=== PATIENT | male | born 1930 | race Caucasian/White ===

== ENCOUNTER 2017-05-02 20:02 | Inpatient (IN) | payer BC, OTHER ==
[2017-05-02 20:43] VITALS: BMI 24.5
--- NOTE | 2017-05-02 21:21 | PDOC ---
History of Present Illness - General Chief Complaint: Shortness of Breath Stated Complaint: PCP SENT Time Seen by Provider: 05/02/17 21:03 - History of Present Illness Initial Comments: 05/02/17 21:38 The patient is an 87 year old male with a history of Thalassemia Minor, HTN, HLD who presents for admission from his PCP for "fluid on the lungs". The patient reports a 1 week history of SOB worsening over the past 3 days with an associated non-productive cough. He presented to his primary care provider's office Dr. Peralta who informed him that he had "fluid on his lungs" and sent the patient to the ED for admission. The patient denies fevers, chills, chest pain , nausea, vomiting, abdominal pain, or changes with urination or bowel movements. He does endorse some lower extremity swelling which he states is chronic. Past History - Past Medical History Allergies/Adverse Reactions: Allergies Allergy/AdvReac Type Severity Reaction Status Date / Time No Known Allergies Allergy Verified 05/02/17 20:30 Home Medications: Ambulatory Orders Atenolol [Tenormin -] 50 mg PO DAILY 07/16/14 Ciprofloxacin [Cipro (Restricted To Id)] 250 mg PO BID #14 tablet 07/16/14 Folic Acid - 1 mg PO DAILY 07/16/14 Folic Acid/Multivit-Min/Lutein [Centrum Silver Chewable Tablet] 1 each PO DAILY 07/16/14 Hydrochlorothiazide [Hctz -] 25 mg PO DAILY 07/16/14 Anemia: Yes COPD: No HTN: Yes - Suicide/Smoking/Psychosocial Hx Smoking History: Former smoker Have you smoked in the past 12 months: No If you are a former smoker, when did you quit?: 1973 Information on smoking cessation initiated: No Hx Alcohol Use: No Review of Systems - Review of Systems Comments:: 05/02/17 21:41 Constitutional: No fevers, chills, fatigue, malaise HEENT: No Rhinorrhea, nasal congestion, visual changes Cardiovascular: No chest pain, syncope, palpitations, lightheadedness Respiratory: SOB, Cough. No Hemoptysis, Gastrointestinal: No Abdominal pain, Nausea, Vomiting, Constipation, Diarrhea, Melena Genitourinary: No Dysuria, Frequency, Urgency, Hesitancy, Hematuria, Flank pain Musculoskeletal: Lower extremity swelling. No Myalgia, arthralgia Skin: No rashes, itching, bruising, pallor Neurologic: No Headache, Dizziness, Numbness, Weakness, or Tingling Psychiatric: No Hallucinations. No SI or HI *Physical Exam - Vital Signs Last Vital Signs Temp Pulse Resp BP Pulse Ox 98.6 F 107 H 28 H 119/71 86 L 05/02/17 20:30 05/02/17 20:30 05/02/17 20:30 05/02/17 20:30 05/02/17 20:30 - Physical Exam Comments: 05/02/17 21:42 General Appearance: Nourished. No Apparent Distress HEENT: EOMI, MONTEZ. No Pharyngeal Erythema, Tonsillar Exudate, Tonsillar Erythema Neck: No Cervical Lymphadenopathy Respiratory/Chest: Normal Breath Sounds. Bibasilar crackles auscultated on exam. No Rhonchi, Wheezing Cardiovascular: Regular Rhythm, Regular Rate. No Murmur, Gallops, Rubs Gastrointestinal/Abdominal: Normal Bowel Sounds, Soft. No Guarding, Rebound, Tenderness Musculoskeletal: No CVA Tenderness Extremity: 3+ pitting edema in the lower extremities. Normal Capillary Refill Integumentary: Normal Color, Dry, Warm Neurologic: Fully Oriented, Alert, Normal Mood/Affect, Normal Response, Heart Score/ECG Review #1 ECG reviewed & interpreted by me at: 01:31 (New AFib with a HR of 104) General ECG Interpretation: Normal Intervals, No acute ischemic changes ED Treatment Course - LABORATORY CBC & Chemistry Diagram: 05/03/17 00:49 05/03/17 00:49 Medical Decision Making - Medical Decision Making 05/02/17 21:44 The patient is an 87 year old male with a history of Thalassemia Minor, HTN, HLD who presents for admission from his PCP for "fluid on the lungs". Differential includes but is not limited to: Sepsis, CHF, Pneumonia, pleural effusions, infectious, metabolic derangement. Given the patient's symptoms and history, we will obtain a sepsis work up including a cbc, cmp, ua, lactate, troponin, vbg, chest plain film and blood cultures. The patient will require admission for further management of his symptoms. We will continue to monitor and reassess. 05/03/17 01:58 CBC, cmp, lactate, troponin, vbg are unremarkable. EKG demonstrates new onset afib when compared with previous. Chest plain film demonstrates pleural effusions bilaterally worse on the right with pulmonary congestion as preliminarily read by ER physician. It is possible the patient went into new onset afib which is contributing to the patient's pulmonary congestion and lower extremity edema. We discussed the patient with the hospitalist team who accepted the patient for admission. *DC/Admit/Observation/Transfer Diagnosis at time of Disposition: Pleural effusion Afib Qualifiers: Atrial fibrillation type: unspecified Qualified Code(s): I48.91 - Unspecified atrial fibrillation - Discharge Dispostion Condition at time of disposition: Stable Admit: Yes - Referrals Referrals: Dat Peralta MD [Primary Care Provider] - - Patient Instructions - Post Discharge Activity
--- NOTE | 2017-05-02 21:40 | PDOC ---
Attending Attestation - HPI HPI: 05/02/17 21:41 The patient is a 87 year old male, with a significant past medical history of hypertension, aortic dissection, who presents to the emergency department from the office of Dr. Peralta for admission. The patient presented to Dr. Peralta with shortness of breath and was found to have fluid in the lungs on chest x-ray. The patient also reports an intermittent, dry cough. The patient denies chest pain, headache and dizziness. The patient denies fever, chills, nausea, vomit, diarrhea and constipation. The patient denies dysuria, frequency, urgency and hematuria. Allergies: NKDA PCP - Dr. Peralta - Medical Decision Making 05/02/17 21:41 Documentation prepared by Mary Malone, acting as medical billing and coding specialist for Krish Phelan DO. <Mary Malone - Last Filed: 05/02/17 21:41> - Resident Resident Name: Barrington Flores - ED Attending Attestation I have performed the following: I have examined & evaluated the patient, The case was reviewed & discussed with the resident, I agree w/resident's findings & plan, Exceptions are as noted - Physicial Exam PE: 05/02/17 23:01 *Physical Exam General Appearance: Yes: Appropriately Dressed. No: Apparent Distress, Intoxicated HEENT: positive: EOMI, MONTEZ, Normal ENT Inspection, Normal Voice, TMs Normal, Pharynx Normal. negative: Pale Conjunctivae, Photophobia, Scleral Icterus (R), Scleral Icterus (L) Neck: positive: Trachea midline, Normal Thyroid, Supple. negative: Tender, Rigid, Carotid bruit, Stridor, Lymphadenopathy (R), Lymphadenopathy (L), Thyromegaly Respiratory/Chest: positive: Lungs decreased BS bilaterally negative: Chest Tender, Respiratory Distress, Accessory Muscle Use, Labored Respiration, RES, Crackles, Rales, Rhonchi, Stridor, Wheezing, Dullness Cardiovascular: positive: Regular Rhythm, Regular Rate, S1, S2. negative: Edema , JVD, Murmur, Bradycardia, Tachycardia Vascular Pulses: Dorsalis-Pedis (R): 2+, Doralis-Pedis (L): 2+ Gastrointestinal/Abdominal: positive: Normal Bowel Sounds, Flat, Soft. negative : Tender, Organomegaly, Pulsatile Mass, Increased Bowel Sounds, Decreased BS, Distended, Guarding, Rebound, Hernia, Hepatomegaly, Spleenomegaly Lymphatic: negative: Adenopathy, Tenderness Musculoskeletal: positive: Normal Inspection. negative: CVA Tenderness, Decreased Range of Motion Extremity: positive: Normal Capillary Refill, Normal Inspection, Normal Range of Motion, Pelvis Stable. negative: Tender, Pedal Edema, Swelling, Erythema Integumentary: positive: Normal Color, Dry, Warm. negative: Cyanotic, Erythema , Jaundice, Rash Neurologic: positive: medication aid II-XII NML intact, Fully Oriented, Alert, Normal Mood/ Affect, Motor Strength 5/5. negative: EOM Palsy, Facial Droop, Sensory Deficit <Krish Phelan - Last Filed: 05/02/17 23:02>
[2017-05-03 01:04] LABS: BASO % 0.1 % (0-2.0); HEMATOCRIT 30.4 % (35.4-49); HEMOGLOBIN 9.5 GM/dL (11.7-16.9); LYMPH % 17.4 % (8-40); MCH 20.6 pg (25.7-33.7); MCHC 31.3 g/dl (32.0-35.9); MEAN CELL VOLUME 65.8 fl (80-96); MEAN PLT VOLUME 9.4 fl (7.5-11.1); MONO % 13.6 % (3.8-10.2); NEUT % 68.9 % (42.8-82.8); PLATELET COUNT 176 K/MM3 (134-434); RBC 4.62 M/mm3 (4.00-5.60); RDW 17.6 % (11.9-15.9); WHITE BLOOD COUNT 6.5 K/mm3 (4.0-10.0)
[2017-05-03 01:12] LABS: VENOUS PC02 43.8 mmHg (38-52); VENOUS PH 7.37 (7.32-7.42); VENOUS PO2 28.2 mmHg (28-48)
[2017-05-03 01:13] LABS: ADD RBC MORPHOLOGY YES
[2017-05-03 01:16] LABS: ANISOCYTOSIS 1+
[2017-05-03 01:17] LABS: INR 1.22 (0.82-1.09); PROTHROMBIN TIME (PATIENT) 13.8 SEC (9.98-11.88)
[2017-05-03 01:22] LABS: URINE APPEARANCE SLCLOUDY; URINE BILIRUBIN NEGATIVE (NEGATIVE); URINE BLOOD NEGATIVE (NEGATIVE); URINE COLOR DKYELLOW; URINE GLUCOSE (UA) NEGATIVE (NEGATIVE); URINE KETONE NEGATIVE (NEGATIVE); URINE NITRITE NEGATIVE (NEGATIVE)
[2017-05-03 01:27] LABS: ALBUMIN 3.3 g/dl (3.4-5.0); ANION GAP 12 (8-16); BILIRUBIN,TOTAL 0.9 mg/dL (0.2-1.0); BLOOD UREA NITROGEN 23 mg/dL (7-18); CALCIUM 8.6 mg/dL (8.5-10.1); CHLORIDE 103 mmol/L (98-107); CO2 24 mmol/L (21-32); CREATININE 1.4 mg/dL (0.7-1.3); GLUCOSE,RANDOM 106 mg/dL (74-106); POTASSIUM 3.8 mmol/L (3.5-5.1); SGOT/AST 20 U/L (15-37); SGPT/ALT 21 U/L (12-78); SODIUM 139 mmol/L (136-145); TOT PROT 6.8 g/dl (6.4-8.2)
[2017-05-03 01:29] LABS: ALK PHOS 113 U/L (45-117)
[2017-05-03 01:41] LABS: URINE LEUK ESTERASE 3+ (NEGATIVE); URINE PROTEIN 1+ (NEGATIVE)
[2017-05-03 01:43] LABS: EPI CELLS RARE /HPF (FEW); URINE BACTERIA RARE /hpf (NONE SEEN); URINE HYALINE CAST 40 /lpf; URINE MUCUS RARE
--- NOTE | 2017-05-03 01:58 | HP ---
Admitting History and Physical - Primary Care Physician PCP: Dat Peralta - Admission Chief Complaint: SOB, Non-Productive Cough, Lower Extremity Edema History of Present Illness: This is a 87 y/o man who presents to the ED sent in by his PCP for increased SOB x 1 week lower leg edema and non-productive cough x 3 days. Patient denies fever, chills, dizziness, CP, palpitations, AP, N/V/D, dysuria. History Source: Patient Limitations to Obtaining History: No Limitations - Past Medical History Cardiovascular: Yes: HTN, Hyperlipdemia Heme/Onc: Yes: Other (Thalassemia) - Smoking History Smoking history: Former smoker Have you smoked in the past 12 months: No If you are a former smoker, when did you quit?: 1973 - Alcohol/Substance Use Hx Alcohol Use: No History of Substance Use: reports: None - Social History Usual Living Arrangement: Yes: With Spouse ADL: Independent History of Recent Travel: No Home Medications - Allergies Allergies/Adverse Reactions: Allergies Allergy/AdvReac Type Severity Reaction Status Date / Time No Known Allergies Allergy Verified 05/02/17 20:30 - Home Medications Home Medications: Ambulatory Orders Atenolol [Tenormin -] 50 mg PO DAILY 07/16/14 Ciprofloxacin [Cipro (Restricted To Id)] 250 mg PO BID #14 tablet 07/16/14 Folic Acid - 1 mg PO DAILY 07/16/14 Folic Acid/Multivit-Min/Lutein [Centrum Silver Chewable Tablet] 1 each PO DAILY 07/16/14 Hydrochlorothiazide [Hctz -] 25 mg PO DAILY 07/16/14 Family Disease History - Family Disease History Family History: Unable to Obtain Review of Systems - Review of Systems Constitutional: reports: No Symptoms Eyes: reports: No Symptoms HENT: reports: No Symptoms Neck: reports: No Symptoms Cardiovascular: reports: No Symptoms Respiratory: reports: Cough, SOB, SOB on Exertion Gastrointestinal: reports: No Symptoms Genitourinary: reports: No Symptoms Breasts: reports: No Symptoms Reported Musculoskeletal: reports: No Symptoms Integumentary: reports: No Symptoms Neurological: reports: No Symptoms Endocrine: reports: No Symptoms Hematology/Lymphatic: reports: No Symptoms Psychiatric: reports: No Symptoms Physical Examination Vital Signs: Vital Signs Temperature 98.6 F 05/03/17 01:38 Pulse Rate 104 H 05/03/17 01:38 Respiratory Rate 21 05/03/17 01:38 Blood Pressure 145/88 05/03/17 01:38 O2 Sat by Pulse Oximetry (%) 95 05/03/17 01:38 Constitutional: Yes: No Distress, Calm, Thin Eyes: Yes: WNL, Conjunctiva Clear, PERRL HENT: Yes: WNL, Atraumatic, Normocephalic Neck: Yes: WNL, Supple, Trachea Midline Cardiovascular: Yes: Pulse Irregular, S1, S2 Respiratory: Yes: Diminished, On Nasal O2 (bases) Gastrointestinal: Yes: WNL, Normal Bowel Sounds, Soft ...Rectal Exam: Yes: Deferred Renal/: Yes: WNL Breast(s): Yes: WNL Musculoskeletal: Yes: WNL Extremities: Yes: WNL Edema: Yes Edema: LLE: 3+, RLE: 3+ Peripheral Pulses WNL: Yes Integumentary: Yes: Erythema, Onychomycosis Neurological: Yes: WNL, Alert, Oriented, Cran Nerves II-XII Intact ...Motor Strength: WNL Psychiatric: Yes: WNL, Alert, Oriented Labs: CBC, BMP 05/03/17 00:49 05/03/17 00:49 Imaging - Results Chest X-ray: Image Reviewed EKG: Image Reviewed Problem List - Problems (1) Pleural effusion Code(s): J90 - PLEURAL EFFUSION, NOT ELSEWHERE CLASSIFIED (2) Afib Code(s): I48.91 - UNSPECIFIED ATRIAL FIBRILLATION Qualifiers: Atrial fibrillation type: unspecified Qualified Code(s): I48.91 - Unspecified atrial fibrillation (3) Thalassemia Code(s): D56.9 - THALASSEMIA, UNSPECIFIED (4) HTN (hypertension) Code(s): I10 - ESSENTIAL (PRIMARY) HYPERTENSION (5) HLD (hyperlipidemia) Code(s): E78.5 - HYPERLIPIDEMIA, UNSPECIFIED (6) DVT prophylaxis Code(s): DDN1258 - Assessment/Plan This is a 87 y/o man with a PMHx of: Thalassemia, HLD, HTN. Admitted to Telemetry for New Onset Afib, Pleural Effusion. Plan: 1. Cardiology: New Onset Afib, HTN, HLD - Cardiac Monitoring - [id number] - Will start Eliquis - Appreciate Cardiology Consult - Serial Enzymes - Echo in am - Continue BP meds with parameters - Continue Statin - Monitor LFTs - Monitor renal function 2. Pulm: Pleural Effusion - Chest Xray- image reviewed - Lasix - Strict INOs - Daily weights - O2 - Consider Thoracentesis if condition worsens 3. Heme - Monitor CBCD - Continue to treat with interventions accordingly 4. F/E/N - Fluid Restrictions 1L - Replete lytes prn - Low Na Diet 5. DVT Prophylaxis - OOB - Continue Eliquis Code Status: Full Code Dispo: Requires Inpatient Care Visit type - Emergency Visit Emergency Visit: Yes ED Registration Date: 05/02/17 Care time: The patient presented to the Emergency Department on the above date and was hospitalized for further evaluation of their emergent condition. - New Patient This patient is new to me today: Yes Date on this admission: 05/02/17 - Critical Care Critical Care patient: No Hospitalist Screening - Colonoscopy Questionnaire Colonoscopy Questionnaire: Colonoscopy Questionnaire - Patient: 50 - 75 years old and never had a screening colonoscopy: No History of colon or rectal polyps, or CA: No History of IBD, Crohn's disease or UC: No History of abdominal radiation therapy as a child: No - Relative: 1 with colon or rectal CA, or polyps at age 60 or younger: No Colon or rectal CA diagnosed at age 45 or younger: No Multiple relatives with colon or rectal CA: No - Outcome: Screening Result: Negative Screen
[2017-05-03] MEDS ORDERED: CEFTRIAXONE 1 GM/50 ML BAG ONE (06:31)
[2017-05-03 07:06] LABS: BASO % 0.2 % (0-2.0); EOS % 0.2 % (0-4.5); HEMATOCRIT 30.2 % (35.4-49); HEMOGLOBIN 9.3 GM/dL (11.7-16.9); LYMPH % 26.3 % (8-40); MCH 20.5 pg (25.7-33.7); MCHC 30.9 g/dl (32.0-35.9); MEAN CELL VOLUME 66.4 fl (80-96); NEUT % 58.3 % (42.8-82.8); PLATELET COUNT 163 K/MM3 (134-434); RBC 4.55 M/mm3 (4.00-5.60); RDW 18.2 % (11.9-15.9); WHITE BLOOD COUNT 6.9 K/mm3 (4.0-10.0)
[2017-05-03 07:32] LABS: MAGNESIUM 1.4 mg/dL (1.8-2.4)
[2017-05-03] MEDS ORDERED: ATENOLOL 25 MG TABLET (FP) ONE (09:58)
[2017-05-03] MEDS ORDERED: CEFTRIAXONE 1 G/50 ML PREMIX 50 ML IVPB SCH (10:00)
[2017-05-03] MEDS ORDERED: ATENOLOL 50 MG TABLET (FP) PO SCH (10:00)
[2017-05-03] MEDS: AZITHROMYCIN IVPB 500 MG in DEXTROSE 5%-WATER - 250 ML IVPB SCH (10:01)
[2017-05-03] MEDS ORDERED: MAGNESIUM SULF 50% (8.12 MEQ/2 ML-1 GM VIAL) IVPB ONE (10:30)
[2017-05-03] MEDS ORDERED: MAGNESIUM SULF 50% (8.12 MEQ/2 ML-1 GM VIAL) ONE (11:09)
[2017-05-03] MEDS ORDERED: FUROSEMIDE 40 MG/4 ML INJECTABLE VIAL ONE (11:09)
--- NOTE | 2017-05-03 11:57 | PN ---
Physical Exam: SUBJECTIVE: Patient seen and examined awaiting bed assignment in the ER. Holding bed #7 Denies chest pain, verbalizes dyspnea with exertion. States he is compliant with all his home meds. OBJECTIVE: Appears comfortable at rest in no acute distress, but dyspnea on exertion reported mag 1.4 and repleted with 2 gram mag Echo ordered Cardiology and ID consulted by night team On Ceftriaxone On Eliquis BID for new onset afib Vital Signs Period Temp Pulse Resp BP Sys/Garsia Pulse Ox Last 24 Hr 98.5 F-98.6 F 104-109 18-28 119-158/71-103 86-95 GENERAL: The patient is awake, alert, and fully oriented, in no acute distress. HEAD: Normal with no signs of trauma. EYES: PERRL, extraocular movements intact, sclera anicteric, conjunctiva clear. No ptosis. ENT: Ears normal, nares patent, oropharynx clear without exudates, moist mucous membranes. NECK: Trachea midline, full range of motion, supple. LUNGS: scattered rhonchi auscultated on all lung carpenter, on 3 liter of supplemental oxygen HEART: irregular ABDOMEN: Soft, nontender, nondistended, normoactive bowel sounds EXTREMITIES: bilateral lower extremity non pitting edema, patient states bilateral lower ext edema chronic for years NEUROLOGICAL: Normal speech, gait not observed. PSYCH: Normal mood, normal affect. SKIN: Warm, dry, normal turgor, no rashes or lesions noted Laboratory Results - last 24 hr 05/03/17 05/03/17 05/03/17 00:49 00:49 00:49 WBC 6.5 D RBC 4.62 Hgb 9.5 L Hct 30.4 L MCV 65.8 L MCH 20.6 L MCHC 31.3 L RDW 17.6 H D Plt Count 176 MPV 9.4 D Neutrophils % 68.9 Lymphocytes % 17.4 Monocytes % 13.6 H Eosinophils % 0.0 D Basophils % 0.1 Hypochromia 3+ Anisocytosis 1+ Microcytosis 1+ PT with INR 13.80 H INR 1.22 H PTT (Actin FS) 34.0 VBG pH 7.37 POC VBG pCO2 43.8 POC VBG pO2 28.2 Mixed VBG HCO3 25.0 Sodium Potassium Chloride Carbon Dioxide Anion Gap BUN Creatinine Creat Clearance w eGFR Random Glucose Lactic Acid Calcium Phosphorus Magnesium Total Bilirubin AST ALT Alkaline Phosphatase Creatine Kinase Troponin I Total Protein Albumin Triglycerides Cholesterol Total LDL Cholesterol HDL Cholesterol Urine Color Urine Appearance Urine pH Ur Specific [place] Urine Protein Urine Glucose (UA) Urine Ketones Urine Blood Urine Nitrite Urine Bilirubin Urine Urobilinogen Ur Leukocyte Esterase Urine WBC (Auto) Urine RBC (Auto) Ur Epithelial Cells Urine Bacteria Hyaline Casts Urine Mucus Blood Type Antibody Screen 05/03/17 05/03/17 05/03/17 00:49 00:49 00:49 WBC RBC Hgb Hct MCV MCH MCHC RDW Plt Count MPV Neutrophils % Lymphocytes % Monocytes % Eosinophils % Basophils % Hypochromia Anisocytosis Microcytosis PT with INR INR PTT (Actin FS) VBG pH POC VBG pCO2 POC VBG pO2 Mixed VBG HCO3 Sodium 139 Potassium 3.8 Chloride 103 Carbon Dioxide 24 D Anion Gap 12 BUN 23 H Creatinine 1.4 H D Creat Clearance w eGFR 47.83 Random Glucose 106 D Lactic Acid 1.2 Calcium 8.6 Phosphorus Magnesium Total Bilirubin 0.9 D AST 20 D ALT 21 Alkaline Phosphatase 113 D Creatine Kinase 90 Troponin I 0.04 Total Protein 6.8 Albumin 3.3 L Triglycerides Cholesterol Total LDL Cholesterol HDL Cholesterol Urine Color Urine Appearance Urine pH Ur Specific [place] Urine Protein Urine Glucose (UA) Urine Ketones Urine Blood Urine Nitrite Urine Bilirubin Urine Urobilinogen Ur Leukocyte Esterase Urine WBC (Auto) Urine RBC (Auto) Ur Epithelial Cells Urine Bacteria Hyaline Casts Urine Mucus Blood Type O POSITIVE Antibody Screen Negative 05/03/17 05/03/17 05/03/17 01:08 06:53 06:53 WBC 6.9 RBC 4.55 Hgb 9.3 L Hct 30.2 L MCV 66.4 L MCH 20.5 L MCHC 30.9 L RDW 18.2 H Plt Count 163 MPV 9.0 Neutrophils % 58.3 Lymphocytes % 26.3 D Monocytes % 15.0 H Eosinophils % 0.2 D Basophils % 0.2 Hypochromia Anisocytosis Microcytosis PT with INR INR PTT (Actin FS) VBG pH POC VBG pCO2 POC VBG pO2 Mixed VBG HCO3 Sodium Potassium Chloride Carbon Dioxide Anion Gap BUN Creatinine Creat Clearance w eGFR Random Glucose Lactic Acid Calcium Phosphorus 3.0 Magnesium 1.4 L Total Bilirubin AST ALT Alkaline Phosphatase Creatine Kinase Troponin I 0.05 Total Protein Albumin Triglycerides 69 Cholesterol 68 Total LDL Cholesterol 37 HDL Cholesterol 31 L Urine Color Dkyellow Urine Appearance Slcloudy Urine pH 5.0 Ur Specific [place] 1.018 Urine Protein 1+ H Urine Glucose (UA) Negative Urine Ketones Negative Urine Blood Negative Urine Nitrite Negative Urine Bilirubin Negative Urine Urobilinogen 2.0 Ur Leukocyte Esterase 3+ H Urine WBC (Auto) 103 Urine RBC (Auto) 4 Ur Epithelial Cells Rare Urine Bacteria Rare Hyaline Casts 40 Urine Mucus Rare Blood Type Antibody Screen Active Medications Generic Name Dose Route Start Last Admin Trade Name Freq PRN Reason Stop Dose Admin Apixaban 5 mg 05/03/17 12:00 Eliquis - PO BID RIVAS Atenolol 50 mg 05/03/17 10:00 05/03/17 10:01 Tenormin - PO 50 mg DAILY RIVAS Administration Folic Acid 1 mg 05/03/17 10:00 Folic Acid - PO DAILY RIVAS Furosemide 40 mg 05/03/17 10:00 Lasix Injection - IVPUSH DAILY RIVAS CEFTRIAXONE 1 G/50 ML PREMIX 50 mls @ 100 mls/hr 05/03/17 10:00 Ceftriaxone 1 Gm-D5w Bag IVPB DAILY RIVAS Azithromycin 500 mg/ Dextrose 250 mls @ 250 mls/hr 05/03/17 10:00 05/03/17 10 :01 IVPB 250 mls/hr DAILY RIVAS Administration Multivitamins/Minerals 1 each 05/03/17 10:45 Theragran-M PO DAILY RIVAS ASSESSMENT/PLAN: Visit type - Emergency Visit Emergency Visit: Yes ED Registration Date: 05/03/17 Care time: The patient presented to the Emergency Department on the above date and was hospitalized for further evaluation of their emergent condition. - New Patient This patient is new to me today: Yes Date on this admission: 05/04/17 - Critical Care Critical Care patient: No - Discharge Referral Referred to [facility] No
[2017-05-03] MEDS: FUROSEMIDE 40 MG/4 ML INJECTABLE VIAL IVPUSH SCH (12:00)
--- NOTE | 2017-05-03 12:17 | EKG ---
Test Reason : Blood Pressure : / mmHG Vent. Rate : 104 BPM Atrial Rate : 416 BPM P-R Int : 000 ms QRS Dur : 096 ms QT Int : 360 ms P-R-T Axes : 000 051 091 degrees QTc Int : 473 ms ATRIAL FIBRILLATION WITH RAPID VENTRICULAR RESPONSE VOLTAGE CRITERIA FOR LEFT VENTRICULAR HYPERTROPHY NONSPECIFIC ST AND T WAVE ABNORMALITY ABNORMAL ECG WHEN COMPARED WITH ECG OF 16-JUL-2014 18:01, SIGNIFICANT CHANGES HAVE OCCURRED Confirmed by USAMA BRADEN, DUDLEY ([id number]) on 05/03/2017 12:17:40 PM Referred By: Confirmed By:DUDLEY FORRESTER MD
--- NOTE | 2017-05-03 12:53 | CON.ID ---
Consult Consult Specialty:: infectious diseases Reason for Consultation:: pna,r/o uti - History of Present Illness Chief Complaint: sob,fever,r/o uti History of Present Illness: 87 year old man former heavy smoker, copd, htn, AAA s/p stent repair at [facility] 2013 , admitted with progressive sob, orthopnea and leg edema. patient mentions that the sob came on suddenly denies any other symptoms except that he was feverish patient also feels very weak and has no strength at all he also has new onset of afib denies dirrhoea ,nausea or vomiting - History Source History Provided By: Patient Limitations to Obtaining History: No Limitations - Past Medical History Cardio/Vascular: Yes: HTN, Hyperlipdemia - Alcohol/Substance Use Hx Alcohol Use: No History of Substance Use: reports: None - Smoking History Smoking history: Former smoker Have you smoked in the past 12 months: No If you are a former smoker, when did you quit?: 1973 - Social History ADL: Independent History of Recent Travel: No Home Medications - Allergies Allergies/Adverse Reactions: Allergies Allergy/AdvReac Type Severity Reaction Status Date / Time No Known Allergies Allergy Verified 05/02/17 20:30 - Home Medications Home Medications: Ambulatory Orders Atenolol [Tenormin -] 50 mg PO DAILY 07/16/14 Ciprofloxacin [Cipro (Restricted To Id)] 250 mg PO BID #14 tablet 07/16/14 Folic Acid - 1 mg PO DAILY 07/16/14 Folic Acid/Multivit-Min/Lutein [Centrum Silver Chewable Tablet] 1 each PO DAILY 07/16/14 Hydrochlorothiazide [Hctz -] 25 mg PO DAILY 07/16/14 Review of Systems - Review of Systems Constitutional: reports: Fever Eyes: reports: No Symptoms HENT: reports: No Symptoms Neck: reports: No Symptoms Cardiovascular: reports: No Symptoms Respiratory: reports: Cough, SOB Gastrointestinal: reports: No Symptoms Genitourinary: reports: No Symptoms Musculoskeletal: reports: No Symptoms Integumentary: reports: No Symptoms Neurological: reports: No Symptoms Endocrine: reports: No Symptoms Hematology/Lymphatic: reports: No Symptoms Psychiatric: reports: No Symptoms Physical Exam Vital Signs: Vital Signs Temperature 98.5 F 05/03/17 06:38 Pulse Rate 109 H 05/03/17 10:00 Respiratory Rate 18 05/03/17 10:00 Blood Pressure 154/81 05/03/17 10:00 O2 Sat by Pulse Oximetry (%) 95 05/03/17 10:00 Constitutional: Yes: No Distress, Calm, Other Eyes: Yes: Conjunctiva Clear HENT: Yes: Atraumatic, Normocephalic Neck: Yes: Supple, Trachea Midline Cardiovascular: Yes: Pulse Irregular Respiratory: Yes: On Nasal O2, Poor Air Entry (bases), Other (absent on the rt side) Gastrointestinal: Yes: Normal Bowel Sounds, Soft Musculoskeletal: Yes: WNL Extremities: Yes: WNL Neurological: Yes: Alert, Oriented Psychiatric: Yes: Alert, Oriented Labs: CBC, BMP 05/03/17 06:53 05/03/17 00:49 Assessment/Plan looking at the xray patient has a infiltrate and pleural effusion on the rt side Respiratory Failure Decompensated CHF New Onset Atrial Fibrillation UTI Acute Kidney Injury COPD/Emphysema plan ct of the chest funk start patient on abx await for all results rest as per primary and pul
[2017-05-03] MEDS ORDERED: ALBUTEROL SO4 2.5/IPRATROPIUM 0.5 INH SOL 3 ML VIAL.NEB. NEB SCH (14:00)
[2017-05-03] MEDS ORDERED: PIPERACILLIN/TAZOB 2.25 GM 2.25 GM/50 ML BAG IVPB SCH (14:15)
[2017-05-03] MEDS ORDERED: FUROSEMIDE 40 MG/4 ML INJECTABLE VIAL IVPUSH ONE (14:30)
--- NOTE | 2017-05-03 16:04 | CON.CARD ---
Consult Consult Specialty:: Cardiology Referred by:: Dr Enriquez Reason for Consultation:: afib chf - History of Present Illness Chief Complaint: sob History of Present Illness: He is an 87 year old man former heavy smoker, copd, htn, AAA s/p stent repair at [facility] 2013, admitted with progressive sob, orthopnea and leg edema. Noted with chf on cxr and new atrial fibrillation on ECG. No chest pain, palpitations , dizziness or syncope. Exercise tolerance is good. - Past Medical History Cardio/Vascular: Yes: HTN, Hyperlipdemia - Alcohol/Substance Use Hx Alcohol Use: No History of Substance Use: reports: None - Smoking History Smoking history: Former smoker Have you smoked in the past 12 months: No If you are a former smoker, when did you quit?: 1973 - Social History ADL: Independent History of Recent Travel: No Home Medications - Allergies Allergies/Adverse Reactions: Allergies Allergy/AdvReac Type Severity Reaction Status Date / Time No Known Allergies Allergy Verified 05/02/17 20:30 - Home Medications Home Medications: Ambulatory Orders Atenolol [Tenormin -] 50 mg PO DAILY 07/16/14 Ciprofloxacin [Cipro (Restricted To Id)] 250 mg PO BID #14 tablet 07/16/14 Folic Acid - 1 mg PO DAILY 07/16/14 Folic Acid/Multivit-Min/Lutein [Centrum Silver Chewable Tablet] 1 each PO DAILY 07/16/14 Hydrochlorothiazide [Hctz -] 25 mg PO DAILY 07/16/14 Review of Systems - Review of Systems Constitutional: reports: No Symptoms Eyes: reports: No Symptoms HENT: reports: No Symptoms Neck: reports: No Symptoms Cardiovascular: reports: Shortness of Breath Respiratory: reports: Exercise Intolerance, SOB on Exertion Gastrointestinal: reports: No Symptoms Genitourinary: reports: No Symptoms Endocrine: reports: No Symptoms Vital Signs: Vital Signs Temperature 98.5 F 05/03/17 06:38 Pulse Rate 77 05/03/17 13:47 Respiratory Rate 24 05/03/17 13:47 Blood Pressure 131/71 05/03/17 13:47 O2 Sat by Pulse Oximetry (%) 86 L 05/03/17 13:47 Constitutional: Yes: No Distress, Calm Eyes: Yes: Conjunctiva Clear HENT: Yes: Atraumatic, Normocephalic Neck: Yes: Trachea Midline Respiratory: Yes: Poor Air Entry, Rales (bilat bases) Gastrointestinal: Yes: Normal Bowel Sounds, Soft Cardiovascular: Yes: Tachycardia, Pulse Irregular JVD: Yes Carotid Bruit: No PMI: Non-Displaced Heart Sounds: Yes: S1, S2 Murmur: Yes: Systolic Murmur, Grade 1 Edema: Yes Edema: LLE: 2+, RLE: 2+ Peripheral Pulses WNL: Yes - Other Data Labs, Other Data: CBC, BMP 05/03/17 06:53 05/03/17 00:49 INR, PTT INR 1.22 (0.82-1.09) H 05/03/17 00:49 Troponin, BNP 05/03/17 05/03/17 05/03/17 00:49 06:53 13:05 Troponin I 0.04 0.05 0.04 Troponin, BNP 05/03/17 05/03/17 05/03/17 00:49 06:53 13:05 Troponin I 0.04 0.05 0.04 Imaging - Results Chest X-ray: Report Reviewed (chf) Cat Scan: Report Reviewed (chest chf, copd) EKG: Report Reviewed (afib rvr lvh nssttw changes) Problem List - Problems (1) Afib Assessment/Plan: He has new onset afib with rvr. start metoprolol 50 mg bid start eliquis 5 bid, if creatinine > 1.5 reduce dose to 2.5 mg bid. echo ordered. tfts Code(s): I48.91 - UNSPECIFIED ATRIAL FIBRILLATION Qualifiers: Atrial fibrillation type: unspecified Qualified Code(s): I48.91 - Unspecified atrial fibrillation (2) CHF (congestive heart failure) Assessment/Plan: Acute on chronic diastolic chf Echo diurese with lasix 40 mg iv daily daily wts, follow k, creat. Code(s): I50.9 - HEART FAILURE, UNSPECIFIED Qualifiers: Heart failure type: diastolic Heart failure chronicity: acute on chronic Qualified Code(s): I50.33 - Acute on chronic diastolic (congestive) heart failure
--- NOTE | 2017-05-03 16:10 | CON.PULM ---
Consult Consult Specialty:: PULMONARY Referred by:: INGRID Pleitez Reason for Consultation:: shortness of breath - History of Present Illness Chief Complaint: shortness of breath History of Present Illness: 87yo male with h/o HTN, hyperlipidemia, thalassemia minor who was sent by his PMD for worsening shortness of breath. Denies chest pain or palpitations. + cough with clear sputum without wheezing or chest tightness. No fevers, chills or sweats. No recent travel or sick contacts. Did receive his flu vaccine. Reports increased leg swelling over the past year. Sleeps upright in a chair. He was a heavy smoker in the past, quit in the 70s. Worked in an [employer] shop. Denies history of asthma or COPD, does not use oxygen or inhalers at home. - History Source History Provided By: Patient, Family Member, Medical Record Limitations to Obtaining History: No Limitations - Past Medical History Cardio/Vascular: Yes: HTN, Hyperlipdemia - Alcohol/Substance Use Hx Alcohol Use: No History of Substance Use: reports: None - Smoking History Smoking history: Former smoker Have you smoked in the past 12 months: No If you are a former smoker, when did you quit?: 1973 - Social History ADL: Independent History of Recent Travel: No Home Medications - Allergies Allergies/Adverse Reactions: Allergies Allergy/AdvReac Type Severity Reaction Status Date / Time No Known Allergies Allergy Verified 05/02/17 20:30 - Home Medications Home Medications: Ambulatory Orders Atenolol [Tenormin -] 50 mg PO DAILY 07/16/14 Ciprofloxacin [Cipro (Restricted To Id)] 250 mg PO BID #14 tablet 07/16/14 Folic Acid - 1 mg PO DAILY 07/16/14 Folic Acid/Multivit-Min/Lutein [Centrum Silver Chewable Tablet] 1 each PO DAILY 07/16/14 Hydrochlorothiazide [Hctz -] 25 mg PO DAILY 07/16/14 Review of Systems - Review of Systems Constitutional: reports: Weakness. denies: Chills, Lethargy Eyes: denies: Recent Change in Vision HENT: denies: Nasal Congestion, Throat Pain Neck: denies: Stiffness, Tenderness Cardiovascular: reports: Edema, Shortness of Breath. denies: Chest Pain, Palpitations Respiratory: reports: Cough, Exercise Intolerance, Orthopnea, SOB on Exertion. denies: Hemoptysis, Wheezing Gastrointestinal: denies: Abdominal Pain, Nausea, Vomiting Genitourinary: denies: Dysuria, Hematuria Neurological: denies: Dizziness, Headache Physical Exam Vital Sings: Vital Signs Temperature 98.5 F 05/03/17 06:38 Pulse Rate 77 05/03/17 13:47 Respiratory Rate 24 05/03/17 13:47 Blood Pressure 131/71 05/03/17 13:47 O2 Sat by Pulse Oximetry (%) 86 L 05/03/17 13:47 Constitutional: Yes: Mild Distress (mildly tachypneic with speaking) Eyes: Yes: Conjunctiva Clear, EOM Intact HENT: Yes: Atraumatic, Normocephalic Neck: Yes: Supple, Trachea Midline Cardiovascular: Yes: Tachycardia, Pulse Irregular Respiratory: Yes: Rales (bibasilar), Rhonchi ...Clubbing: No Gastrointestinal: Yes: Normal Bowel Sounds, Soft. No: Tenderness Edema: Yes Neurological: Yes: Alert, Oriented Labs: CBC, BMP 05/03/17 06:53 05/03/17 00:49 Imaging - Results Chest X-ray: Report Reviewed, Image Reviewed Cat Scan: Report Reviewed, Image Reviewed (bilateral effusions, cardiomegaly, extensive upper lobe emphysematous, interstitial changes) Assessment/Plan Acute Hypoxic Respiratory Failure Decompensated CHF New Onset Atrial Fibrillation with RVR UTI Acute Kidney Injury COPD/Emphysema r/o ILD - IV lasix - monitor urine output, creatinine - daily weights, I/Os - echocardiogram - beta blockers, rate control - O2 to keep SpO2 >90% - inhaled bronchodilators as needed - rate control - continue anticoagulation - antibiotics per ID for UTI - f/u cultures - do not suspect pneumonia at this time - will need outpt PFTs but CT findings likely related to his smoking and exposure history Thank you for this consult Jose Bear MD
[2017-05-03] MEDS: MULTIVITAMINS THER W-MINERALS COMBO TABLET (FP) PO SCH (16:55)
[2017-05-03] MEDS: FOLIC ACID 1 MG TABLET (FP) PO SCH (16:55)
[2017-05-03] MEDS: APIXABAN 5 MG TABLET PO SCH ×2 (16:56→21:40)
[2017-05-03] MEDS: PIPERACILLIN/TAZOB 2.25 GM 2.25 GM in DEXTROSE 5%-WATER - 50 ML IVPB SCH (18:24)
[2017-05-03] MEDS: ALBUTEROL SO4 2.5/IPRATROPIUM 0.5 INH SOL 3 ML VIAL.NEB. NEB SCH (21:23)
[2017-05-03] MEDS: METOPROLOL TARTRATE 50 MG TABLET (FP) PO SCH (21:40)
[2017-05-04] MEDS ORDERED: PT OWN MED DRAWER 7, Y5N ONE (02:15)
[2017-05-04] MEDS: PIPERACILLIN/TAZOB 2.25 GM 2.25 GM in DEXTROSE 5%-WATER - 50 ML IVPB SCH ×3 (02:18→17:28)
[2017-05-04] MEDS: ALBUTEROL SO4 2.5/IPRATROPIUM 0.5 INH SOL 3 ML VIAL.NEB. NEB SCH ×4 (07:37→20:34)
[2017-05-04 07:41] LABS: ANION GAP 7 (8-16); BLOOD UREA NITROGEN 31 mg/dL (7-18); CALCIUM 7.9 mg/dL (8.5-10.1); CHLORIDE 104 mmol/L (98-107); CO2 29 mmol/L (21-32); CREATININE 1.7 mg/dL (0.7-1.3); POTASSIUM 4.1 mmol/L (3.5-5.1); SODIUM 140 mmol/L (136-145)
[2017-05-04 09:01] LABS: BASO % 0.2 % (0-2.0); EOS % 0.2 % (0-4.5); HEMATOCRIT 33.2 % (35.4-49); HEMOGLOBIN 10.2 GM/dL (11.7-16.9); LYMPH % 17.3 % (8-40); MCH 20.4 pg (25.7-33.7); MCHC 30.9 g/dl (32.0-35.9); MEAN PLT VOLUME 9.2 fl (7.5-11.1); MONO % 10.5 % (3.8-10.2); NEUT % 71.8 % (42.8-82.8); PLATELET COUNT 170 K/MM3 (134-434); RBC 5.03 M/mm3 (4.00-5.60); RDW 17.7 % (11.9-15.9)
[2017-05-04] MEDS ORDERED: methylPREDNISolone NA SUCC 125 MG/2 ML VIAL IVPUSH ONE (09:21)
--- NOTE | 2017-05-04 09:24 | PN ---
Physical Exam: SUBJECTIVE: Patient seen and examined at the bedside. Feels tired. Called by RN that patient was desating on the venti mask and unable to get reading of pulse ox OBJECTIVE: Patient on venti mask 50%, unable to get oxygen sats patient alert and oriented x 3 Profoundly tired as per patient +wheezing auscultated on posterior left lobe Solumedrol 60mg x 1 now will re-assess after steriod given abg now, chest xray Vital Signs Period Temp Pulse Resp BP Sys/Garsia Pulse Ox Last 24 Hr 97.3 F-98.5 F 77-109 18-24 121-155/69-88 86-97 GENERAL: The patient is awake, alert, and fully oriented, in moderate resp. distress. HEAD: Normal with no signs of trauma. EYES: PERRL, extraocular movements intact, sclera anicteric, conjunctiva clear. No ptosis. ENT: Ears normal, nares patent, oropharynx clear without exudates, moist mucous membranes. NECK: Trachea midline, full range of motion, supple. LUNGS: scattered wheezing on posterior upper lungs, desating on venti, + wheezing auscultated on posterior left lobe HEART: irregular ABDOMEN: Soft, nontender, nondistended, normoactive bowel sounds EXTREMITIES: bilateral lower extremity non pitting edema, patient states bilateral lower ext edema chronic for years NEUROLOGICAL: Normal speech, gait not observed. PSYCH: Normal mood, normal affect. SKIN: Warm, dry, normal turgor, no rashes or lesions noted Laboratory Results - last 24 hr 05/03/17 05/03/17 05/03/17 13:05 17:35 17:35 WBC RBC Hgb Hct MCV MCH MCHC RDW Plt Count MPV Neutrophils % Lymphocytes % Monocytes % Eosinophils % Basophils % Sodium Potassium 4.0 Chloride Carbon Dioxide Anion Gap BUN Creatinine Random Glucose Calcium Magnesium 2.3 D Troponin I 0.04 05/04/17 05/04/17 06:50 06:50 WBC 9.0 D RBC 5.03 Hgb 10.2 L Hct 33.2 L MCV 66.0 L MCH 20.4 L MCHC 30.9 L RDW 17.7 H Plt Count 170 MPV 9.2 Neutrophils % 71.8 D Lymphocytes % 17.3 D Monocytes % 10.5 H Eosinophils % 0.2 Basophils % 0.2 Sodium 140 Potassium 4.1 Chloride 104 Carbon Dioxide 29 D Anion Gap 7 L BUN 31 H D Creatinine 1.7 H D Random Glucose 88 Calcium 7.9 L Magnesium Troponin I Active Medications Generic Name Dose Route Start Last Admin Trade Name Cindi PRN Reason Stop Dose Admin Albuterol/Ipratropium 1 amp 05/03/17 20:00 05/04/17 07:37 Duoneb - NEB 1 amp RQID RIVAS Administration Apixaban 5 mg 05/03/17 12:00 05/03/17 21:40 Eliquis - PO 5 mg BID RIVAS Administration Folic Acid 1 mg 05/03/17 10:00 05/03/17 16:55 Folic Acid - PO 1 mg DAILY RIVAS Administration Furosemide 40 mg 05/03/17 10:00 05/03/17 12:00 Lasix Injection - IVPUSH 40 mg DAILY RIVAS Administration Azithromycin 500 mg/ Dextrose 250 mls @ 250 mls/hr 05/03/17 10:00 05/03/17 10 :01 IVPB 250 mls/hr DAILY RIVAS Administration Piperacillin Sod/Tazobactam 50 mls @ 100 mls/hr 05/03/17 17:20 05/04/17 02:18 Sod 2.25 gm/ Dextrose IVPB 100 mls/hr Q8H-IV RIVAS Administration Protocol Methylprednisolone Sodium Succinate 60 mg 05/04/17 09:21 Solu-Medrol - IVPUSH 05/04/17 09:22 ONCE ONE Metoprolol Tartrate 50 mg 05/03/17 22:00 05/03/17 21:40 Lopressor - PO 50 mg BID RIVAS Administration Multivitamins/Minerals 1 each 05/03/17 10:45 05/03/17 16:55 Theragran-M PO 1 each DAILY RIVAS Administration ASSESSMENT/PLAN: Patient is an 87 year old male with a significant past medical history of Thalassemia, hypertension and hyperlipidemia. He presented to the ED on 2017 with shortness of breath and was found to have new onset afib. He was admitted to tele. Further imaging as follows: CT Chest 05/03/2017: extensive chronic interstitial lung disease with suspected overlying pulmonary vascular congestion and moderate bilateral pleural effusions. Chest Xray 05/04/2017: Increased congestive changes with bilateral pleural effusions, airspace opacities in lower lobes. Echo 05/04/2017: LV mildly reduced, LA mod dilated, mild MR, mild to mod TR, RV sys. pressure elevated, moderate aortic thickening, mod aortic regurg., pleural effusion present Pulmonary Shortness of breath/Acute Hypoxic Respiratory Failure COPD/Emphysema Chest xray and CT as above Patient has underlying interstitial lung disease with overlying pulmonary vascular congestion Fine scattered wheezing this morning and given Solumedrol 60mg x 1 Re-checked patient at 18:42 and no further wheezing auscultated, his oxygen level was 92% on 3 liters. Will order Solumedrol 40mg daily dose and monitor for improvement On a venti mask currently, but should be weaned back down to nasal cannula as tolerated On Lasix 40mg iv push daily Monitor intake and output, monitor oxygen levels: goal is to keep oxygen @ 90% or better Respiratory pre and post prior to discharge, unsure if pt may need home oxygen use Bilateral pleural effusions may need possible thoracentesis if not improving On Zosyn as per ID Pulmonary following Cardiology: New onset afib with RVR Decompensated CHF Hypertension Hyperlipidemia On Eliquis BID On Metoprolol BID Monitor BP closely On Lipitor 10mg @ hs Echo as noted above Cardiology following UTI UA + 3 leuks Urine culture negative Renal: Acute Kidney Injury @ 1.7 Monitor with labs Hematology Thalassemia, chronic Monitor daily labs F.E.N. Fluids: PO intake adequate, electrolytes: monitor with labs, Nutrition: low sodium Prophylaxis: DVT: SCDs, Eliquis, GI: Zantac full code Visit type - Emergency Visit Emergency Visit: Yes ED Registration Date: 05/03/17 Care time: The patient presented to the Emergency Department on the above date and was hospitalized for further evaluation of their emergent condition. - New Patient This patient is new to me today: No - Critical Care Critical Care patient: No - Discharge Referral Referred to [facility] Med P.C.: No
[2017-05-04] MEDS: FOLIC ACID 1 MG TABLET (FP) PO SCH (09:41)
[2017-05-04] MEDS: METOPROLOL TARTRATE 50 MG TABLET (FP) PO SCH (09:41)
[2017-05-04] MEDS: APIXABAN 5 MG TABLET PO SCH ×2 (09:41→21:53)
[2017-05-04] MEDS: FUROSEMIDE 40 MG/4 ML INJECTABLE VIAL IVPUSH SCH (09:41)
[2017-05-04] MEDS: MULTIVITAMINS THER W-MINERALS COMBO TABLET (FP) PO SCH (09:41)
[2017-05-04 09:48] LABS: ARTERIAL BLD GAS O2 SATURATION 94.8 % (90-98.9); ARTERIAL BLOOD GAS BASE EXCESS 1.2 meq/l (-2-2); ARTERIAL BLOOD GAS PCO2 42.2 mmHg (35-45); ARTERIAL BLOOD GAS PO2 78.6 mmHg (68-100)
[2017-05-04 09:51] LABS: ALLENS TEST POSITIVE
[2017-05-04 10:30] LABS: ANION GAP 12 (8-16); BLOOD UREA NITROGEN 29 mg/dL (7-18); CALCIUM 8.8 mg/dL (8.5-10.1); CHLORIDE 100 mmol/L (98-107); CO2 27 mmol/L (21-32); CREATININE 1.7 mg/dL (0.7-1.3); GLUCOSE,RANDOM 124 mg/dL (74-106); POTASSIUM 3.6 mmol/L (3.5-5.1); SODIUM 139 mmol/L (136-145)
--- NOTE | 2017-05-04 10:53 | PN ---
Progress Note (short form) - Note Progress Note: PULMONARY AF WITH RATE CONTROLLED 80-90 158/70 AFEBRILE MILD SUBJECTIVE IMPROVEMENT +JVD ANICTERIC DIMINISHED BIBASILAR BREATH SOUNDS S1S2 IRREG BS+ 2-3+ EDEMA B/L LOWER EXT LABS/MEDS/NOTES/IMAGES/MICRO/EKG REVIEWED Acute Hypoxic Respiratory Failure Decompensated CHF New Onset Atrial Fibrillation with RVR UTI Acute Kidney Injury COPD/Emphysema No evidence to suggest pneumonia - IV lasix - monitor urine output, creatinine - daily weights, I/Os - echocardiogram pending - beta blockers, rate control - O2 to keep SpO2 >90% - inhaled bronchodilators as needed - rate control - continue anticoagulation - antibiotics per ID for UTI - f/u cultures - do not suspect pneumonia at this time - will need outpt PFTs but CT findings likely related to his smoking and exposure history Gerry SEWELL MD
[2017-05-04] MEDS: AZITHROMYCIN IVPB 500 MG in DEXTROSE 5%-WATER - 250 ML IVPB SCH (11:43)
[2017-05-04 12:33] LABS: GLUCOSE,RANDOM 88 mg/dL (74-106)
--- NOTE | 2017-05-04 13:11 | PN ---
Progress Note, Physician History of Present Illness: starting to feel much better breathing much better ct scan noted patient has a large pleural effusion - Current Medication List Current Medications: Active Medications Albuterol/Ipratropium (Duoneb -) 1 amp NEB RQID [facility] Last Admin: 05/04/17 11:05 Dose: 1 amp Apixaban (Eliquis -) 5 mg PO BID [facility] Last Admin: 05/04/17 09:41 Dose: 5 mg Folic Acid (Folic Acid -) 1 mg PO DAILY [facility] Last Admin: 05/04/17 09:41 Dose: 1 mg Furosemide (Lasix Injection -) 40 mg IVPUSH DAILY [facility] Last Admin: 05/04/17 09:41 Dose: 40 mg Azithromycin 500 mg/ Dextrose 250 mls @ 250 mls/hr IVPB DAILY [facility] Last Admin: 05/04/17 11:43 Dose: 250 mls/hr Piperacillin Sod/Tazobactam (Sod 2.25 gm/ Dextrose) 50 mls @ 100 mls/hr IVPB Q8H-IV [facility] PRN Reason: Protocol Last Admin: 05/04/17 09:41 Dose: 100 mls/hr Metoprolol Tartrate (Lopressor -) 50 mg PO BID [facility] Last Admin: 05/04/17 09:41 Dose: 50 mg Multivitamins/Minerals (Theragran-M) 1 each PO DAILY [facility] Last Admin: 05/04/17 09:41 Dose: 1 each - Objective Vital Signs: Vital Signs Temperature 97.5 F L 05/04/17 09:00 Pulse Rate 90 05/04/17 09:00 Respiratory Rate 20 05/04/17 09:00 Blood Pressure 158/70 05/04/17 09:00 O2 Sat by Pulse Oximetry (%) 96 05/03/17 21:00 Constitutional: Yes: No Distress, Calm Cardiovascular: Yes: Pulse Irregular Respiratory: Yes: Regular, CTA Bilaterally, On Nasal O2 Gastrointestinal: Yes: Normal Bowel Sounds, Soft Musculoskeletal: Yes: WNL Extremities: Yes: WNL Neurological: Yes: Alert, Oriented Psychiatric: Yes: Alert, Oriented Labs: CBC, BMP 05/04/17 06:50 05/04/17 08:00 INR, PTT INR 1.22 (0.82-1.09) H 05/03/17 00:49 Assessment/Plan looking at the xray patient has a infiltrate and pleural effusion on the rt side Respiratory Failure Decompensated CHF New Onset Atrial Fibrillation UTI Acute Kidney Injury COPD/Emphysema pleural effusion plan continue abx if stable will stop abx tomorrow pleural tap will help the patient rest as per primary team
--- NOTE | 2017-05-04 14:30 | PN ---
Progress Note, Physician Chief Complaint: less sob tele af still some rvr History of Present Illness: He is an 87 year old man former heavy smoker, copd, htn, AAA s/p stent repair at [facility] 2013, admitted with progressive sob, orthopnea and leg edema. Noted with chf on cxr and new atrial fibrillation on ECG. No chest pain, palpitations , dizziness or syncope. Exercise tolerance is good. Echo 05/04/17: mild global HK, ef38%, mild mr m-m TR/AI pap 40-50 - Current Medication List Current Medications: Active Medications Albuterol/Ipratropium (Duoneb -) 1 amp NEB RQID [facility] Last Admin: 05/04/17 11:05 Dose: 1 amp Apixaban (Eliquis -) 5 mg PO BID [facility] Last Admin: 05/04/17 09:41 Dose: 5 mg Folic Acid (Folic Acid -) 1 mg PO DAILY [facility] Last Admin: 05/04/17 09:41 Dose: 1 mg Furosemide (Lasix Injection -) 40 mg IVPUSH DAILY [facility] Last Admin: 05/04/17 09:41 Dose: 40 mg Azithromycin 500 mg/ Dextrose 250 mls @ 250 mls/hr IVPB DAILY [facility] Last Admin: 05/04/17 11:43 Dose: 250 mls/hr Piperacillin Sod/Tazobactam (Sod 2.25 gm/ Dextrose) 50 mls @ 100 mls/hr IVPB Q8H-IV [facility] PRN Reason: Protocol Last Admin: 05/04/17 09:41 Dose: 100 mls/hr Metoprolol Tartrate (Lopressor -) 50 mg PO BID [facility] Last Admin: 05/04/17 09:41 Dose: 50 mg Multivitamins/Minerals (Theragran-M) 1 each PO DAILY [facility] Last Admin: 05/04/17 09:41 Dose: 1 each - Objective Vital Signs: Vital Signs Temperature 98.5 F 05/04/17 13:28 Pulse Rate 107 H 05/04/17 13:28 Respiratory Rate 22 05/04/17 13:28 Blood Pressure 139/78 05/04/17 13:28 O2 Sat by Pulse Oximetry (%) 96 05/03/17 21:00 Constitutional: Yes: No Distress, Calm Eyes: Yes: Conjunctiva Clear, EOM Intact HENT: Yes: Normocephalic Neck: Yes: Trachea Midline Cardiovascular: Yes: Tachycardia, Pulse Irregular Respiratory: Yes: Rales (bilat bases) Gastrointestinal: Yes: Normal Bowel Sounds, Soft Extremities: Yes: WNL Edema: Yes Edema: LLE: 2+, RLE: 2+ Labs: CBC, BMP 05/04/17 06:50 05/04/17 08:00 INR, PTT INR 1.22 (0.82-1.09) H 05/03/17 00:49 Problem List - Problems (1) Afib Assessment/Plan: He has new onset afib with rvr. start metoprolol 50 mg bid start eliquis 5 bid, if creatinine > 1.5 reduce dose to 2.5 mg bid. echo ordered. tfts Code(s): I48.91 - UNSPECIFIED ATRIAL FIBRILLATION Qualifiers: Atrial fibrillation type: unspecified Qualified Code(s): I48.91 - Unspecified atrial fibrillation (2) CHF (congestive heart failure) Assessment/Plan: Acute on chronic diastolic chf Echo mildly decreased EF. Add acei when diuresed if creat stable. diurese with lasix 40 mg iv daily daily wts, follow k, creat. Code(s): I50.9 - HEART FAILURE, UNSPECIFIED Qualifiers: Heart failure type: diastolic Heart failure chronicity: acute on chronic Qualified Code(s): I50.33 - Acute on chronic diastolic (congestive) heart failure
[2017-05-04] MEDS: RANITIDINE HCL 150 MG TABLET (FP) PO SCH (21:53)
[2017-05-04] MEDS: ATORVASTATIN CA 10 MG TABLET (FP) PO SCH (21:54)
[2017-05-04] MEDS: METOPROLOL TARTRATE 25 MG TABLET (FP) PO SCH (21:54)
[2017-05-05] MEDS ORDERED: PT OWN MED DRAWER 7, Y5N ONE ×2 (02:40→02:45)
[2017-05-05] MEDS: PIPERACILLIN/TAZOB 2.25 GM 2.25 GM in DEXTROSE 5%-WATER - 50 ML IVPB SCH ×2 (03:05→10:06)
[2017-05-05] MEDS: ALBUTEROL SO4 2.5/IPRATROPIUM 0.5 INH SOL 3 ML VIAL.NEB. NEB SCH ×4 (08:48→20:52)
[2017-05-05 09:56] LABS: BASO % 0.1 % (0-2.0); EOS % 0.1 % (0-4.5); HEMATOCRIT 31.7 % (35.4-49); HEMOGLOBIN 9.8 GM/dL (11.7-16.9); LYMPH % 12.2 % (8-40); MCH 20.3 pg (25.7-33.7); MEAN CELL VOLUME 65.6 fl (80-96); MONO % 11.3 % (3.8-10.2); NEUT % 76.3 % (42.8-82.8); PLATELET COUNT 150 K/MM3 (134-434); RBC 4.83 M/mm3 (4.00-5.60)
[2017-05-05] MEDS: methylPREDNISolone NA SUCC 40 MG/1 ML VIAL IVPUSH SCH (10:05)
[2017-05-05] MEDS: METOPROLOL TARTRATE 25 MG TABLET (FP) PO SCH ×2 (10:05→21:17)
[2017-05-05] MEDS: AZITHROMYCIN IVPB 500 MG in DEXTROSE 5%-WATER - 250 ML IVPB SCH (10:06)
[2017-05-05] MEDS: MULTIVITAMINS THER W-MINERALS COMBO TABLET (FP) PO SCH (10:06)
[2017-05-05] MEDS: APIXABAN 5 MG TABLET PO SCH (10:06)
[2017-05-05] MEDS: FUROSEMIDE 40 MG/4 ML INJECTABLE VIAL IVPUSH SCH (10:06)
[2017-05-05] MEDS: FOLIC ACID 1 MG TABLET (FP) PO SCH (10:06)
[2017-05-05] MEDS: RANITIDINE HCL 150 MG TABLET (FP) PO SCH (10:07)
[2017-05-05 10:19] LABS: CHLORIDE 104 mmol/L (98-107); POTASSIUM 3.3 mmol/L (3.5-5.1); SODIUM 139 mmol/L (136-145)
[2017-05-05 10:43] LABS: ALBUMIN 3.2 g/dl (3.4-5.0); ALK PHOS 96 U/L (45-117); ANION GAP 8 (8-16); BILIRUBIN,TOTAL 0.7 mg/dL (0.2-1.0); BLOOD UREA NITROGEN 32 mg/dL (7-18); CALCIUM 8.1 mg/dL (8.5-10.1); CO2 27 mmol/L (21-32); CREATININE 1.6 mg/dL (0.7-1.3); GLUCOSE,RANDOM 99 mg/dL (74-106); MAGNESIUM 1.9 mg/dL (1.8-2.4); SGOT/AST 22 U/L (15-37); SGPT/ALT 22 U/L (12-78); TOT PROT 6.6 g/dl (6.4-8.2)
[2017-05-05] MEDS ORDERED: APIXABAN 5 MG TABLET PO SCH (12:41)
--- NOTE | 2017-05-05 12:41 | PN ---
Progress Note, Physician History of Present Illness: patient dong much better breathing better no complaints - Current Medication List Current Medications: Active Medications Albuterol/Ipratropium (Duoneb -) 1 amp NEB RQID [facility] Last Admin: 05/05/17 08:48 Dose: 1 amp Apixaban (Eliquis -) 5 mg PO BID [facility] [place] Last Admin: 05/05/17 10:06 Dose: 5 mg Atorvastatin Calcium (Lipitor -) 10 mg PO HS [facility] [place] Last Admin: 05/04/17 21:54 Dose: 10 mg Folic Acid (Folic Acid -) 1 mg PO DAILY [facility] [place] Last Admin: 05/05/17 10:06 Dose: 1 mg Furosemide (Lasix Injection -) 40 mg IVPUSH DAILY [facility] [place] Last Admin: 05/05/17 10:06 Dose: 40 mg Azithromycin 500 mg/ Dextrose 250 mls @ 250 mls/hr IVPB DAILY [facility] [place] Last Admin: 05/05/17 10:06 Dose: 250 mls/hr Methylprednisolone Sodium Succinate (Solu-Medrol -) 40 mg IVPUSH DAILY [facility] [place] Last Admin: 05/05/17 10:05 Dose: 40 mg Metoprolol Tartrate (Lopressor -) 75 mg PO BID [facility] [place] Last Admin: 05/05/17 10:05 Dose: 75 mg Multivitamins/Minerals (Theragran-M) 1 each PO DAILY [facility] [place] Last Admin: 05/05/17 10:06 Dose: 1 each Ranitidine HCl (Zantac -) 150 mg PO DAILY [facility] [place] Last Admin: 05/05/17 10:07 Dose: 150 mg - Objective Vital Signs: Vital Signs Temperature 96.8 F L 05/05/17 09:49 Pulse Rate 99 H 05/05/17 09:49 Respiratory Rate 20 05/05/17 09:49 Blood Pressure 138/79 05/05/17 09:49 O2 Sat by Pulse Oximetry (%) 94 L 05/04/17 20:32 Constitutional: Yes: No Distress, Calm Cardiovascular: Yes: Pulse Irregular Respiratory: Yes: Regular, Poor Air Entry, Other (absent on the rt base) Gastrointestinal: Yes: Normal Bowel Sounds, Soft Musculoskeletal: Yes: WNL Extremities: Yes: WNL Neurological: Yes: Alert, Oriented Psychiatric: Yes: Alert, Oriented Labs: CBC, BMP 05/05/17 09:35 05/05/17 09:35 INR, PTT INR 1.22 (0.82-1.09) H 05/03/17 00:49 Assessment/Plan Respiratory Failure Decompensated CHF New Onset Atrial Fibrillation UTI Acute Kidney Injury COPD/Emphysema pleural effusion plan stopped abx monitor off of abx all cx results noted pleural tap
--- NOTE | 2017-05-05 12:41 | PN ---
Progress Note, Physician History of Present Illness: Patient feeling slightly better, but still SOB with exertion. HR has been better controlled. Tolerating Eliquis, but creatinine 1.8 today. - Current Medication List Current Medications: Active Medications Albuterol/Ipratropium (Duoneb -) 1 amp NEB RQID [facility] Last Admin: 05/05/17 08:48 Dose: 1 amp Apixaban (Eliquis -) 5 mg PO BID [facility] Last Admin: 05/05/17 10:06 Dose: 5 mg Atorvastatin Calcium (Lipitor -) 10 mg PO HS [facility] Last Admin: 05/04/17 21:54 Dose: 10 mg Folic Acid (Folic Acid -) 1 mg PO DAILY [facility] Last Admin: 05/05/17 10:06 Dose: 1 mg Furosemide (Lasix Injection -) 40 mg IVPUSH DAILY [facility] Last Admin: 05/05/17 10:06 Dose: 40 mg Azithromycin 500 mg/ Dextrose 250 mls @ 250 mls/hr IVPB DAILY [facility] Last Admin: 05/05/17 10:06 Dose: 250 mls/hr Methylprednisolone Sodium Succinate (Solu-Medrol -) 40 mg IVPUSH DAILY [facility] Last Admin: 05/05/17 10:05 Dose: 40 mg Metoprolol Tartrate (Lopressor -) 75 mg PO BID [facility] Last Admin: 05/05/17 10:05 Dose: 75 mg Multivitamins/Minerals (Theragran-M) 1 each PO DAILY [facility] Last Admin: 05/05/17 10:06 Dose: 1 each Ranitidine HCl (Zantac -) 150 mg PO DAILY [facility] Last Admin: 05/05/17 10:07 Dose: 150 mg - Objective Vital Signs: Vital Signs Temperature 96.8 F L 05/05/17 09:49 Pulse Rate 99 H 05/05/17 09:49 Respiratory Rate 20 05/05/17 09:49 Blood Pressure 138/79 05/05/17 09:49 O2 Sat by Pulse Oximetry (%) 94 L 05/04/17 20:32 Constitutional: Yes: Calm Neck: Yes: Supple, Trachea Midline Cardiovascular: Yes: Pulse Irregular, S1, S2. No: Murmur Respiratory: Yes: Diminished (bilaterally) Gastrointestinal: Yes: Normal Bowel Sounds, Soft. No: Distention, Tenderness Extremities: Yes: Other (chronic venous stasis changes) Edema: Yes Edema: LLE: 2+, RLE: 2+ Neurological: Yes: Alert, Oriented Labs: CBC, BMP 05/05/17 09:35 05/05/17 09:35 INR, PTT INR 1.22 (0.82-1.09) H 05/03/17 00:49 Assessment/Plan Current Active Problems Afib (Acute) CHF (congestive heart failure) (Acute) DVT prophylaxis (Acute) HLD (hyperlipidemia) (Acute) HTN (hypertension) (Acute) Pleural effusion (Acute) Thalassemia (Acute) -cont IV lasix for diuresis -pulm following -to consider thoracentesis for large effusion -discussed with ID -no further abx needed as no sign pneumonia on CT chest -will decrease Eliquis to 2.5mg for renal insufficiency
--- NOTE | 2017-05-05 12:49 | PN ---
Progress Note (short form) - Note Progress Note: PULMONARY AF WITH RATE CONTROLLED 138/79 AFEBRILE SUBJECTIVE IMPROVEMENT OOB TO CHAIR +JVD ANICTERIC DIMINISHED BIBASILAR BREATH SOUNDS S1S2 IRREG BS+ 2-3+ EDEMA B/L LOWER EXT LABS/MEDS/NOTES/IMAGES/MICRO/EKG/ECHO REVIEWED Acute Hypoxic Respiratory Failure Decompensated CHF New Onset Atrial Fibrillation with RVR UTI Acute Kidney Injury COPD/Emphysema No evidence to suggest pneumonia - IV lasix - monitor urine output, creatinine - daily weights, I/Os - beta blockers, rate control - O2 to keep SpO2 >90% - inhaled bronchodilators as needed - rate control - continue anticoagulation - antibiotics per ID for UTI - f/u cultures - do not suspect pneumonia at this time - will need outpt PFTs but CT findings likely related to his smoking and exposure history Gerry SEWELL MD
--- NOTE | 2017-05-05 15:51 | PN ---
Progress Note, Physician Chief Complaint: Patient is sitting comfortably at the time exam. He reports exertional SOB. But denies SOB at rest, chest pain or palpitation. Tele shows persistent atrial fibrillation with improved VR control. History of Present Illness: 87 year old man, former heavy smoker, with a PMHx of COPD, HTN, AAA s/p stent repair at [facility] 2013, admitted with progressive SOB, orthopnea and leg edema. Noted with CHF on CXR and new atrial fibrillation on ECG. No chest pain, palpitations, dizziness or syncope. Exercise tolerance is poor. He has been seen by pulmonary and ID. Abx stopped. Echo 05/04/17: mild global hypokinesis, LVEF = 38%, mild mr m-m TR/AI pap 40-50 mmHg. - Current Medication List Current Medications: Active Medications Albuterol/Ipratropium (Duoneb -) 1 amp NEB RQID [facility] Last Admin: 05/05/17 12:03 Dose: 1 amp Apixaban (Eliquis -) 2.5 mg PO BID [facility] Atorvastatin Calcium (Lipitor -) 10 mg PO HS [facility] Last Admin: 05/04/17 21:54 Dose: 10 mg Folic Acid (Folic Acid -) 1 mg PO DAILY [facility] Last Admin: 05/05/17 10:06 Dose: 1 mg Furosemide (Lasix Injection -) 40 mg IVPUSH DAILY [facility] Last Admin: 05/05/17 10:06 Dose: 40 mg Azithromycin 500 mg/ Dextrose 250 mls @ 250 mls/hr IVPB DAILY [facility] Last Admin: 05/05/17 10:06 Dose: 250 mls/hr Methylprednisolone Sodium Succinate (Solu-Medrol -) 40 mg IVPUSH DAILY [facility] Last Admin: 05/05/17 10:05 Dose: 40 mg Metoprolol Tartrate (Lopressor -) 75 mg PO BID [facility] Last Admin: 05/05/17 10:05 Dose: 75 mg Multivitamins/Minerals (Theragran-M) 1 each PO DAILY [facility] Last Admin: 05/05/17 10:06 Dose: 1 each Ranitidine HCl (Zantac -) 150 mg PO DAILY [facility] Last Admin: 05/05/17 10:07 Dose: 150 mg - Objective Vital Signs: Vital Signs Temperature 98.3 F 05/05/17 14:00 Pulse Rate 112 H 05/05/17 14:00 Respiratory Rate 20 05/05/17 14:00 Blood Pressure 150/83 05/05/17 14:00 O2 Sat by Pulse Oximetry (%) 93 L 05/05/17 09:00 Physical Examination: General: Well developed. Thin and chronic ill. No acute distress. AAO X3. Head: Normocephalic. Atraumatic, Eyes: PERRLA, EOMI. Sclerae anicteric. Conjunctivae clear. Neck: Supple. (+) JVD. No bruits. No thyromegaly or lymphadenopathy, Heart: Normal S1, S2: Irregular rhythm and tachycardia. Lungs: Poor air entry. Diminished breath sound at bases and crackle. No wheezing or rhonchi. Abdomen: Soft. Bowel sound positive. Non tender. No masses. Extremities: 1-2+ edema. Venous stasis in right LE. Labs: CBC, BMP 05/05/17 09:35 05/05/17 09:35 INR, PTT INR 1.22 (0.82-1.09) H 05/03/17 00:49 Assessment/Plan 87 year old man, former heavy smoker, with a PMHx of COPD, HTN, AAA s/p stent repair at [facility] 2013, admitted with progressive SOB, orthopnea and leg edema. Noted with CHF on CXR and new atrial fibrillation on ECG. No chest pain, palpitations, dizziness or syncope. Exercise tolerance is poor. He has been seen by pulmonary and ID. Abx stopped. Echo 05/04/17: mild global hypokinesis, LVEF = 38%, mild mr m-m TR/AI pap 40-50 mmHg. 1) New onset afib with rapid ventricular response: Ventricular rate control improving. Increase Metoprolol to 100 mg bid. Add Digoxin 0.125 mg daily, first dose 0.25 mg. Continue Eliquis 2.5 bid. 2) Acute on chronic systolic CHF. LV systolic dysfunction can be tachycardia induced. Continue LV Lasix 40 mg daily to keep Os > Is. Increase metoprolol as above. Add Diovan 80 mg daily. Monitor daily weight. Follow potassiun and renal function.
[2017-05-05] MEDS ORDERED: DIGOXIN 0.25 MG TABLET (FP) PO ONE (16:15)
[2017-05-05] MEDS: VALSARTAN 80 MG TABLET (UD) PO SCH (17:26)
[2017-05-05] MEDS: ATORVASTATIN CA 10 MG TABLET (FP) PO SCH (21:14)
[2017-05-06 06:43] LABS: BASO % 0.1 % (0-2.0); HEMATOCRIT 31.3 % (35.4-49); HEMOGLOBIN 9.6 GM/dL (11.7-16.9); LYMPH % 11.7 % (8-40); MCHC 30.6 g/dl (32.0-35.9); MEAN CELL VOLUME 65.4 fl (80-96); MEAN PLT VOLUME 9.3 fl (7.5-11.1); MONO % 10.9 % (3.8-10.2); NEUT % 77.3 % (42.8-82.8); PLATELET COUNT 149 K/MM3 (134-434); RBC 4.79 M/mm3 (4.00-5.60); RDW 18.1 % (11.9-15.9); WHITE BLOOD COUNT 7.5 K/mm3 (4.0-10.0)
[2017-05-06 07:10] LABS: ALBUMIN 3.1 g/dl (3.4-5.0); ALK PHOS 110 U/L (45-117); ANION GAP 12 (8-16); BILIRUBIN,TOTAL 0.7 mg/dL (0.2-1.0); BLOOD UREA NITROGEN 32 mg/dL (7-18); CALCIUM 8.7 mg/dL (8.5-10.1); CHLORIDE 103 mmol/L (98-107); CO2 26 mmol/L (21-32); CREATININE 1.4 mg/dL (0.7-1.3); GLUCOSE,RANDOM 89 mg/dL (74-106); POTASSIUM 3.6 mmol/L (3.5-5.1); SGOT/AST 51 U/L (15-37); SGPT/ALT 54 U/L (12-78); SODIUM 141 mmol/L (136-145); TOT PROT 6.7 g/dl (6.4-8.2)
[2017-05-06] MEDS: ALBUTEROL SO4 2.5/IPRATROPIUM 0.5 INH SOL 3 ML VIAL.NEB. NEB SCH ×4 (07:57→21:20)
[2017-05-06] MEDS ORDERED: PT OWN MED DRAWER 7, Y5N ONE (08:39)
[2017-05-06] MEDS: FUROSEMIDE 40 MG/4 ML INJECTABLE VIAL IVPUSH SCH (09:03)
[2017-05-06] MEDS: methylPREDNISolone NA SUCC 40 MG/1 ML VIAL IVPUSH SCH (09:03)
[2017-05-06] MEDS: MULTIVITAMINS THER W-MINERALS COMBO TABLET (FP) PO SCH (09:04)
[2017-05-06] MEDS: METOPROLOL TARTRATE 25 MG TABLET (FP) PO SCH ×2 (09:04→21:35)
[2017-05-06] MEDS: FOLIC ACID 1 MG TABLET (FP) PO SCH (09:04)
[2017-05-06] MEDS: DIGOXIN 0.125 MG TABLET (FP) PO SCH (09:04)
[2017-05-06] MEDS: RANITIDINE HCL 150 MG TABLET (FP) PO SCH (09:04)
[2017-05-06] MEDS: VALSARTAN 80 MG TABLET (UD) PO SCH (09:04)
[2017-05-06] MEDS: APIXABAN 2.5 MG TABLET PO SCH ×2 (09:05→21:35)
[2017-05-06] MEDS: AZITHROMYCIN IVPB 500 MG in DEXTROSE 5%-WATER - 250 ML IVPB SCH (09:08)
--- NOTE | 2017-05-06 11:24 | PN ---
Progress Note, Physician History of Present Illness: patient dong much better breathing better no complaints - Current Medication List Current Medications: Active Medications Albuterol/Ipratropium (Duoneb -) 1 amp NEB RQID [facility] Last Admin: 05/06/17 07:57 Dose: 1 amp Apixaban (Eliquis -) 2.5 mg PO BID [facility] Last Admin: 05/06/17 09:05 Dose: 2.5 mg Atorvastatin Calcium (Lipitor -) 10 mg PO HS [facility] Last Admin: 05/05/17 21:14 Dose: 10 mg Digoxin (Lanoxin -) 0.125 mg PO DAILY [facility] Last Admin: 05/06/17 09:04 Dose: 0.125 mg Folic Acid (Folic Acid -) 1 mg PO DAILY [facility] Last Admin: 05/06/17 09:04 Dose: 1 mg Furosemide (Lasix Injection -) 40 mg IVPUSH DAILY [facility] Last Admin: 05/06/17 09:03 Dose: 40 mg Azithromycin 500 mg/ Dextrose 250 mls @ 250 mls/hr IVPB DAILY [facility] Last Admin: 05/06/17 09:08 Dose: 250 mls/hr Methylprednisolone Sodium Succinate (Solu-Medrol -) 40 mg IVPUSH DAILY [facility] Last Admin: 05/06/17 09:03 Dose: 40 mg Metoprolol Tartrate (Lopressor -) 100 mg PO BID [facility] Last Admin: 05/06/17 09:04 Dose: 100 mg Multivitamins/Minerals (Theragran-M) 1 each PO DAILY [facility] Last Admin: 05/06/17 09:04 Dose: 1 each Ranitidine HCl (Zantac -) 150 mg PO DAILY [facility] Last Admin: 05/06/17 09:04 Dose: 150 mg Valsartan (Diovan -) 80 mg PO DAILY [facility] Last Admin: 05/06/17 09:04 Dose: 80 mg - Objective Vital Signs: Vital Signs Temperature 97.8 F 05/06/17 09:00 Pulse Rate 98 H 05/06/17 09:04 Respiratory Rate 20 05/06/17 09:00 Blood Pressure 166/99 05/06/17 09:00 O2 Sat by Pulse Oximetry (%) 93 L 05/06/17 09:00 Constitutional: Yes: No Distress, Calm Cardiovascular: Yes: Regular Rate and Rhythm Respiratory: Yes: Regular, Poor Air Entry Gastrointestinal: Yes: Normal Bowel Sounds, Soft Musculoskeletal: Yes: WNL Extremities: Yes: WNL Neurological: Yes: Alert, Oriented Psychiatric: Yes: Alert, Oriented Labs: CBC, BMP 05/06/17 06:15 05/06/17 06:15 INR, PTT INR 1.22 (0.82-1.09) H 05/03/17 00:49 Assessment/Plan Respiratory Failure Decompensated CHF New Onset Atrial Fibrillation UTI Acute Kidney Injury COPD/Emphysema pleural effusion plan stable off of abx' consider tapping rest continue current mgmt incentive nathan pul on case
--- NOTE | 2017-05-06 11:47 | PN ---
Progress Note, Physician History of Present Illness: Patient feeling a little better. Getting SOB with exertion, but resolves quicker now. No chest pain. - Current Medication List Current Medications: Active Medications Albuterol/Ipratropium (Duoneb -) 1 amp NEB RQID [facility] Last Admin: 05/06/17 07:57 Dose: 1 amp Apixaban (Eliquis -) 2.5 mg PO BID [facility] Last Admin: 05/06/17 09:05 Dose: 2.5 mg Atorvastatin Calcium (Lipitor -) 10 mg PO HS [facility] Last Admin: 05/05/17 21:14 Dose: 10 mg Digoxin (Lanoxin -) 0.125 mg PO DAILY [facility] Last Admin: 05/06/17 09:04 Dose: 0.125 mg Folic Acid (Folic Acid -) 1 mg PO DAILY [facility] Last Admin: 05/06/17 09:04 Dose: 1 mg Furosemide (Lasix Injection -) 40 mg IVPUSH DAILY [facility] Last Admin: 05/06/17 09:03 Dose: 40 mg Azithromycin 500 mg/ Dextrose 250 mls @ 250 mls/hr IVPB DAILY [facility] Last Admin: 05/06/17 09:08 Dose: 250 mls/hr Methylprednisolone Sodium Succinate (Solu-Medrol -) 40 mg IVPUSH DAILY [facility] Last Admin: 05/06/17 09:03 Dose: 40 mg Metoprolol Tartrate (Lopressor -) 100 mg PO BID [facility] Last Admin: 05/06/17 09:04 Dose: 100 mg Multivitamins/Minerals (Theragran-M) 1 each PO DAILY [facility] Last Admin: 05/06/17 09:04 Dose: 1 each Ranitidine HCl (Zantac -) 150 mg PO DAILY [facility] Last Admin: 05/06/17 09:04 Dose: 150 mg Valsartan (Diovan -) 80 mg PO DAILY [facility] Last Admin: 05/06/17 09:04 Dose: 80 mg - Objective Vital Signs: Vital Signs Temperature 97.8 F 05/06/17 09:00 Pulse Rate 98 H 05/06/17 09:04 Respiratory Rate 20 05/06/17 09:00 Blood Pressure 166/99 05/06/17 09:00 O2 Sat by Pulse Oximetry (%) 93 L 05/06/17 09:00 Constitutional: Yes: No Distress, Calm Neck: Yes: Supple, Trachea Midline Cardiovascular: Yes: Regular Rate and Rhythm, S1, S2. No: Murmur Respiratory: Yes: Regular, Diminished (bilateral bases). No: Rales, Rhonchi, Wheezes Gastrointestinal: Yes: Normal Bowel Sounds, Soft. No: Distention, Tenderness, Vomiting Edema: Yes Edema: LLE: 2+, RLE: 2+ Labs: CBC, BMP 05/06/17 06:15 05/06/17 06:15 INR, PTT INR 1.22 (0.82-1.09) H 05/03/17 00:49 Assessment/Plan Current Active Problems Afib (Acute) CHF (congestive heart failure) (Acute) DVT prophylaxis (Acute) HLD (hyperlipidemia) (Acute) HTN (hypertension) (Acute) Pleural effusion (Acute) Thalassemia (Acute) UTI -cont IV lasix for CHF -on betablocker, now diovan and digoxin started for chf/ rate control -eliquis for afib -as received several days of abx, will re-check UA (see if UTI resolved, as off abx now with no pneumonia present) -recheck CXR (may need thoracentesis if still significant effusions present)
[2017-05-06 12:51] LABS: URINE APPEARANCE CLEAR; URINE BILIRUBIN NEGATIVE (NEGATIVE); URINE BLOOD 1+ (NEGATIVE); URINE COLOR LTYELLOW; URINE GLUCOSE (UA) NEGATIVE (NEGATIVE); URINE KETONE NEGATIVE (NEGATIVE); URINE NITRITE NEGATIVE (NEGATIVE); URINE PROTEIN NEGATIVE (NEGATIVE); URINE UROBILINOGEN NEGATIVE mg/dL (0.2-1.0)
[2017-05-06 12:58] LABS: URINE LEUK ESTERASE 1+ (NEGATIVE)
[2017-05-06 13:00] LABS: URINE MUCUS RARE
--- NOTE | 2017-05-06 13:02 | PN ---
Progress Note (short form) - Note Progress Note: PULMONARY AF WITH RATE CONTROLLED AFEBRILE SUBJECTIVE IMPROVEMENT OOB TO CHAIR +JVD ANICTERIC DIMINISHED BIBASILAR BREATH SOUNDS S1S2 IRREG BS+ 2-3+ EDEMA B/L LOWER EXT LABS/MEDS/NOTES/IMAGES/MICRO/EKG/ECHO REVIEWED Acute Hypoxic Respiratory Failure Decompensated CHF New Onset Atrial Fibrillation with RVR UTI Acute Kidney Injury COPD/Emphysema No evidence to suggest pneumonia - IV lasix - monitor urine output, creatinine - daily weights, I/Os - beta blockers, rate control - O2 to keep SpO2 >90% - inhaled bronchodilators as needed - rate control - continue anticoagulation - antibiotics per ID for UTI - f/u cultures - do not suspect pneumonia at this time - will need outpt PFTs but CT findings likely related to his smoking and exposure history Gerry SEWELL MD
--- NOTE | 2017-05-06 16:53 | PN ---
Progress Note, Physician Chief Complaint: Patient is sitting comfortably at the time exam. He denies SOB at rest, chest pain or palpitation. Tele shows persistent atrial fibrillation with improved VR control. Episodes of rapid VR and 18 beat wide complex tachycardia (NSVT or aberrant ventricular conduction, Michelle phenomenon) noted. History of Present Illness: 87 year old man, former heavy smoker, with a PMHx of COPD, HTN, AAA s/p stent repair at [facility] 2013, admitted with progressive SOB, orthopnea and leg edema. Noted with CHF on CXR and new atrial fibrillation on ECG. No chest pain, palpitations, dizziness or syncope. Exercise tolerance is poor. He has been seen by pulmonary and ID. Abx stopped. Echo 05/04/17: mild global hypokinesis, LVEF = 38%, mild mr m-m TR/AI pap 40-50 mmHg. - Current Medication List Current Medications: Active Medications Albuterol/Ipratropium (Duoneb -) 1 amp NEB RQID [facility] Last Admin: 05/06/17 15:37 Dose: 1 amp Apixaban (Eliquis -) 2.5 mg PO BID [facility] Last Admin: 05/06/17 09:05 Dose: 2.5 mg Atorvastatin Calcium (Lipitor -) 10 mg PO HS [facility] Last Admin: 05/05/17 21:14 Dose: 10 mg Digoxin (Lanoxin -) 0.125 mg PO DAILY [facility] Last Admin: 05/06/17 09:04 Dose: 0.125 mg Folic Acid (Folic Acid -) 1 mg PO DAILY [facility] Last Admin: 05/06/17 09:04 Dose: 1 mg Furosemide (Lasix Injection -) 40 mg IVPUSH DAILY [facility] Last Admin: 05/06/17 09:03 Dose: 40 mg Metoprolol Tartrate (Lopressor -) 100 mg PO BID [facility] Last Admin: 05/06/17 09:04 Dose: 100 mg Multivitamins/Minerals (Theragran-M) 1 each PO DAILY [facility] Last Admin: 05/06/17 09:04 Dose: 1 each Ranitidine HCl (Zantac -) 150 mg PO DAILY [facility] Last Admin: 05/06/17 09:04 Dose: 150 mg Valsartan (Diovan -) 80 mg PO DAILY [facility] Last Admin: 05/06/17 09:04 Dose: 80 mg - Objective Vital Signs: Vital Signs Temperature 98.1 F 05/06/17 15:01 Pulse Rate 105 H 05/06/17 15:01 Respiratory Rate 20 05/06/17 15:01 Blood Pressure 146/66 05/06/17 15:01 O2 Sat by Pulse Oximetry (%) 93 L 05/06/17 09:00 General: Well developed. Thin and chronic ill. No acute distress. AAO X3. Head: Normocephalic. Atraumatic, Eyes: PERRLA, EOMI. Sclerae anicteric. Conjunctivae clear. Neck: Supple. (+) JVD. No bruits. No thyromegaly or lymphadenopathy, Heart: Normal S1, S2: Irregular rhythm and tachycardia. Lungs: Poor air entry. Diminished breath sound at bases and crackle. No wheezing or rhonchi. Abdomen: Soft. Bowel sound positive. Non tender. No masses. Extremities: 1+ edema. Venous stasis in right LE. Labs: CBC, BMP 05/06/17 06:15 05/06/17 06:15 INR, PTT INR 1.22 (0.82-1.09) H 05/03/17 00:49 Assessment/Plan 87 year old man, former heavy smoker, with a PMHx of COPD, HTN, AAA s/p stent repair at [facility] 2013, admitted with progressive SOB, orthopnea and leg edema. Noted with CHF on CXR and new atrial fibrillation on ECG. No chest pain, palpitations, dizziness or syncope. Exercise tolerance is poor. He has been seen by pulmonary and ID. Abx stopped. Echo 05/04/17: mild global hypokinesis, LVEF = 38%, mild mr m-m TR/AI pap 40-50 mmHg. 1) New onset afib with rapid ventricular response: Ventricular rate control improving. Metoprolol increased to 100 mg bid and digoxin added 05/05/2017. Continue Eliquis 2.5 bid. 2) Acute on chronic systolic CHF. LV systolic dysfunction can be tachycardia induced. Continue LV Lasix 40 mg daily to keep Os > Is. Increase metoprolol as above. Continue Diovan 80 mg daily. Monitor daily weight. Follow potassiun and renal function.
[2017-05-06] MEDS ORDERED: DIGOXIN 0.25 MG TABLET (FP) PO ONE (18:30)
[2017-05-06] MEDS: ATORVASTATIN CA 10 MG TABLET (FP) PO SCH (21:35)
[2017-05-07 07:03] LABS: HEMOGLOBIN 9.5 GM/dL (11.7-16.9)
[2017-05-07 07:08] LABS: HEMATOCRIT 31.2 % (35.4-49); LYMPH % 11.6 % (8-40); MCH 20.1 pg (25.7-33.7); MCHC 30.4 g/dl (32.0-35.9); MEAN CELL VOLUME 66.3 fl (80-96); MEAN PLT VOLUME 9.4 fl (7.5-11.1); MONO % 12.4 % (3.8-10.2); PLATELET COUNT 154 K/MM3 (134-434); RBC 4.71 M/mm3 (4.00-5.60); RDW 17.4 % (11.9-15.9); WHITE BLOOD COUNT 9.3 K/mm3 (4.0-10.0)
[2017-05-07] MEDS: ALBUTEROL SO4 2.5/IPRATROPIUM 0.5 INH SOL 3 ML VIAL.NEB. NEB SCH ×4 (07:20→19:02)
[2017-05-07 07:38] LABS: ALBUMIN 3.1 g/dl (3.4-5.0); ANION GAP 10 (8-16); BILIRUBIN,TOTAL 0.8 mg/dL (0.2-1.0); BLOOD UREA NITROGEN 32 mg/dL (7-18); CALCIUM 8.7 mg/dL (8.5-10.1); CHLORIDE 102 mmol/L (98-107); CO2 29 mmol/L (21-32); CREATININE 1.3 mg/dL (0.7-1.3); GLUCOSE,RANDOM 85 mg/dL (74-106); POTASSIUM 4.3 mmol/L (3.5-5.1); SGOT/AST 162 U/L (15-37); SGPT/ALT 169 U/L (12-78); SODIUM 141 mmol/L (136-145)
[2017-05-07 07:39] LABS: ALK PHOS 146 U/L (45-117); TOT PROT 6.6 g/dl (6.4-8.2)
--- NOTE | 2017-05-07 08:38 | PN ---
Physical Exam: SUBJECTIVE: Patient seen and examined oob to chair. Breathing is better but gets SOB walking to bathroom. Does not want to walk today with PT, feels he will get too tired. OBJECTIVE: Vital Signs Period Temp Pulse Resp BP Sys/Garsia Pulse Ox Last 24 Hr 97.5 F-98.4 F 94-134 18-20 145-166/66-99 93-93 GENERAL: The patient is awake, alert, and fully oriented, in no acute distress. LUNGS: CTA. Mild cough. Mildly dyspneic with speaking. HEART: Irregular, S1, S2 ABDOMEN: Soft, nontender, nondistended, normoactive bowel sounds UPPER EXTREMITIES: 2+ pulses, warm, well-perfused, no edema. LOWER EXTREMITIES: 3+ pitting edema, venous stasis changes, warm, well-perfused NEUROLOGICAL: Cranial nerves II through XII grossly intact. Normal speech, gait not observed. Laboratory Results - last 24 hr 05/06/17 05/07/17 05/07/17 12:00 06:48 06:48 WBC 9.3 RBC 4.71 Hgb 9.5 L Hct 31.2 L MCV 66.3 L MCH 20.1 L MCHC 30.4 L RDW 17.4 H Plt Count 154 MPV 9.4 Neutrophils % 76.0 Lymphocytes % 11.6 Monocytes % 12.4 H Eosinophils % 0.0 Basophils % 0.0 Sodium 141 Potassium 4.3 Chloride 102 Carbon Dioxide 29 Anion Gap 10 BUN 32 H Creatinine 1.3 Creat Clearance w eGFR 52.10 Random Glucose 85 Calcium 8.7 Total Bilirubin 0.8 AST 162 H D ALT 169 H D Alkaline Phosphatase 146 H D Total Protein 6.6 Albumin 3.1 L Urine Color Ltyellow Urine Appearance Clear Urine pH 5.0 Ur Specific Curtis 1.008 Urine Protein Negative Urine Glucose (UA) Negative Urine Ketones Negative Urine Blood 1+ H Urine Nitrite Negative Urine Bilirubin Negative Urine Urobilinogen Negative Ur Leukocyte Esterase 1+ H D Urine WBC (Auto) 9 Urine RBC (Auto) 2 Urine Mucus Rare Active Medications Generic Name Dose Route Start Last Admin Trade Name Freq PRN Reason Stop Dose Admin Albuterol/Ipratropium 1 amp 05/03/17 20:00 05/07/17 07:20 Duoneb - NEB 1 amp RQID [facility] Administration Apixaban 2.5 mg 05/06/17 08:59 05/06/17 21:35 Eliquis - PO 2.5 mg BID [facility] Administration Atorvastatin Calcium 10 mg 05/04/17 22:00 05/06/17 21:35 Lipitor - PO 10 mg HS [facility] Administration Digoxin 0.125 mg 05/06/17 10:00 05/06/17 09:04 Lanoxin - PO 0.125 mg DAILY [facility] Administration Folic Acid 1 mg 05/03/17 10:00 05/06/17 09:04 Folic Acid - PO 1 mg DAILY [facility] Administration Furosemide 40 mg 05/03/17 10:00 05/06/17 09:03 Lasix Injection - IVPUSH 40 mg DAILY [facility] Administration Metoprolol Tartrate 100 mg 05/05/17 22:00 05/06/17 21:35 Lopressor - PO 100 mg BID [facility] Administration Multivitamins/Minerals 1 each 05/03/17 10:45 05/06/17 09:04 Theragran-M PO 1 each DAILY [facility] Administration Ranitidine HCl 150 mg 05/04/17 18:30 05/06/17 09:04 Zantac - PO 150 mg DAILY [facility] Administration Valsartan 80 mg 05/05/17 16:15 05/06/17 09:04 Diovan - PO 80 mg DAILY [facility] Administration ASSESSMENT/PLAN 87 year-old male with a PMH significant for HTN, HLD, diastolic heart failure, thalassemia, COPD/emphysema, and AAA repair ([facility] 2013). Admitted for heart failure exacerbation and newly diagnosed afib with RVR. Acute on chronic diastolic heart failure --still symptomatic: significant 3+ pitting edema b/L lower extremities, dyspneic with speaking, persistent pleural effusions although mildly improved --weight not significantly improved, 77kg on admission, 76 kg today; has maintained negative daily fluid balances --continue Lasix IV 40mg daily; start spironolactone 25mg daily Newly diagnosed afib with RVR --rate 90s-->150s on telemetry --continue metoprolol, digoxin --continue Eliquis Acute hypoxic respiratory failure, improved COPD/emphysema --kyra Acute kidney injury --Cr peak 1.7, today 1.3 trending down; baseline 1.0 --will continue Valsartan for now Transaminitis --AST, ALT, alk phos all elevated today --may be drug-induced, Valsartan started on 05/05; if so, may be transient elevation; continue to trend, if worsening will d/c --US liver done, pending dictation Hypertension --continue Valsartan, metoprolol Hyperlipidemia --hold Lipitor due to transaminitis FEN Fluids: PO intake adequate Electrolytes: replete as indicated Nutrition: low sodium DVT prophylaxis: on Eliquis Dispo: continues to require inpatient care. Full code. Visit type - Emergency Visit Emergency Visit: Yes ED Registration Date: 05/03/17 Care time: The patient presented to the Emergency Department on the above date and was hospitalized for further evaluation of their emergent condition. - New Patient This patient is new to me today: Yes Date on this admission: 05/07/17 - Critical Care Critical Care patient: No
[2017-05-07] MEDS: FOLIC ACID 1 MG TABLET (FP) PO SCH (10:08)
[2017-05-07] MEDS: METOPROLOL TARTRATE 25 MG TABLET (FP) PO SCH ×2 (10:08→21:44)
[2017-05-07] MEDS: VALSARTAN 80 MG TABLET (UD) PO SCH (10:08)
[2017-05-07] MEDS: APIXABAN 2.5 MG TABLET PO SCH ×2 (10:08→21:44)
[2017-05-07] MEDS: FUROSEMIDE 40 MG/4 ML INJECTABLE VIAL IVPUSH SCH (10:08)
[2017-05-07] MEDS: MULTIVITAMINS THER W-MINERALS COMBO TABLET (FP) PO SCH (10:08)
[2017-05-07] MEDS: DIGOXIN 0.125 MG TABLET (FP) PO SCH (10:09)
[2017-05-07] MEDS: RANITIDINE HCL 150 MG TABLET (FP) PO SCH (10:09)
--- NOTE | 2017-05-07 12:22 | PN ---
Progress Note (short form) - Note Progress Note: PULMONARY AF WITH RATE CONTROLLED AFEBRILE SUBJECTIVE IMPROVEMENT OOB TO CHAIR +JVD ANICTERIC DIMINISHED BIBASILAR BREATH SOUNDS S1S2 IRREG BS+ 2-3+ EDEMA B/L LOWER EXT LABS/MEDS/NOTES/IMAGES/MICRO/EKG/ECHO REVIEWED LFT'S ELEVATED ?PASSIVE CONGESTION ABD US REVIEWED Acute Hypoxic Respiratory Failure Decompensated CHF New Onset Atrial Fibrillation with RVR UTI Acute Kidney Injury COPD/Emphysema No evidence to suggest pneumonia - IV lasix - monitor urine output, creatinine - daily weights, I/Os - beta blockers, rate control - O2 to keep SpO2 >90% - inhaled bronchodilators as needed - rate control - continue anticoagulation - antibiotics per ID for UTI - f/u cultures - do not suspect pneumonia at this time - will need outpt PFTs but CT findings likely related to his smoking and exposure history Gerry SEWELL MD
[2017-05-07] MEDS: SPIRONOLACTONE 25 MG TABLET (FP) PO SCH (14:12)
--- NOTE | 2017-05-07 14:20 | PN ---
Progress Note, Physician History of Present Illness: stable sob improving increased lft - Current Medication List Current Medications: Active Medications Albuterol/Ipratropium (Duoneb -) 1 amp NEB RQID [facility] Last Admin: 05/07/17 11:33 Dose: 1 amp Apixaban (Eliquis -) 2.5 mg PO BID [facility] Last Admin: 05/07/17 10:08 Dose: 2.5 mg Atorvastatin Calcium (Lipitor -) 10 mg PO HS [facility] Last Admin: 05/06/17 21:35 Dose: 10 mg Digoxin (Lanoxin -) 0.125 mg PO DAILY [facility] Last Admin: 05/07/17 10:09 Dose: 0.125 mg Folic Acid (Folic Acid -) 1 mg PO DAILY [facility] Last Admin: 05/07/17 10:08 Dose: 1 mg Furosemide (Lasix Injection -) 40 mg IVPUSH DAILY [facility] Last Admin: 05/07/17 10:08 Dose: 40 mg Metoprolol Tartrate (Lopressor -) 100 mg PO BID [facility] Last Admin: 05/07/17 10:08 Dose: 100 mg Multivitamins/Minerals (Theragran-M) 1 each PO DAILY [facility] Last Admin: 05/07/17 10:08 Dose: 1 each Ranitidine HCl (Zantac -) 150 mg PO DAILY [facility] Last Admin: 05/07/17 10:09 Dose: 150 mg Spironolactone (Aldactone -) 25 mg PO DAILY [facility] Last Admin: 05/07/17 14:12 Dose: 25 mg Valsartan (Diovan -) 80 mg PO DAILY [facility] Last Admin: 05/07/17 10:08 Dose: 80 mg - Objective Vital Signs: Vital Signs Temperature 97.8 F 05/07/17 10:00 Pulse Rate 108 H 05/07/17 10:09 Respiratory Rate 20 05/07/17 10:00 Blood Pressure 171/100 05/07/17 10:00 O2 Sat by Pulse Oximetry (%) 96 05/07/17 09:00 Constitutional: Yes: No Distress, Calm Cardiovascular: Yes: Regular Rate and Rhythm Respiratory: Yes: Poor Air Entry Gastrointestinal: Yes: Normal Bowel Sounds, Soft Musculoskeletal: Yes: WNL Extremities: Yes: WNL Neurological: Yes: Alert, Oriented Psychiatric: Yes: Alert, Oriented Labs: CBC, BMP 05/07/17 06:48 05/07/17 06:48 INR, PTT INR 1.22 (0.82-1.09) H 05/03/17 00:49 - ....Imaging Ultrasound: Report Reviewed Assessment/Plan Respiratory Failure Decompensated CHF New Onset Atrial Fibrillation UTI Acute Kidney Injury COPD/Emphysema pleural effusion plan stable off of abx' monitor pleural effusion rest continue current mgmt incentive nathan pul on case
--- NOTE | 2017-05-07 16:03 | PN ---
Progress Note, Physician Chief Complaint: Atrial fibrillation History of Present Illness: This is an 87 year old man, former heavy smoker, with a PMHx of COPD, HTN, AAA s /p stent repair at [facility] 2013, admitted with progressive SOB, orthopnea and leg edema. Noted with CHF on CXR and new atrial fibrillation on ECG. No chest pain , palpitations, dizziness or syncope. Exercise tolerance is poor. He has been seen by pulmonary and ID. Abx stopped. Echo 05/04/17: mild global hypokinesis, LVEF = 38%, mild mr m-m TR/AI pap 40-50 mmHg. - Current Medication List Current Medications: Active Medications Albuterol/Ipratropium (Duoneb -) 1 amp NEB RQID [facility] Last Admin: 05/07/17 15:49 Dose: 1 amp Apixaban (Eliquis -) 2.5 mg PO BID [facility] Last Admin: 05/07/17 10:08 Dose: 2.5 mg Atorvastatin Calcium (Lipitor -) 10 mg PO HS [facility] Last Admin: 05/06/17 21:35 Dose: 10 mg Digoxin (Lanoxin -) 0.125 mg PO DAILY [facility] Last Admin: 05/07/17 10:09 Dose: 0.125 mg Folic Acid (Folic Acid -) 1 mg PO DAILY [facility] Last Admin: 05/07/17 10:08 Dose: 1 mg Furosemide (Lasix Injection -) 40 mg IVPUSH DAILY [facility] Last Admin: 05/07/17 10:08 Dose: 40 mg Metoprolol Tartrate (Lopressor -) 100 mg PO BID [facility] Last Admin: 05/07/17 10:08 Dose: 100 mg Multivitamins/Minerals (Theragran-M) 1 each PO DAILY [facility] Last Admin: 05/07/17 10:08 Dose: 1 each Ranitidine HCl (Zantac -) 150 mg PO DAILY [facility] Last Admin: 05/07/17 10:09 Dose: 150 mg Spironolactone (Aldactone -) 25 mg PO DAILY [facility] Last Admin: 05/07/17 14:12 Dose: 25 mg Valsartan (Diovan -) 80 mg PO DAILY [facility] Last Admin: 05/07/17 10:08 Dose: 80 mg - Objective Vital Signs: Vital Signs Temperature 97.8 F 05/07/17 14:58 Pulse Rate 85 02/26/18 14:58 Respiratory Rate 20 05/07/17 14:58 Blood Pressure 143/78 05/07/17 14:58 O2 Sat by Pulse Oximetry (%) 96 05/07/17 09:00 Constitutional: Yes: Thin (Chronically ill appearing) HENT: Yes: WNL Neck: Yes: WNL Cardiovascular: Yes: Pulse Irregular (NL S1S2, no MRHG) Respiratory: Yes: Rhonchi (Minimal scattered rhonchi) Gastrointestinal: Yes: Soft Extremities: Yes: Other ( Brawny edema with chronic venous stasis changes.) Edema: LLE: 1+, RLE: 1+ Neurological: Yes: Alert, Oriented (Non focal) Labs: CBC, BMP 05/07/17 06:48 05/07/17 06:48 INR, PTT INR 1.22 (0.82-1.09) H 05/03/17 00:49 Assessment/Plan AFIB New onset afib with rapid ventricular response: Ventricular rate control improving. Metoprolol increased to 100 mg bid and digoxin added 05/05/2017. Continue Eliquis 2.5 bid. Acute on chronic systolic CHF LV systolic dysfunction can be tachycardia induced. Continue LV Lasix 40 mg daily to keep Os > Is. Increase metoprolol as above. Continue Diovan 80 mg daily. Monitor daily weight. Follow potassiun and renal function.
[2017-05-08] MEDS: ALBUTEROL SO4 2.5/IPRATROPIUM 0.5 INH SOL 3 ML VIAL.NEB. NEB SCH ×3 (07:16→16:37)
[2017-05-08] MEDS: RANITIDINE HCL 150 MG TABLET (FP) PO SCH (09:55)
[2017-05-08] MEDS: SPIRONOLACTONE 25 MG TABLET (FP) PO SCH (09:55)
[2017-05-08] MEDS: FUROSEMIDE 40 MG/4 ML INJECTABLE VIAL IVPUSH SCH (09:55)
[2017-05-08] MEDS: FOLIC ACID 1 MG TABLET (FP) PO SCH (09:55)
[2017-05-08] MEDS: METOPROLOL TARTRATE 25 MG TABLET (FP) PO SCH ×2 (09:55→21:30)
[2017-05-08] MEDS: VALSARTAN 80 MG TABLET (UD) PO SCH (09:55)
[2017-05-08] MEDS: APIXABAN 2.5 MG TABLET PO SCH ×2 (09:55→21:30)
[2017-05-08] MEDS: MULTIVITAMINS THER W-MINERALS COMBO TABLET (FP) PO SCH (09:55)
[2017-05-08] MEDS: DIGOXIN 0.125 MG TABLET (FP) PO SCH (09:56)
--- NOTE | 2017-05-08 10:50 | PN ---
Progress Note (short form) - Note Progress Note: c/o dyspnea on exertion. overall improved. continues to feel fatigued. denies CP , palpitaitons, fever, chilsl, N/V/C/D Current Medications Generic Name Dose Route Start Last Admin Trade Name Filibertoq PRN Reason Stop Dose Admin Albuterol/Ipratropium 1 amp 05/03/17 20:00 05/08/17 07:16 Duoneb - NEB 1 amp RQID [facility] Administration Apixaban 2.5 mg 05/06/17 08:59 05/08/17 09:55 Eliquis - PO 2.5 mg BID [facility] Administration Atorvastatin Calcium 10 mg 05/04/17 22:00 05/06/17 21:35 Lipitor - PO 10 mg HS [facility] Administration Digoxin 0.125 mg 05/06/17 10:00 05/08/17 09:56 Lanoxin - PO 0.125 mg DAILY [facility] Administration Folic Acid 1 mg 05/03/17 10:00 05/08/17 09:55 Folic Acid - PO 1 mg DAILY [facility] Administration Furosemide 40 mg 05/03/17 10:00 05/08/17 09:55 Lasix Injection - IVPUSH 40 mg DAILY [facility] Administration Metoprolol Tartrate 100 mg 05/05/17 22:00 05/08/17 09:55 Lopressor - PO 100 mg BID [facility] Administration Multivitamins/Minerals 1 each 05/03/17 10:45 05/08/17 09:55 Theragran-M PO 1 each DAILY [facility] Administration Ranitidine HCl 150 mg 05/04/17 18:30 05/08/17 09:55 Zantac - PO 150 mg DAILY [facility] Administration Spironolactone 25 mg 05/07/17 14:00 05/08/17 09:55 Aldactone - PO 25 mg DAILY [facility] Administration Valsartan 80 mg 05/05/17 16:15 05/08/17 09:55 Diovan - PO 80 mg DAILY [facility] Administration Last Vital Signs Temp Pulse Resp BP Pulse Ox 98.2 F 90 18 128/71 96 05/08/17 07:11 05/08/17 09:56 05/08/17 07:11 05/08/17 07:11 05/07/17 21:00 Intake & Output 05/05/17 05/06/17 05/07/17 05/08/17 23:59 23:59 23:59 23:59 Intake Total 450 660 330 Output Total 900 1750 1000 Balance -662 -9795 -897 Weight 166 lb 165 lb 8 oz 168 lb 4 oz 164 lb 4 oz General NAD CV S1 S2 irregular Lungs dereased breath sounds L base Abdomen soft NT/ND Extremities trace pitting edema CMP Sodium 142 mmol/L (136-145) 05/08/17 09:50 Potassium 3.9 mmol/L (3.5-5.1) 05/08/17 09:50 Chloride 106 mmol/L (98-107) 05/08/17 09:50 Carbon Dioxide 30 mmol/L (21-32) 05/08/17 09:50 Anion Gap 6 (8-16) L 05/08/17 09:50 BUN 30 mg/dL (7-18) H 05/08/17 09:50 Creatinine 1.2 mg/dL (0.7-1.3) 05/08/17 09:50 Creat Clearance w eGFR 57.14 (>60) 05/08/17 09:50 Calcium 8.1 mg/dL (8.5-10.1) L 05/08/17 09:50 Total Bilirubin 0.7 mg/dL (0.2-1.0) 05/08/17 09:50 AST 64 U/L (15-37) H D 05/08/17 09:50 ALT 126 U/L (12-78) H D 05/08/17 09:50 Alkaline Phosphatase 130 U/L (45-117) H 05/08/17 09:50 Total Protein 6.5 g/dl (6.4-8.2) 05/08/17 09:50 Albumin 3.3 g/dl (3.4-5.0) L 05/08/17 09:50 A/P 87yo M with PMH HTN, dyslipidemia, diastolic CHF, thalessemia, COPD, AAA s/p repair presented to the ER and found to be in afib with RVR 1. Afib with RVR- Overall HR improved. some pauses on monitor. HR overall controlled. on metoprolol and digoxin. on low dose eliquis. cardio on board. cont cardiac monitoring 2. Acute diastolic CHF exacerbation- 4 lb weight loss since yeterday. still appears volume overloaded. will cont lasix 40mg IV. spirolactone added yesterday. monitor electrolytes, strict I&O, daily weights 3. Transaminitis- suspected medication induced vs passive congestion. (valsartan ). slowly trending down. cont medication for now. 4. Microcytic anemia- Hgb stable. no indication for transfusion. check iron panel 5. Hypokalemia- resolved 6. HTN- controlled. cont valsartan. 7. COPD- no signs of exacerbation. currently 96% on 2L . does not use O2 at home. will need evaluation prior to discharge. cont inhalers. nebs prn 8. DVT ppx- eliquis Visit type - Emergency Visit Emergency Visit: Yes ED Registration Date: 05/03/17 Care time: The patient presented to the Emergency Department on the above date and was hospitalized for further evaluation of their emergent condition. - New Patient This patient is new to me today: Yes Date on this admission: 05/08/17 - Critical Care Critical Care patient: No - Discharge Referral Referred to [facility] Med P.C.: No
--- NOTE | 2017-05-08 10:54 | PN ---
Progress Note, Physician Chief Complaint: Atrial fibrillation History of Present Illness: This is an 87 year old man, former heavy smoker, with a PMHx of COPD, HTN, AAA s /p stent repair at [facility] 2013, admitted with progressive SOB, orthopnea and leg edema. Noted with CHF on CXR and new atrial fibrillation on ECG. No chest pain , palpitations, dizziness or syncope. Exercise tolerance is poor. He has been seen by pulmonary and ID. Abx stopped. Echo 05/04/17: mild global hypokinesis, LVEF = 38%, mild mr m-m TR/AI pap 40-50 mmHg. Stable from a cardiac standpoint to be transferred to [facility]. - Current Medication List Current Medications: Active Medications Albuterol/Ipratropium (Duoneb -) 1 amp NEB RQID [facility] Last Admin: 05/08/17 07:16 Dose: 1 amp Apixaban (Eliquis -) 2.5 mg PO BID [facility] Last Admin: 05/08/17 09:55 Dose: 2.5 mg Atorvastatin Calcium (Lipitor -) 10 mg PO HS [facility] Last Admin: 05/06/17 21:35 Dose: 10 mg Digoxin (Lanoxin -) 0.125 mg PO DAILY [facility] Last Admin: 05/08/17 09:56 Dose: 0.125 mg Folic Acid (Folic Acid -) 1 mg PO DAILY [facility] Last Admin: 05/08/17 09:55 Dose: 1 mg Furosemide (Lasix Injection -) 40 mg IVPUSH DAILY [facility] Last Admin: 05/08/17 09:55 Dose: 40 mg Metoprolol Tartrate (Lopressor -) 100 mg PO BID [facility] Last Admin: 05/08/17 09:55 Dose: 100 mg Multivitamins/Minerals (Theragran-M) 1 each PO DAILY [facility] Last Admin: 05/08/17 09:55 Dose: 1 each Ranitidine HCl (Zantac -) 150 mg PO DAILY [facility] Last Admin: 05/08/17 09:55 Dose: 150 mg Spironolactone (Aldactone -) 25 mg PO DAILY [facility] Last Admin: 05/08/17 09:55 Dose: 25 mg Valsartan (Diovan -) 80 mg PO DAILY [facility] Last Admin: 05/08/17 09:55 Dose: 80 mg - Objective Vital Signs: Vital Signs Temperature 98.2 F 05/08/17 07:11 Pulse Rate 90 02/27/18 09:56 Respiratory Rate 18 05/08/17 07:11 Blood Pressure 128/71 05/08/17 07:11 O2 Sat by Pulse Oximetry (%) 96 05/07/17 21:00 Constitutional: Yes: Other (Thin (Chronically ill appearing) HENT: Yes: WNL Neck : Yes: WNL Cardiovascular: Yes: Pulse Irregular (NL S1S2, no MRHG) Respiratory: Yes: Rhonchi (Minimal scattered rhonchi) Gastrointestinal: Yes: Soft Extremities : Yes: Other ( Brawny edema with chronic venous stasis changes.) Edema: LLE: 1+ , RLE: 1+ Neurological: Yes: Alert, Oriented (Non focal)) Labs: CBC, BMP 05/07/17 06:48 INR, PTT INR 1.22 (0.82-1.09) H 05/03/17 00:49 Assessment/Plan AFIB New onset afib with rapid ventricular response: Ventricular rate control improving. Metoprolol increased to 100 mg bid and digoxin added 05/05/2017. Continue Eliquis 2.5 bid. Acute on chronic systolic CHF LV systolic dysfunction can be tachycardia induced. Continue LV Lasix 40 mg daily to keep Os > Is. Increase metoprolol as above. Continue Diovan 80 mg daily. Monitor daily weight. Follow potassium and renal function. Stable from a cardiac standpoint to be transferred to [facility].
[2017-05-08 10:59] LABS: ALBUMIN 3.3 g/dl (3.4-5.0); ANION GAP 6 (8-16); BLOOD UREA NITROGEN 30 mg/dL (7-18); CALCIUM 8.1 mg/dL (8.5-10.1); CHLORIDE 106 mmol/L (98-107); CO2 30 mmol/L (21-32); CREATININE 1.2 mg/dL (0.7-1.3); GLUCOSE,RANDOM 73 mg/dL (74-106); MAGNESIUM 1.9 mg/dL (1.8-2.4); POTASSIUM 3.9 mmol/L (3.5-5.1); SGOT/AST 64 U/L (15-37); SGPT/ALT 126 U/L (12-78); SODIUM 142 mmol/L (136-145)
[2017-05-08 11:03] LABS: ALK PHOS 130 U/L (45-117); BILIRUBIN,TOTAL 0.7 mg/dL (0.2-1.0); TOT PROT 6.5 g/dl (6.4-8.2)
--- NOTE | 2017-05-08 12:11 | PN ---
Progress Note (short form) - Note Progress Note: Breathing improving. Still with NATHAN and fatigue. No CP. Afebrile. Intake & Output 05/05/17 05/06/17 05/07/17 05/08/17 23:59 23:59 23:59 23:59 Intake Total 450 660 330 Output Total 900 1750 1000 Balance -450 -1090 -670 Weight 166 lb 165 lb 8 oz 168 lb 4 oz 164 lb 4 oz Last Vital Signs Temp Pulse Resp BP Pulse Ox 98.2 F 90 18 128/71 96 05/08/17 07:11 05/08/17 09:56 05/08/17 07:11 05/08/17 07:11 05/07/17 21:00 Active Medications Albuterol/Ipratropium (Duoneb -) 1 amp NEB RQID [facility] BEDS [facility] Last Admin: 05/08/17 11:45 Dose: 1 amp Apixaban (Eliquis -) 2.5 mg PO BID [facility]S [facility] Last Admin: 05/08/17 09:55 Dose: 2.5 mg Atorvastatin Calcium (Lipitor -) 10 mg PO HS [facility] 234 [facility]S [facility] Last Admin: 05/06/17 21:35 Dose: 10 mg Digoxin (Lanoxin -) 0.125 mg PO DAILY [facility]S [facility] Last Admin: 05/08/17 09:56 Dose: 0.125 mg Folic Acid (Folic Acid -) 1 mg PO DAILY [facility]S [facility] Last Admin: 05/08/17 09:55 Dose: 1 mg Furosemide (Lasix Injection -) 40 mg IVPUSH DAILY [facility]S [facility] Last Admin: 05/08/17 09:55 Dose: 40 mg Metoprolol Tartrate (Lopressor -) 100 mg PO BID [facility]S [facility] Last Admin: 05/08/17 09:55 Dose: 100 mg Multivitamins/Minerals (Theragran-M) 1 each PO DAILY [facility] 234 [facility]S [facility] Last Admin: 05/08/17 09:55 Dose: 1 each Ranitidine HCl (Zantac -) 150 mg PO DAILY [facility] Last Admin: 05/08/17 09:55 Dose: 150 mg Spironolactone (Aldactone -) 25 mg PO DAILY [facility] 234 [facility]S [facility] Last Admin: 05/08/17 09:55 Dose: 25 mg Valsartan (Diovan -) 80 mg PO DAILY [facility]S [facility] Last Admin: 05/08/17 09:55 Dose: 80 mg Constitutional: Yes: Thin, NAD HENT: Yes: WNL Neck: Yes: WNL Cardiovascular: Yes: Pulse Irregular (NL S1S2, no MRHG) Respiratory: Yes: Few scattered Rhonchi Gastrointestinal: Yes: Soft Extremities: Yes: Chronic venous stasis changes Edema: LLE: 1+, RLE: 1+ Neurological: Yes: Alert, Oriented (Non focal) Labs: Laboratory Results - last 24 hr 05/08/17 09:50 Sodium 142 Potassium 3.9 Chloride 106 Carbon Dioxide 30 Anion Gap 6 L BUN 30 H Creatinine 1.2 Creat Clearance w eGFR 57.14 Random Glucose 73 L Calcium 8.1 L Magnesium 1.9 Ferritin 333.946 H Total Bilirubin 0.7 AST 64 H D ALT 126 H D Alkaline Phosphatase 130 H Total Protein 6.5 Albumin 3.3 L IMP: Acute Hypoxic Respiratory Failure Decompensated CHF New Onset Atrial Fibrillation with RVR UTI Acute Kidney Injury COPD/Emphysema No evidence to suggest pneumonia - IV lasix - monitor urine output, creatinine - daily weights, I/Os - beta blockers, rate control - O2 to keep SpO2 >90% - inhaled bronchodilators as needed - rate control - continue anticoagulation - Off antibiotics - do not suspect pneumonia at this time - Outpatient PFTs once stable Dr Haas
--- NOTE | 2017-05-08 14:28 | PN ---
Progress Note, Physician History of Present Illness: stable sob improving no complaints patient feels well - Current Medication List Current Medications: Active Medications Albuterol/Ipratropium (Duoneb -) 1 amp NEB RQID [facility] Last Admin: 05/08/17 11:45 Dose: 1 amp Apixaban (Eliquis -) 2.5 mg PO BID [facility] Last Admin: 05/08/17 09:55 Dose: 2.5 mg Atorvastatin Calcium (Lipitor -) 10 mg PO HS [facility] Last Admin: 05/06/17 21:35 Dose: 10 mg Digoxin (Lanoxin -) 0.125 mg PO DAILY [facility] Last Admin: 05/08/17 09:56 Dose: 0.125 mg Folic Acid (Folic Acid -) 1 mg PO DAILY [facility] Last Admin: 05/08/17 09:55 Dose: 1 mg Furosemide (Lasix Injection -) 40 mg IVPUSH DAILY [facility] Last Admin: 05/08/17 09:55 Dose: 40 mg Metoprolol Tartrate (Lopressor -) 100 mg PO BID [facility] Last Admin: 05/08/17 09:55 Dose: 100 mg Multivitamins/Minerals (Theragran-M) 1 each PO DAILY [facility] Last Admin: 05/08/17 09:55 Dose: 1 each Ranitidine HCl (Zantac -) 150 mg PO DAILY [facility] Last Admin: 05/08/17 09:55 Dose: 150 mg Spironolactone (Aldactone -) 25 mg PO DAILY [facility] Last Admin: 05/08/17 09:55 Dose: 25 mg Valsartan (Diovan -) 80 mg PO DAILY [facility] Last Admin: 05/08/17 09:55 Dose: 80 mg - Objective Vital Signs: Vital Signs Temperature 98.1 F 05/08/17 09:00 Pulse Rate 90 05/08/17 09:56 Respiratory Rate 18 05/08/17 09:00 Blood Pressure 129/75 05/08/17 09:00 O2 Sat by Pulse Oximetry (%) 97 05/08/17 09:00 Constitutional: Yes: No Distress, Calm Eyes: Yes: Conjunctiva Clear Cardiovascular: Yes: Regular Rate and Rhythm Respiratory: Yes: Regular, Poor Air Entry Gastrointestinal: Yes: Normal Bowel Sounds, Soft Musculoskeletal: Yes: WNL Extremities: Yes: WNL Neurological: Yes: Alert, Oriented Psychiatric: Yes: Alert, Oriented Labs: CBC, BMP 05/07/17 06:48 05/08/17 09:50 INR, PTT INR 1.22 (0.82-1.09) H 05/03/17 00:49 Assessment/Plan Respiratory Failure Decompensated CHF New Onset Atrial Fibrillation UTI Acute Kidney Injury COPD/Emphysema pleural effusion plan stable off of abx' monitor pleural effusion rest continue current mgmt incentive nathan pul on case physio
[2017-05-09 08:06] LABS: SERUM IRON SATURATION 8 % (15-55); TOTAL IRON BINDING CAPACITY 236 ug/dL (250-450); UIBC 218 ug/dL (111-343)
[2017-05-09 08:10] LABS: ANION GAP 7 (8-16); BLOOD UREA NITROGEN 30 mg/dL (7-18); CALCIUM 8.8 mg/dL (8.5-10.1); CHLORIDE 103 mmol/L (98-107); CO2 32 mmol/L (21-32); CREATININE 1.2 mg/dL (0.7-1.3); GLUCOSE,RANDOM 85 mg/dL (74-106); POTASSIUM 4.3 mmol/L (3.5-5.1); SGOT/AST 40 U/L (15-37); SGPT/ALT 97 U/L (12-78); SODIUM 142 mmol/L (136-145)
[2017-05-09 08:12] LABS: ALK PHOS 121 U/L (45-117); BILIRUBIN,TOTAL 0.8 mg/dL (0.2-1.0); TOT PROT 6.4 g/dl (6.4-8.2)
[2017-05-09] MEDS: FUROSEMIDE 40 MG/4 ML INJECTABLE VIAL IVPUSH SCH (09:43)
[2017-05-09] MEDS: RANITIDINE HCL 150 MG TABLET (FP) PO SCH (09:43)
[2017-05-09] MEDS: VALSARTAN 80 MG TABLET (UD) PO SCH (09:43)
[2017-05-09] MEDS: APIXABAN 2.5 MG TABLET PO SCH (09:43)
[2017-05-09] MEDS: SPIRONOLACTONE 25 MG TABLET (FP) PO SCH (09:43)
[2017-05-09] MEDS: MULTIVITAMINS THER W-MINERALS COMBO TABLET (FP) PO SCH (09:43)
[2017-05-09] MEDS: FOLIC ACID 1 MG TABLET (FP) PO SCH (09:43)
[2017-05-09] MEDS: DIGOXIN 0.125 MG TABLET (FP) PO SCH (09:43)
[2017-05-09] MEDS: METOPROLOL TARTRATE 25 MG TABLET (FP) PO SCH (09:44)
--- NOTE | 2017-05-09 12:31 | PN ---
Progress Note, Physician History of Present Illness: pulmonary alert,oob-chair,comfortable,-resp distress - Current Medication List Current Medications: Active Medications Apixaban (Eliquis -) 2.5 mg PO BID [facility] Last Admin: 05/09/17 09:43 Dose: 2.5 mg Atorvastatin Calcium (Lipitor -) 10 mg PO HS [facility] Last Admin: 05/06/17 21:35 Dose: 10 mg Digoxin (Lanoxin -) 0.125 mg PO DAILY [facility] Last Admin: 05/09/17 09:43 Dose: 0.125 mg Ferrous Sulf[facility]) [facility] Folic Acid (Folic Acid -) 1 mg PO DAILY [facility] Last Admin: 05/09/17 09:43 Dose: 1 mg Furosemide (Lasix Injection -) 40 mg IVPUSH DAILY [facility] Last Admin: 05/09/17 09:43 Dose: 40 mg Metoprolol Tartrate (Lopressor -) 100 mg PO BID [facility] Last Admin: 05/09/17 09:44 Dose: 100 mg Multivitamins/Minerals (Theragran-M) 1 each PO DAILY [facility] Last Admin: 05/09/17 09:43 Dose: 1 each Ranitidine HCl (Zantac -) 150 mg PO DAILY [facility] Last Admin: 05/09/17 09:43 Dose: 150 mg Spironolactone (Aldactone -) 25 mg PO DAILY [facility] Last Admin: 05/09/17 09:43 Dose: 25 mg Valsartan (Diovan -) 80 mg PO DAILY [facility] Last Admin: 05/09/17 09:43 Dose: 80 mg - Objective Vital Signs: Vital Signs Temperature 98.4 F 05/09/17 10:00 Pulse Rate 89 05/09/17 10:00 Respiratory Rate 20 05/09/17 10:00 Blood Pressure 126/61 05/09/17 10:00 O2 Sat by Pulse Oximetry (%) 95 05/09/17 09:00 Constitutional: Yes: Calm, Thin Eyes: Yes: WNL HENT: Yes: WNL Neck: Yes: WNL Cardiovascular: Yes: Pulse Irregular, S1, S2 Respiratory: Yes: Diminished Gastrointestinal: Yes: Normal Bowel Sounds, Soft Extremities: Yes: WNL Edema: No Labs: 05/09/17 07:12 INR, PTT INR 1.22 (0.82-1.09) H 05/03/17 00:49 Problem List - Problems (1) Acute hypoxemic respiratory failure Code(s): J96.01 - ACUTE RESPIRATORY FAILURE WITH HYPOXIA (2) Afib Code(s): I48.91 - UNSPECIFIED ATRIAL FIBRILLATION Qualifiers: Atrial fibrillation type: unspecified Qualified Code(s): I48.91 - Unspecified atrial fibrillation (3) CHF (congestive heart failure) Code(s): I50.9 - HEART FAILURE, UNSPECIFIED Qualifiers: Heart failure type: diastolic Heart failure chronicity: acute on chronic Qualified Code(s): I50.33 - Acute on chronic diastolic (congestive) heart failure (4) HTN (hypertension) Code(s): I10 - ESSENTIAL (PRIMARY) HYPERTENSION Assessment/Plan IMP: Acute Hypoxic Respiratory Failure improved Decompensated CHF IMPROVED New Onset Atrial Fibrillation with RVR UTI Acute Kidney Injury COPD/Emphysema No evidence to suggest pneumonia - IV lasix - monitor urine output, creatinine - daily weights, I/Os - beta blockers, rate control - O2 to keep SpO2 >90% - inhaled bronchodilators as needed - rate control - anticoagulation - Off antibiotics - do not suspect pneumonia at this time - Outpatient PFTs DR HARTMAN
[2017-05-09 14:51] VITALS: BP 132/72; PULSE 90; TEMP 98.1
--- NOTE | 2017-05-09 15:29 | DS ---
Physical Exam: SUBJECTIVE: Patient seen and examined OBJECTIVE: Vital Signs Period Temp Pulse Resp BP Sys/Garsia Pulse Ox Last 24 Hr 97.4 F-98.4 F 80-110 20-20 113-132/53-76 87-95 PHYSICAL EXAM GENERAL: The patient is awake, alert, and fully oriented, in no acute distress. HEAD: Normal with no signs of trauma. EYES: PERRL, extraocular movements intact, sclera anicteric, conjunctiva clear. ENT: Ears normal, nares patent, oropharynx clear without exudates, moist mucous membranes. NECK: Trachea midline, full range of motion, supple. LUNGS: Breath sounds equal, clear to auscultation bilaterally, no wheezes, no crackles, no accessory muscle use. HEART: Regular rate and rhythm, S1, S2 without murmur, rub or gallop. ABDOMEN: Soft, nontender, nondistended, normoactive bowel sounds, no guarding, no rebound, no hepatosplenomegaly, no masses. EXTREMITIES: 2+ pulses, warm, well-perfused, no edema. NEUROLOGICAL: Cranial nerves II through XII grossly intact. Normal speech, gait not observed. PSYCH: Normal mood, normal affect. SKIN: Warm, dry, normal turgor, no rashes or lesions noted. LABS Laboratory Results - last 24 hr 05/08/17 05/09/17 09:50 07:12 Sodium 142 Potassium 4.3 Chloride 103 Carbon Dioxide 32 Anion Gap 7 L BUN 30 H Creatinine 1.2 Creat Clearance w eGFR 57.14 Random Glucose 85 Calcium 8.8 Magnesium 2.0 Iron 18 L TIBC 236 L Iron Saturation 8 L Total Bilirubin 0.8 AST 40 H D ALT 97 H D Alkaline Phosphatase 121 H Total Protein 6.4 Albumin 3.0 L HOSPITAL COURSE: Date of Admission:05/03/17 Date of Discharge: 05/09/17 admitting diagnosis: Afib with RVR, CHF exacerbation Pre hospital course This is a 87 y/o man who presents to the ED sent in by his PCP for increased SOB x 1 week lower leg edema and non-productive cough x 3 days. Patient denies fever, chills, dizziness, CP, palpitations, AP, N/V/D, dysuria. Subsequent hospital course Tele admission. started on lasix IV and eliquis (dose adjusted). was initially started on abx for suspected PNA but then stopped. medications were optimized for heart failure. addition of digoxin and spirolactone and ARB. brief transaminits due to medications which then resolved. clinically pt improved. evaluated and qualified for home O2 requiring 3L NC to maintain spO2>90% at rest. recommended pt to go to [facility] but refused. d/c home with [facility]NS Minutes to complete discharge: 40 Discharge Summary Reason For Visit: ATRIAL FIBRILLATION, PLEURAL EFFUSION Current Active Problems Acute hypoxemic respiratory failure (Acute) Afib (Acute) CHF exacerbation (Acute) HLD (hyperlipidemia) (Acute) HTN (hypertension) (Acute) Pleural effusion (Acute) Transaminitis (Acute) CHF (congestive heart failure) (Chronic) Thalassemia (Chronic) Condition: Improved - Instructions Diet, Activity, Other Instructions: You were admitted to the hospital as you were found in an abnormal rhythm known as atrial fibrillation. You were also found to have excessive fluid in your lungs known as heart failure You should weight yourself daily. If you notice your weight increasing by more than 2 pounds notify your produce manager, He may instruct you to take extra of your water pill. Your discharge weight was 162 pounds. You were started on new medications. Please refer to medication list for these changes. Take your medication as instructed You will also need to use oxygen while at rest and when your getting up around to move. Titrate the oxygen as needed to maintain oxygen level above 90%.At the hospital you required 3liters to achieve this. Follow up with your primary care doctor in 1 week. You should have your liver enzymes checked to ensure they are improving as well as iron studies repeated in 3 months. Follow up with your produce manager in 2 weeks If you develop chest pain or difficulty breathing return to the ER. Referrals: Ra Hernández MD [Staff Physician] - Dat ePralta MD [Primary Care Provider] - Disposition: VNS/HOME HEALTH CARE - Home Medications Comprehensive Discharge Medication List: Ambulatory Orders Folic Acid/Multivit-Min/Lutein [Centrum Silver Chewable Tablet] 1 each PO DAILY 07/16/14 Apixaban [Eliquis -] 2.5 mg PO BID #60 tablet 05/09/17 Atorvastatin Ca [Lipitor] 10 mg PO HS #30 tablet 05/09/17 Digoxin [Lanoxin -] 0.125 mg PO DAILY #30 tablet 05/09/17 Ferrous Sulfate [Feosol] 325 mg PO BIDWM #60 ud 05/09/17 Furosemide [Lasix -] 40 mg PO DAILY #30 tablet 05/09/17 Metoprolol Tartrate [Lopressor -] 100 mg PO BID #60 tablet 05/09/17 Spironolactone [Aldactone -] 25 mg PO DAILY #30 tablet 05/09/17 Valsartan [Diovan] 80 mg PO DAILY #30 tablet 05/09/17 This patient is new to me today: No Emergency Visit: Yes ED Registration Date: 05/03/17 Care time: The patient presented to the Emergency Department on the above date and was hospitalized for further evaluation of their emergent condition. Critical Care patient: No - Discharge Referral Referred to [facility] Med P.C.: No
--- NOTE | 2017-05-09 16:01 | PN ---
Progress Note, Physician History of Present Illness: doing well no issues breathing well - Current Medication List Current Medications: Active Medications Apixaban (Eliquis -) 2.5 mg PO BID [facility] Last Admin: 05/09/17 09:43 Dose: 2.5 mg Atorvastatin Calcium (Lipitor -) 10 mg PO HS [facility] Last Admin: 05/06/17 21:35 Dose: 10 mg Digoxin (Lanoxin -) 0.125 mg PO DAILY [facility] Last Admin: 05/09/17 09:43 Dose: 0.125 mg Ferrous Sulfate ([facility]ol -) [facility] [place] Folic Acid (Folic Acid -) 1 mg PO DAILY [facility] Last Admin: 05/09/17 09:43 Dose: 1 mg Furosemide (Lasix Injection -) 40 mg IVPUSH DAILY [facility] Last Admin: 05/09/17 09:43 Dose: 40 mg Metoprolol Tartrate (Lopressor -) 100 mg PO BID [facility] Last Admin: 05/09/17 09:44 Dose: 100 mg Multivitamins/Minerals (Theragran-M) 1 each PO DAILY [facility] Last Admin: 05/09/17 09:43 Dose: 1 each Ranitidine HCl (Zantac -) 150 mg PO DAILY [facility] Last Admin: 05/09/17 09:43 Dose: 150 mg Spironolactone (Aldactone -) 25 mg PO DAILY [facility] Last Admin: 05/09/17 09:43 Dose: 25 mg Valsartan (Diovan -) 80 mg PO DAILY [facility] Last Admin: 05/09/17 09:43 Dose: 80 mg - Objective Vital Signs: Vital Signs Temperature 98.1 F 05/09/17 14:00 Pulse Rate 90 05/09/17 14:00 Respiratory Rate 20 05/09/17 14:00 Blood Pressure 132/72 05/09/17 14:00 O2 Sat by Pulse Oximetry (%) 87 L 05/09/17 13:58 Constitutional: Yes: No Distress, Calm Cardiovascular: Yes: Regular Rate and Rhythm Respiratory: Yes: Regular, Poor Air Entry Gastrointestinal: Yes: Normal Bowel Sounds, Soft Musculoskeletal: Yes: WNL Extremities: Yes: WNL Neurological: Yes: Alert, Oriented Psychiatric: Yes: Alert, Oriented Labs: CBC, BMP 05/07/17 06:48 05/09/17 07:12 INR, PTT INR 1.22 (0.82-1.09) H 05/03/17 00:49 Assessment/Plan Respiratory Failure Decompensated CHF New Onset Atrial Fibrillation UTI Acute Kidney Injury COPD/Emphysema pleural effusion plan stable off of abx' continue current mgmt rest as per primary team follow up as out patient
[2017-05-09] MEDS ORDERED: FERROUS SO4 325 MG TABLET (FP) PO SCH (17:30)
== END 2017-05-09 20:30 | disposition home health service (06) | DRG 291 ==
LOC: JER 20:02 → JERBED 05-03 01:53 → J4S 05-03 15:25
PROVIDERS: ADMIT Internal Medicine; ATTEND Internal Medicine
DX: I11.0 Hypertensive heart disease with heart failure (principal); J96.01 Acute respiratory failure with hypoxia; J90 Pleural effusion, not elsewhere classified; N39.0 Urinary tract infection, site not specified; N17.9 Acute kidney failure, unspecified; I48.91 Unspecified atrial fibrillation; I50.23 Acute on chronic systolic (congestive) heart failure; D56.9 Thalassemia, unspecified; E78.5 Hyperlipidemia, unspecified; J44.9 Chronic obstructive pulmonary disease, unspecified; E87.6 Hypokalemia; R74.0 Nonspecific elevation of levels of transaminase and lactic acid dehydrogenase [LDH]; D50.9 Iron deficiency anemia, unspecified; Z87.891 Personal history of nicotine dependence
CPT/HCPCS: 36415; 36600; 71045-TC-FY; 71046-TC-FY; 71250-TC; 76705-TC; 80048; 80053; 80061; 81003; 81015; 82550; 82728; 82803; 83540; 83550; 83605; 83721; 83735; 84100; 84132; 84484; 85025; 85610; 85730; 86850; 86900; 86901; 87040; 87086; 87899; 93005; 93010; 93306-TC; 94640; 94761; 97116-GP; 97161-GP; 99284-25

== ENCOUNTER 2018-01-24 11:49 | Inpatient (IN) | payer BC, OTHER ==
--- NOTE | 2018-01-24 12:44 | PDOC ---
History of Present Illness - General Chief Complaint: Weakness Stated Complaint: PCP SENT Time Seen by Provider: 01/24/18 12:43 - History of Present Illness Initial Comments: 87yo with history of aortic dissection, CHF, atrial fibrillation, HTN presenting with weakness. Patient was sent by his primary care physician, Dr. Peralta, who noted that the patients most recent lab results showed hypokalemia, hypocalcemia, elevated BUN and Cr. Patient reports that his dosage of furosemide has been adjusted in the past two weeks as he has been dehydrated. He reports experiencing intermittent periods of weakness since he was admitted to the hospital earlier this year for CHF exacerbation. Patient endorses shortness of breath, but no chest pain. He has dyspnea on exertion upon walking across a room. Patient also endorses bilateral leg swelling. He has intermittent diarrhea, including an episode today. Denies fever, chills, chest pain, or abdominal pain. Past History - Past Medical History Allergies/Adverse Reactions: Allergies Allergy/AdvReac Type Severity Reaction Status Date / Time No Known Allergies Allergy Verified 01/24/18 12:06 Home Medications: Ambulatory Orders Folic Acid/Multivit-Min/Lutein [Centrum Silver Chewable Tablet] 1 each PO DAILY 07/16/14 Apixaban [Eliquis -] 2.5 mg PO BID #60 tablet 05/09/17 Atorvastatin Ca [Lipitor] 10 mg PO HS #30 tablet 05/09/17 Digoxin [Lanoxin -] 0.125 mg PO DAILY #30 tablet 05/09/17 Ferrous Sulfate [Feosol] 325 mg PO BIDWM #60 ud 05/09/17 Furosemide [Lasix -] 40 mg PO DAILY #30 tablet 05/09/17 Metoprolol Tartrate [Lopressor -] 100 mg PO BID #60 tablet 05/09/17 Spironolactone [Aldactone -] 25 mg PO DAILY #30 tablet 05/09/17 Valsartan [Diovan] 80 mg PO DAILY #30 tablet 05/09/17 Anemia: Yes COPD: No CHF: Yes HTN: Yes - Suicide/Smoking/Psychosocial Hx Smoking History: Former smoker Have you smoked in the past 12 months: No If you are a former smoker, when did you quit?: 1973 Information on smoking cessation initiated: No 'Breaking Loose' booklet given: 05/03/17 Hx Alcohol Use: No Drug/Substance Use Hx: No Substance Use Type: None Hx Substance Use Treatment: No Review of Systems - Review of Systems Comments:: Constitutional: no fever, no chills HEENT: no throat pain, no dysphagia Cardiovascular: no chest pain, no palpitations Respiratory: no cough, +shortness of breath Gastrointestinal: no abdominal pain, no nausea, no vomiting, +diarrhea Genitourinary: no dysuria, no frequency Musculoskeletal: no myalgia, no arthralgia Skin: no rash, no itching Neurologic: no headache, no dizziness *Physical Exam - Vital Signs Last Vital Signs Temp Pulse Resp BP Pulse Ox 82 18 91/53 L 96 01/24/18 12:02 01/24/18 12:02 01/24/18 12:02 01/24/18 12:02 - Physical Exam Comments: General: Awake, alert, and fully oriented, in no acute distress Head: No signs of trauma Eyes: EOMI, sclera anicteric ENT: Dry mucus membranes Neck: Normal ROM, supple Lungs: Lungs clear, Normal breath sounds Cardio: Regular rhythm, S1 and S2 present Abdomen: Soft, nontender. No guarding, no rebound, no masses Extremities: 2+ bilateral pitting edema in LE, Distal pulses present SKIN: Warm, Dry, normal turgor Neurologic: Cranial nerves II through XII grossly intact. Normal speech ED Treatment Course - LABORATORY CBC & Chemistry Diagram: 01/24/18 13:45 01/24/18 13:45 Medical Decision Making - Medical Decision Making 87yo with history of aortic dissection, CHF, atrial fibrillation, HTN presenting with weakness. -Spoke with Dr. Peralta, patient's primary care provider. He reports that patient has acute renal insufficiency with an increasing BUN and Cr, while showing clinical signs of CHF exacerbation with increased SOB, NATHAN, and lower extremity edema. Dr. Alaniz is the admitting provider for Dr. Peralta's patients. -Patient hypotensive (91/53) and with low rectal temperature (96.6F) upon triage : septic workup ordered -No anemia or leukocytosis, hypokalemic at K=2.8, hypocalcemic at Ca=6.0, elevated BUN=75, elevated Cr=2.9 (baseline is 1.2) -Patient given fluids for hypotension; electrolytes ordered for repletion -CXR: Moderate cardiomegaly, congestive heart failure infiltrate and infiltrates or atelectasis at the bases. Possible small left effusion. Over improvement since prior exam. -EKG: rate 89, QTc 496, Atrial fibrillation -Plan to admit 01/24/18 13:[address] Alaniz who accepted patient for admission 01/24/18 15:37 *DC/Admit/Observation/Transfer Diagnosis at time of Disposition: Acute renal insufficiency, Hypokalemia, Hypocalcemia CHF exacerbation Qualifiers: Heart failure type: unspecified Qualified Code(s): I50.9 - Heart failure, unspecified - Discharge Dispostion Condition at time of disposition: Guarded Decision to Admit order: Yes - Referrals - Patient Instructions - Post Discharge Activity
[2018-01-24] MEDS ORDERED: SODIUM CHLORIDE 0.9% 1000 ML INFUS.BAG IV ONE (13:14)
[2018-01-24 14:02] LABS: BASO % 0.9 % (0-2.0); EOS % 0.1 % (0-4.5); HEMATOCRIT 30.5 % (35.4-49); HEMOGLOBIN 9.3 GM/dL (11.7-16.9); MCH 20.2 pg (25.7-33.7); MCHC 30.4 g/dl (32.0-35.9); MEAN CELL VOLUME 66.2 fl (80-96); MEAN PLT VOLUME 8.4 fl (7.5-11.1); MONO % 10.3 % (3.8-10.2); NEUT % 61.7 % (42.8-82.8); PLATELET COUNT 150 K/MM3 (134-434); RDW 17.5 % (11.9-15.9); VENOUS PC02 40.5 mmHg (38-52); VENOUS PH 7.37 (7.32-7.42); VENOUS PO2 25.5 mmHg (28-48); WHITE BLOOD COUNT 6.7 K/mm3 (4.0-10.0)
[2018-01-24 14:29] LABS: INR 1.83 (0.83-1.09); PROTHROMBIN TIME (PATIENT) 21.7 SEC (9.7-13.0)
[2018-01-24 14:31] LABS: ACTIVATED PTT 39.2 SECONDS (25.2-36.5)
[2018-01-24 14:55] LABS: ALK PHOS 77 U/L (45-117); ANION GAP 10 MMOL/L (8-16); BILIRUBIN,TOTAL 1.8 mg/dL (0.2-1); BLOOD UREA NITROGEN 75 mg/dL (7-18); CHLORIDE 101 mmol/L (98-107); CO2 26 mmol/L (21-32); CREATININE 2.9 mg/dL (0.55-1.3); GLUCOSE,RANDOM 82 mg/dL (74-106); SGOT/AST 28 U/L (15-37); SGPT/ALT 19 U/L (13-61); SODIUM 136 mmol/L (136-145); TOT PROT 6.5 g/dl (6.4-8.2)
[2018-01-24 14:58] LABS: POTASSIUM 2.8 mmol/L (3.5-5.1)
--- NOTE | 2018-01-24 15:24 | PDOC ---
Attending Attestation - HPI HPI: 01/24/18 15:28 Patient is an 87 year old male with a significant past medical history of HTN, Hyperlipidemia, Thalassemia, who presents to the ED with complaints of increased lethargy that began this morning. Patient reports going to see PCP who advised patient to come into the ED for further evaluation to determine if symptoms are secondary to his medications. He reports experiencing associated symptoms of shortness of breath with exertion, diarrhea, and bilateral lower extremity edema. Denies chest pain. Denies nausea, vomiting.Denies fever ,chills. Denies contact with sick individuals, out of state travelling. Denies dysuria, hematuria. Denies constipation. Denies any other symptoms. Allergies: None Social history: Lives with . Former smoker. No alcohol. No illicit drugs. Surgical history: None PMD: Dr. Peralta - Physicial Exam PE: 01/24/18 15:28 Vitals: Triage Vital signs reviewed General Appearance: no acute distress, well nourished well developed Head: Atraumatic Eyes: Pupils equal reactive round, extraocular movement intact Neck: Supple; No Nuchal rigidity Chest Wall: Nontender Cardiac: Regular rate and rhythm, no murmurs, no rubs, no gallops Lungs: Clear to auscultation bilateral, good air movement bilaterally Abdomen: Soft, non distended, normal bowel sounds, non tender to palpation Extremities: +3 + pitting edema. Full range of motion to all extremities, no cyanosis, clubbing, or edema Skin: Warm and dry, no rashes or lesions, no rash, no petechiae Neuro: AOX3; Cranial Nerves 2-12 grossly intact, Strength intact to all extremities, Sensation intact to all extremities, gait normal Psych: Normal mood, normal affect <Shashank Rhoades - Last Filed: 01/24/18 16:20> - Resident Resident Name: Geraldine Alejandra - ED Attending Attestation I have performed the following: I have examined & evaluated the patient, The case was reviewed & discussed with the resident, I agree w/resident's findings & plan, Exceptions are as noted - Medical Decision Making Patient sent to ED for lethargy Laboratory analysis demonstrates metabolic disarray. Patient hypokalemic hypocalcemic as well as intravascularly dry given acute kidney injury and extravascular be fluid overloaded given worsening pitting edema IV fluids ordered slowly for kidney function may required diuretic chasers calcium and potassium correction initiated We'll admit to medicine for further management. <Ra Vivas - Last Filed: 01/24/18 21:49>
[2018-01-24 15:30] LABS: ACANTHOCYTES 1+; ANISOCYTOSIS 3+; MACROCYTOSIS 0; OVALOCYTE 1+; PLATELET ESTIMATE NORMAL
[2018-01-24] MEDS ORDERED: POTASSIUM CHLORIDE TABS 20 MEQ TABLET.ER (FP) PO ONE (16:11)
[2018-01-24] MEDS ORDERED: POTASSIUM CHLORIDE 20 MEQ PREMIX IVPB 100 ML IVPB ONE (16:12)
[2018-01-24] MEDS ORDERED: KCL 10 MEQ IVPB 10 MEQ/100 ML INFUS.BAG IVPB ONE ×2 (16:43→16:57)
[2018-01-24] MEDS: POTASSIUM CHLORIDE 10 MEQ PREMIX IVPB (POTASSIUM RIDER) IVPB SCH ×2 (16:53→18:51)
--- NOTE | 2018-01-24 16:54 | CONSULT ---
Consult Consult Specialty:: Nephrology Reason for Consultation:: ABIGAIL - History of Present Illness Chief Complaint: malaise History of Present Illness: Pt is an 87 year old male with pmhx of CHF, HLD, thalassemia and a-fib who presents to the ER with malaise and fatigue. He says he feels much weaker than he usually does. He was found to have elevated creatinine and I was called to evaluate him. He is o n multiple diuretics at home. He feels that his legs are not as swollen as they usually are. He feels that his mouth is dry. He denies shortness of breath that is any worse than his baseline. He has been having some diarrhea as well. I was called as a stat consult to the ER. - History Source History Provided By: Patient - Past Medical History Cardio/Vascular: Yes: AFIB, CHF, HTN, Hyperlipdemia Renal/: Yes: Renal Failure - Alcohol/Substance Use Hx Alcohol Use: No History of Substance Use: reports: None - Smoking History Smoking history: Former smoker Have you smoked in the past 12 months: No If you are a former smoker, when did you quit?: 1973 - Social History ADL: Independent History of Recent Travel: No Home Medications - Allergies Allergies/Adverse Reactions: Allergies Allergy/AdvReac Type Severity Reaction Status Date / Time No Known Allergies Allergy Verified 01/24/18 12:06 - Home Medications Home Medications: Ambulatory Orders Folic Acid/Multivit-Min/Lutein [Centrum Silver Chewable Tablet] 1 each PO DAILY 07/16/14 Apixaban [Eliquis -] 2.5 mg PO BID #60 tablet 05/09/17 Atorvastatin Ca [Lipitor] 10 mg PO HS #30 tablet 05/09/17 Digoxin [Lanoxin -] 0.125 mg PO DAILY #30 tablet 05/09/17 Ferrous Sulfate [Feosol] 325 mg PO BIDWM #60 ud 05/09/17 Furosemide [Lasix -] 40 mg PO DAILY #30 tablet 05/09/17 Metoprolol Tartrate [Lopressor -] 100 mg PO BID #60 tablet 05/09/17 Spironolactone [Aldactone -] 25 mg PO DAILY #30 tablet 05/09/17 Valsartan [Diovan] 80 mg PO DAILY #30 tablet 05/09/17 Family Disease History - Family Disease History Family History: Denies Review of Systems - Review of Systems Constitutional: reports: Malaise. denies: Chills, Fever Eyes: reports: No Symptoms HENT: reports: No Symptoms Neck: reports: No Symptoms Cardiovascular: reports: Edema, Shortness of Breath Respiratory: reports: SOB on Exertion Gastrointestinal: reports: No Symptoms Genitourinary: reports: No Symptoms Musculoskeletal: reports: No Symptoms Integumentary: reports: No Symptoms Neurological: reports: No Symptoms Endocrine: reports: No Symptoms Hematology/Lymphatic: reports: No Symptoms Psychiatric: reports: No Symptoms Physical Exam Vital Signs: Vital Signs Temperature 96.6 F L 01/24/18 13:24 Pulse Rate 82 01/24/18 12:02 Respiratory Rate 18 01/24/18 12:02 Blood Pressure 91/53 L 01/24/18 12:02 O2 Sat by Pulse Oximetry (%) 96 01/24/18 12:02 Constitutional: Yes: Calm Eyes: Yes: Conjunctiva Clear HENT: Yes: Atraumatic Cardiovascular: Yes: Pulse Irregular, JVD, S1, S2 Respiratory: Yes: CTA Bilaterally Gastrointestinal: Yes: Soft Renal/: Yes: WNL Edema: Yes Edema: LLE: 1+, RLE: 1+ Integumentary: Yes: Venous Stasis Changes Neurological: Yes: Oriented Psychiatric: Yes: Oriented Labs: CBC, BMP 01/24/18 13:45 01/24/18 13:45 Laboratory Tests 03/16/10 03/17/10 05/04/17 16:50 06:00 06:50 WBC Hgb Sodium Potassium Chloride Carbon Dioxide BUN Creatinine 1.6 H 1.4 H 1.7 H D Lactic Acid Calcium 05/04/17 05/06/17 05/08/17 08:00 06:15 09:50 WBC Hgb Sodium Potassium Chloride Carbon Dioxide BUN Creatinine 1.7 H 1.4 H 1.2 Lactic Acid Calcium 05/09/17 01/24/18 01/24/18 07:12 13:45 13:45 WBC 6.7 Hgb 9.3 L Sodium 136 Potassium 2.8 L* Chloride 101 Carbon Dioxide 26 BUN 75 H Creatinine 1.2 2.9 H Lactic Acid Calcium 6.0 L* 01/24/18 14:02 WBC Hgb Sodium Potassium Chloride Carbon Dioxide BUN Creatinine Lactic Acid 1.6 Calcium Imaging - Results Chest X-ray: Report Reviewed Problem List - Problems (1) Acute renal insufficiency Code(s): N28.9 - DISORDER OF KIDNEY AND URETER, UNSPECIFIED (2) Hypocalcemia Code(s): E83.51 - HYPOCALCEMIA (3) Hypokalemia Code(s): E87.6 - HYPOKALEMIA (4) Afib Code(s): I48.91 - UNSPECIFIED ATRIAL FIBRILLATION (5) HLD (hyperlipidemia) Code(s): E78.5 - HYPERLIPIDEMIA, UNSPECIFIED (6) Pleural effusion Code(s): J90 - PLEURAL EFFUSION, NOT ELSEWHERE CLASSIFIED Assessment/Plan Current Medications Generic Name Dose Route Start Last Admin Trade Name Freq PRN Reason Stop Dose Admin Potassium Chloride 10 meq 01/24/18 16:45 Potassium Chloride 10 Meq Premix Ivpb - IVPB 01/24/18 17:46 Q1H RIVAS Impression 1. ABIGAIL 2. hypokalemia 3. hypocalcemia 4. a-fib 5. CHF 6. thalassemia 7. HLD Plan - replace potassium - replace calcium - hold diovan - hold diuretics for now - check ua and data miner along with urea - check renal ultrasound - pt was on diuretics and had diarrhea, he also clinically appears depleted. Monitor volume status closely. Will avoid giving fluids, can hold diuretics - check echo - case discussed with medical team - will follow - admit pt to a monitored unit with a tele monitor - check dig level Dr [place]
[2018-01-24] MEDS ORDERED: CALCIUM GLUCONATE 10% - 1,000 MG/10 ML VIAL IVPB ONE ×2 (16:55→22:52)
--- NOTE | 2018-01-24 16:59 | HP ---
Admitting History and Physical - Primary Care Physician PCP: Dat Peralta - Admission Chief Complaint: I feel weak History of Present Illness: Mr Ramirez is a very pleasant 87 year old male who comes in with weakness. Both he and his are very vague historians so it is difficult to ascertain the exact reason they came in aside from they were told to come in by Dr Prealta. Per the patient he has been experiencing weakness, exhaustion, and dyspnea on exertion. However he says this has been going on "for a while" and that it has not gotten worse. He also complains of BLE edema but this is also chronic. He denies fevers, chills, lightheadedness, dizziness, passing out, chest pain, shortness of breath at rest, anorexia, abdominal pain, nausea, vomiting, diarrhea, constipation, or difficulty or pain on urination. Call was placed to Dr Peralta to clarify presentation. Patient has been following up closely with Dr Peralta. He has been presenting with shortness of breath and his diuretics were elevated. However his outpatient labs showed ABIGAIL and his diuretics were decreased, but his lung function worsened. Because of this he was sent in for further evaluation and treatment. History Source: Patient Limitations to Obtaining History: Poor Historian - Past Medical History Cardiovascular: Yes: AFIB, CHF, HTN, Hyperlipdemia Renal/: Yes: Renal Failure Heme/Onc: Yes: Other (Thalassemia) - Past Surgical History Past Surgical History: Yes: AAA Repair - Smoking History Smoking history: Former smoker Have you smoked in the past 12 months: No If you are a former smoker, when did you quit?: 1973 - Alcohol/Substance Use Hx Alcohol Use: No History of Substance Use: reports: None - Social History Usual Living Arrangement: Yes: With Spouse ADL: Independent History of Recent Travel: No Home Medications - Allergies Allergies/Adverse Reactions: Allergies Allergy/AdvReac Type Severity Reaction Status Date / Time No Known Allergies Allergy Verified 01/24/18 12:06 - Home Medications Home Medications: Ambulatory Orders Folic Acid/Multivit-Min/Lutein [Centrum Silver Chewable Tablet] 1 each PO DAILY 07/16/14 Apixaban [Eliquis -] 2.5 mg PO BID #60 tablet 05/09/17 Atorvastatin Ca [Lipitor] 10 mg PO HS #30 tablet 05/09/17 Digoxin [Lanoxin -] 0.125 mg PO DAILY #30 tablet 05/09/17 Ferrous Sulfate [Feosol] 325 mg PO BIDWM #60 ud 05/09/17 Furosemide [Lasix -] 40 mg PO DAILY #30 tablet 05/09/17 Metoprolol Tartrate [Lopressor -] 100 mg PO BID #60 tablet 05/09/17 Spironolactone [Aldactone -] 25 mg PO DAILY #30 tablet 05/09/17 Valsartan [Diovan] 80 mg PO DAILY #30 tablet 05/09/17 Family Disease History - Family Disease History Family Disease History: Other: Father (alcohol cirrhosis) Review of Systems Findings/Remarks: Full review of systems obtained, as per HPI and otherwise negative Physical Examination Vital Signs: Vital Signs Temperature 35.9 C L 01/24/18 13:24 Pulse Rate 82 01/24/18 12:02 Respiratory Rate 18 01/24/18 12:02 Blood Pressure 91/53 L 01/24/18 12:02 O2 Sat by Pulse Oximetry (%) 96 01/24/18 12:02 Constitutional: Yes: No Distress, Calm Eyes: Yes: Conjunctiva Clear, EOM Intact, PERRL Cardiovascular: Yes: Regular Rate and Rhythm, JVD, Murmur. No: Gallop, Rub Respiratory: Yes: Regular, CTA Bilaterally. No: Rales, Rhonchi, Wheezes Gastrointestinal: Yes: Normal Bowel Sounds, Soft, Ascites, Distention. No: Tenderness Extremities: Yes: Erythema, Other (chronic venous stasis changes) Edema: LLE: 3+ (weeping), RLE: 3+ (weeping) Labs: CBC, BMP 01/24/18 13:45 01/24/18 13:45 Imaging - Results Chest X-ray: Report Reviewed, Image Reviewed Problem List - Problems (1) Cardiorenal syndrome with renal failure Assessment/Plan: -patient with significant third spacing and ABIGAIL -case d/w nephrology and cardiology -will hold on diuretics as patient is very dehydrated at the moment -however will not tolerate IVF, concerning for worsening CHF -will encourage oral fluids -when more stable, begin diuresis Code(s): I13.10 - HYP HRT & CHR KDNY DIS W/O HRT FAIL, W STG 1-4/UNSP CHR KDNY; N19 - UNSPECIFIED KIDNEY FAILURE (2) Acute renal insufficiency Assessment/Plan: -patient with significant intravascular dehydration -case d/w Dr Houston -at the moment, hydrate orally -will hold diuretics -follow up labs tonight and in the am Code(s): N28.9 - DISORDER OF KIDNEY AND URETER, UNSPECIFIED (3) CHF exacerbation Assessment/Plan: -unsure of type of CHF, cannot open previous ECHO -will repeat ECHO -presentation most c/w right sided heart failure or valvular disease -cardiology consulted -considered IV lasix since with cardiorenal syndrome, however at this moment will hold off -review ECHO results and manage from there Code(s): I50.9 - HEART FAILURE, UNSPECIFIED Qualifiers: Heart failure type: unspecified Qualified Code(s): I50.9 - Heart failure, unspecified (4) Hypocalcemia Assessment/Plan: -replete -recheck tonight -replace as necessary Code(s): E83.51 - HYPOCALCEMIA (5) Hypokalemia Code(s): E87.6 - HYPOKALEMIA (6) Afib Assessment/Plan: -not in exacerbation -continue eliquis -check digoxin level -continue metoprolol with hold precautions Code(s): I48.91 - UNSPECIFIED ATRIAL FIBRILLATION (7) HLD (hyperlipidemia) Assessment/Plan: -continue statin Code(s): E78.5 - HYPERLIPIDEMIA, UNSPECIFIED (8) HTN (hypertension) Assessment/Plan: -hypotensive -monitor with oral fluid replacement Code(s): I10 - ESSENTIAL (PRIMARY) HYPERTENSION Assessment/Plan -case d/w cardiology and nephrology -62 minutes spent in care of this patient
[2018-01-24] MEDS ORDERED: FERROUS SO4 325 MG TABLET (FP) ONE (21:22)
[2018-01-24] MEDS: FERROUS SO4 325 MG TABLET (FP) PO SCH (21:22)
[2018-01-24] MEDS ORDERED: POTASSIUM CHLORIDE ORAL LIQUID 20 MEQ/15 ML PO SCH (22:00)
[2018-01-24 22:10] LABS: ANION GAP 12 MMOL/L (8-16); BLOOD UREA NITROGEN 72 mg/dL (7-18); CHLORIDE 105 mmol/L (98-107); CO2 23 mmol/L (21-32); CREATININE 2.7 mg/dL (0.55-1.3); GLUCOSE,RANDOM 108 mg/dL (74-106); POTASSIUM 3.4 mmol/L (3.5-5.1); SODIUM 140 mmol/L (136-145)
[2018-01-24] MEDS ORDERED: PT OWN MED DRAWER 7, Y5N ONE (23:06)
[2018-01-24] MEDS: APIXABAN 2.5 MG TABLET PO SCH (23:20)
[2018-01-24] MEDS: METOPROLOL TARTRATE 50 MG TABLET (FP) PO SCH (23:20)
[2018-01-24] MEDS: ATORVASTATIN CA 10 MG TABLET (FP) PO SCH (23:20)
--- NOTE | 2018-01-25 00:20 | PN ---
Progress Note (short form) - Note Progress Note: Laboratory Tests 01/24/18 20:55 Sodium 140 Potassium 3.4 L Chloride 105 Carbon Dioxide 23 Anion Gap 12 BUN 72 H Creatinine 2.7 H Calcium 6.0 L* addendum labs reviewed - pt was given potassium - pt was given calcium - will give calcitriol as well - check mag Problem List - Problems (1) Acute renal insufficiency Code(s): N28.9 - DISORDER OF KIDNEY AND URETER, UNSPECIFIED (2) Hypocalcemia Code(s): E83.51 - HYPOCALCEMIA (3) Hypokalemia Code(s): E87.6 - HYPOKALEMIA (4) Afib Code(s): I48.91 - UNSPECIFIED ATRIAL FIBRILLATION (5) HLD (hyperlipidemia) Code(s): E78.5 - HYPERLIPIDEMIA, UNSPECIFIED (6) Pleural effusion Code(s): J90 - PLEURAL EFFUSION, NOT ELSEWHERE CLASSIFIED
[2018-01-25] MEDS: CALCITRIOL 0.25 MCG CAPSULE (FP) PO SCH ×2 (01:47→11:00)
[2018-01-25 07:04] LABS: HEMATOCRIT 26.7 % (35.4-49); HEMOGLOBIN 8.2 GM/dL (11.7-16.9); MCH 20.1 pg (25.7-33.7); MCHC 30.7 g/dl (32.0-35.9); MEAN CELL VOLUME 65.4 fl (80-96); MEAN PLT VOLUME 8.5 fl (7.5-11.1); PLATELET COUNT 144 K/MM3 (134-434); RBC 4.09 M/mm3 (4.00-5.60); RDW 17.7 % (11.9-15.9); WHITE BLOOD COUNT 7.2 K/mm3 (4.0-10.0)
[2018-01-25 07:26] LABS: ALBUMIN 2.5 g/dl (3.4-5.0); ALK PHOS 66 U/L (45-117); ANION GAP 11 MMOL/L (8-16); BILIRUBIN,TOTAL 1.4 mg/dL (0.2-1); BLOOD UREA NITROGEN 73 mg/dL (7-18); CHLORIDE 104 mmol/L (98-107); CO2 24 mmol/L (21-32); CREATININE 2.8 mg/dL (0.55-1.3); GLUCOSE,RANDOM 76 mg/dL (74-106); MAGNESIUM 0.7 mg/dL (1.8-2.4); PHOSPHOROUS 3.3 mg/dL (2.5-4.9); POTASSIUM 3.1 mmol/L (3.5-5.1); SGOT/AST 27 U/L (15-37); SGPT/ALT 17 U/L (13-61); SODIUM 138 mmol/L (136-145); TOT PROT 5.5 g/dl (6.4-8.2)
[2018-01-25 07:28] LABS: CALCIUM 5.9 mg/dL (8.5-10.1)
--- NOTE | 2018-01-25 08:53 | EKG ---
Test Reason : Blood Pressure : / mmHG Vent. Rate : 089 BPM Atrial Rate : 125 BPM P-R Int : 000 ms QRS Dur : 094 ms QT Int : 408 ms P-R-T Axes : 000 072 096 degrees QTc Int : 496 ms ATRIAL FIBRILLATION INCOMPLETE RIGHT BUNDLE BRANCH BLOCK NONSPECIFIC ST AND T WAVE ABNORMALITY PROLONGED QT ABNORMAL ECG Confirmed by ILYA MORALES MD ([id number]) on 01/25/2018 8:52:51 AM Referred By: Confirmed By:ILYA MORALES MD
--- NOTE | 2018-01-25 09:26 | ECHO ---
Name: NGHIA NUNEZ Exam:Adult Echocardiogram Study Date: 01/25/2018 07:41 AM Age: 87 yrs Reason For Study: CHF EXACERBATION Height: 70 in Weight: 145 lb BSA: 1.8 m2 MMode/2D Measurements & Calculations IVSd: 1.0 cm Ao root diam: 4.1 cm LVIDd: 4.8 cm LA dimension: 5.0 cm LVIDs: 3.1 cm ACS: 1.9 cm LVPWd: 0.96 cm IVSs: 1.5 cm LVPWs: 1.2 cm EDV(Teich): 107.7 ml ESV(Teich): 39.4 ml Doppler Measurements & Calculations MV E max sharath: 78.5 cm/sec Ao V2 max: 108.6 cm/sec MV A max sharath: 20.2 cm/sec Ao max P.7 mmHg MV E/A: 3.9 Ao V2 mean: 73.4 cm/sec Ao mean P.5 mmHg Ao V2 VTI: 22.0 cm AI P1/2t: 505.9 msec AI max sharath: 413.7 cm/sec MR max sharath: 467.8 cm/sec AI max P.5 mmHg MR max P.6 mmHg AI dec slope: 239.5 cm/sec2 TR max sharath: 265.4 cm/sec Med Peak E' Sharath: 5.0 cm/sec TR max P.9 mmHg Med E/e': 15.6 Lat Peak E' Sharath: 11.4 cm/sec Lat E/e': 6.9 Left Ventricle Left ventricular systolic function is normal. Ejection Fraction = 50-55%. Right Ventricle The right ventricle is grossly normal size. The right ventricular systolic function is grossly normal . Atria The left atrium is severely dilated. The right atrium is moderately dilated. Mitral Valve There is mild mitral annular calcification. There is no mitral valve stenosis. There is mild to moder ate mitral regurgitation. Tricuspid Valve The tricuspid valve is not well visualized, but is grossly normal. There is moderate to severe tricus pid regurgitation. Right ventricular systolic pressure is elevated at 40-50mmHg. Aortic Valve There is mild aortic sclerosis.;. The aortic valve is trileaflet. The aortic valve opens well. No hemodynamically significant valvular aortic stenosis. Mild to moderate aortic regurgitation. Pulmonic Valve The pulmonic valve is not well seen, but is grossly normal. There is no pulmonic valvular stenosis. M ild pulmonic valvular regurgitation. Great Vessels Mild aortic root dilatation. Pericardium/Pleura Small pericardial effusion (<1cm). There are no echocardiographic indications of cardiac tamponade. Interpretation Summary Left ventricular systolic function is normal. Ejection Fraction = 50-55%. The right ventricle is grossly normal size. The right ventricular systolic function is grossly normal. The left atrium is severely dilated. The right atrium is moderately dilated. There is mild mitral annular calcification. There is mild to moderate mitral regurgitation. There is moderate to severe tricuspid regurgitation. Right ventricular systolic pressure is elevated at 40-50mmHg. There is mild aortic sclerosis.; Mild to moderate aortic regurgitation. Mild aortic root dilatation. Small pericardial effusion (<1cm) There are no echocardiographic indications of cardiac tamponade. MD Carlos *Aletha 01/25/2018 09:25 AM
[2018-01-25] MEDS: FERROUS SO4 325 MG TABLET (FP) PO SCH ×2 (09:55→17:23)
[2018-01-25] MEDS ORDERED: MAGNESIUM SULF 50% (8.12 MEQ/2 ML-1 GM VIAL) IVPB ONE (10:00)
[2018-01-25] MEDS: CALCIUM 500MG/VIT-D 200 UNITS COMBO TABLET (FP) PO SCH (10:03)
[2018-01-25] MEDS: APIXABAN 2.5 MG TABLET PO SCH ×2 (10:04→21:33)
[2018-01-25] MEDS ORDERED: CALCIUM GLUCONATE 10% - 1,000 MG/10 ML VIAL IVPB ONE (10:30)
[2018-01-25] MEDS: KCL 10 MEQ IVPB 10 MEQ/100 ML INFUS.BAG IVPB SCH ×3 (10:30→13:00)
[2018-01-25] MEDS: METOPROLOL TARTRATE 50 MG TABLET (FP) PO SCH ×2 (11:00→21:32)
--- NOTE | 2018-01-25 11:17 | CON.CARD ---
Cardiology Consult (text) - Consultation Consultation Note: cc: le edema, emery hpi: 87 m hx htn, aaa s/p stent repair 2014, aortic root aneurysm, afib, dchf/ le edema, here with le edema, emery. Past few weeks has worse le edema and emery. No cp palps dizzy loc pnd orthopnea. Sees me for cardio. pmh: per hpi psh: per hpi social: ex tob fam: no premature cad, scd ros: per hpi; no nvd fever vision changes, abd pain , gib hematuria dysuria meds: Home Medications Medication Instructions Recorded Folic Acid/Multivit-Min/Lutein 1 each PO DAILY 07/16/14 [Centrum Silver Chewable Tablet] Apixaban [Eliquis -] 2.5 mg PO BID #60 tablet 05/09/17 Atorvastatin Ca [Lipitor] 10 mg PO HS #30 tablet 05/09/17 Digoxin [Lanoxin -] 0.125 mg PO DAILY #30 tablet 05/09/17 Ferrous Sulfate [Feosol] 325 mg PO BIDWM #60 ud 05/09/17 Furosemide [Lasix -] 40 mg PO DAILY #30 tablet 05/09/17 Metoprolol Tartrate [Lopressor -] 100 mg PO BID #60 tablet 05/09/17 Spironolactone [Aldactone -] 25 mg PO DAILY #30 tablet 05/09/17 Valsartan [Diovan] 80 mg PO DAILY #30 tablet 05/09/17 pe: Vital Signs Period Temp Pulse Resp BP Sys/Garsia Pulse Ox Last 24 Hr 96.6 F-97.7 F 63-124 14-20 90-124/50-76 96 nad +jvd irreg s1s2 no mrg cta bl nl eff aaox3 2+ le edema bl, stasis changes no carotid bruits abd nt nd pos bs no jaundice diaphoresis Laboratory Last Values WBC 7.2 K/mm3 (4.0-10.0) 01/25/18 05:50 RBC 4.09 M/mm3 (4.00-5.60) 01/25/18 05:50 Hgb 8.2 GM/dL (11.7-16.9) L 01/25/18 05:50 Hct 26.7 % (35.4-49) L 01/25/18 05:50 MCV 65.4 fl (80-96) L 01/25/18 05:50 MCH 20.1 pg (25.7-33.7) L 01/25/18 05:50 MCHC 30.7 g/dl (32.0-35.9) L 01/25/18 05:50 RDW 17.7 % (11.9-15.9) H 01/25/18 05:50 Plt Count 144 K/MM3 (134-434) 01/25/18 05:50 MPV 8.5 fl (7.5-11.1) 01/25/18 05:50 Absolute Neuts (auto) 4.2 K/mm3 (1.5-8.0) 01/24/18 13:45 Neutrophils % 61.7 % (42.8-82.8) 01/24/18 13:45 Lymphocytes % 27.0 % (8-40) D 01/24/18 13:45 Monocytes % 10.3 % (3.8-10.2) H 01/24/18 13:45 Eosinophils % 0.1 % (0-4.5) D 01/24/18 13:45 Basophils % 0.9 % (0-2.0) D 01/24/18 13:45 Nucleated RBC % 0 % (0-0) 01/24/18 13:45 Hypochromia 3+ 01/24/18 13:45 Platelet Estimate Normal 01/24/18 13:45 Polychromasia 1+ 01/24/18 13:45 Poikilocytosis 2+ 01/24/18 13:45 Anisocytosis 3+ 01/24/18 13:45 Microcytosis 2+ 01/24/18 13:45 Macrocytosis 0 01/24/18 13:45 Ovalocytes 1+ 01/24/18 13:45 Acanthocytes (Spur) 1+ 01/24/18 13:45 Schistocytes 1+ 01/24/18 13:45 PT with INR 21.70 SEC (9.7-13.0) H 01/24/18 13:45 INR 1.83 (0.83-1.09) H 01/24/18 13:45 PTT (Actin FS) 39.2 SECONDS (25.2-36.5) H 01/24/18 13:45 VBG pH 7.37 (7.32-7.42) 01/24/18 13:45 POC VBG pCO2 40.5 mmHg (38-52) 01/24/18 13:45 POC VBG pO2 25.5 mmHg (28-48) L 01/24/18 13:45 Mixed VBG HCO3 23.1 meq/L (19-25) 01/24/18 13:45 Sodium 138 mmol/L (136-145) 01/25/18 05:50 Potassium 3.1 mmol/L (3.5-5.1) L 01/25/18 05:50 Chloride 104 mmol/L (98-107) 01/25/18 05:50 Carbon Dioxide 24 mmol/L (21-32) 01/25/18 05:50 Anion Gap 11 MMOL/L (8-16) 01/25/18 05:50 BUN 73 mg/dL (7-18) H 01/25/18 05:50 Creatinine 2.8 mg/dL (0.55-1.3) H 01/25/18 05:50 Creat Clearance w eGFR 21.49 (>60) 01/25/18 05:50 Random Glucose 76 mg/dL (74-106) 01/25/18 05:50 Lactic Acid 1.6 mmol/L (0.4-2.0) 01/24/18 14:02 Calcium 5.9 mg/dL (8.5-10.1) L* 01/25/18 05:50 Phosphorus 3.3 mg/dL (2.5-4.9) 01/25/18 05:50 Magnesium 0.7 mg/dL (1.8-2.4) L 01/25/18 05:50 Total Bilirubin 1.4 mg/dL (0.2-1) H 01/25/18 05:50 AST 27 U/L (15-37) 01/25/18 05:50 ALT 17 U/L (13-61) 01/25/18 05:50 Alkaline Phosphatase 66 U/L (45-117) 01/25/18 05:50 Troponin I 0.03 ng/ml (0.00-0.05) 01/24/18 13:45 Total Protein 5.5 g/dl (6.4-8.2) L 01/25/18 05:50 Albumin 2.5 g/dl (3.4-5.0) L 01/25/18 05:50 Digoxin Cancelled 01/24/18 22:00 mibi 12/2010: nl mpi echo 07/2017: nl lv/rv, mild lvh, mod lae, mild ar, mod tr/mr, mild phtn, ao root 4 cm ecg: afib, hr 89, irbbb, old cxr: no chf tele: afib, rate ok a/p: 87 m hx htn, aaa s/p stent repair 2013, aortic root aneurysm, afib, dchf/ le edema, here with le edema, emery. acute diastolic chf: -here with volume overload, recent echo with nl lv/rv fcn -was on lasix 40 bid at home -cr up from baseline but he has evidence of chf so will attempt diuresis, will give test dose of lasix 40 iv today and monitor cr and vol status tomorrow -daily wts, chem7 htn: -on low side here, needs bb for rate control afib: -cont bb for rate control -no longer is on digoxin -cont eliquis leona: -possibly cardiorenal, will monitor after dose of iv lasix
[2018-01-25] MEDS: MULTIVITAMINS THER W-MINERALS COMBO TABLET (FP) PO SCH (12:00)
[2018-01-25] MEDS ORDERED: PT OWN MED DRAWER 7, Y5N ONE (12:07)
[2018-01-25 12:51] LABS: URINE APPEARANCE CLEAR; URINE BILIRUBIN NEGATIVE (<2.0 mg/dL); URINE COLOR YELLOW; URINE GLUCOSE (UA) NEGATIVE (NEGATIVE); URINE KETONE NEGATIVE (NEGATIVE); URINE LEUK ESTERASE 3+ (NEGATIVE); URINE NITRITE NEGATIVE (NEGATIVE); URINE PROTEIN NEGATIVE (NEGATIVE); URINE UROBILINOGEN NEGATIVE mg/dL (0.2-1.0)
[2018-01-25 12:52] LABS: URINE BACTERIA RARE /hpf (NONE SEEN); URINE HYALINE CAST 1 /lpf; URINE MUCUS RARE; YEAST FEW
[2018-01-25] MEDS ORDERED: FUROSEMIDE 40 MG/4 ML INJECTABLE VIAL IVPUSH ONE (14:00)
--- NOTE | 2018-01-25 15:04 | PN ---
Progress Note, Physician Chief Complaint: Mr Ramirez says he is feeling better today. Says he is less weak. No cp, sob , n/v.. - Current Medication List Current Medications: Active Medications Apixaban (Eliquis -) 2.5 mg PO BID [facility] Last Admin: 01/25/18 10:04 Dose: 2.5 mg Atorvastatin Calcium (Lipitor -) 10 mg PO HS [facility] Last Admin: 01/24/18 23:20 Dose: 10 mg Calcitriol (Rocaltrol -) 0.25 mcg PO DAILY [facility] Last Admin: 01/25/18 11:00 Dose: 0.25 mcg Calcium Carbonate/Cholecalciferol (Os-Vadim 500+D -) 1 tab PO DAILY [facility] Last Admin: 01/25/18 10:03 Dose: 1 tab Ferrous Sulfate (Feosol -) [facility] [place] Last Admin: 01/25/18 09:55 Dose: 325 mg Metoprolol Tartrate (Lopressor -) 100 mg PO BID [facility] Last Admin: 01/25/18 11:00 Dose: 100 mg Non-Formulary Medication (Folic Acid/Multivit-Min/Lutein [Centrum Silver Chewable Tablet]) 1 each PO DAILY [facility] - Objective Vital Signs: Vital Signs Temperature 36.5 C 01/25/18 14:03 Pulse Rate 92 H 01/25/18 14:03 Respiratory Rate 18 01/25/18 14:03 Blood Pressure 126/75 01/25/18 14:03 O2 Sat by Pulse Oximetry (%) 99 01/25/18 09:00 Constitutional: Yes: No Distress, Calm, Thin Cardiovascular: Yes: Pulse Irregular, JVD. No: Tachycardia, Gallop, Murmur, Rub Respiratory: Yes: Regular, CTA Bilaterally. No: Rales, Rhonchi, Wheezes Gastrointestinal: Yes: Normal Bowel Sounds, Soft, Ascites. No: Tenderness Extremities: Yes: Erythema Edema: Yes Edema: LLE: 3+, RLE: 3+ Labs: CBC, BMP 01/25/18 05:50 01/25/18 05:50 INR, PTT INR 1.83 (0.83-1.09) H 01/24/18 13:45 Problem List - Problems (1) Cardiorenal syndrome with renal failure Code(s): I13.10 - HYP HRT & CHR KDNY DIS W/O HRT FAIL, W STG 1-4/UNSP CHR KDNY; N19 - UNSPECIFIED KIDNEY FAILURE (2) Acute renal insufficiency Code(s): N28.9 - DISORDER OF KIDNEY AND URETER, UNSPECIFIED (3) CHF exacerbation Code(s): I50.9 - HEART FAILURE, UNSPECIFIED Qualifiers: Heart failure type: unspecified Qualified Code(s): I50.9 - Heart failure, unspecified (4) Hypocalcemia Code(s): E83.51 - HYPOCALCEMIA (5) Hypokalemia Code(s): E87.6 - HYPOKALEMIA (6) Afib Code(s): I48.91 - UNSPECIFIED ATRIAL FIBRILLATION (7) HLD (hyperlipidemia) Code(s): E78.5 - HYPERLIPIDEMIA, UNSPECIFIED (8) HTN (hypertension) Code(s): I10 - ESSENTIAL (PRIMARY) HYPERTENSION (9) Hypomagnesemia Code(s): E83.42 - HYPOMAGNESEMIA Assessment/Plan (1) Cardiorenal syndrome with renal failure Assessment/Plan: -case d/w cardiology -will trial lasix 40mg IV x1 -evaluate renal function and renal status tomorrow to see if tolerates and improves Code(s): I13.10 - HYP HRT & CHR KDNY DIS W/O HRT FAIL, W STG 1-4/UNSP CHR KDNY; N19 - UNSPECIFIED KIDNEY FAILURE (2) Acute renal insufficiency Assessment/Plan: -stable -nephrology following -currently stable Code(s): N28.9 - DISORDER OF KIDNEY AND URETER, UNSPECIFIED (3) CHF exacerbation Assessment/Plan: -case d/w Dr Hernández -lasix as above -ECHO reviewed Code(s): I50.9 - HEART FAILURE, UNSPECIFIED Qualifiers: Heart failure type: unspecified Qualified Code(s): I50.9 - Heart failure, unspecified (4) Hypocalcemia Assessment/Plan: -checking parathyroid -continue replacement Code(s): E83.51 - HYPOCALCEMIA (5) Hypokalemia/hypomagnesemia -replace Code(s): E87.6 - HYPOKALEMIA (6) Afib Assessment/Plan: -not in exacerbation -continue eliquis -not on digoxin per cardiology -continue metoprolol with hold precautions Code(s): I48.91 - UNSPECIFIED ATRIAL FIBRILLATION (7) HLD (hyperlipidemia) Assessment/Plan: -continue statin Code(s): E78.5 - HYPERLIPIDEMIA, UNSPECIFIED (8) HTN (hypertension) Assessment/Plan: -hypotension improved today Code(s): I10 - ESSENTIAL (PRIMARY) HYPERTENSION
--- NOTE | 2018-01-25 15:27 | CONSULT ---
Consult Consult Specialty:: PODIATRY Reason for Consultation:: Foot care - History of Present Illness Chief Complaint: 87 y/o male seen at bedside up eating his foot. States that he was admitted to the [facility] b/c he has felt especially weak. States dani this legs are always swolen and at this time they are swolen and red but states they are much better than previously before. Denies any other Lower extremity complaints. - Past Medical History Cardio/Vascular: Yes: AFIB, CHF, HTN, Hyperlipdemia Renal/: Yes: Renal Failure - Past Surgical History Past Surgical History: Yes: AAA Repair - Alcohol/Substance Use Hx Alcohol Use: No History of Substance Use: reports: None - Smoking History Smoking history: Former smoker Have you smoked in the past 12 months: No If you are a former smoker, when did you quit?: 1973 - Social History ADL: Independent History of Recent Travel: No Home Medications - Allergies Allergies/Adverse Reactions: Allergies Allergy/AdvReac Type Severity Reaction Status Date / Time No Known Allergies Allergy Verified 01/24/18 12:06 - Home Medications Home Medications: Ambulatory Orders Folic Acid/Multivit-Min/Lutein [Centrum Silver Chewable Tablet] 1 each PO DAILY 07/16/14 Apixaban [Eliquis -] 2.5 mg PO BID #60 tablet 05/09/17 Atorvastatin Ca [Lipitor] 10 mg PO HS #30 tablet 05/09/17 Digoxin [Lanoxin -] 0.125 mg PO DAILY #30 tablet 05/09/17 Ferrous Sulfate [Feosol] 325 mg PO BIDWM #60 ud 05/09/17 Furosemide [Lasix -] 40 mg PO DAILY #30 tablet 05/09/17 Metoprolol Tartrate [Lopressor -] 100 mg PO BID #60 tablet 05/09/17 Spironolactone [Aldactone -] 25 mg PO DAILY #30 tablet 05/09/17 Valsartan [Diovan] 80 mg PO DAILY #30 tablet 05/09/17 Family Disease History - Family Disease History Family Disease History: Other: Father (alcohol cirrhosis) Physical Exam Vital Signs: Vital Signs Temperature 97.7 F 01/25/18 14:03 Pulse Rate 92 H 01/25/18 14:03 Respiratory Rate 18 01/25/18 14:03 Blood Pressure 126/75 01/25/18 14:03 O2 Sat by Pulse Oximetry (%) 99 01/25/18 09:00 Musculoskeletal: Yes: Joint Swelling, Other (Pulses non palpable due to oeverlying edema, mild erythema, no puruelcne, no malodor, no streaking, no signs of proximal infection, no interdigital maceration, nails elongated, thickened, discolored x 10) Extremities: Yes: Erythema Edema: LUE: 2+ (mild erythema b/l ), RUE: 2+ Labs: CBC, BMP 01/25/18 05:50 01/25/18 05:50 Problem List - Problems (1) Venous stasis dermatitis of both lower extremities Assessment/Plan: Recc b/l compression dressing would benefit from profour or an equivalent compression; will need outpatient f/ u w/ wound care center for compression Recc daily dressing changes Bactroban ordered Nursing order for daily changes with xeroform b/l with overlying , DSD + LISA Code(s): I87.2 - VENOUS INSUFFICIENCY (CHRONIC) (PERIPHERAL) (2) Onychomycosis Assessment/Plan: Nails elongated Will f/u over weekend for debridment Code(s): B35.1 - TINEA UNGUIUM
--- NOTE | 2018-01-25 15:49 | CONSULT ---
- Consultation REQUESTING PROVIDER: CONSULT REQUEST: We have been asked to surgically evaluate this patient for b/l leg swelling PCP:Mk Alaniz MD HISTORY OF PRESENT ILLNESS: 87M admitted for worsening leg swelling, fatigue, and SOB. Vascular was contacted to evaluate his b/l leg swelling. Pt is a difficult historian and is unsure how long his legs have been swollen. PMHx: Afib, HTN, CHF, HLD Home Medications Medication Instructions Recorded Folic Acid/Multivit-Min/Lutein 1 each PO DAILY 07/16/14 [Centrum Silver Chewable Tablet] Apixaban [Eliquis -] 2.5 mg PO BID #60 tablet 05/09/17 Atorvastatin Ca [Lipitor] 10 mg PO HS #30 tablet 05/09/17 Digoxin [Lanoxin -] 0.125 mg PO DAILY #30 tablet 05/09/17 Ferrous Sulfate [Feosol] 325 mg PO BIDWM #60 ud 05/09/17 Furosemide [Lasix -] 40 mg PO DAILY #30 tablet 05/09/17 Metoprolol Tartrate [Lopressor -] 100 mg PO BID #60 tablet 05/09/17 Spironolactone [Aldactone -] 25 mg PO DAILY #30 tablet 05/09/17 Valsartan [Diovan] 80 mg PO DAILY #30 tablet 05/09/17 Allergies Allergy/AdvReac Type Severity Reaction Status Date / Time No Known Allergies Allergy Verified 01/24/18 12:06 PHYSICAL EXAM: GENERAL: Awake, alert, in no acute distress. HEAD: Normal with no signs of trauma. EYES: PERRL, sclera anicteric, conjunctiva clear. NECK: Normal ROM, supple without lymphadenopathy, JVD, or masses. LUNGS: Clear to auscultation bilat anteriorly. No wheezes, and no crackles. No accessory muscle use. HEART: Irregularly irregular ABDOMEN: Soft, nontender, not distended, normoactive bowel sounds, no guarding, no rebound, no masses. No organomegaly. LOWER EXTREMITIES: 1+ pulses, warm, well-perfused. No calf tenderness. b/l +2 pitting edema, hyperpigmentation skin changes, no open wounds NEUROLOGICAL: Normal speech, gait not observed. PSYCH: Cooperative. Good eye contact. Appropriate mood and affect. SKIN: Warm, dry, normal turgor, no rashes or lesions noted. Vital Signs Temperature 97.7 F 01/25/18 14:03 Pulse Rate 92 H 01/25/18 14:03 Respiratory Rate 18 01/25/18 14:03 Blood Pressure 126/75 01/25/18 14:03 O2 Sat by Pulse Oximetry (%) 99 01/25/18 09:00 Lab Results WBC 7.2 K/mm3 (4.0-10.0) 01/25/18 05:50 RBC 4.09 M/mm3 (4.00-5.60) 01/25/18 05:50 Hgb 8.2 GM/dL (11.7-16.9) L 01/25/18 05:50 Hct 26.7 % (35.4-49) L 01/25/18 05:50 MCV 65.4 fl (80-96) L 01/25/18 05:50 MCHC 30.7 g/dl (32.0-35.9) L 01/25/18 05:50 RDW 17.7 % (11.9-15.9) H 01/25/18 05:50 Plt Count 144 K/MM3 (134-434) 01/25/18 05:50 Sodium 138 mmol/L (136-145) 01/25/18 05:50 Potassium 3.1 mmol/L (3.5-5.1) L 01/25/18 05:50 Chloride 104 mmol/L (98-107) 01/25/18 05:50 Carbon Dioxide 24 mmol/L (21-32) 01/25/18 05:50 Anion Gap 11 MMOL/L (8-16) 01/25/18 05:50 BUN 73 mg/dL (7-18) H 01/25/18 05:50 Creatinine 2.8 mg/dL (0.55-1.3) H 01/25/18 05:50 Random Glucose 76 mg/dL (74-106) 01/25/18 05:50 Calcium 5.9 mg/dL (8.5-10.1) L* 01/25/18 05:50 INR 1.83 (0.83-1.09) H 01/24/18 13:45 Problem List - Problems (1) Venous stasis dermatitis of both lower extremities Assessment/Plan: Plan -Recommend compression dressings -leg elevation -follow up with Dr. Logan, in wound care clinic as outpatient Case discussed with Dr. Logan who agrees with plan Code(s): I87.2 - VENOUS INSUFFICIENCY (CHRONIC) (PERIPHERAL)
--- NOTE | 2018-01-25 17:11 | PN ---
Progress Note (short form) - Note Progress Note: covering dr ugarte Problem 1. ABIGAIL 2. hypokalemia 3. hypocalcemia 4. a-fib 5. CHF 6. thalassemia 7. HLD Current Medications Apixaban (Eliquis -) 2.5 mg PO BID [facility] Last Admin: 01/25/18 10:04 Dose: 2.5 mg Atorvastatin Calcium (Lipitor -) 10 mg PO HS [facility] Last Admin: 01/24/18 23:20 Dose: 10 mg Calcitriol (Rocaltrol -) 0.25 mcg PO DAILY [facility] Last Admin: 01/25/18 11:00 Dose: 0.25 mcg Calcium Carbonate/Cholecalciferol (Os-Vadim 500+D -) 1 tab PO DAILY [facility] Last Admin: 01/25/18 10:03 Dose: 1 tab Ferrous Sulfate (Feosol -) 325 mg PO BIDWM [facility] Last Admin: 01/25/18 09:55 Dose: 325 mg Metoprolol Tartrate (Lopressor -) 100 mg PO BID [facility] Last Admin: 01/25/18 11:00 Dose: 100 mg Multivitamins/Minerals (Theragran-M) 1 each PO DAILY [facility] Mupirocin (Bactroban 2% Cream -) 1 applic TP BID [facility] Last Vital Signs Temp Pulse Resp BP Pulse Ox 97.7 F 92 H 18 126/75 99 01/25/18 14:03 01/25/18 14:03 01/25/18 14:03 01/25/18 14:03 01/25/18 09:00 CBC, BMP 01/25/18 05:50 01/25/18 05:50 IMP- abigail renal function not yet at baseline Plan- continue to monitor renal function
[2018-01-25] MEDS: ATORVASTATIN CA 10 MG TABLET (FP) PO SCH (21:33)
[2018-01-25 21:53] LABS: ANION GAP 12 MMOL/L (8-16); BLOOD UREA NITROGEN 70 mg/dL (7-18); CHLORIDE 102 mmol/L (98-107); CO2 22 mmol/L (21-32); CREATININE 2.9 mg/dL (0.55-1.3); GLUCOSE,RANDOM 104 mg/dL (74-106); POTASSIUM 3.8 mmol/L (3.5-5.1); SODIUM 137 mmol/L (136-145)
[2018-01-25 22:01] LABS: CALCIUM 6.2 mg/dL (8.5-10.1)
[2018-01-25] MEDS ORDERED: CALCIUM GLUCONATE 10% - 1,000 MG/10 ML VIAL IVPUSH ONE (23:45)
[2018-01-26 08:03] LABS: BASO % 0.1 % (0-2.0); EOS % 0.1 % (0-4.5); HEMATOCRIT 27.4 % (35.4-49); HEMOGLOBIN 8.3 GM/dL (11.7-16.9); LYMPH % 33.1 % (8-40); MCH 20.1 pg (25.7-33.7); MCHC 30.3 g/dl (32.0-35.9); MEAN CELL VOLUME 66.2 fl (80-96); MEAN PLT VOLUME 9.1 fl (7.5-11.1); MONO % 10.7 % (3.8-10.2); PLATELET COUNT 138 K/MM3 (134-434); RBC 4.14 M/mm3 (4.00-5.60); WHITE BLOOD COUNT 7.8 K/mm3 (4.0-10.0)
[2018-01-26 08:34] LABS: ANION GAP 11 MMOL/L (8-16); BLOOD UREA NITROGEN 76 mg/dL (7-18); CHLORIDE 105 mmol/L (98-107); CO2 23 mmol/L (21-32); CREATININE 2.7 mg/dL (0.55-1.3); GLUCOSE,RANDOM 78 mg/dL (74-106); MAGNESIUM 1.1 mg/dL (1.8-2.4); PHOSPHOROUS 3.2 mg/dL (2.5-4.9); POTASSIUM 3.4 mmol/L (3.5-5.1); SODIUM 139 mmol/L (136-145)
[2018-01-26 08:35] LABS: CALCIUM 6.5 mg/dL (8.5-10.1)
[2018-01-26] MEDS ORDERED: CALCIUM GLUCONATE 10% - 1,000 MG/10 ML VIAL IVPB ONE ×2 (08:56→17:15)
[2018-01-26] MEDS ORDERED: POTASSIUM CHLORIDE TABS 20 MEQ TABLET.ER (FP) PO ONE (08:56)
[2018-01-26] MEDS ORDERED: MAGNESIUM SULF 50% (8.12 MEQ/2 ML-1 GM VIAL) IVPB ONE ×2 (08:56→17:15)
[2018-01-26] MEDS: MULTIVITAMINS THER W-MINERALS COMBO TABLET (FP) PO SCH (09:56)
[2018-01-26] MEDS: CALCIUM 500MG/VIT-D 200 UNITS COMBO TABLET (FP) PO SCH (09:56)
[2018-01-26] MEDS: FERROUS SO4 325 MG TABLET (FP) PO SCH ×2 (09:56→17:40)
[2018-01-26] MEDS: METOPROLOL TARTRATE 50 MG TABLET (FP) PO SCH ×2 (09:57→21:53)
[2018-01-26] MEDS: APIXABAN 2.5 MG TABLET PO SCH ×2 (09:57→21:53)
[2018-01-26] MEDS ORDERED: FUROSEMIDE 40 MG/4 ML INJECTABLE VIAL IVPUSH ONE (10:03)
--- NOTE | 2018-01-26 10:03 | PN ---
Progress Note, Physician Chief Complaint: Mr Ramirez says he is feeling better today. Says his weakness is improved. Denies cp, sob, n/v. Today complains of diarrhea, says that every time he eats it "goes right through him". Says this problem has been going on for a while now and was present before he was admitted. - Current Medication List Current Medications: Active Medications Apixaban (Eliquis -) 2.5 mg PO BID [facility] Last Admin: 01/26/18 09:57 Dose: 2.5 mg Atorvastatin Calcium (Lipitor -) 10 mg PO HS [facility] Last Admin: 01/25/18 21:33 Dose: 10 mg Calcitriol (Rocaltrol -) 0.25 mcg PO DAILY [facility] Last Admin: 01/25/18 11:00 Dose: 0.25 mcg Calcium Carbonate/Cholecalciferol (Os-Vadim 500+D -) 1 tab PO DAILY [facility] Last Admin: 01/26/18 09:56 Dose: 1 tab Ferrous Sulfate (Feosol -) 325 mg PO BIDWM [facility] Last Admin: 01/26/18 09:56 Dose: 325 mg Metoprolol Tartrate (Lopressor -) 100 mg PO BID [facility] Last Admin: 01/26/18 09:57 Dose: Not Given Multivitamins/Minerals (Theragran-M) 1 each PO DAILY [facility] Last Admin: 01/26/18 09:56 Dose: 1 each Mupirocin (Bactroban 2% Cream -) 1 applic TP BID [facility] Last Admin: 01/26/18 00:00 Dose: Not Given - Objective Vital Signs: Vital Signs Temperature 36.1 C L 01/26/18 06:00 Pulse Rate 86 01/26/18 06:00 Respiratory Rate 20 01/26/18 06:00 Blood Pressure 105/55 L 01/26/18 06:00 O2 Sat by Pulse Oximetry (%) 99 01/25/18 21:00 Constitutional: Yes: Well Nourished, No Distress, Calm Cardiovascular: Yes: Regular Rate and Rhythm, JVD. No: Gallop, Murmur, Rub Respiratory: Yes: Regular, CTA Bilaterally, On Nasal O2. No: Rales, Rhonchi, Wheezes Gastrointestinal: Yes: Normal Bowel Sounds, Soft, Distention. No: Tenderness Extremities: Yes: Erythema Edema: LLE: 2+, RLE: 2+ Labs: CBC, BMP 01/26/18 07:30 01/26/18 07:30 INR, PTT INR 1.83 (0.83-1.09) H 01/24/18 13:45 Problem List - Problems (1) Cardiorenal syndrome with renal failure Code(s): I13.10 - HYP HRT & CHR KDNY DIS W/O HRT FAIL, W STG 1-4/UNSP CHR KDNY; N19 - UNSPECIFIED KIDNEY FAILURE (2) Acute renal insufficiency Code(s): N28.9 - DISORDER OF KIDNEY AND URETER, UNSPECIFIED (3) CHF exacerbation Code(s): I50.9 - HEART FAILURE, UNSPECIFIED Qualifiers: Heart failure type: unspecified Qualified Code(s): I50.9 - Heart failure, unspecified (4) Hypocalcemia Code(s): E83.51 - HYPOCALCEMIA (5) Hypokalemia Code(s): E87.6 - HYPOKALEMIA (6) Afib Code(s): I48.91 - UNSPECIFIED ATRIAL FIBRILLATION (7) HLD (hyperlipidemia) Code(s): E78.5 - HYPERLIPIDEMIA, UNSPECIFIED (8) HTN (hypertension) Code(s): I10 - ESSENTIAL (PRIMARY) HYPERTENSION (9) Hypomagnesemia Code(s): E83.42 - HYPOMAGNESEMIA Assessment/Plan (1) Cardiorenal syndrome with renal failure Assessment/Plan: -patient looks improved today -will trial another lasix 40mg IV x1 today -RN states I/Os are inaccurate Code(s): I13.10 - HYP HRT & CHR KDNY DIS W/O HRT FAIL, W STG 1-4/UNSP CHR KDNY; N19 - UNSPECIFIED KIDNEY FAILURE (2) Acute renal insufficiency Assessment/Plan: -nephrology following -stable -will trial another dose of lasix and monitor Code(s): N28.9 - DISORDER OF KIDNEY AND URETER, UNSPECIFIED (3) CHF exacerbation Assessment/Plan: -as above Code(s): I50.9 - HEART FAILURE, UNSPECIFIED Qualifiers: Heart failure type: unspecified Qualified Code(s): I50.9 - Heart failure, unspecified (4) Hypocalcemia Assessment/Plan: -checking parathyroid -continue replacement Code(s): E83.51 - HYPOCALCEMIA (5) Hypokalemia/hypomagnesemia -replace Code(s): E87.6 - HYPOKALEMIA (6) Afib Assessment/Plan: -not in exacerbation -continue eliquis -not on digoxin per cardiology -continue metoprolol with hold precautions Code(s): I48.91 - UNSPECIFIED ATRIAL FIBRILLATION (7) HLD (hyperlipidemia) Assessment/Plan: -continue statin Code(s): E78.5 - HYPERLIPIDEMIA, UNSPECIFIED (8) HTN (hypertension) Assessment/Plan: -hypotension stable Code(s): I10 - ESSENTIAL (PRIMARY) HYPERTENSION (9) Diarrhea -monitor -check stool studies
[2018-01-26] MEDS: MUPIROCIN CA 2% TOPICAL CREAM 15 GM TUBE TP SCH ×3 (10:33→22:46)
[2018-01-26] MEDS: CALCITRIOL 0.25 MCG CAPSULE (FP) PO SCH (10:35)
[2018-01-26 12:00] LABS: ANISOCYTOSIS 3+; MACROCYTOSIS 0; OVALOCYTE 1+; PLATELET ESTIMATE DECREASED
[2018-01-26] MEDS ORDERED: PT OWN MED DRAWER 7, Y5N ONE ×2 (13:47→22:38)
[2018-01-26 16:46] LABS: ANION GAP 11 MMOL/L (8-16); BLOOD UREA NITROGEN 70 mg/dL (7-18); CHLORIDE 105 mmol/L (98-107); CO2 23 mmol/L (21-32); CREATININE 2.9 mg/dL (0.55-1.3); GLUCOSE,RANDOM 103 mg/dL (74-106); MAGNESIUM 1.4 mg/dL (1.8-2.4); POTASSIUM 3.6 mmol/L (3.5-5.1); SODIUM 139 mmol/L (136-145)
[2018-01-26 16:48] LABS: CALCIUM 6.4 mg/dL (8.5-10.1)
--- NOTE | 2018-01-26 17:23 | PN ---
Progress Note, Physician History of Present Illness: No CV complaints BReathing slightly improved, still dyspneic if walks Tele Afib 100s - Current Medication List Current Medications: Active Medications Apixaban (Eliquis -) 2.5 mg PO BID [facility] Last Admin: 01/26/18 09:57 Dose: 2.5 mg Atorvastatin Calcium (Lipitor -) 10 mg PO HS [facility] Last Admin: 01/25/18 21:33 Dose: 10 mg Calcitriol (Rocaltrol -) 0.25 mcg PO DAILY [facility] Last Admin: 01/26/18 10:35 Dose: 0.25 mcg Calcium Carbonate/Cholecalciferol (Os-Vadim 500+D -) 1 tab PO DAILY [facility] Last Admin: 01/26/18 09:56 Dose: 1 tab Ferrous Sulfate (Feosol -) 325 mg PO BIDWM [facility] Last Admin: 01/26/18 09:56 Dose: 325 mg Metoprolol Tartrate (Lopressor -) 100 mg PO BID [facility] Last Admin: 01/26/18 09:57 Dose: Not Given Multivitamins/Minerals (Theragran-M) 1 each PO DAILY [facility] Last Admin: 01/26/18 09:56 Dose: 1 each Mupirocin (Bactroban 2% Cream -) 1 applic TP BID [facility] Last Admin: 01/26/18 10:33 Dose: 1 applic - Objective Vital Signs: Vital Signs Temperature 97.5 F L 01/26/18 14:00 Pulse Rate 99 H 01/26/18 14:00 Respiratory Rate 20 01/26/18 14:00 Blood Pressure 110/67 01/26/18 14:00 O2 Sat by Pulse Oximetry (%) 99 01/26/18 09:00 Constitutional: Yes: Cachectic Eyes: Yes: WNL HENT: Yes: Normocephalic Neck: Yes: WNL Cardiovascular: Yes: Pulse Irregular Respiratory: Yes: CTA Bilaterally Gastrointestinal: Yes: Normal Bowel Sounds Musculoskeletal: Yes: WNL Extremities: Yes: WNL Edema: Yes Labs: CBC, BMP 01/26/18 07:30 01/26/18 16:00 INR, PTT INR 1.83 (0.83-1.09) H 01/24/18 13:45 Assessment/Plan a/p: 87 m hx htn, aaa s/p stent repair 2013, aortic root aneurysm, afib, dchf/ le edema, here with le edema, emery. acute diastolic chf: -here with volume overload, recent echo with nl lv/rv fcn -was on lasix 40 bid at home -cr up from baseline but he has evidence of chf so will attempt diuresis, will give test dose of lasix 40 iv today and monitor cr and vol status tomorrow -Weight today 148# (up 4# ?) and sCreat 2.9 (from 2.7). Given Lasix 40IV x 1 this AM htn: -on low side here, needs bb for rate control afib: -cont bb for rate control -no longer is on digoxin -cont eliquis leona: -possibly cardiorenal -sCreat stable
[2018-01-26] MEDS: ATORVASTATIN CA 10 MG TABLET (FP) PO SCH (21:52)
[2018-01-27 08:08] LABS: BASO % 0.1 % (0-2.0); EOS % 0.1 % (0-4.5); HEMATOCRIT 25.9 % (35.4-49); MCH 20.3 pg (25.7-33.7); MCHC 30.8 g/dl (32.0-35.9); MEAN PLT VOLUME 8.4 fl (7.5-11.1); MONO % 10.7 % (3.8-10.2); NEUT % 50.1 % (42.8-82.8); PLATELET COUNT 131 K/MM3 (134-434); RBC 3.93 M/mm3 (4.00-5.60); RDW 17.8 % (11.9-15.9)
[2018-01-27 09:00] LABS: ANION GAP 13 MMOL/L (8-16); BLOOD UREA NITROGEN 72 mg/dL (7-18); CHLORIDE 105 mmol/L (98-107); CO2 21 mmol/L (21-32); CREATININE 2.6 mg/dL (0.55-1.3); GLUCOSE,RANDOM 81 mg/dL (74-106); MAGNESIUM 1.9 mg/dL (1.8-2.4); PHOSPHOROUS 2.8 mg/dL (2.5-4.9); POTASSIUM 3.4 mmol/L (3.5-5.1); SODIUM 138 mmol/L (136-145)
[2018-01-27 09:12] LABS: CALCIUM 6.7 mg/dL (8.5-10.1)
--- NOTE | 2018-01-27 09:47 | PN ---
Progress Note, Physician History of Present Illness: Right nares epistaxis - controlled with gauze No other complaints Tele: Afib 90s - Current Medication List Current Medications: Active Medications Apixaban (Eliquis -) 2.5 mg PO BID [facility] Last Admin: 01/26/18 21:53 Dose: 2.5 mg Atorvastatin Calcium (Lipitor -) 10 mg PO HS [facility] Last Admin: 01/26/18 21:52 Dose: 10 mg Calcitriol (Rocaltrol -) 0.25 mcg PO DAILY [facility] Last Admin: 01/26/18 10:35 Dose: 0.25 mcg Calcium Carbonate/Cholecalciferol (Os-Vadim 500+D -) 1 tab PO DAILY [facility] Last Admin: 01/26/18 09:56 Dose: 1 tab Ferrous Sulfate (Feosol -) 325 mg PO BIDWM [facility] Last Admin: 01/26/18 17:40 Dose: 325 mg Metoprolol Tartrate (Lopressor -) 100 mg PO BID [facility] Last Admin: 01/26/18 21:53 Dose: 100 mg Multivitamins/Minerals (Theragran-M) 1 each PO DAILY [facility] Last Admin: 01/26/18 09:56 Dose: 1 each Mupirocin (Bactroban 2% Cream -) 1 applic TP BID [facility] Last Admin: 01/26/18 22:46 Dose: 1 applic - Objective Vital Signs: Vital Signs Temperature 97.9 F 01/27/18 05:44 Pulse Rate 88 01/27/18 05:44 Respiratory Rate 20 01/27/18 05:44 Blood Pressure 106/63 01/27/18 05:44 O2 Sat by Pulse Oximetry (%) 99 01/26/18 21:00 Constitutional: Yes: No Distress Eyes: Yes: WNL HENT: Yes: Epistaxis Neck: Yes: WNL Cardiovascular: Yes: Pulse Irregular Respiratory: Yes: Rales (Right base) Gastrointestinal: Yes: Normal Bowel Sounds Extremities: Yes: WNL Edema: Yes Edema: RUE: 2+, LLE: 2+ Labs: CBC, BMP 01/27/18 07:43 01/27/18 07:43 INR, PTT INR 1.83 (0.83-1.09) H 01/24/18 13:45 Assessment/Plan a/p: 87 m hx htn, aaa s/p stent repair 2013, aortic root aneurysm, afib, dchf/ le edema, here with le edema, emery. acute diastolic chf: -here with volume overload, recent echo with nl lv/rv fcn -was on lasix 40 bid at home -01/26: Weight today 148# (up 4# ?) and sCreat 2.9 (from 2.7). Given Lasix 40IV x 1 this AM -01/27: Weight 148, Creat 2.6 - would increase lasix 40mg IV BID htn: -on low side here, needs bb for rate control afib: -cont bb for rate control -no longer is on digoxin -cont eliquis - had epistaxis this AM but controlled with packing. leona: -possibly cardiorenal -sCreat improving
[2018-01-27] MEDS ORDERED: FUROSEMIDE 40 MG/4 ML INJECTABLE VIAL IVPUSH SCH (10:00)
[2018-01-27] MEDS ORDERED: CALCIUM GLUCONATE 10% - 1,000 MG/10 ML VIAL IVPB ONE (10:24)
--- NOTE | 2018-01-27 10:28 | PN ---
Progress Note, Physician Chief Complaint: Mr Ramirez says he feels fine. No cp, sob, n/v. - Current Medication List Current Medications: Active Medications Apixaban (Eliquis -) 2.5 mg PO BID [facility] Last Admin: 01/26/18 21:53 Dose: 2.5 mg Atorvastatin Calcium (Lipitor -) 10 mg PO HS [facility] Last Admin: 01/26/18 21:52 Dose: 10 mg Calcitriol (Rocaltrol -) 0.25 mcg PO DAILY [facility] Last Admin: 01/26/18 10:35 Dose: 0.25 mcg Calcium Carbonate/Cholecalciferol (Os-Vadim 500+D -) 1 tab PO DAILY [facility] Last Admin: 01/26/18 09:56 Dose: 1 tab Calcium Gluconate (Calcium Gluconate 10% -) 1,000 mg IVPB ONCE ONE Stop: 01/27/18 10:25 Ferrous Sulfate (Feosol -) 325 mg PO BIDWM [facility] Last Admin: 01/26/18 17:40 Dose: 325 mg Furosemide (Lasix Injection -) 40 mg IVPUSH BID@0600,1400 [facility] Metoprolol Tartrate (Lopressor -) 100 mg PO BID [facility] Last Admin: 01/26/18 21:53 Dose: 100 mg Multivitamins/Minerals (Theragran-M) 1 each PO DAILY [facility] Last Admin: 01/26/18 09:56 Dose: 1 each Mupirocin (Bactroban 2% Cream -) 1 applic TP BID [facility] Last Admin: 01/26/18 22:46 Dose: 1 applic - Objective Vital Signs: Vital Signs Temperature 36.6 C 01/27/18 05:44 Pulse Rate 88 01/27/18 05:44 Respiratory Rate 20 01/27/18 05:44 Blood Pressure 106/63 01/27/18 05:44 O2 Sat by Pulse Oximetry (%) 99 01/26/18 21:00 Constitutional: Yes: Well Nourished, No Distress, Calm Cardiovascular: Yes: Pulse Irregular. No: Tachycardia, Gallop, Murmur, Rub Respiratory: Yes: Regular, CTA Bilaterally. No: Rales, Rhonchi, Wheezes Gastrointestinal: Yes: Normal Bowel Sounds, Soft. No: Distention, Tenderness Extremities: Yes: Erythema Edema: Yes Edema: LLE: 2+, RLE: 2+ Labs: CBC, BMP 01/27/18 07:43 01/27/18 07:43 INR, PTT INR 1.83 (0.83-1.09) H 01/24/18 13:45 Problem List - Problems (1) Cardiorenal syndrome with renal failure Code(s): I13.10 - HYP HRT & CHR KDNY DIS W/O HRT FAIL, W STG 1-4/UNSP CHR KDNY; N19 - UNSPECIFIED KIDNEY FAILURE (2) Acute renal insufficiency Code(s): N28.9 - DISORDER OF KIDNEY AND URETER, UNSPECIFIED (3) CHF exacerbation Code(s): I50.9 - HEART FAILURE, UNSPECIFIED Qualifiers: Heart failure type: unspecified Qualified Code(s): I50.9 - Heart failure, unspecified (4) Hypocalcemia Code(s): E83.51 - HYPOCALCEMIA (5) Hypokalemia Code(s): E87.6 - HYPOKALEMIA (6) Afib Code(s): I48.91 - UNSPECIFIED ATRIAL FIBRILLATION (7) HLD (hyperlipidemia) Code(s): E78.5 - HYPERLIPIDEMIA, UNSPECIFIED (8) HTN (hypertension) Code(s): I10 - ESSENTIAL (PRIMARY) HYPERTENSION (9) Hypomagnesemia Code(s): E83.42 - HYPOMAGNESEMIA Assessment/Plan (1) Cardiorenal syndrome with renal failure Assessment/Plan: -continues to improve -appreciate cardiology assistance -lasix 40mg IV bid Code(s): I13.10 - HYP HRT & CHR KDNY DIS W/O HRT FAIL, W STG 1-4/UNSP CHR KDNY; N19 - UNSPECIFIED KIDNEY FAILURE (2) Acute renal insufficiency Assessment/Plan: -improving with diuresis Code(s): N28.9 - DISORDER OF KIDNEY AND URETER, UNSPECIFIED (3) CHF exacerbation Assessment/Plan: -as above Code(s): I50.9 - HEART FAILURE, UNSPECIFIED Qualifiers: Heart failure type: unspecified Qualified Code(s): I50.9 - Heart failure, unspecified (4) Hypocalcemia Assessment/Plan: -checking parathyroid -continue replacement Code(s): E83.51 - HYPOCALCEMIA (5) Hypokalemia/hypomagnesemia -replace Code(s): E87.6 - HYPOKALEMIA (6) Afib Assessment/Plan: -not in exacerbation -continue eliquis -continue metoprolol with hold precautions Code(s): I48.91 - UNSPECIFIED ATRIAL FIBRILLATION (7) HLD (hyperlipidemia) Assessment/Plan: -continue statin Code(s): E78.5 - HYPERLIPIDEMIA, UNSPECIFIED (8) HTN (hypertension) Assessment/Plan: -hypotension stable Code(s): I10 - ESSENTIAL (PRIMARY) HYPERTENSION (9) Diarrhea -c diff negative -follow up stool studies (10) UTI -begin rocephin -follow up urine cultures
[2018-01-27] MEDS: MUPIROCIN CA 2% TOPICAL CREAM 15 GM TUBE TP SCH ×2 (10:37→21:52)
[2018-01-27] MEDS: APIXABAN 2.5 MG TABLET PO SCH ×2 (10:37→21:51)
[2018-01-27] MEDS: FERROUS SO4 325 MG TABLET (FP) PO SCH ×2 (10:37→17:50)
[2018-01-27] MEDS: CALCIUM 500MG/VIT-D 200 UNITS COMBO TABLET (FP) PO SCH (10:38)
[2018-01-27] MEDS: CALCITRIOL 0.25 MCG CAPSULE (FP) PO SCH (10:38)
[2018-01-27] MEDS: MULTIVITAMINS THER W-MINERALS COMBO TABLET (FP) PO SCH (10:38)
[2018-01-27] MEDS: METOPROLOL TARTRATE 50 MG TABLET (FP) PO SCH ×2 (10:38→21:50)
[2018-01-27 10:59] LABS: ACANTHOCYTES 1+; ANISOCYTOSIS 1+; MACROCYTOSIS 0; PLATELET ESTIMATE DECREASED
[2018-01-27] MEDS: CEPHALEXIN MONOHYDRATE 500 MG CAPSULE (UD) PO SCH ×2 (11:26→21:51)
[2018-01-27] MEDS: POTASSIUM CHLORIDE TABS 20 MEQ TABLET.ER (FP) PO SCH (11:26)
[2018-01-27] MEDS ORDERED: PT OWN MED DRAWER 7, Y5N ONE (12:58)
[2018-01-27] MEDS: FUROSEMIDE 40 MG/4 ML INJECTABLE VIAL IVPUSH SCH (13:15)
--- NOTE | 2018-01-27 18:10 | PN ---
Progress Note (short form) - Note Progress Note: covering dr ugarte Problem 1. ABIGAIL 2. hypokalemia 3. hypocalcemia 4. a-fib 5. CHF 6. thalassemia 7. HLD Current Medications Apixaban (Eliquis -) 2.5 mg PO BID [facility] Last Admin: 01/27/18 10:37 Dose: 2.5 mg Atorvastatin Calcium (Lipitor -) 10 mg PO HS [facility] Last Admin: 01/26/18 21:52 Dose: 10 mg Calcitriol (Rocaltrol -) 0.25 mcg PO DAILY [facility] Last Admin: 01/27/18 10:38 Dose: 0.25 mcg Calcium Carbonate/Cholecalciferol (Os-Vadim 500+D -) 1 tab PO DAILY [facility] Last Admin: 01/27/18 10:38 Dose: 1 tab Cephalexin HCl (Keflex -) 500 mg PO BID [facility] Last Admin: 01/27/18 11:26 Dose: 500 mg Ferrous Sulfate (Feosol -) 325 mg PO BIDWM [facility] Last Admin: 01/27/18 17:50 Dose: 325 mg Furosemide (Lasix Injection -) 40 mg IVPUSH BID@0600,1400 [facility] Last Admin: 01/27/18 13:15 Dose: 40 mg Magnesium Oxide (Mag-Ox -) 400 mg PO BID [facility] Metoprolol Tartrate (Lopressor -) 100 mg PO BID [facility] Last Admin: 01/27/18 10:38 Dose: 100 mg Multivitamins/Minerals (Theragran-M) 1 each PO DAILY [facility] Last Admin: 01/27/18 10:38 Dose: 1 each Mupirocin (Bactroban 2% Cream -) 1 applic TP BID [facility] Last Admin: 01/27/18 10:37 Dose: 1 applic Potassium Chloride (K-Dur -) 40 meq PO DAILY [facility] Last Admin: 01/27/18 11:26 Dose: 40 meq Last Vital Signs Temp Pulse Resp BP Pulse Ox 98.3 F 88 20 110/72 97 01/27/18 14:00 01/27/18 14:00 01/27/18 14:00 01/27/18 14:00 01/27/18 09:00 Lungs clear Heart reg Abd soft nontender CBC, BMP 01/27/18 07:43 01/27/18 07:43 CBC, BMP 01/25/18 05:50 01/25/18 05:50 IMP- abigail renal function slight improvement not yet at baseline Plan- continue to monitor renal function
[2018-01-27] MEDS: ATORVASTATIN CA 10 MG TABLET (FP) PO SCH (21:50)
[2018-01-27] MEDS: MAGNESIUM OXIDE 400 MG TABLET (FP) PO SCH (21:51)
[2018-01-28] MEDS: FUROSEMIDE 40 MG/4 ML INJECTABLE VIAL IVPUSH SCH ×3 (06:18→21:10)
[2018-01-28 06:50] LABS: BASO % 0.2 % (0-2.0); EOS % 0.4 % (0-4.5); HEMATOCRIT 27.3 % (35.4-49); HEMOGLOBIN 8.3 GM/dL (11.7-16.9); MCH 20.2 pg (25.7-33.7); MCHC 30.3 g/dl (32.0-35.9); MEAN CELL VOLUME 66.9 fl (80-96); MEAN PLT VOLUME 9.1 fl (7.5-11.1); MONO % 12.3 % (3.8-10.2); NEUT % 50.1 % (42.8-82.8); PLATELET COUNT 137 K/MM3 (134-434); RBC 4.08 M/mm3 (4.00-5.60); RDW 18.1 % (11.9-15.9); WHITE BLOOD COUNT 7.3 K/mm3 (4.0-10.0)
[2018-01-28 07:22] LABS: ANION GAP 11 MMOL/L (8-16); BLOOD UREA NITROGEN 72 mg/dL (7-18); CALCIUM 7.3 mg/dL (8.5-10.1); CHLORIDE 105 mmol/L (98-107); CO2 23 mmol/L (21-32); CREATININE 2.7 mg/dL (0.55-1.3); GLUCOSE,RANDOM 79 mg/dL (74-106); MAGNESIUM 1.8 mg/dL (1.8-2.4); PHOSPHOROUS 3.3 mg/dL (2.5-4.9); POTASSIUM 3.9 mmol/L (3.5-5.1); SODIUM 138 mmol/L (136-145)
[2018-01-28] MEDS: FERROUS SO4 325 MG TABLET (FP) PO SCH ×2 (08:05→17:28)
--- NOTE | 2018-01-28 08:48 | PN ---
Progress Note, Physician Chief Complaint: sob History of Present Illness: very breathless walking short distance with PT no cp, palpitations, syncope - Current Medication List Current Medications: Active Medications Apixaban (Eliquis -) 2.5 mg PO BID [facility] Last Admin: 01/27/18 21:51 Dose: 2.5 mg Atorvastatin Calcium (Lipitor -) 10 mg PO HS [facility] Last Admin: 01/27/18 21:50 Dose: 10 mg Calcitriol (Rocaltrol -) 0.25 mcg PO DAILY [facility] Last Admin: 01/27/18 10:38 Dose: 0.25 mcg Calcium Carbonate/Cholecalciferol (Os-Vadim 500+D -) 1 tab PO DAILY [facility] Last Admin: 01/27/18 10:38 Dose: 1 tab Cephalexin HCl (Keflex -) 500 mg PO BID [facility] Last Admin: 01/27/18 21:51 Dose: 500 mg Ferrous Sulfate (Feosol -) 325 mg PO BIDWM [facility] Last Admin: 01/27/18 17:50 Dose: 325 mg Furosemide (Lasix Injection -) 40 mg IVPUSH BID@0600,1400 [facility] Last Admin: 01/28/18 06:18 Dose: 40 mg Magnesium Oxide (Mag-Ox -) 400 mg PO BID [facility] Last Admin: 01/27/18 21:51 Dose: 400 mg Metoprolol Tartrate (Lopressor -) 100 mg PO BID [facility] Last Admin: 01/27/18 21:50 Dose: 100 mg Multivitamins/Minerals (Theragran-M) 1 each PO DAILY [facility] Last Admin: 01/27/18 10:38 Dose: 1 each Mupirocin (Bactroban 2% Cream -) 1 applic TP BID [facility] Last Admin: 01/27/18 21:52 Dose: 1 applic Potassium Chloride (K-Dur -) 40 meq PO DAILY [facility] Last Admin: 01/27/18 11:26 Dose: 40 meq - Objective Vital Signs: Vital Signs Temperature 97.5 F L 01/28/18 06:45 Pulse Rate 96 H 01/28/18 06:45 Respiratory Rate 20 01/28/18 06:45 Blood Pressure 124/66 01/28/18 06:45 O2 Sat by Pulse Oximetry (%) 97 01/27/18 21:00 Constitutional: Yes: Well Nourished, No Distress, Calm Cardiovascular: Yes: Pulse Irregular, JVD (to jaw), S1, S2. No: Gallop, Murmur Respiratory: Yes: Regular, CTA Bilaterally. 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 acute diastolic chf: -here with volume overload, recent echo with nl lv/rv fcn -was on lasix 40 bid at home -d/c wt 04/29 was 162 lbs -01/26: Weight today 148# (up 4# ?) and sCreat 2.9 (from 2.7). Given Lasix 40IV x 1 this AM -01/27: Weight 148, Creat 2.6 - increase lasix to 40mg IV BID -01/28: wt up 148 to 150 lbs. JVD to jaw. very sob with activity. admits to signif diuretic response to lasix 40 mg dose--increase to 40 TID -pt presenting as isolated RV failure syndrome (clear lungs)--check rpt echo htn: -on low side here, needs bb for rate control afib: -cont bb for rate control -no longer is on digoxin -cont eliquis. had epistaxis here requiring packing, observe for recurrent bleeding leona: -baseline creat 1.2 (04/29) -creat essentially stable here, ranging 2.7-2.9. ? cardiorenal syndrome -renal consulting, for sonogram
[2018-01-28] MEDS: MUPIROCIN CA 2% TOPICAL CREAM 15 GM TUBE TP SCH ×2 (10:51→21:11)
[2018-01-28] MEDS: POTASSIUM CHLORIDE TABS 20 MEQ TABLET.ER (FP) PO SCH (10:52)
[2018-01-28] MEDS: CALCITRIOL 0.25 MCG CAPSULE (FP) PO SCH (10:52)
[2018-01-28] MEDS: CALCIUM 500MG/VIT-D 200 UNITS COMBO TABLET (FP) PO SCH (10:52)
[2018-01-28] MEDS: MULTIVITAMINS THER W-MINERALS COMBO TABLET (FP) PO SCH (10:52)
[2018-01-28] MEDS: CEPHALEXIN MONOHYDRATE 500 MG CAPSULE (UD) PO SCH ×2 (10:52→21:11)
[2018-01-28] MEDS: APIXABAN 2.5 MG TABLET PO SCH ×2 (10:52→21:11)
[2018-01-28] MEDS: MAGNESIUM OXIDE 400 MG TABLET (FP) PO SCH ×2 (10:52→21:11)
[2018-01-28] MEDS: METOPROLOL TARTRATE 50 MG TABLET (FP) PO SCH ×2 (10:55→21:11)
--- NOTE | 2018-01-28 11:35 | PN ---
Physical Exam: SUBJECTIVE: Patient seen and examined at bedside. No overnight events. No new complaints. Feels better overall. Denies CP,TAN, SOB, palpitations, abdominal pain, nausea or vomiting. OBJECTIVE: Vital Signs Period Temp Pulse Resp BP Sys/Garsia Pulse Ox Last 24 Hr 97.2 F-98.3 F 77-96 18-20 110-124/65-74 97 GENERAL: AAOx3, NAD ENT: Moist mucous membranes. NECK: Trachea midline, full range of motion, supple. +JVD to jaw line. LUNGS:CTAB, no wheezes, no crackles, no accessory muscle use. HEART:Irregular. , S1, S2 without murmur, rub or gallop. ABDOMEN: Soft, nontender, nondistended, normoactive bowel sounds, no guarding, no rebound, no hepatosplenomegaly, no masses. EXTREMITIES: 2+ pulses, warm, well-perfused, 2+ edema bilaterally. NEUROLOGICAL: Cranial nerves II through XII grossly intact. Normal speech, gait not observed. PSYCH: Normal mood, normal affect. SKIN: bilateral stasis dermatitis LE. Laboratory Results - last 24 hr 01/28/18 01/28/18 05:50 05:50 WBC 7.3 RBC 4.08 Hgb 8.3 L Hct 27.3 L MCV 66.9 L MCH 20.2 L MCHC 30.3 L RDW 18.1 H Plt Count 137 MPV 9.1 Absolute Neuts (auto) 3.6 Neutrophils % 50.1 Lymphocytes % 37.0 Monocytes % 12.3 H Eosinophils % 0.4 D Basophils % 0.2 Nucleated RBC % 0 Sodium 138 Potassium 3.9 Chloride 105 Carbon Dioxide 23 Anion Gap 11 BUN 72 H Creatinine 2.7 H Creat Clearance w eGFR 22.41 Random Glucose 79 Calcium 7.3 L Phosphorus 3.3 Magnesium 1.8 Active Medications Generic Name Dose Route Start Last Admin Trade Name Freq PRN Reason Stop Dose Admin Apixaban 2.5 mg 01/24/18 22:00 01/28/18 10:52 Eliquis - PO 2.5 mg BID [facility] Administration Atorvastatin Calcium 10 mg 01/24/18 22:00 01/27/18 21:50 Lipitor - PO 10 mg HS [facility] Administration Calcitriol 0.25 mcg 01/25/18 00:21 01/28/18 10:52 Rocaltrol - PO 0.25 mcg DAILY [facility] Administration Calcium Carbonate/Cholecalciferol 1 tab 01/25/18 10:00 01/28/18 10:52 Os-Vadim 500+D - PO 1 tab DAILY [facility] Administration Cephalexin HCl 500 mg 01/27/18 10:30 01/28/18 10:52 Keflex - PO 500 mg BID [facility] Administration Ferrous Sulfate 325 mg 01/24/18 17:30 01/28/18 08:05 Feosol - PO 325 mg BIDWM [facility] Administration Furosemide 40 mg 01/27/18 14:00 01/28/18 06:18 Lasix Injection - IVPUSH 40 mg BID@0600,1400 [facility] Administration Magnesium Oxide 400 mg 01/27/18 22:00 01/28/18 10:52 Mag-Ox - PO 400 mg BID [facility] Administration Metoprolol Tartrate 100 mg 01/24/18 22:00 01/28/18 10:55 Lopressor - PO 100 mg BID [facility] Administration Multivitamins/Minerals 1 each 01/25/18 10:00 01/28/18 10:52 Theragran-M PO 1 each DAILY [facility] Administration Mupirocin 1 applic 01/25/18 22:00 01/28/18 10:51 Bactroban 2% Cream - TP 1 applic BID [facility] Administration Potassium Chloride 40 meq 01/27/18 10:30 01/28/18 10:52 K-Dur - PO 40 meq DAILY [facility] Administration ASSESSMENT/PLAN: 87 m hx htn, aaa s/p stent repair 2013, aortic root aneurysm, afib, dchf/le edema, here with HF exacerbation. Problem List - Problems (1) Cardiorenal syndrome with renal failure Assessment/Plan: * continues to improve. * Given 40mg IV lasix this morning. Continue Lasix IV 40mg BID * Will continue to monitor daily weights and I/O's * Nephrology on board; kidney US pending. * baseline Cr. 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 \ * salt restriction. * Cardiology consult appreciated. (3) Afib Assessment/Plan: cont metoprolol 100mg BID * no longer is on digoxin * cont eliquis. had epistaxis here requiring packing, observe for recurrent bleeding (4) HLD (hyperlipidemia) Assessment/Plan: continue statin (5) HTN (hypertension) Assessment/Plan: BP has been low normal this admission * requires BB for rate control. (6) Venous stasis dermatitis of both lower extremities Assessment/Plan: Vascular consulted. * recommend compression stocking for LE edema. * F/U with Dr. Logan as outpatients. (7) Urinary tract infection Assessment/Plan: started on IV rochephin. * urine cultures pending. Visit type - Emergency Visit Emergency Visit: Yes ED Registration Date: 01/24/18 Care time: The patient presented to the Emergency Department on the above date and was hospitalized for further evaluation of their emergent condition. - New Patient This patient is new to me today: Yes Date on this admission: 01/28/18 - Critical Care Critical Care patient: No
[2018-01-28 11:40] LABS: ANISOCYTOSIS 2+; MACROCYTOSIS 1+; OVALOCYTE 1+
--- NOTE | 2018-01-28 12:43 | PN ---
Progress Note, Physician Chief Complaint: Mr Ramirez feels tired and short of breath on exertion today. No cp or n/v. - Current Medication List Current Medications: Active Medications Apixaban (Eliquis -) 2.5 mg PO BID [facility] Last Admin: 01/28/18 10:52 Dose: 2.5 mg Atorvastatin Calcium (Lipitor -) 10 mg PO HS [facility] Last Admin: 01/27/18 21:50 Dose: 10 mg Calcitriol (Rocaltrol -) 0.25 mcg PO DAILY [facility] Last Admin: 01/28/18 10:52 Dose: 0.25 mcg Calcium Carbonate/Cholecalciferol (Os-Vadim 500+D -) 1 tab PO DAILY [facility] Last Admin: 01/28/18 10:52 Dose: 1 tab Cephalexin HCl (Keflex -) 500 mg PO BID [facility] Last Admin: 01/28/18 10:52 Dose: 500 mg Ferrous Sulfate (Feosol -) 325 mg PO BIDWM [facility] Last Admin: 01/28/18 08:05 Dose: 325 mg Furosemide (Lasix Injection -) 40 mg IVPUSH TID [facility] Magnesium Oxide (Mag-Ox -) 400 mg PO BID [facility] Last Admin: 01/28/18 10:52 Dose: 400 mg Metoprolol Tartrate (Lopressor -) 100 mg PO BID [facility] Last Admin: 01/28/18 10:55 Dose: 100 mg Multivitamins/Minerals (Theragran-M) 1 each PO DAILY [facility] Last Admin: 01/28/18 10:52 Dose: 1 each Mupirocin (Bactroban 2% Cream -) 1 applic TP BID [facility] Last Admin: 01/28/18 10:51 Dose: 1 applic Potassium Chloride (K-Dur -) 40 meq PO DAILY [facility] Last Admin: 01/28/18 10:52 Dose: 40 meq - Objective Vital Signs: Vital Signs Temperature 36.3 C L 01/28/18 10:00 Pulse Rate 89 01/28/18 10:00 Respiratory Rate 20 01/28/18 10:00 Blood Pressure 113/74 01/28/18 10:00 O2 Sat by Pulse Oximetry (%) 97 01/27/18 21:00 Constitutional: Yes: Well Nourished, No Distress, Calm Cardiovascular: Yes: Regular Rate and Rhythm. No: Gallop, Murmur, Rub Respiratory: Yes: Regular, CTA Bilaterally. No: Rales, Rhonchi, Wheezes Gastrointestinal: Yes: Normal Bowel Sounds, Soft. No: Distention, Tenderness Extremities: Yes: Erythema Edema: Yes Edema: LLE: 2+, RLE: 2+ Labs: CBC, BMP 01/28/18 05:50 01/28/18 05:50 INR, PTT INR 1.83 (0.83-1.09) H 01/24/18 13:45 Problem List - Problems (1) Cardiorenal syndrome with renal failure Code(s): I13.10 - HYP HRT & CHR KDNY DIS W/O HRT FAIL, W STG 1-4/UNSP CHR KDNY; N19 - UNSPECIFIED KIDNEY FAILURE (2) Acute renal insufficiency Code(s): N28.9 - DISORDER OF KIDNEY AND URETER, UNSPECIFIED (3) CHF exacerbation Code(s): I50.9 - HEART FAILURE, UNSPECIFIED Qualifiers: Heart failure type: unspecified Qualified Code(s): I50.9 - Heart failure, unspecified (4) Hypocalcemia Code(s): E83.51 - HYPOCALCEMIA (5) Hypokalemia Code(s): E87.6 - HYPOKALEMIA (6) Afib Code(s): I48.91 - UNSPECIFIED ATRIAL FIBRILLATION Qualifiers: Atrial fibrillation type: chronic Qualified Code(s): I48.2 - Chronic atrial fibrillation (7) HLD (hyperlipidemia) Code(s): E78.5 - HYPERLIPIDEMIA, UNSPECIFIED Qualifiers: Hyperlipidemia type: unspecified Qualified Code(s): E78.5 - Hyperlipidemia , unspecified (8) HTN (hypertension) Code(s): I10 - ESSENTIAL (PRIMARY) HYPERTENSION Qualifiers: Hypertension type: essential hypertension Qualified Code(s): I10 - Essential (primary) hypertension (9) Hypomagnesemia Code(s): E83.42 - HYPOMAGNESEMIA Assessment/Plan (1) Cardiorenal syndrome with renal failure Assessment/Plan: -cardiology increasing lasix to 40mg IV tid -monitor, may become dehydrated Code(s): I13.10 - HYP HRT & CHR KDNY DIS W/O HRT FAIL, W STG 1-4/UNSP CHR KDNY; N19 - UNSPECIFIED KIDNEY FAILURE (2) Acute renal insufficiency Assessment/Plan: -stable today -nephrology following -obtain ultrasound Code(s): N28.9 - DISORDER OF KIDNEY AND URETER, UNSPECIFIED (3) CHF exacerbation Assessment/Plan: -as above Code(s): I50.9 - HEART FAILURE, UNSPECIFIED Qualifiers: Heart failure type: unspecified Qualified Code(s): I50.9 - Heart failure, unspecified (4) Hypocalcemia Assessment/Plan: -checking parathyroid -continue replacement Code(s): E83.51 - HYPOCALCEMIA (5) Hypokalemia/hypomagnesemia -replace Code(s): E87.6 - HYPOKALEMIA (6) Afib Assessment/Plan: -not in exacerbation -continue eliquis -continue metoprolol with hold precautions Code(s): I48.91 - UNSPECIFIED ATRIAL FIBRILLATION (7) HLD (hyperlipidemia) Assessment/Plan: -continue statin Code(s): E78.5 - HYPERLIPIDEMIA, UNSPECIFIED (8) HTN (hypertension) Assessment/Plan: -hypotension stable Code(s): I10 - ESSENTIAL (PRIMARY) HYPERTENSION (9) Diarrhea -c diff negative -stool studies negative (10) UTI -continue keflex day 2 Case d/w Dr Najera PGY-3 and plan formulated
--- NOTE | 2018-01-28 15:04 | PN ---
Progress Note, Physician History of Present Illness: Pt seen and examined at bedside. He is awake and alert. He denies dysuria or hematuria. - Current Medication List Current Medications: Active Medications Apixaban (Eliquis -) 2.5 mg PO BID [facility] Last Admin: 01/28/18 10:52 Dose: 2.5 mg Atorvastatin Calcium (Lipitor -) 10 mg PO HS [facility] Last Admin: 01/27/18 21:50 Dose: 10 mg Calcitriol (Rocaltrol -) 0.25 mcg PO DAILY [facility] Last Admin: 01/28/18 10:52 Dose: 0.25 mcg Calcium Carbonate/Cholecalciferol (Os-Vadim 500+D -) 1 tab PO DAILY [facility] Last Admin: 01/28/18 10:52 Dose: 1 tab Cephalexin HCl (Keflex -) 500 mg PO BID [facility] Last Admin: 01/28/18 10:52 Dose: 500 mg Ferrous Sulfate (Feosol -) 325 mg PO BIDWM [facility] Last Admin: 01/28/18 08:05 Dose: 325 mg Furosemide (Lasix Injection -) 40 mg IVPUSH TID [facility] Last Admin: 01/28/18 14:52 Dose: 40 mg Magnesium Oxide (Mag-Ox -) 400 mg PO BID [facility] Last Admin: 01/28/18 10:52 Dose: 400 mg Metoprolol Tartrate (Lopressor -) 100 mg PO BID [facility] Last Admin: 01/28/18 10:55 Dose: 100 mg Multivitamins/Minerals (Theragran-M) 1 each PO DAILY [facility] Last Admin: 01/28/18 10:52 Dose: 1 each Mupirocin (Bactroban 2% Cream -) 1 applic TP BID [facility] Last Admin: 01/28/18 10:51 Dose: 1 applic Potassium Chloride (K-Dur -) 40 meq PO DAILY [facility] Last Admin: 01/28/18 10:52 Dose: 40 meq - Objective Vital Signs: Vital Signs Temperature 97.4 F L 01/28/18 14:00 Pulse Rate 88 01/28/18 14:00 Respiratory Rate 20 01/28/18 14:00 Blood Pressure 97/52 L 01/28/18 14:00 O2 Sat by Pulse Oximetry (%) 97 01/27/18 21:00 Constitutional: Yes: Calm Eyes: Yes: Conjunctiva Clear HENT: Yes: Atraumatic Neck: Yes: Supple Cardiovascular: Yes: JVD, S1, S2 Respiratory: Yes: On Nasal O2 Gastrointestinal: Yes: Soft Genitourinary: Yes: Incontinence Musculoskeletal: Yes: Muscle Weakness Edema: Yes Edema: LLE: 2+, RLE: 2+ Integumentary: Yes: Venous Stasis Changes Neurological: Yes: Oriented Psychiatric: Yes: Oriented Labs: CBC, BMP 01/28/18 05:50 01/28/18 05:50 INR, PTT INR 1.83 (0.83-1.09) H 01/24/18 13:45 Problem List - Problems (1) Acute renal insufficiency Code(s): N28.9 - DISORDER OF KIDNEY AND URETER, UNSPECIFIED (2) Hypocalcemia Code(s): E83.51 - HYPOCALCEMIA (3) Hypokalemia Code(s): E87.6 - HYPOKALEMIA (4) Afib Code(s): I48.91 - UNSPECIFIED ATRIAL FIBRILLATION Qualifiers: Atrial fibrillation type: chronic Qualified Code(s): I48.2 - Chronic atrial fibrillation (5) HLD (hyperlipidemia) Code(s): E78.5 - HYPERLIPIDEMIA, UNSPECIFIED Qualifiers: Hyperlipidemia type: unspecified Qualified Code(s): E78.5 - Hyperlipidemia , unspecified (6) Pleural effusion Code(s): J90 - PLEURAL EFFUSION, NOT ELSEWHERE CLASSIFIED Assessment/Plan Current Medications Generic Name Dose Route Start Last Admin Trade Name Freq PRN Reason Stop Dose Admin Apixaban 2.5 mg 01/24/18 22:00 01/28/18 10:52 Eliquis - PO 2.5 mg BID [facility] Administration Atorvastatin Calcium 10 mg 01/24/18 22:00 01/27/18 21:50 Lipitor - PO 10 mg HS [facility] Administration Calcitriol 0.25 mcg 01/25/18 00:21 01/28/18 10:52 Rocaltrol - PO 0.25 mcg DAILY [facility] Administration Calcium Carbonate/Cholecalciferol 1 tab 01/25/18 10:00 01/28/18 10:52 Os-Vadim 500+D - PO 1 tab DAILY [facility] Administration Cephalexin HCl 500 mg 01/27/18 10:30 01/28/18 10:52 Keflex - PO 500 mg BID [facility] Administration Ferrous Sulfate 325 mg 01/24/18 17:30 01/28/18 08:05 Feosol - PO 325 mg BIDWM [facility] Administration Furosemide 40 mg 01/28/18 14:00 01/28/18 14:52 Lasix Injection - IVPUSH 40 mg TID [facility] Administration Magnesium Oxide 400 mg 01/27/18 22:00 01/28/18 10:52 Mag-Ox - PO 400 mg BID [facility] Administration Metoprolol Tartrate 100 mg 01/24/18 22:00 01/28/18 10:55 Lopressor - PO 100 mg BID [facility] Administration Multivitamins/Minerals 1 each 01/25/18 10:00 01/28/18 10:52 Theragran-M PO 1 each DAILY [facility] Administration Mupirocin 1 applic 01/25/18 22:00 01/28/18 10:51 Bactroban 2% Cream - TP 1 applic BID [facility] Administration Potassium Chloride 40 meq 01/27/18 10:30 01/28/18 10:52 K-Dur - PO 40 meq DAILY [facility] Administration Impression 1. ABIGAIL 2. hypokalemia 3. hypocalcemia 4. a-fib 5. CHF 6. thalassemia 7. HLD Plan - check renal ultrasound - cont diuretics - monitor lytes - check albumin and calcium - will follow Dr Houston
[2018-01-28] MEDS ORDERED: PT OWN MED DRAWER 7, Y5N ONE (21:04)
[2018-01-28] MEDS: ATORVASTATIN CA 10 MG TABLET (FP) PO SCH (21:11)
[2018-01-29 06:39] LABS: BASO % 0.1 % (0-2.0); EOS % 0.4 % (0-4.5); HEMATOCRIT 27.3 % (35.4-49); HEMOGLOBIN 8.2 GM/dL (11.7-16.9); LYMPH % 40.5 % (8-40); MCH 20.1 pg (25.7-33.7); MCHC 29.8 g/dl (32.0-35.9); MEAN CELL VOLUME 67.5 fl (80-96); MEAN PLT VOLUME 9.2 fl (7.5-11.1); MONO % 10.6 % (3.8-10.2); NEUT % 48.4 % (42.8-82.8); PLATELET COUNT 148 K/MM3 (134-434); RBC 4.05 M/mm3 (4.00-5.60); WHITE BLOOD COUNT 8.3 K/mm3 (4.0-10.0)
[2018-01-29] MEDS: FUROSEMIDE 40 MG/4 ML INJECTABLE VIAL IVPUSH SCH ×3 (06:40→22:18)
[2018-01-29 07:03] LABS: ALBUMIN 2.5 g/dl (3.4-5.0); ALK PHOS 76 U/L (45-117); ANION GAP 10 MMOL/L (8-16); BILIRUBIN,TOTAL 1.1 mg/dL (0.2-1); BLOOD UREA NITROGEN 72 mg/dL (7-18); CALCIUM 7.3 mg/dL (8.5-10.1); CHLORIDE 106 mmol/L (98-107); CO2 24 mmol/L (21-32); CREATININE 2.5 mg/dL (0.55-1.3); GLUCOSE,RANDOM 86 mg/dL (74-106); POTASSIUM 4.4 mmol/L (3.5-5.1); SGOT/AST 21 U/L (15-37); SGPT/ALT 18 U/L (13-61); SODIUM 139 mmol/L (136-145); TOT PROT 5.5 g/dl (6.4-8.2)
[2018-01-29] MEDS: FERROUS SO4 325 MG TABLET (FP) PO SCH ×2 (08:31→17:54)
[2018-01-29] MEDS: METOPROLOL TARTRATE 50 MG TABLET (FP) PO SCH ×2 (10:44→22:18)
[2018-01-29] MEDS: CEPHALEXIN MONOHYDRATE 500 MG CAPSULE (UD) PO SCH ×2 (10:44→22:17)
[2018-01-29] MEDS: MULTIVITAMINS THER W-MINERALS COMBO TABLET (FP) PO SCH (10:44)
[2018-01-29] MEDS: MAGNESIUM OXIDE 400 MG TABLET (FP) PO SCH ×2 (10:44→22:17)
[2018-01-29] MEDS: APIXABAN 2.5 MG TABLET PO SCH ×2 (10:44→22:17)
[2018-01-29] MEDS: CALCIUM 500MG/VIT-D 200 UNITS COMBO TABLET (FP) PO SCH (10:44)
[2018-01-29] MEDS: MUPIROCIN CA 2% TOPICAL CREAM 15 GM TUBE TP SCH ×2 (10:44→22:16)
[2018-01-29] MEDS: CALCITRIOL 0.25 MCG CAPSULE (FP) PO SCH (10:45)
[2018-01-29] MEDS: POTASSIUM CHLORIDE TABS 20 MEQ TABLET.ER (FP) PO SCH (10:45)
--- NOTE | 2018-01-29 10:49 | PN ---
Progress Note (short form) - Note Progress Note: Chief Complaint: sob History of Present Illness: urinating more than yesterday, still feels dyspnea with exertion no cp, palpitations, syncope Current Medications Apixaban (Eliquis -) 2.5 mg PO BID [facility] Last Admin: 01/28/18 21:11 Dose: 2.5 mg Atorvastatin Calcium (Lipitor -) 10 mg PO HS [facility] Last Admin: 01/28/18 21:11 Dose: 10 mg Calcitriol (Rocaltrol -) 0.25 mcg PO DAILY [facility] Last Admin: 01/28/18 10:52 Dose: 0.25 mcg Calcium Carbonate/Cholecalciferol (Os-Vdaim 500+D -) 1 tab PO DAILY [facility] Last Admin: 01/28/18 10:52 Dose: 1 tab Cephalexin HCl (Keflex -) 500 mg PO BID [facility] Last Admin: 01/28/18 21:11 Dose: 500 mg Ferrous Sulfate (Feosol -) 325 mg PO BIDWM [facility] Last Admin: 01/29/18 08:31 Dose: 325 mg Furosemide (Lasix Injection -) 40 mg IVPUSH TID [facility] Last Admin: 01/29/18 06:40 Dose: 40 mg Magnesium Oxide (Mag-Ox -) 400 mg PO BID [facility] Last Admin: 01/28/18 21:11 Dose: 400 mg Metoprolol Tartrate (Lopressor -) 100 mg PO BID [facility] Last Admin: 01/28/18 21:11 Dose: 100 mg Multivitamins/Minerals (Theragran-M) 1 each PO DAILY [facility] Last Admin: 01/28/18 10:52 Dose: 1 each Mupirocin (Bactroban 2% Cream -) 1 applic TP BID [facility] Last Admin: 01/28/18 21:11 Dose: 1 applic Potassium Chloride (K-Dur -) 40 meq PO DAILY [facility] Last Admin: 01/28/18 10:52 Dose: 40 meq Vital Signs Period Temp Pulse Resp BP Sys/Garsia Pulse Ox Last 24 Hr 97.0 F-98.2 F 84-102 18-20 97-116/50-76 91 Constitutional: Yes: Well Nourished, No Distress, Calm Cardiovascular: Yes: Pulse Irregular, JVD (to jaw), S1, S2. No: Gallop, Murmur Respiratory: Yes: Regular, CTA Bilaterally. No: Accessory Muscle Use, Rales, Wheezes Extremities: No: Cold Edema: No Neurological: Yes: Alert, Oriented Psychiatric: No: Agitated Assessment/Plan mibi 12/2010: nl mpi echo 07/2017: nl lv/rv, mild lvh, mod lae, mild ar, mod tr/mr, mild phtn, ao root 4 cm echo 01/2018 nl LV function EF 50-55%, RV nl size/function, LA severely dilated , RA moderately dialted, mild MAC, mild to mod MR, mod to severe TR, RVSP 40-50 mmHg, mild to mod AR, mild ao root dilation, small pericardial effusion <1 cm ecg: afib, hr 89, irbbb, old cxr: no chf a/p: 87 m hx htn, aaa s/p stent repair 2013, aortic root aneurysm, afib, dchf/ le edema, here with HF exacerbation. acute diastolic chf: -here with volume overload, recent echo with nl lv/rv fcn -was on lasix 40 bid at home -d/c wt 04/29 was 162 lbs -01/26: Weight today 148# (up 4# ?) and sCreat 2.9 (from 2.7). Given Lasix 40IV x 1 this AM -01/27: Weight 148, Creat 2.6 - increase lasix to 40mg IV BID -01/28: wt up 148 to 150 lbs. JVD to jaw. very sob with activity. admits to signif diuretic response to lasix 40 mg dose--increase to 40 TID - 01/29: repeat echo similar to prior, nl RV function. weight trending down 150- >149 lb, Cr trend down, UOP increased with lasix 40 mg IV TID, continue htn: -on low side here, needs bb for rate control afib: -cont bb for rate control -no longer is on digoxin -cont eliquis. had epistaxis here requiring packing, observe for recurrent bleeding leona: -baseline creat 1.2 (04/29) -creat essentially stable here, ranging 2.7-2.9, improving to 2.5 -renal consulting, sonogram no obstruction
--- NOTE | 2018-01-29 12:05 | PN ---
Physical Exam: SUBJECTIVE: Patient seen and examined at bedside. No overnight events. No new complaints. Feels better overall. Denies CP, TAN, palpitations, abdominal pain, nausea or vomiting. OBJECTIVE: Vital Signs Period Temp Pulse Resp BP Sys/Garsia Pulse Ox Last 24 Hr 97.0 F-98.2 F 84-102 18-20 97-116/50-76 91 GENERAL: awake and alert, NAD ENT: Dry mucous membranes. NECK: Trachea midline, full range of motion, supple. LUNGS: Breath sounds equal, clear to auscultation bilaterally, no wheezes, no crackles, no accessory muscle use. HEART: Regular rate and rhythm, S1, S2 without murmur, rub or gallop. ABDOMEN: Soft, nontender, nondistended, normoactive bowel sounds, no guarding, no rebound, no hepatosplenomegaly, no masses. EXTREMITIES: 2+ pulses, warm, well-perfused, no edema. NEUROLOGICAL: Cranial nerves II through XII grossly intact. Normal speech, gait not observed. PSYCH: Normal mood, normal affect. SKIN: Warm, dry, normal turgor, no rashes or lesions noted Laboratory Results - last 24 hr 01/29/18 01/29/18 06:00 06:00 WBC 8.3 RBC 4.05 Hgb 8.2 L Hct 27.3 L MCV 67.5 L MCH 20.1 L MCHC 29.8 L RDW 18.0 H Plt Count 148 MPV 9.2 Absolute Neuts (auto) 4.0 Neutrophils % 48.4 Lymphocytes % 40.5 H Monocytes % 10.6 H Eosinophils % 0.4 Basophils % 0.1 Nucleated RBC % 0 Sodium 139 Potassium 4.4 Chloride 106 Carbon Dioxide 24 Anion Gap 10 BUN 72 H Creatinine 2.5 H Creat Clearance w eGFR 24.50 Random Glucose 86 Calcium 7.3 L Total Bilirubin 1.1 H AST 21 ALT 18 Alkaline Phosphatase 76 Total Protein 5.5 L Albumin 2.5 L Active Medications Generic Name Dose Route Start Last Admin Trade Name Freq PRN Reason Stop Dose Admin Apixaban 2.5 mg 01/24/18 22:00 01/29/18 10:44 Eliquis - PO 2.5 mg BID [facility] Administration Atorvastatin Calcium 10 mg 01/24/18 22:00 01/28/18 21:11 Lipitor - PO 10 mg HS [facility] Administration Calcitriol 0.25 mcg 11/16/18 00:21 01/29/18 10:45 Rocaltrol - PO 0.25 mcg DAILY [facility] Administration Calcium Carbonate/Cholecalciferol 1 tab 01/25/18 10:00 01/29/18 10:44 Os-Vadim 500+D - PO 1 tab DAILY [facility] Administration Cephalexin HCl 500 mg 01/27/18 10:30 01/29/18 10:44 Keflex - PO 500 mg BID [facility] Administration Ferrous Sulfate 325 mg 01/24/18 17:30 01/29/18 08:31 Feosol - PO 325 mg BIDWM [facility] Administration Furosemide 40 mg 01/28/18 14:00 01/29/18 06:40 Lasix Injection - IVPUSH 40 mg TID [facility] Administration Magnesium Oxide 400 mg 01/27/18 22:00 01/29/18 10:44 Mag-Ox - PO 400 mg BID [facility] Administration Metoprolol Tartrate 100 mg 01/24/18 22:00 01/29/18 10:44 Lopressor - PO 100 mg BID [facility] Administration Multivitamins/Minerals 1 each 01/25/18 10:00 01/29/18 10:44 Theragran-M PO 1 each DAILY [facility] Administration Mupirocin 1 applic 01/25/18 22:00 01/29/18 10:44 Bactroban 2% Cream - TP 1 applic BID [facility] Administration Potassium Chloride 40 meq 01/27/18 10:30 01/29/18 10:45 K-Dur - PO 40 meq DAILY [facility] Administration ASSESSMENT/PLAN: Problem List - Problems (1) Cardiorenal syndrome with renal failure Assessment/Plan: * continues to improve. * Continue Lasix IV 40mg TID * Will continue to monitor daily weights and I/O's * Nephrology on board; kidney US pending. * baseline Cr. 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 \ * salt restriction. * Cardiology consult appreciated. (3) Afib Assessment/Plan: cont metoprolol 100mg BID * no longer is on digoxin * cont eliquis. had epistaxis here requiring packing, observe for recurrent bleeding (4) HLD (hyperlipidemia) Assessment/Plan: continue statin (5) HTN (hypertension) Assessment/Plan: BP has been low normal this admission * requires BB for rate control. (6) Venous stasis dermatitis of both lower extremities Assessment/Plan: Vascular consulted. * recommend compression stocking for LE edema. * F/U with Dr. Logan as outpatients. (7) Urinary tract infection Assessment/Plan: continue keflex. Visit type - Emergency Visit Emergency Visit: Yes ED Registration Date: 01/24/18 Care time: The patient presented to the Emergency Department on the above date and was hospitalized for further evaluation of their emergent condition. - New Patient This patient is new to me today: No - Critical Care Critical Care patient: No
[2018-01-29] MEDS ORDERED: POTASSIUM PHOSPHATE 16 MM in SODIUM CHLORIDE 250 ML IVPB ONE (12:27)
[2018-01-29 12:53] LABS: ACANTHOCYTES 1+; ANISOCYTOSIS 2+; MACROCYTOSIS 0; OVALOCYTE 1+; PLATELET ESTIMATE DECREASED
--- NOTE | 2018-01-29 13:05 | PN ---
Progress Note, Physician History of Present Illness: Pt seen and examined at bedside. He is awake and alert. He is sitting up in bed and is tolerating diet. He does not feel much of a difference in his breathing. - Current Medication List Current Medications: Active Medications Apixaban (Eliquis -) 2.5 mg PO BID [facility] Last Admin: 01/29/18 10:44 Dose: 2.5 mg Atorvastatin Calcium (Lipitor -) 10 mg PO HS [facility] Last Admin: 01/28/18 21:11 Dose: 10 mg Calcitriol (Rocaltrol -) 0.25 mcg PO DAILY [facility] Last Admin: 01/29/18 10:45 Dose: 0.25 mcg Calcium Carbonate/Cholecalciferol (Os-Vadim 500+D -) 1 tab PO DAILY [facility] Last Admin: 01/29/18 10:44 Dose: 1 tab Cephalexin HCl (Keflex -) 500 mg PO BID [facility] Last Admin: 01/29/18 10:44 Dose: 500 mg Ferrous Sulfate (Feosol -) 325 mg PO BIDWM [facility] Last Admin: 01/29/18 08:31 Dose: 325 mg Furosemide (Lasix Injection -) 40 mg IVPUSH TID [facility] Last Admin: 01/29/18 06:40 Dose: 40 mg Magnesium Oxide (Mag-Ox -) 400 mg PO BID [facility] Last Admin: 01/29/18 10:44 Dose: 400 mg Metoprolol Tartrate (Lopressor -) 100 mg PO BID [facility] Last Admin: 01/29/18 10:44 Dose: 100 mg Multivitamins/Minerals (Theragran-M) 1 each PO DAILY [facility] Last Admin: 01/29/18 10:44 Dose: 1 each Mupirocin (Bactroban 2% Cream -) 1 applic TP BID [facility] Last Admin: 01/29/18 10:44 Dose: 1 applic Potassium Chloride (K-Dur -) 40 meq PO DAILY [facility] Last Admin: 01/29/18 10:45 Dose: 40 meq - Objective Vital Signs: Vital Signs Temperature 97.3 F L 01/29/18 10:00 Pulse Rate 84 01/29/18 10:00 Respiratory Rate 20 01/29/18 10:00 Blood Pressure 105/50 L 01/29/18 10:00 O2 Sat by Pulse Oximetry (%) 91 L 01/28/18 22:00 Constitutional: Yes: Calm Eyes: Yes: Conjunctiva Clear HENT: Yes: Atraumatic Neck: Yes: Supple Cardiovascular: Yes: S1, S2 Respiratory: Yes: Rhonchi Gastrointestinal: Yes: Normal Bowel Sounds, Soft Genitourinary: Yes: WNL Musculoskeletal: Yes: WNL Edema: Yes Edema: LLE: 1+, RLE: 1+ Neurological: Yes: Oriented Psychiatric: Yes: Oriented Labs: CBC, BMP 01/29/18 06:00 01/29/18 06:00 INR, PTT INR 1.83 (0.83-1.09) H 01/24/18 13:45 Problem List - Problems (1) Acute renal insufficiency Code(s): N28.9 - DISORDER OF KIDNEY AND URETER, UNSPECIFIED (2) Hypocalcemia Code(s): E83.51 - HYPOCALCEMIA (3) Hypokalemia Code(s): E87.6 - HYPOKALEMIA (4) Afib Code(s): I48.91 - UNSPECIFIED ATRIAL FIBRILLATION Qualifiers: Atrial fibrillation type: chronic Qualified Code(s): I48.2 - Chronic atrial fibrillation (5) HLD (hyperlipidemia) Code(s): E78.5 - HYPERLIPIDEMIA, UNSPECIFIED Qualifiers: Hyperlipidemia type: unspecified Qualified Code(s): E78.5 - Hyperlipidemia , unspecified (6) Pleural effusion Code(s): J90 - PLEURAL EFFUSION, NOT ELSEWHERE CLASSIFIED Assessment/Plan Current Medications Generic Name Dose Route Start Last Admin Trade Name Freq PRN Reason Stop Dose Admin Apixaban 2.5 mg 01/24/18 22:00 01/29/18 10:44 Eliquis - PO 2.5 mg BID [facility] Administration Atorvastatin Calcium 10 mg 01/24/18 22:00 01/28/18 21:11 Lipitor - PO 10 mg HS [facility] Administration Calcitriol 0.25 mcg 01/25/18 00:21 01/29/18 10:45 Rocaltrol - PO 0.25 mcg DAILY [facility] Administration Calcium Carbonate/Cholecalciferol 1 tab 01/25/18 10:00 01/29/18 10:44 Os-Vadim 500+D - PO 1 tab DAILY [facility] Administration Cephalexin HCl 500 mg 01/27/18 10:30 01/29/18 10:44 Keflex - PO 500 mg BID [facility] Administration Ferrous Sulfate 325 mg 01/24/18 17:30 01/29/18 08:31 Feosol - PO 325 mg BIDWM [facility] Administration Furosemide 40 mg 01/28/18 14:00 01/29/18 06:40 Lasix Injection - IVPUSH 40 mg TID [facility] Administration Magnesium Oxide 400 mg 01/27/18 22:00 01/29/18 10:44 Mag-Ox - PO 400 mg BID [facility] Administration Metoprolol Tartrate 100 mg 01/24/18 22:00 01/29/18 10:44 Lopressor - PO 100 mg BID [facility] Administration Multivitamins/Minerals 1 each 01/25/18 10:00 01/29/18 10:44 Theragran-M PO 1 each DAILY [facility] Administration Mupirocin 1 applic 01/25/18 22:00 01/29/18 10:44 Bactroban 2% Cream - TP 1 applic BID [facility] Administration Potassium Chloride 40 meq 01/27/18 10:30 01/29/18 10:45 K-Dur - PO 40 meq DAILY [facility] Administration Impression 1. ABIGAIL 2. hypokalemia 3. hypocalcemia 4. a-fib 5. CHF 6. thalassemia 7. HLD Plan - renal ultrasound reviewed - renal function is improving - cont lasix - monitor lytes - volume status is improving - will follow Dr Houston
--- NOTE | 2018-01-29 16:41 | PN ---
Progress Note, Physician Chief Complaint: Mr Ramirez says he is feeling well today. Says he feels the shortness of breath with walking is better. No cp or n/v. Feels swelling is improved. - Current Medication List Current Medications: Active Medications Apixaban (Eliquis -) 2.5 mg PO BID [facility] Last Admin: 01/29/18 10:44 Dose: 2.5 mg Atorvastatin Calcium (Lipitor -) 10 mg PO HS [facility] Last Admin: 01/28/18 21:11 Dose: 10 mg Calcitriol (Rocaltrol -) 0.25 mcg PO DAILY [facility] Last Admin: 01/29/18 10:45 Dose: 0.25 mcg Calcium Carbonate/Cholecalciferol (Os-Vadim 500+D -) 1 tab PO DAILY [facility] Last Admin: 01/29/18 10:44 Dose: 1 tab Cephalexin HCl (Keflex -) 500 mg PO BID [facility] Last Admin: 01/29/18 10:44 Dose: 500 mg Ferrous Sulfate (Feosol -) 325 mg PO BIDWM [facility] Last Admin: 01/29/18 08:31 Dose: 325 mg Furosemide (Lasix Injection -) 40 mg IVPUSH TID [facility] Last Admin: 01/29/18 14:02 Dose: 40 mg Magnesium Oxide (Mag-Ox -) 400 mg PO BID [facility] Last Admin: 01/29/18 10:44 Dose: 400 mg Metoprolol Tartrate (Lopressor -) 100 mg PO BID [facility] Last Admin: 01/29/18 10:44 Dose: 100 mg Multivitamins/Minerals (Theragran-M) 1 each PO DAILY [facility] Last Admin: 01/29/18 10:44 Dose: 1 each Mupirocin (Bactroban 2% Cream -) 1 applic TP BID [facility] Last Admin: 01/29/18 10:44 Dose: 1 applic Potassium Chloride (K-Dur -) 40 meq PO DAILY [facility] Last Admin: 01/29/18 10:45 Dose: 40 meq - Objective Vital Signs: Vital Signs Temperature 36.4 C L 01/29/18 13:54 Pulse Rate 86 01/29/18 13:54 Respiratory Rate 20 01/29/18 13:54 Blood Pressure 107/65 01/29/18 13:54 O2 Sat by Pulse Oximetry (%) 91 L 01/29/18 09:00 Constitutional: Yes: Well Nourished, No Distress, Calm Cardiovascular: Yes: Regular Rate and Rhythm. No: Gallop, Murmur, Rub Respiratory: Yes: Regular, CTA Bilaterally Gastrointestinal: Yes: Normal Bowel Sounds, Soft. No: Distention, Tenderness Extremities: Yes: Erythema Edema: Yes Edema: LLE: 2+, RLE: 2+ Labs: CBC, BMP 01/29/18 06:00 01/29/18 06:00 INR, PTT INR 1.83 (0.83-1.09) H 01/24/18 13:45 Problem List - Problems (1) Cardiorenal syndrome with renal failure Code(s): I13.10 - HYP HRT & CHR KDNY DIS W/O HRT FAIL, W STG 1-4/UNSP CHR KDNY; N19 - UNSPECIFIED KIDNEY FAILURE (2) Acute renal insufficiency Code(s): N28.9 - DISORDER OF KIDNEY AND URETER, UNSPECIFIED (3) CHF exacerbation Code(s): I50.9 - HEART FAILURE, UNSPECIFIED Qualifiers: Heart failure type: unspecified Qualified Code(s): I50.9 - Heart failure, unspecified (4) Hypocalcemia Code(s): E83.51 - HYPOCALCEMIA (5) Hypokalemia Code(s): E87.6 - HYPOKALEMIA (6) Afib Code(s): I48.91 - UNSPECIFIED ATRIAL FIBRILLATION Qualifiers: Atrial fibrillation type: chronic Qualified Code(s): I48.2 - Chronic atrial fibrillation (7) HLD (hyperlipidemia) Code(s): E78.5 - HYPERLIPIDEMIA, UNSPECIFIED Qualifiers: Hyperlipidemia type: unspecified Qualified Code(s): E78.5 - Hyperlipidemia , unspecified (8) HTN (hypertension) Code(s): I10 - ESSENTIAL (PRIMARY) HYPERTENSION Qualifiers: Hypertension type: essential hypertension Qualified Code(s): I10 - Essential (primary) hypertension (9) Hypomagnesemia Code(s): E83.42 - HYPOMAGNESEMIA Assessment/Plan (1) Cardiorenal syndrome with renal failure Assessment/Plan: -continue lasix 40mg IV tid -suspect will need to decrease soon so patient does not become intravascularly depleted Code(s): I13.10 - HYP HRT & CHR KDNY DIS W/O HRT FAIL, W STG 1-4/UNSP CHR KDNY; N19 - UNSPECIFIED KIDNEY FAILURE (2) Acute renal insufficiency Assessment/Plan: -case d/w Dr Houston -renal ultrasound reviewed -improving Code(s): N28.9 - DISORDER OF KIDNEY AND URETER, UNSPECIFIED (3) CHF exacerbation Assessment/Plan: -as above Code(s): I50.9 - HEART FAILURE, UNSPECIFIED Qualifiers: Heart failure type: unspecified Qualified Code(s): I50.9 - Heart failure, unspecified (4) Hypocalcemia Assessment/Plan: -checking parathyroid -continue replacement Code(s): E83.51 - HYPOCALCEMIA (5) Hypokalemia/hypomagnesemia -replace as needed Code(s): E87.6 - HYPOKALEMIA (6) Afib Assessment/Plan: -not in exacerbation -continue eliquis -continue metoprolol with hold precautions Code(s): I48.91 - UNSPECIFIED ATRIAL FIBRILLATION (7) HLD (hyperlipidemia) Assessment/Plan: -continue statin Code(s): E78.5 - HYPERLIPIDEMIA, UNSPECIFIED (8) HTN (hypertension) Assessment/Plan: -hypotension stable Code(s): I10 - ESSENTIAL (PRIMARY) HYPERTENSION (9) Diarrhea -c diff negative -stool studies negative (10) UTI -continue keflex day 3 -klebsiella sensitive to cephalosporins Case d/w Dr Najera PGY-3 and plan formulated
[2018-01-29 17:19] LABS: URINE APPEARANCE CLEAR; URINE BILIRUBIN NEGATIVE (<2.0 mg/dL); URINE COLOR YELLOW; URINE GLUCOSE (UA) NEGATIVE (NEGATIVE); URINE KETONE NEGATIVE (NEGATIVE); URINE LEUK ESTERASE 2+ (NEGATIVE); URINE NITRITE NEGATIVE (NEGATIVE); URINE PROTEIN NEGATIVE (NEGATIVE); URINE UROBILINOGEN NEGATIVE mg/dL (0.2-1.0)
[2018-01-29 17:29] LABS: URINE BACTERIA RARE /hpf (NONE SEEN); URINE MUCUS RARE
[2018-01-29] MEDS: ATORVASTATIN CA 10 MG TABLET (FP) PO SCH (22:17)
[2018-01-30] MEDS: FUROSEMIDE 40 MG/4 ML INJECTABLE VIAL IVPUSH SCH ×3 (06:26→21:01)
[2018-01-30 06:54] LABS: BASO % 0.1 % (0-2.0); EOS % 0.2 % (0-4.5); HEMATOCRIT 28.9 % (35.4-49); HEMOGLOBIN 8.7 GM/dL (11.7-16.9); LYMPH % 33.4 % (8-40); MCH 20.4 pg (25.7-33.7); MONO % 9.8 % (3.8-10.2); NEUT % 56.5 % (42.8-82.8); PLATELET COUNT 153 K/MM3 (134-434); RBC 4.25 M/mm3 (4.00-5.60); RDW 18.2 % (11.9-15.9); WHITE BLOOD COUNT 8.9 K/mm3 (4.0-10.0)
[2018-01-30 07:50] LABS: ANION GAP 9 MMOL/L (8-16); BLOOD UREA NITROGEN 74 mg/dL (7-18); CALCIUM 7.6 mg/dL (8.5-10.1); CHLORIDE 105 mmol/L (98-107); CO2 24 mmol/L (21-32); CREATININE 2.7 mg/dL (0.55-1.3); GLUCOSE,RANDOM 88 mg/dL (74-106); MAGNESIUM 1.8 mg/dL (1.8-2.4); PHOSPHOROUS 4.8 mg/dL (2.5-4.9); SODIUM 138 mmol/L (136-145)
[2018-01-30] MEDS: APIXABAN 2.5 MG TABLET PO SCH ×2 (10:07→21:02)
[2018-01-30] MEDS: CALCIUM 500MG/VIT-D 200 UNITS COMBO TABLET (FP) PO SCH (10:07)
[2018-01-30] MEDS: METOPROLOL TARTRATE 50 MG TABLET (FP) PO SCH ×2 (10:07→21:01)
[2018-01-30] MEDS: MULTIVITAMINS THER W-MINERALS COMBO TABLET (FP) PO SCH (10:07)
[2018-01-30] MEDS: CEPHALEXIN MONOHYDRATE 500 MG CAPSULE (UD) PO SCH ×2 (10:07→21:01)
[2018-01-30] MEDS: FERROUS SO4 325 MG TABLET (FP) PO SCH ×2 (10:07→18:23)
[2018-01-30] MEDS: MAGNESIUM OXIDE 400 MG TABLET (FP) PO SCH ×2 (10:07→21:01)
[2018-01-30] MEDS: POTASSIUM CHLORIDE TABS 20 MEQ TABLET.ER (FP) PO SCH (10:07)
[2018-01-30] MEDS ORDERED: PT OWN MED DRAWER 7, Y5N ONE (10:09)
[2018-01-30] MEDS: CALCITRIOL 0.25 MCG CAPSULE (FP) PO SCH (10:10)
--- NOTE | 2018-01-30 11:06 | PN ---
Progress Note (short form) - Note Progress Note: Chief Complaint: sob History of Present Illness: still feels tired, dyspnea. no cp, palpitations, syncope Current Medications Apixaban (Eliquis -) 2.5 mg PO BID [facility] Last Admin: 01/30/18 10:07 Dose: 2.5 mg Atorvastatin Calcium (Lipitor -) 10 mg PO HS [facility] Last Admin: 01/29/18 22:17 Dose: 10 mg Calcitriol (Rocaltrol -) 0.25 mcg PO DAILY [facility] Last Admin: 01/30/18 10:10 Dose: 0.25 mcg Calcium Carbonate/Cholecalciferol (Os-Vadim 500+D -) 1 tab PO DAILY [facility] Last Admin: 01/30/18 10:07 Dose: 1 tab Cephalexin HCl (Keflex -) 500 mg PO BID [facility] Last Admin: 01/30/18 10:07 Dose: 500 mg Ferrous Sulfate (Feosol -) 325 mg PO BIDWM [facility] Last Admin: 01/30/18 10:07 Dose: 325 mg Furosemide (Lasix Injection -) 40 mg IVPUSH TID [facility] Last Admin: 01/30/18 06:26 Dose: 40 mg Magnesium Oxide (Mag-Ox -) 400 mg PO BID [facility] Last Admin: 01/30/18 10:07 Dose: 400 mg Metoprolol Tartrate (Lopressor -) 100 mg PO BID [facility] Last Admin: 01/30/18 10:07 Dose: 100 mg Multivitamins/Minerals (Theragran-M) 1 each PO DAILY [facility] Last Admin: 01/30/18 10:07 Dose: 1 each Mupirocin (Bactroban 2% Cream -) 1 applic TP BID [facility] Last Admin: 01/29/18 22:16 Dose: Not Given Potassium Chloride (K-Dur -) 40 meq PO DAILY [facility] Last Admin: 01/30/18 10:07 Dose: 40 meq Vital Signs Period Temp Pulse Resp BP Sys/Garsia Pulse Ox Last 24 Hr 97.0 F-97.8 F 83-97 20-20 107-132/57-77 91 Constitutional: Yes: Well Nourished, No Distress, Calm Cardiovascular: Yes: Pulse Irregular, JVD (to jaw), S1, S2. No: Gallop, Murmur Respiratory: Yes: Regular, CTA Bilaterally. No: Accessory Muscle Use, Rales, Wheezes Extremities: No: Cold Edema: No Neurological: Yes: Alert, Oriented Psychiatric: No: Agitated Assessment/Plan mibi 12/2010: nl mpi echo 07/2017: nl lv/rv, mild lvh, mod lae, mild ar, mod tr/mr, mild phtn, ao root 4 cm echo 01/2018 nl LV function EF 50-55%, RV nl size/function, LA severely dilated , RA moderately dialted, mild MAC, mild to mod MR, mod to severe TR, RVSP 40-50 mmHg, mild to mod AR, mild ao root dilation, small pericardial effusion <1 cm ecg: afib, hr 89, irbbb, old cxr: no chf tele: afib, rate ok a/p: 87 m hx htn, aaa s/p stent repair 2013, aortic root aneurysm, afib, dchf/ le edema, here with HF exacerbation. acute diastolic chf: -here with volume overload, recent echo with nl lv/rv fcn -was on lasix 40 bid at home -d/c wt 04/29 was 162 lbs -01/26: Weight today 148# (up 4# ?) and sCreat 2.9 (from 2.7). Given Lasix 40IV x 1 this AM -01/27: Weight 148, Creat 2.6 - increase lasix to 40mg IV BID -01/28: wt up 148 to 150 lbs. JVD to jaw. very sob with activity. admits to signif diuretic response to lasix 40 mg dose--increase to 40 TID - 01/29: repeat echo similar to prior, nl RV function. weight trending down 150- >149 lb, Cr trend down, continued lasix 40 mg IV TID -01/30 remains short of breath, subjectively has been urinating, however exam and symptoms stable. d/w nephrology, add metolazone today, cont lasix htn: -on low side here, needs bb for rate control afib: -cont bb for rate control -no longer is on digoxin -cont eliquis. had epistaxis here requiring packing, observe for recurrent bleeding leona: -baseline creat 1.2 (04/29) -creat essentially stable here, ranging 2.7-2.9 -renal consulting, sonogram no obstruction
[2018-01-30] MEDS ORDERED: METOLAZONE 5 MG TABLET PO ONE (11:28)
--- NOTE | 2018-01-30 11:28 | PN ---
Progress Note, Physician History of Present Illness: Pt seen and examined at bedside. He is awake and alert. He denies worsening of shortness of breath but still complains of SOB with minimal exertion. - Current Medication List Current Medications: Active Medications Apixaban (Eliquis -) 2.5 mg PO BID [facility] Last Admin: 01/30/18 10:07 Dose: 2.5 mg Atorvastatin Calcium (Lipitor -) 10 mg PO HS [facility] Last Admin: 01/29/18 22:17 Dose: 10 mg Calcitriol (Rocaltrol -) 0.25 mcg PO DAILY [facility] Last Admin: 01/30/18 10:10 Dose: 0.25 mcg Calcium Carbonate/Cholecalciferol (Os-Vadim 500+D -) 1 tab PO DAILY [facility] Last Admin: 01/30/18 10:07 Dose: 1 tab Cephalexin HCl (Keflex -) 500 mg PO BID [facility] Last Admin: 01/30/18 10:07 Dose: 500 mg Ferrous Sulfate (Feosol -) 325 mg PO BIDWM [facility] Last Admin: 01/30/18 10:07 Dose: 325 mg Furosemide (Lasix Injection -) 40 mg IVPUSH TID [facility] Last Admin: 01/30/18 06:26 Dose: 40 mg Magnesium Oxide (Mag-Ox -) 400 mg PO BID [facility] Last Admin: 01/30/18 10:07 Dose: 400 mg Metoprolol Tartrate (Lopressor -) 100 mg PO BID [facility] Last Admin: 01/30/18 10:07 Dose: 100 mg Multivitamins/Minerals (Theragran-M) 1 each PO DAILY [facility] Last Admin: 01/30/18 10:07 Dose: 1 each Mupirocin (Bactroban 2% Cream -) 1 applic TP BID [facility] Last Admin: 01/29/18 22:16 Dose: Not Given Potassium Chloride (K-Dur -) 40 meq PO DAILY [facility] Last Admin: 01/30/18 10:07 Dose: 40 meq - Objective Vital Signs: Vital Signs Temperature 97.8 F 01/30/18 10:00 Pulse Rate 89 01/30/18 10:00 Respiratory Rate 20 01/30/18 10:00 Blood Pressure 116/57 L 01/30/18 10:00 O2 Sat by Pulse Oximetry (%) 91 L 01/29/18 22:00 Constitutional: Yes: Calm Eyes: Yes: Conjunctiva Clear HENT: Yes: Atraumatic Cardiovascular: Yes: JVD, S1, S2 Respiratory: Yes: On Nasal O2 Gastrointestinal: Yes: Soft Genitourinary: Yes: WNL Musculoskeletal: Yes: WNL Edema: Yes Edema: LLE: 2+, RLE: 2+ Neurological: Yes: Oriented Psychiatric: Yes: Oriented Labs: CBC, BMP 01/30/18 06:00 01/30/18 06:00 INR, PTT INR 1.83 (0.83-1.09) H 01/24/18 13:45 Problem List - Problems (1) Acute renal insufficiency Code(s): N28.9 - DISORDER OF KIDNEY AND URETER, UNSPECIFIED (2) Hypocalcemia Code(s): E83.51 - HYPOCALCEMIA (3) Hypokalemia Code(s): E87.6 - HYPOKALEMIA (4) Afib Code(s): I48.91 - UNSPECIFIED ATRIAL FIBRILLATION Qualifiers: Atrial fibrillation type: chronic Qualified Code(s): I48.2 - Chronic atrial fibrillation (5) HLD (hyperlipidemia) Code(s): E78.5 - HYPERLIPIDEMIA, UNSPECIFIED Qualifiers: Hyperlipidemia type: unspecified Qualified Code(s): E78.5 - Hyperlipidemia , unspecified (6) Pleural effusion Code(s): J90 - PLEURAL EFFUSION, NOT ELSEWHERE CLASSIFIED Assessment/Plan Current Medications Generic Name Dose Route Start Last Admin Trade Name Freq PRN Reason Stop Dose Admin Apixaban 2.5 mg 01/24/18 22:00 01/30/18 10:07 Eliquis - PO 2.5 mg BID [facility] Administration Atorvastatin Calcium 10 mg 01/24/18 22:00 01/29/18 22:17 Lipitor - PO 10 mg HS [facility] Administration Calcitriol 0.25 mcg 01/25/18 00:21 01/30/18 10:10 Rocaltrol - PO 0.25 mcg DAILY [facility] Administration Calcium Carbonate/Cholecalciferol 1 tab 01/25/18 10:00 01/30/18 10:07 Os-Vadim 500+D - PO 1 tab DAILY [facility] Administration Cephalexin HCl 500 mg 01/27/18 10:30 01/30/18 10:07 Keflex - PO 500 mg BID [facility] Administration Ferrous Sulfate 325 mg 01/24/18 17:30 01/30/18 10:07 Feosol - PO 325 mg BIDWM [facility] Administration Furosemide 40 mg 01/28/18 14:00 01/30/18 06:26 Lasix Injection - IVPUSH 40 mg TID [facility] Administration Magnesium Oxide 400 mg 01/27/18 22:00 01/30/18 10:07 Mag-Ox - PO 400 mg BID [facility] Administration Metoprolol Tartrate 100 mg 01/24/18 22:00 01/30/18 10:07 Lopressor - PO 100 mg BID [facility] Administration Multivitamins/Minerals 1 each 01/25/18 10:00 01/30/18 10:07 Theragran-M PO 1 each DAILY [facility] Administration Mupirocin 1 applic 01/25/18 22:00 01/29/18 22:16 Bactroban 2% Cream - TP Not Given BID [facility] Potassium Chloride 40 meq 01/27/18 10:30 01/30/18 10:07 K-Dur - PO 40 meq DAILY [facility] Administration Impression 1. ABIGAIL 2. hypokalemia 3. hypocalcemia 4. a-fib 5. CHF 6. thalassemia 7. HLD Plan - hold potassium supplements for tomorrow as potassium is rising - discussed with cardio, cont with lasix, will also give a dose of metolazone - monitor lytes closely - monitor renal function closely - volume status does not appears changed today from yesterday - pt is short of breath after taking a few steps and could not participate with rehab today - will follow Dr Houston
--- NOTE | 2018-01-30 13:58 | PN ---
Physical Exam: SUBJECTIVE: Patient seen and examined at beside. No overnight events. NO new complaints. Feeling better today. Denies Cp,TAN,abdominal pain or palpitations. OBJECTIVE: Vital Signs Period Temp Pulse Resp BP Sys/Garsia Pulse Ox Last 24 Hr 97.0 F-97.8 F 83-97 20-20 111-132/57-77 91 GENERAL: awake and alert, NAD ENT: Dry mucous membranes. NECK: Trachea midline, full range of motion, supple. LUNGS: CTAB, no wheezes, no crackles, no accessory muscle use. HEART: Regular rate and rhythm, S1, S2 without murmur, rub or gallop. ABDOMEN: Soft, nontender, nondistended, normoactive bowel sounds, no guarding, no rebound, no hepatosplenomegaly, no masses. EXTREMITIES: 2+ pulses, warm, well-perfused,1+edema. LE wrapped NEUROLOGICAL: Cranial nerves II through XII grossly intact. Normal speech, gait not observed. PSYCH: Normal mood, normal affect. SKIN: Warm, dry, normal turgor, no rashes or lesions noted Laboratory Results - last 24 hr 01/26/18 01/29/18 01/30/18 10:00 14:00 06:00 WBC RBC Hgb Hct MCV MCH MCHC RDW Plt Count MPV Absolute Neuts (auto) Neutrophils % Lymphocytes % Monocytes % Eosinophils % Basophils % Nucleated RBC % Sodium 138 Potassium 5.0 Chloride 105 Carbon Dioxide 24 Anion Gap 9 BUN 74 H Creatinine 2.7 H Creat Clearance w eGFR 22.41 Random Glucose 88 Calcium 7.6 L Phosphorus 4.8 Magnesium 1.8 Urine Color Yellow Urine Appearance Clear Urine pH 5.0 Ur Specific [place] 1.009 L Urine Protein Negative Urine Glucose (UA) Negative Urine Ketones Negative Urine Blood 1+ H Urine Nitrite Negative Urine Bilirubin Negative Urine Urobilinogen Negative Ur Leukocyte Esterase 2+ H Urine WBC (Auto) 22 Urine RBC (Auto) 3 Urine Bacteria Rare Urine Mucus Rare Stool O & P Wet [place] Permanent Slide Final report 01/30/18 06:00 WBC 8.9 RBC 4.25 Hgb 8.7 L Hct 28.9 L MCV 68.0 L MCH 20.4 L MCHC 30.0 L RDW 18.2 H Plt Count 153 MPV 9.0 Absolute Neuts (auto) 5.0 Neutrophils % 56.5 Lymphocytes % 33.4 Monocytes % 9.8 Eosinophils % 0.2 Basophils % 0.1 Nucleated RBC % 1 H Sodium Potassium Chloride Carbon Dioxide Anion Gap BUN Creatinine Creat Clearance w eGFR Random Glucose Calcium Phosphorus Magnesium Urine Color Urine Appearance Urine pH Ur Specific [place] Urine Protein Urine Glucose (UA) Urine Ketones Urine Blood Urine Nitrite Urine Bilirubin Urine Urobilinogen Ur Leukocyte Esterase Urine WBC (Auto) Urine RBC (Auto) Urine Bacteria Urine Mucus Stool O & P Wet [place] Permanent Slide Active Medications Generic Name Dose Route Start Last Admin Trade Name Cindi PRN Reason Stop Dose Admin Apixaban 2.5 mg 01/24/18 22:00 01/30/18 10:07 Eliquis - PO 2.5 mg BID [facility] Administration Atorvastatin Calcium 10 mg 01/24/18 22:00 01/29/18 22:17 Lipitor - PO 10 mg HS [facility] Administration Calcitriol 0.25 mcg 01/25/18 00:21 01/30/18 10:10 Rocaltrol - PO 0.25 mcg DAILY [facility] Administration Calcium Carbonate/Cholecalciferol 1 tab 01/25/18 10:00 01/30/18 10:07 Os-Vadim 500+D - PO 1 tab DAILY [facility] Administration Cephalexin HCl 500 mg 01/27/18 10:30 01/30/18 10:07 Keflex - PO 500 mg BID [facility] Administration Ferrous Sulfate 325 mg 01/24/18 17:30 01/30/18 10:07 Feosol - PO 325 mg BIDWM [facility] Administration Furosemide 40 mg 01/28/18 14:00 01/30/18 06:26 Lasix Injection - IVPUSH 40 mg TID [facility] Administration Magnesium Oxide 400 mg 01/27/18 22:00 01/30/18 10:07 Mag-Ox - PO 400 mg BID [facility] Administration Metoprolol Tartrate 100 mg 01/24/18 22:00 01/30/18 10:07 Lopressor - PO 100 mg BID [facility] Administration Multivitamins/Minerals 1 each 01/25/18 10:00 01/30/18 10:07 Theragran-M PO 1 each DAILY [facility] Administration Mupirocin 1 applic 01/25/18 22:00 01/29/18 22:16 Bactroban 2% Cream - TP Not Given BID [facility] ASSESSMENT/PLAN: 87 m hx htn, aaa s/p stent repair 2013, aortic root aneurysm, afib, dchf/le edema, here with HF exacerbation. Problem List - Problems (1) Cardiorenal syndrome with renal failure Assessment/Plan: * continues to improve. * Potassium supplementation held for rising K+ * dose of metolazone today. * Continue Lasix IV 40mg TID * Will continue to monitor daily weights and I/O's * Nephrology on board; kidney US pending. * baseline Cr. 1.2 ; this admission has been stable @ 2.5-2.7 (2) CHF (congestive heart failure) Assessment/Plan: echo 07/2017: nl lv/rv, mild lvh, mod lae, mild ar, mod tr/mr, mild phtn, ao root 4 cm * IV lasix 40 mg tid * will continue to monitor I/O's and daily weights. \ * salt restriction. * Cardiology consult appreciated. (3) Afib Assessment/Plan: cont metoprolol 100mg BID * no longer is on digoxin * cont eliquis. had epistaxis here requiring packing, observe for recurrent bleeding (4) HLD (hyperlipidemia) Assessment/Plan: continue statin (5) HTN (hypertension) Assessment/Plan: BP has been low normal this admission * requires BB for rate control. (6) Venous stasis dermatitis of both lower extremities Assessment/Plan: Vascular consulted. * recommend compression stocking for LE edema. * F/U with Dr. Logan as outpatients. (7) Urinary tract infection Assessment/Plan: continue keflex. Visit type - Emergency Visit Emergency Visit: Yes ED Registration Date: 01/24/18 Care time: The patient presented to the Emergency Department on the above date and was hospitalized for further evaluation of their emergent condition. - New Patient This patient is new to me today: No - Critical Care Critical Care patient: No
[2018-01-30] MEDS: MUPIROCIN CA 2% TOPICAL CREAM 15 GM TUBE TP SCH ×2 (15:55→21:02)
--- NOTE | 2018-01-30 16:07 | PN ---
Teaching Attending Note Name of Resident: Shaun Najera ATTENDING PHYSICIAN STATEMENT I saw and evaluated the patient. I reviewed the resident's note and discussed the case with the resident. I agree with the resident's findings and plan as documented. SUBJECTIVE: The patient not in distress. 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 Strict I/O's Daily weight. Adding Metolazone. OOB, PT/ rehab. Plan d/w patient and the resident at bedside.
[2018-01-30] MEDS: ATORVASTATIN CA 10 MG TABLET (FP) PO SCH (21:01)
[2018-01-31] MEDS: FUROSEMIDE 40 MG/4 ML INJECTABLE VIAL IVPUSH SCH ×3 (06:28→21:23)
[2018-01-31 06:48] LABS: BASO % 0.1 % (0-2.0); EOS % 0.3 % (0-4.5); HEMATOCRIT 29.4 % (35.4-49); HEMOGLOBIN 8.8 GM/dL (11.7-16.9); LYMPH % 35.6 % (8-40); MCH 20.7 pg (25.7-33.7); MEAN CELL VOLUME 68.8 fl (80-96); MEAN PLT VOLUME 8.9 fl (7.5-11.1); MONO % 10.6 % (3.8-10.2); NEUT % 53.4 % (42.8-82.8); PLATELET COUNT 160 K/MM3 (134-434); RBC 4.27 M/mm3 (4.00-5.60); RDW 17.7 % (11.9-15.9); WHITE BLOOD COUNT 9.8 K/mm3 (4.0-10.0)
[2018-01-31 07:58] LABS: BLOOD UREA NITROGEN 76 mg/dL (7-18); CREATININE 2.8 mg/dL (0.55-1.3); GLUCOSE,RANDOM 76 mg/dL (74-106); SODIUM 137 mmol/L (136-145)
[2018-01-31 07:59] LABS: ALBUMIN 2.8 g/dl (3.4-5.0); ALK PHOS 90 U/L (45-117); ANION GAP 9 MMOL/L (8-16); BILIRUBIN,TOTAL 1.2 mg/dL (0.2-1); CALCIUM 8.2 mg/dL (8.5-10.1); CHLORIDE 104 mmol/L (98-107); CO2 24 mmol/L (21-32); POTASSIUM 5.1 mmol/L (3.5-5.1); SGOT/AST 34 U/L (15-37); SGPT/ALT 31 U/L (13-61); TOT PROT 6.2 g/dl (6.4-8.2)
--- NOTE | 2018-01-31 08:47 | PN ---
Progress Note, Physician History of Present Illness: feels tired > weak. no change yest or today vs previously. sob and tired with getting oob to chair. collecting 90% of his urine he says--very frequent UOP yest with metolazone. nurse confirms the charted 800 cc UOP yest is not accurate. no palpit, cp leg swelling improved ex cigs - Current Medication List Current Medications: Active Medications Apixaban (Eliquis -) 2.5 mg PO BID [facility] Last Admin: 01/30/18 21:02 Dose: 2.5 mg Atorvastatin Calcium (Lipitor -) 10 mg PO HS [facility] Last Admin: 01/30/18 21:01 Dose: 10 mg Calcitriol (Rocaltrol -) 0.25 mcg PO DAILY [facility] Last Admin: 01/30/18 10:10 Dose: 0.25 mcg Calcium Carbonate/Cholecalciferol (Os-Vadim 500+D -) 1 tab PO DAILY [facility] Last Admin: 01/30/18 10:07 Dose: 1 tab Cephalexin HCl (Keflex -) 500 mg PO BID [facility] Last Admin: 01/30/18 21:01 Dose: 500 mg Ferrous Sulfate (Feosol -) 325 mg PO BIDWM [facility] Last Admin: 01/30/18 18:23 Dose: 325 mg Furosemide (Lasix Injection -) 40 mg IVPUSH TID [facility] Last Admin: 01/31/18 06:28 Dose: 40 mg Magnesium Oxide (Mag-Ox -) 400 mg PO BID [facility] Last Admin: 01/30/18 21:01 Dose: 400 mg Metoprolol Tartrate (Lopressor -) 100 mg PO BID [facility] Last Admin: 01/30/18 21:01 Dose: 100 mg Multivitamins/Minerals (Theragran-M) 1 each PO DAILY [facility] Last Admin: 01/30/18 10:07 Dose: 1 each Mupirocin (Bactroban 2% Cream -) 1 applic TP BID [facility] Last Admin: 01/30/18 21:02 Dose: 1 applic - Objective Vital Signs: Vital Signs Temperature 97.3 F L 01/31/18 02:00 Pulse Rate 85 01/31/18 02:00 Respiratory Rate 20 01/31/18 02:00 Blood Pressure 125/86 01/31/18 02:00 O2 Sat by Pulse Oximetry (%) 95 01/30/18 10:00 Constitutional: Yes: No Distress, Calm Eyes: No: Sclera Icterus HENT: No: Nasal Congestion Cardiovascular: Yes: Pulse Irregular, JVD (EJs to jaw), S1, S2, Other (PMI non diplaced). No: Gallop, Murmur Respiratory: Yes: CTA Bilaterally. No: Accessory Muscle Use, Rales, Wheezes Gastrointestinal: Yes: Normal Bowel Sounds, Soft. No: Tenderness Musculoskeletal: Yes: Other (No kyphosis) Extremities: No: Cold Edema: Yes (mild nonpitting LE) Integumentary: No: Jaundice Neurological: Yes: Alert, Oriented (x3) Psychiatric: No: Agitated Labs: CBC, BMP 01/31/18 06:00 01/31/18 06:00 INR, PTT INR 1.83 (0.83-1.09) H 01/24/18 13:45 Assessment/Plan mibi 12/2010: nl mpi echo 07/2017: nl lv/rv, mild lvh, mod lae, mild ar, mod tr/mr, mild phtn, ao root 4 cm echo 01/2018 nl LV function EF 50-55%, RV nl size/function, LA severely dilated , RA moderately dilated, mild to mod AI, mild to mod MR, mod to severe TR, RVSP 40-50 mmHg, mild ao root dilation, small pericardial effusion <1 cm ecg: afib, hr 89, irbbb, old cxr: no chf tele: AF, HRs good a/p: 87 m hx htn, aaa s/p stent repair 2013, aortic root aneurysm, afib, dchf/ le edema, here with HF exacerbation. acute HFpEF: -here with volume overload, with right-sided failure picture -clinical picture is confusing. remains with NYHA IV sx status, marked JVD, clear lungs. severe ABIGAIL vs prior baseline. diuresing well by self-report yet without much clinical improvement. -RV normal on rpt echo, mod-severe TR = ? the culprit for his HF. 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 underestimated. -will check V/Q to r/o chronic PEs -was on lasix 40 bid at home, d/c wt 04/29 was 162 lbs. receiving 40 iv bid, then tid here. -01/31: remains with marked JVD and NYHA IV sob sx's. s/p metolazone 5mg yest. wt 133 (from 149 two days ago)--? accurate. recorded 24-hr UOPs have not been accurate per d/w nurse (signif > 800 cc yest)--start strict I/Os. renal fxn overall stable. - cont lasix 40 iv tid, will dose metolazone 2.5 x 1 today. htn: -on low side here, needs bb for rate control afib: -cont bb for rate control -no longer is on digoxin -cont eliquis. had epistaxis here requiring packing, observe for recurrent bleeding abigail: -baseline creat 1.2 (04/29) -creat essentially stable here, ranging 2.7-2.9 -renal consulting, sonogram no obstruction NO INDICATION FOR TELE MONITORING
[2018-01-31] MEDS: MAGNESIUM OXIDE 400 MG TABLET (FP) PO SCH ×2 (09:33→21:23)
[2018-01-31] MEDS: CEPHALEXIN MONOHYDRATE 500 MG CAPSULE (UD) PO SCH ×2 (09:33→21:23)
[2018-01-31] MEDS: APIXABAN 2.5 MG TABLET PO SCH ×2 (09:33→21:23)
[2018-01-31] MEDS: MULTIVITAMINS THER W-MINERALS COMBO TABLET (FP) PO SCH (09:33)
[2018-01-31] MEDS: FERROUS SO4 325 MG TABLET (FP) PO SCH ×2 (09:33→17:07)
[2018-01-31] MEDS: MUPIROCIN CA 2% TOPICAL CREAM 15 GM TUBE TP SCH ×2 (09:33→21:23)
[2018-01-31] MEDS: CALCIUM 500MG/VIT-D 200 UNITS COMBO TABLET (FP) PO SCH (09:33)
[2018-01-31] MEDS: METOPROLOL TARTRATE 50 MG TABLET (FP) PO SCH ×2 (09:33→21:23)
[2018-01-31] MEDS: CALCITRIOL 0.25 MCG CAPSULE (FP) PO SCH (09:34)
[2018-01-31] MEDS ORDERED: METOLAZONE 2.5 MG TABLET (FP) PO ONE (09:49)
--- NOTE | 2018-01-31 10:03 | PN ---
Physical Exam: SUBJECTIVE: Patient seen and examined at bedside. No overnight events. Continues to feel weak and tired. No clinical change since yesterday. Denies TAN , palpitations, abdominal pain, nausea or vomiting. OBJECTIVE: Vital Signs Period Temp Pulse Resp BP Sys/Garsia Pulse Ox Last 24 Hr 95.7 F-98.1 F 78-99 20-20 116-137/57-86 95-96 GENERAL: awake and alert, NAD ENT: Dry mucous membranes. NECK: Trachea midline, full range of motion, supple. JVD to jaw LUNGS: CTAB, no wheezes, no crackles, no accessory muscle use. HEART: irregular, S1, S2 without murmur, rub or gallop. ABDOMEN: Soft, nontender, nondistended, normoactive bowel sounds, no guarding, no rebound, no hepatosplenomegaly, no masses. EXTREMITIES: 2+ pulses, warm, well-perfused,1+edema. LE wrapped NEUROLOGICAL: Cranial nerves II through XII grossly intact. Normal speech, gait not observed. PSYCH: Normal mood, normal affect. Laboratory Results - last 24 hr 01/31/18 01/31/18 06:00 06:00 WBC 9.8 RBC 4.27 Hgb 8.8 L Hct 29.4 L MCV 68.8 L MCH 20.7 L MCHC 30.0 L RDW 17.7 H Plt Count 160 MPV 8.9 Absolute Neuts (auto) 5.2 Neutrophils % 53.4 Lymphocytes % 35.6 Monocytes % 10.6 H Eosinophils % 0.3 Basophils % 0.1 Nucleated RBC % 1 H Sodium 137 Potassium 5.1 Chloride 104 Carbon Dioxide 24 Anion Gap 9 BUN 76 H Creatinine 2.8 H Creat Clearance w eGFR 21.49 Random Glucose 76 Calcium 8.2 L Total Bilirubin 1.2 H AST 34 ALT 31 Alkaline Phosphatase 90 Total Protein 6.2 L Albumin 2.8 L Active Medications Generic Name Dose Route Start Last Admin Trade Name Freq PRN Reason Stop Dose Admin Apixaban 2.5 mg 01/24/18 22:00 01/31/18 09:33 Eliquis - PO 2.5 mg BID RIVAS Administration Atorvastatin Calcium 10 mg 01/24/18 22:00 01/30/18 21:01 Lipitor - PO 10 mg HS RIVAS Administration Calcitriol 0.25 mcg 01/25/18 00:21 01/31/18 09:34 Rocaltrol - PO 0.25 mcg DAILY RIVAS Administration Calcium Carbonate/Cholecalciferol 1 tab 01/25/18 10:00 01/31/18 09:33 Os-Vadim 500+D - PO 1 tab DAILY RIVAS Administration Cephalexin HCl 500 mg 01/27/18 10:30 01/31/18 09:33 Keflex - PO 500 mg BID RIVAS Administration Ferrous Sulfate 325 mg 01/24/18 17:30 01/31/18 09:33 Feosol - PO 325 mg BIDWM RIVAS Administration Furosemide 40 mg 01/28/18 14:00 01/31/18 06:28 Lasix Injection - IVPUSH 40 mg TID RIVAS Administration Magnesium Oxide 400 mg 01/27/18 22:00 01/31/18 09:33 Mag-Ox - PO 400 mg BID RIVAS Administration Metoprolol Tartrate 100 mg 01/24/18 22:00 01/31/18 09:33 Lopressor - PO 100 mg BID RIVAS Administration Multivitamins/Minerals 1 each 01/25/18 10:00 01/31/18 09:33 Theragran-M PO 1 each DAILY RIVAS Administration Mupirocin 1 applic 01/25/18 22:00 01/31/18 09:33 Bactroban 2% Cream - TP 1 applic BID RIVAS Administration * Echo 01/2018 nl LV function EF 50-55%, RV nl size/function, LA severely dilated, RA moderately dilated, mild to mod AI, mild to mod MR, mod to severe TR , RVSP 40-50 mmHg, mild ao root dilation, small pericardial effusion <1 cm * ASSESSMENT/PLAN: 87 m hx htn, aaa s/p stent repair 2013, aortic root aneurysm, afib, dchf/le edema, here with HF exacerbation. Problem List - Problems (1) Cardiorenal syndrome with renal failure Assessment/Plan: * Cardiology input appreciated. * RV normal on rpt echo, mod-severe TR . mild pulm HTN * will check V/Q to r/o chronic PEs * dose of metolazone yesterday * Continue Lasix IV 40mg TID * Will continue to monitor daily weights and strict I/O's * Nephrology on board; Kidney US shows echogenic kidneys consistent with medical renal disease. * baseline Cr. 1.2 ; this admission has been stable @ 2.5-2.9 (2) CHF (congestive heart failure) Assessment/Plan: * IV lasix 40 mg tid * metalozone x1 yesterday. * will continue to monitor strict I/O's and daily weights. \ * salt restriction. * Cardiology consult appreciated. (3) Afib Assessment/Plan: cont metoprolol 100mg BID * no longer is on digoxin * cont eliquis. had epistaxis here requiring packing, observe for recurrent bleeding (4) HLD (hyperlipidemia) Assessment/Plan: continue statin (5) HTN (hypertension) Assessment/Plan: BP has been low normal this admission * requires BB for rate control. (6) Venous stasis dermatitis of both lower extremities Assessment/Plan: Vascular consulted. * recommend compression stocking for LE edema. * F/U with Dr. Logan as outpatients. (7) Urinary tract infection Assessment/Plan: continue keflex. day 5 of 7 Visit type - Emergency Visit Emergency Visit: Yes ED Registration Date: 01/24/18 Care time: The patient presented to the Emergency Department on the above date and was hospitalized for further evaluation of their emergent condition. - New Patient This patient is new to me today: No - Critical Care Critical Care patient: No
[2018-01-31] MEDS ORDERED: PT OWN MED DRAWER 7, Y5N ONE (11:27)
--- NOTE | 2018-01-31 12:02 | PN ---
Progress Note, Physician History of Present Illness: Pt seen and examined at bedside. He feels that his breathing is a little better today. - Current Medication List Current Medications: Active Medications Apixaban (Eliquis -) 2.5 mg PO BID [facility] Last Admin: 01/31/18 09:33 Dose: 2.5 mg Atorvastatin Calcium (Lipitor -) 10 mg PO HS [facility] Last Admin: 01/30/18 21:01 Dose: 10 mg Calcitriol (Rocaltrol -) 0.25 mcg PO DAILY [facility] Last Admin: 01/31/18 09:34 Dose: 0.25 mcg Calcium Carbonate/Cholecalciferol (Os-Vadim 500+D -) 1 tab PO DAILY [facility] Last Admin: 01/31/18 09:33 Dose: 1 tab Cephalexin HCl (Keflex -) 500 mg PO BID [facility] Last Admin: 01/31/18 09:33 Dose: 500 mg Ferrous Sulfate (Feosol -) 325 mg PO BIDWM [facility] Last Admin: 01/31/18 09:33 Dose: 325 mg Furosemide (Lasix Injection -) 40 mg IVPUSH TID [facility] Last Admin: 01/31/18 06:28 Dose: 40 mg Magnesium Oxide (Mag-Ox -) 400 mg PO BID [facility] Last Admin: 01/31/18 09:33 Dose: 400 mg Metoprolol Tartrate (Lopressor -) 100 mg PO BID [facility] Last Admin: 01/31/18 09:33 Dose: 100 mg Multivitamins/Minerals (Theragran-M) 1 each PO DAILY [facility] Last Admin: 01/31/18 09:33 Dose: 1 each Mupirocin (Bactroban 2% Cream -) 1 applic TP BID [facility] Last Admin: 01/31/18 09:33 Dose: 1 applic - Objective Vital Signs: Vital Signs Temperature 98.1 F 01/31/18 09:00 Pulse Rate 99 H 01/31/18 09:00 Respiratory Rate 20 01/31/18 09:00 Blood Pressure 137/69 01/31/18 09:00 O2 Sat by Pulse Oximetry (%) 96 01/31/18 09:00 Constitutional: Yes: Calm Eyes: Yes: Conjunctiva Clear HENT: Yes: Atraumatic Neck: Yes: Supple Cardiovascular: Yes: S1, S2 Respiratory: Yes: On Nasal O2, Rhonchi Gastrointestinal: Yes: Soft Genitourinary: Yes: WNL Edema: Yes Edema: LLE: 2+, RLE: 2+ Neurological: Yes: Oriented Psychiatric: Yes: Oriented Labs: CBC, BMP 01/31/18 06:00 01/31/18 06:00 INR, PTT INR 1.83 (0.83-1.09) H 01/24/18 13:45 Problem List - Problems (1) Acute renal insufficiency Code(s): N28.9 - DISORDER OF KIDNEY AND URETER, UNSPECIFIED (2) Hypocalcemia Code(s): E83.51 - HYPOCALCEMIA (3) Hypokalemia Code(s): E87.6 - HYPOKALEMIA (4) Afib Code(s): I48.91 - UNSPECIFIED ATRIAL FIBRILLATION Qualifiers: Atrial fibrillation type: chronic Qualified Code(s): I48.2 - Chronic atrial fibrillation (5) HLD (hyperlipidemia) Code(s): E78.5 - HYPERLIPIDEMIA, UNSPECIFIED Qualifiers: Hyperlipidemia type: unspecified Qualified Code(s): E78.5 - Hyperlipidemia , unspecified (6) Pleural effusion Code(s): J90 - PLEURAL EFFUSION, NOT ELSEWHERE CLASSIFIED Assessment/Plan Current Medications Generic Name Dose Route Start Last Admin Trade Name Freq PRN Reason Stop Dose Admin Apixaban 2.5 mg 01/24/18 22:00 01/31/18 09:33 Eliquis - PO 2.5 mg BID RIVAS Administration Atorvastatin Calcium 10 mg 01/24/18 22:00 01/30/18 21:01 Lipitor - PO 10 mg HS RIVAS Administration Calcitriol 0.25 mcg 01/25/18 00:21 01/31/18 09:34 Rocaltrol - PO 0.25 mcg DAILY RIVAS Administration Calcium Carbonate/Cholecalciferol 1 tab 01/25/18 10:00 01/31/18 09:33 Os-Vadim 500+D - PO 1 tab DAILY RIVAS Administration Cephalexin HCl 500 mg 01/27/18 10:30 01/31/18 09:33 Keflex - PO 500 mg BID RIVAS Administration Ferrous Sulfate 325 mg 01/24/18 17:30 01/31/18 09:33 Feosol - PO 325 mg BIDWM RIVAS Administration Furosemide 40 mg 01/28/18 14:00 01/31/18 06:28 Lasix Injection - IVPUSH 40 mg TID RIVAS Administration Magnesium Oxide 400 mg 01/27/18 22:00 01/31/18 09:33 Mag-Ox - PO 400 mg BID RIVAS Administration Metoprolol Tartrate 100 mg 01/24/18 22:00 01/31/18 09:33 Lopressor - PO 100 mg BID RIVAS Administration Multivitamins/Minerals 1 each 01/25/18 10:00 01/31/18 09:33 Theragran-M PO 1 each DAILY RIVAS Administration Mupirocin 1 applic 01/25/18 22:00 01/31/18 09:33 Bactroban 2% Cream - TP 1 applic BID RIVAS Administration Impression 1. ABIGAIL 2. hypokalemia 3. hypocalcemia 4. a-fib 5. CHF 6. thalassemia 7. HLD Plan - cont with lasix - agree with metolazone dose - repeat labs in am - may have to settle for higher creatinine to keep pt euvolemic - repeat labs in am - held potassium supplements - check cmp in am - will follow Dr Houston
--- NOTE | 2018-01-31 14:11 | PN ---
Teaching Attending Note Name of Resident: Shaun Najera ATTENDING PHYSICIAN STATEMENT I saw and evaluated the patient. I reviewed the resident's note and discussed the case with the resident. I agree with the resident's findings and plan as documented. SUBJECTIVE:c/o dyspnea at rest and non productive cough. denies CP, fever, chills, N/V/C/D OBJECTIVE: Last Vital Signs Temp Pulse Resp BP Pulse Ox 98.1 F 99 H 20 137/69 96 01/31/18 09:00 01/31/18 09:00 01/31/18 09:00 01/31/18 09:00 01/31/18 09:00 Intake & Output 01/28/18 01/29/18 01/30/18 01/31/18 23:59 23:59 23:59 23:59 Intake Total 550 770 160 Output Total 1450 1200 800 400 Balance -900 -430 -640 -400 Weight 150 lb 3.2 oz 149 lb 2 oz 133 lb General NAD, frail appearing male, bitemporal wasting, prominent clavicles CV S1 S2 irregular, +JVD Lungs Coarse breath sounds, diminished R side Extremities 3+ pitting edema ASSESSMENT AND PLAN: 87 m PMhx htn, aaa s/p stent repair 2013, aortic root aneurysm, afib, dchf/le edema, here with HF exacerbation 1. Acute on chronic diastolic CHF- states there was 16lb weight loss over the past 2 days however doubt this was accurate. lasix increased to TID 2 days ago and metalozone was started today. cardio on board. daily weights, strict I&O. monitor electrolytes 2. Cardiorenal syndrome- Baseline Cr 1.2 with renal functioning continuing to worsen. low UOP recorded however not getting accurate I&O. may need to place [place] cath for more accurate. nephro on board 3. normocytic anemia- anemia of chornic disease. no signs of bleeding. no indication for transfusion 4. UTI- on keflex day 5. 5. HTN- controlled 6. Malnutrition- evident by body habitus and BMI. encourage po intake. refused nephro shakes states they give him diarrhea. nutritional eval 7. AAA s/p stent repair 8. Afib on eliquis 9. DVT ppx- Eliquis
[2018-01-31] MEDS: ATORVASTATIN CA 10 MG TABLET (FP) PO SCH (21:23)
[2018-02-01] MEDS: FUROSEMIDE 40 MG/4 ML INJECTABLE VIAL IVPUSH SCH ×2 (05:26→13:51)
[2018-02-01 08:16] LABS: BASO % 0.1 % (0-2.0); EOS % 0.3 % (0-4.5); HEMOGLOBIN 9.2 GM/dL (11.7-16.9); LYMPH % 28.8 % (8-40); MCH 22.2 pg (25.7-33.7); MCHC 32.7 g/dl (32.0-35.9); MEAN CELL VOLUME 67.8 fl (80-96); MEAN PLT VOLUME 9.3 fl (7.5-11.1); MONO % 12.3 % (3.8-10.2); NEUT % 58.5 % (42.8-82.8); PLATELET COUNT 175 K/MM3 (134-434); RBC 4.13 M/mm3 (4.00-5.60); RDW 17.8 % (11.9-15.9)
[2018-02-01 08:36] LABS: ALBUMIN 2.8 g/dl (3.4-5.0); ALK PHOS 85 U/L (45-117); ANION GAP 9 MMOL/L (8-16); BILIRUBIN,TOTAL 1.2 mg/dL (0.2-1); BLOOD UREA NITROGEN 81 mg/dL (7-18); CHLORIDE 101 mmol/L (98-107); CO2 27 mmol/L (21-32); CREATININE 2.9 mg/dL (0.55-1.3); GLUCOSE,RANDOM 73 mg/dL (74-106); POTASSIUM 4.6 mmol/L (3.5-5.1); SGOT/AST 30 U/L (15-37); SGPT/ALT 30 U/L (13-61); SODIUM 136 mmol/L (136-145); TOT PROT 6.1 g/dl (6.4-8.2)
[2018-02-01] MEDS ORDERED: PT OWN MED DRAWER 7, Y5N ONE (08:54)
[2018-02-01] MEDS: MULTIVITAMINS THER W-MINERALS COMBO TABLET (FP) PO SCH (09:02)
[2018-02-01] MEDS: APIXABAN 2.5 MG TABLET PO SCH ×2 (09:02→21:21)
[2018-02-01] MEDS: MAGNESIUM OXIDE 400 MG TABLET (FP) PO SCH ×2 (09:02→21:21)
[2018-02-01] MEDS: CALCIUM 500MG/VIT-D 200 UNITS COMBO TABLET (FP) PO SCH (09:02)
[2018-02-01] MEDS: CEPHALEXIN MONOHYDRATE 500 MG CAPSULE (UD) PO SCH ×2 (09:03→21:24)
[2018-02-01] MEDS: FERROUS SO4 325 MG TABLET (FP) PO SCH ×2 (09:03→17:28)
[2018-02-01] MEDS: CALCITRIOL 0.25 MCG CAPSULE (FP) PO SCH (09:03)
[2018-02-01] MEDS: METOPROLOL TARTRATE 50 MG TABLET (FP) PO SCH ×2 (09:03→21:21)
--- NOTE | 2018-02-01 10:20 | PN ---
Progress Note (short form) - Note Progress Note: Progress Note, Physician History of Present Illness: sob and tired with getting oob to chair. no palpit, cp leg swelling improved ex cigs - Current Medication List Current Medications Generic Name Dose Route Start Last Admin Trade Name Cindi PRN Reason Stop Dose Admin Apixaban 2.5 mg 01/24/18 22:00 02/01/18 09:02 Eliquis - PO 2.5 mg BID RIVAS Administration Atorvastatin Calcium 10 mg 01/24/18 22:00 01/31/18 21:23 Lipitor - PO 10 mg HS RIVAS Administration Calcitriol 0.25 mcg 01/25/18 00:21 02/01/18 09:03 Rocaltrol - PO 0.25 mcg DAILY RIVAS Administration Calcium Carbonate/Cholecalciferol 1 tab 01/25/18 10:00 02/01/18 09:02 Os-Vadim 500+D - PO 1 tab DAILY RIVAS Administration Cephalexin HCl 500 mg 01/27/18 10:30 02/01/18 09:03 Keflex - PO 500 mg BID RIVAS Administration Ferrous Sulfate 325 mg 01/24/18 17:30 02/01/18 09:03 Feosol - PO 325 mg BIDWM RIVAS Administration Furosemide 40 mg 01/28/18 14:00 02/01/18 05:26 Lasix Injection - IVPUSH 40 mg TID RIVAS Administration Magnesium Oxide 400 mg 01/27/18 22:00 02/01/18 09:02 Mag-Ox - PO 400 mg BID RIVAS Administration Metolazone 2.5 mg 02/01/18 11:00 Zaroxolyn - PO 02/01/18 11:01 ONCE ONE Metoprolol Tartrate 100 mg 01/24/18 22:00 02/01/18 09:03 Lopressor - PO 100 mg BID RIVAS Administration Multivitamins/Minerals 1 each 01/25/18 10:00 02/01/18 09:02 Theragran-M PO 1 each DAILY RIVAS Administration Mupirocin 1 applic 01/25/18 22:00 01/31/18 21:23 Bactroban 2% Cream - TP 1 applic BID RIVAS Administration - Objective Vital Signs: Vital Signs Period Temp Pulse Resp BP Sys/Garsia Pulse Ox Last 24 Hr 96.8 F-98 F 77-103 16-20 111-146/63-73 92 Constitutional: Yes: No Distress, Calm Eyes: No: Sclera Icterus HENT: No: Nasal Congestion Cardiovascular: Yes: Pulse Irregular, JVD (EJs to jaw), S1, S2, Other (PMI non diplaced). No: Gallop, Murmur Respiratory: Yes: CTA Bilaterally. No: Accessory Muscle Use, Rales, Wheezes Gastrointestinal: Yes: Normal Bowel Sounds, Soft. No: Tenderness Extremities: No: Cold Edema: Yes (mild nonpitting LE) Integumentary: No: Jaundice Neurological: Yes: Alert, Oriented (x3) Psychiatric: No: Agitated Labs: CBC, BMP 02/01/18 06:00 02/01/18 06:00 mibi 12/2010: nl mpi echo 07/2017: nl lv/rv, mild lvh, mod lae, mild ar, mod tr/mr, mild phtn, ao root 4 cm echo 01/2018 nl LV function EF 50-55%, RV nl size/function, LA severely dilated , RA moderately dilated, mild to mod AI, mild to mod MR, mod to severe TR, RVSP 40-50 mmHg, mild ao root dilation, small pericardial effusion <1 cm ecg: afib, hr 89, irbbb, old cxr: no chf tele: AF, HRs good a/p: 87 m hx htn, aaa s/p stent repair 2013, aortic root aneurysm, afib, dchf/ le edema, here with HF exacerbation. acute HFpEF: -here with volume overload, with right-sided failure picture -clinical picture is confusing. remains with NYHA IV sx status, marked JVD, clear lungs. severe ABIGAIL vs prior baseline. diuresing well by self-report yet without much clinical improvement. -RV normal on rpt echo, mod-severe TR = ? the culprit for his HF. 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 underestimated. -will check V/Q to r/o chronic PEs -was on lasix 40 bid at home, d/c wt 04/29 was 162 lbs. receiving 40 iv bid, then tid here. -01/31: remains with marked JVD and NYHA IV sob sx's. s/p metolazone 5mg yest. wt 133 (from 149 two days ago)--? accurate. recorded 24-hr UOPs have not been accurate per d/w nurse (signif > 800 cc yest)--start strict I/Os. renal fxn overall stable. -02/01: cont lasix 40 iv tid, will dose metolazone 2.5 x 1 again today. htn: -on low side here, needs bb for rate control afib: -cont bb for rate control -no longer is on digoxin -cont eliquis. had epistaxis here requiring packing, observe for recurrent bleeding abigail: -baseline creat 1.2 (04/29) -creat essentially stable here, ranging 2.7-2.9 -renal consulting, sonogram no obstruction
[2018-02-01] MEDS ORDERED: METOLAZONE 2.5 MG TABLET (FP) PO ONE (11:00)
[2018-02-01] MEDS: MUPIROCIN CA 2% TOPICAL CREAM 15 GM TUBE TP SCH ×2 (12:35→21:26)
--- NOTE | 2018-02-01 13:38 | PN ---
Teaching Attending Note Name of Resident: Shaun Najera ATTENDING PHYSICIAN STATEMENT I saw and evaluated the patient. I reviewed the resident's note and discussed the case with the resident. I agree with the resident's findings and plan as documented. SUBJECTIVE: He states that he is doing better BUT He states that he got SOB walking with PT yesterday, which is less than his usual. He is also concern about his diarrhea which he states is chronic and he has had it before episodically OBJECTIVE: VS: Bp 110S/ 80S hr 80S at rest , on 3 L nc SAT IN 95% An elderly M in no distress, sitting in his bed with O2 NC, talks in full sentences, no use of accessory muscles. MMM No occular discharge No nasal discharge CVS:S1S2 Lung: he has bilateral rales up to mid chest 2+ pitting edema up to the knee 2+ radial pulses, faint DP pulses abdomen soft good mood no new focal neuralgic deficit Laboratory Results - last 24 hr 02/01/18 02/01/18 06:00 06:00 WBC 9.0 RBC 4.13 Hgb 9.2 L Hct 28.0 L MCV 67.8 L MCH 22.2 L MCHC 32.7 RDW 17.8 H Plt Count 175 MPV 9.3 Absolute Neuts (auto) 5.3 Neutrophils % 58.5 Lymphocytes % 28.8 Monocytes % 12.3 H Eosinophils % 0.3 Basophils % 0.1 Nucleated RBC % 1 H Sodium 136 Potassium 4.6 Chloride 101 Carbon Dioxide 27 Anion Gap 9 BUN 81 H Creatinine 2.9 H Creat Clearance w eGFR 20.64 Random Glucose 73 L Calcium 8.0 L Magnesium 2.0 Total Bilirubin 1.2 H AST 30 ALT 30 Alkaline Phosphatase 85 Total Protein 6.1 L Albumin 2.8 L Intake & Output 01/29/18 01/30/18 01/31/18 02/01/18 23:59 23:59 23:59 23:59 Intake Total 770 160 120 120 Output Total 1200 800 925 670 Balance -430 -640 -805 -550 Weight 149 lb 2 oz 133 lb 134 lb CBCD WBC 9.0 K/mm3 (4.0-10.0) 02/01/18 06:00 RBC 4.13 M/mm3 (4.00-5.60) 02/01/18 06:00 Hgb 9.2 GM/dL (11.7-16.9) L 02/01/18 06:00 Hct 28.0 % (35.4-49) L 02/01/18 06:00 MCV 67.8 fl (80-96) L 02/01/18 06:00 MCHC 32.7 g/dl (32.0-35.9) 02/01/18 06:00 RDW 17.8 % (11.9-15.9) H 02/01/18 06:00 Plt Count 175 K/MM3 (134-434) 02/01/18 06:00 MPV 9.3 fl (7.5-11.1) 02/01/18 06:00 CMP Sodium 136 mmol/L (136-145) 02/01/18 06:00 Potassium 4.6 mmol/L (3.5-5.1) 02/01/18 06:00 Chloride 101 mmol/L (98-107) 02/01/18 06:00 Carbon Dioxide 27 mmol/L (21-32) 02/01/18 06:00 Anion Gap 9 MMOL/L (8-16) 02/01/18 06:00 BUN 81 mg/dL (7-18) H 02/01/18 06:00 Creatinine 2.9 mg/dL (0.55-1.3) H 02/01/18 06:00 Creat Clearance w eGFR 20.64 (>60) 02/01/18 06:00 Calcium 8.0 mg/dL (8.5-10.1) L 02/01/18 06:00 Total Bilirubin 1.2 mg/dL (0.2-1) H 02/01/18 06:00 AST 30 U/L (15-37) 02/01/18 06:00 ALT 30 U/L (13-61) 02/01/18 06:00 Alkaline Phosphatase 85 U/L (45-117) 02/01/18 06:00 Total Protein 6.1 g/dl (6.4-8.2) L 02/01/18 06:00 Albumin 2.8 g/dl (3.4-5.0) L 02/01/18 06:00 ASSESSMENT AND PLAN: Shortness of breath: he is on Home O2: will get a chest CT to evaluate for the extend of his pulmonary etiology , plan is to get V/Q today for possible PEs Also will get paleontology to evaluate the patient C/W o2 nc c/w CHEST pT Volume overload: His volume status is improving, has lost about 10 kg since admission, K is fine M BP is also fine. He still has room to go up lasix dose to 100mg bid, Keep the K>4, mg >2 daily weight I/O c/w mG PO SUPPLEMENTS HF/Afib/ valvular disease:He has HF with multiple valvular diseases, He possibly will benefit from valvuplasty now that he is this symptomatic as is functional and A&oX3. Will ask cardio consult for recs in this regards Afib: rate is well controlled if he gets tachycardic during activity has room for better control of HR, C/W metoprolol 100 mg bid, C/W AC w ELIQUES He is not on ACER/ ARB due to ABIGAIL at this time will start on DC home and resolution of ABIGAIL, Renal failure:Is improving, likely cardiorenal, improving with diuresis, S/P US : R/O obstruction Anemia: will send retic count, Iron studies, will start on ferrous sulfate, will send lysis studies as well ([facility]) Malnutrition:low albumin,:HE is on MV, IRON, Calcium supplements, will ask for nutrition consult for further recs. Current Medications Generic Name Dose Route Start Last Admin Trade Name Cindi PRN Reason Stop Dose Admin Apixaban 2.5 mg 01/24/18 22:00 02/01/18 09:02 Eliquis - PO 2.5 mg BID RIVAS Administration Atorvastatin Calcium 10 mg 01/24/18 22:00 01/31/18 21:23 Lipitor - PO 10 mg HS RIVAS Administration Calcitriol 0.25 mcg 01/25/18 00:21 02/01/18 09:03 Rocaltrol - PO 0.25 mcg DAILY RIVAS Administration Calcium Carbonate/Cholecalciferol 1 tab 01/25/18 10:00 02/01/18 09:02 Os-Vadim 500+D - PO 1 tab DAILY RIVAS Administration Cephalexin HCl 500 mg 01/27/18 10:30 02/01/18 09:03 Keflex - PO 500 mg BID RIVAS Administration Ferrous Sulfate 325 mg 01/24/18 17:30 02/01/18 09:03 Feosol - PO 325 mg BIDWM RIVAS Administration Furosemide 40 mg 01/28/18 14:00 02/01/18 13:51 Lasix Injection - IVPUSH 40 mg TID RIVAS Administration Magnesium Oxide 400 mg 01/27/18 22:00 02/01/18 09:02 Mag-Ox - PO 400 mg BID RIVAS Administration Metoprolol Tartrate 100 mg 01/24/18 22:00 02/01/18 09:03 Lopressor - PO 100 mg BID RIVAS Administration Multivitamins/Minerals 1 each 01/25/18 10:00 02/01/18 09:02 Theragran-M PO 1 each DAILY RIVAS Administration Mupirocin 1 applic 01/25/18 22:00 02/01/18 12:35 Bactroban 2% Cream - TP 1 applic BID RIVAS Administration diarrhea:as he is on antibiotics , will send stool for C/DIFF UTI: he has no complaints,he is on keflex for UTI, if he has UTI he should get evaluation by for UTI in a male patient who is not bedboud, likely BPH and will need to be on medication for it.( today is day 5 of 7 planned course) DISPO: Peding PT evaluationand recs FC diet: DVT ppx: HEPARIN
--- NOTE | 2018-02-01 15:24 | PN ---
Progress Note, Physician History of Present Illness: Pt seen and examined at bedside. He is awake and alert. He feels that his breathing is a little better today. - Current Medication List Current Medications: Active Medications Apixaban (Eliquis -) 2.5 mg PO BID [facility] Last Admin: 02/01/18 09:02 Dose: 2.5 mg Atorvastatin Calcium (Lipitor -) 10 mg PO HS [facility] Last Admin: 01/31/18 21:23 Dose: 10 mg Calcitriol (Rocaltrol -) 0.25 mcg PO DAILY [facility] Last Admin: 02/01/18 09:03 Dose: 0.25 mcg Calcium Carbonate/Cholecalciferol (Os-Vadim 500+D -) 1 tab PO DAILY [facility] Last Admin: 02/01/18 09:02 Dose: 1 tab Cephalexin HCl (Keflex -) 500 mg PO BID [facility] Last Admin: 02/01/18 09:03 Dose: 500 mg Ferrous Sulfate (Feosol -) 325 mg PO BIDWM [facility] Last Admin: 02/01/18 09:03 Dose: 325 mg Furosemide (Lasix Injection -) 40 mg IVPUSH TID [facility] Last Admin: 02/01/18 13:51 Dose: 40 mg Magnesium Oxide (Mag-Ox -) 400 mg PO BID [facility] Last Admin: 02/01/18 09:02 Dose: 400 mg Metoprolol Tartrate (Lopressor -) 100 mg PO BID [facility] Last Admin: 02/01/18 09:03 Dose: 100 mg Multivitamins/Minerals (Theragran-M) 1 each PO DAILY [facility] Last Admin: 02/01/18 09:02 Dose: 1 each Mupirocin (Bactroban 2% Cream -) 1 applic TP BID [facility] Last Admin: 02/01/18 12:35 Dose: 1 applic - Objective Vital Signs: Vital Signs Temperature 98.2 F 02/01/18 13:57 Pulse Rate 83 02/01/18 13:57 Respiratory Rate 18 02/01/18 13:57 Blood Pressure 92/59 L 02/01/18 13:57 O2 Sat by Pulse Oximetry (%) 92 L 02/01/18 09:00 Constitutional: Yes: Calm Eyes: Yes: Conjunctiva Clear HENT: Yes: Atraumatic Cardiovascular: Yes: S1, S2 Respiratory: Yes: On Nasal O2, Rhonchi Gastrointestinal: Yes: Soft Genitourinary: Yes: WNL Musculoskeletal: Yes: WNL Edema: Yes Edema: LLE: 2+, RLE: 2+ Neurological: Yes: Oriented Psychiatric: Yes: Oriented Labs: CBC, BMP 02/01/18 06:00 02/01/18 06:00 INR, PTT INR 1.83 (0.83-1.09) H 01/24/18 13:45 Problem List - Problems (1) Acute renal insufficiency Code(s): N28.9 - DISORDER OF KIDNEY AND URETER, UNSPECIFIED (2) Hypocalcemia Code(s): E83.51 - HYPOCALCEMIA (3) Hypokalemia Code(s): E87.6 - HYPOKALEMIA (4) Afib Code(s): I48.91 - UNSPECIFIED ATRIAL FIBRILLATION Qualifiers: Atrial fibrillation type: chronic Qualified Code(s): I48.2 - Chronic atrial fibrillation (5) HLD (hyperlipidemia) Code(s): E78.5 - HYPERLIPIDEMIA, UNSPECIFIED Qualifiers: Hyperlipidemia type: unspecified Qualified Code(s): E78.5 - Hyperlipidemia , unspecified (6) Pleural effusion Code(s): J90 - PLEURAL EFFUSION, NOT ELSEWHERE CLASSIFIED Assessment/Plan Current Medications Generic Name Dose Route Start Last Admin Trade Name Freq PRN Reason Stop Dose Admin Apixaban 2.5 mg 01/24/18 22:00 02/01/18 09:02 Eliquis - PO 2.5 mg BID R[facility]AS Administration Atorvastatin Calcium 10 mg 01/24/18 22:00 01/31/18 21:23 Lipitor - PO 10 mg HS RIVAS Administration Calcitriol 0.25 mcg 01/25/18 00:21 02/01/18 09:03 Rocaltrol - PO 0.25 mcg DAILY R[facility] Administration Calcium Carbonate/Cholecalciferol 1 tab 01/25/18 10:00 02/01/18 09:02 Os-Vadim 500+D - PO 1 tab DAILY [facility] Administration Cephalexin HCl 500 mg 01/27/18 10:30 02/01/18 09:03 Keflex - PO 500 mg BID RIVAS Administration Ferrous Sulfate 325 mg 01/24/18 17:30 02/01/18 09:03 Feosol - PO 325 mg BIDWM RIVAS Administration Furosemide 40 mg 01/28/18 14:00 02/01/18 13:51 Lasix Injection - IVPUSH 40 mg TID RIVAS Administration Magnesium Oxide 400 mg 01/27/18 22:00 02/01/18 09:02 Mag-Ox - PO 400 mg BID R[facility]AS Administration Metoprolol Tartrate 100 mg 01/24/18 22:00 02/01/18 09:03 Lopressor - PO 100 mg BID RIVAS Administration Multivitamins/Minerals 1 each 01/25/18 10:00 02/01/18 09:02 Theragran-M PO 1 each DAILY [facility] Administration Mupirocin 1 applic 01/25/18 22:00 02/01/18 12:35 Bactroban 2% Cream - TP 1 applic BID RIVAS Administration Impression 1. ABIGAIL 2. hypokalemia 3. hypocalcemia 4. a-fib 5. CHF 6. thalassemia 7. HLD Plan - cont diuretics - aware renal function is worsening, will monitor - cont to monitor volume status - cardiology follow up - may have to settle for higher creatinine to keep pt euvolemic - repeat labs in am - will follow Dr Houston
--- NOTE | 2018-02-01 15:28 | PN ---
Physical Exam: SUBJECTIVE: Patient seen and examined at bedside. No overnight events. No new complaints.Feels a little better today. Denies CP,TAN, palpitations, abdominal pain, nausea or vomiting. OBJECTIVE: Vital Signs Period Temp Pulse Resp BP Sys/Garsia Pulse Ox Last 24 Hr 96.8 F-98.2 F 77-103 16-18 92-146/59-73 92-92 GENERAL: awake and alert, NAD ENT: Dry mucous membranes. NECK: Trachea midline, full range of motion, supple. JVD to jaw LUNGS: CTAB, no wheezes, no crackles, no accessory muscle use. HEART: irregular, S1, S2 without murmur, rub or gallop. ABDOMEN: Soft, nontender, nondistended, normoactive bowel sounds, no guarding, no rebound, no hepatosplenomegaly, no masses. EXTREMITIES: 2+ pulses, warm, well-perfused,1+edema. LE wrapped NEUROLOGICAL: Cranial nerves II through XII grossly intact. Normal speech, gait not observed. PSYCH: Normal mood, normal affect Laboratory Results - last 24 hr 02/01/18 02/01/18 06:00 06:00 WBC 9.0 RBC 4.13 Hgb 9.2 L Hct 28.0 L MCV 67.8 L MCH 22.2 L MCHC 32.7 RDW 17.8 H Plt Count 175 MPV 9.3 Absolute Neuts (auto) 5.3 Neutrophils % 58.5 Lymphocytes % 28.8 Monocytes % 12.3 H Eosinophils % 0.3 Basophils % 0.1 Nucleated RBC % 1 H Sodium 136 Potassium 4.6 Chloride 101 Carbon Dioxide 27 Anion Gap 9 BUN 81 H Creatinine 2.9 H Creat Clearance w eGFR 20.64 Random Glucose 73 L Calcium 8.0 L Magnesium 2.0 Total Bilirubin 1.2 H AST 30 ALT 30 Alkaline Phosphatase 85 Total Protein 6.1 L Albumin 2.8 L Active Medications Generic Name Dose Route Start Last Admin Trade Name Freq PRN Reason Stop Dose Admin Apixaban 2.5 mg 01/24/18 22:00 02/01/18 09:02 Eliquis - PO 2.5 mg BID R[facility]AS Administration Atorvastatin Calcium 10 mg 01/24/18 22:00 01/31/18 21:23 Lipitor - PO 10 mg HS [facility]AS Administration Calcitriol 0.25 mcg 01/25/18 00:21 02/01/18 09:03 Rocaltrol - PO 0.25 mcg DAILY [facility] Administration Calcium Carbonate/Cholecalciferol 1 tab 01/25/18 10:00 02/01/18 09:02 Os-Vadim 500+D - PO 1 tab DAILY [facility] Administration Cephalexin HCl 500 mg 01/27/18 10:30 02/01/18 09:03 Keflex - PO 500 mg BID [facility] Administration Ferrous Sulfate 325 mg 01/24/18 17:30 02/01/18 09:03 Feosol - PO 325 mg BIDWM [facility] Administration Furosemide 40 mg 01/28/18 14:00 02/01/18 13:51 Lasix Injection - IVPUSH 40 mg TID [facility] Administration Magnesium Oxide 400 mg 01/27/18 22:00 02/01/18 09:02 Mag-Ox - PO 400 mg BID [facility] Administration Metoprolol Tartrate 100 mg 01/24/18 22:00 02/01/18 09:03 Lopressor - PO 100 mg BID [facility] Administration Multivitamins/Minerals 1 each 01/25/18 10:00 02/01/18 09:02 Theragran-M PO 1 each DAILY [facility] Administration Mupirocin 1 applic 01/25/18 22:00 02/01/18 12:35 Bactroban 2% Cream - TP 1 applic BID [facility] Administration ASSESSMENT/PLAN: Echo 01/2018 nl LV function EF 50-55%, RV nl size/function, LA severely dilated , RA moderately dilated, mild to mod AI, mild to mod MR, mod to severe TR, RVSP 40-50 mmHg, mild ao root dilation, small pericardial effusion <1 cm * ASSESSMENT/PLAN: 87 m hx htn, aaa s/p stent repair 2013, aortic root aneurysm, afib, dchf/le edema, here with HF exacerbation. Problem List - Problems (1) Cardiorenal syndrome with renal failure Assessment/Plan: * Cardiology input appreciated. * RV normal on rpt echo, mod-severe TR . mild pulm HTN * will check V/Q to r/o chronic PEs * continue metalozone * increased lasix to 100mg BID * Will continue to monitor daily weights and strict I/O's * Nephrology on board; Kidney US shows echogenic kidneys consistent with medical renal disease. * baseline Cr. 1.2 ; this admission has been stable @ 2.5-2.9 (2) CHF (congestive heart failure) Assessment/Plan: * IV lasix 100 BID * metalozone daily * will continue to monitor strict I/O's and daily weights. \ * salt restriction. * Cardiology consult appreciated. (3) Afib Assessment/Plan: cont metoprolol 100mg BID * no longer is on digoxin * cont eliquis. had epistaxis here requiring packing, observe for recurrent bleeding (4) HLD (hyperlipidemia) Assessment/Plan: continue statin (5) HTN (hypertension) Assessment/Plan: BP has been low normal this admission * requires BB for rate control. (6) Venous stasis dermatitis of both lower extremities Assessment/Plan: Vascular consulted. * recommend compression stocking for LE edema. * F/U with Dr. Logan as outpatients. (7) Urinary tract infection Assessment/Plan: continue keflex. day 6 of 7 * Urology consult. Visit type - Emergency Visit Emergency Visit: Yes ED Registration Date: 01/24/18 Care time: The patient presented to the Emergency Department on the above date and was hospitalized for further evaluation of their emergent condition. - New Patient This patient is new to me today: No - Critical Care Critical Care patient: No
[2018-02-01] MEDS: ATORVASTATIN CA 10 MG TABLET (FP) PO SCH (21:21)
[2018-02-02] MEDS: FUROSEMIDE 100 MG/10 ML INJECTABLE VIAL IVPUSH SCH ×2 (05:37→13:50)
[2018-02-02 07:09] LABS: BASO % 0.2 % (0-2.0); EOS % 0.1 % (0-4.5); HEMOGLOBIN 8.9 GM/dL (11.7-16.9); LYMPH % 27.5 % (8-40); MCH 20.3 pg (25.7-33.7); MCHC 29.5 g/dl (32.0-35.9); MEAN CELL VOLUME 68.6 fl (80-96); MONO % 8.1 % (3.8-10.2); NEUT % 64.1 % (42.8-82.8); PLATELET COUNT 182 K/MM3 (134-434); RBC 4.37 M/mm3 (4.00-5.60); WHITE BLOOD COUNT 12.4 K/mm3 (4.0-10.0)
[2018-02-02] MEDS ORDERED: PT OWN MED DRAWER 7, Y5N ONE ×4 (08:25→22:14)
[2018-02-02 08:36] LABS: ALBUMIN 2.8 g/dl (3.4-5.0); ALK PHOS 90 U/L (45-117); ANION GAP 12 MMOL/L (8-16); BILIRUBIN,TOTAL 1.5 mg/dL (0.2-1); BLOOD UREA NITROGEN 85 mg/dL (7-18); CALCIUM 8.6 mg/dL (8.5-10.1); CHLORIDE 98 mmol/L (98-107); CO2 25 mmol/L (21-32); CREATININE 2.8 mg/dL (0.55-1.3); GLUCOSE,RANDOM 93 mg/dL (74-106); POTASSIUM 4.4 mmol/L (3.5-5.1); SGOT/AST 30 U/L (15-37); SGPT/ALT 30 U/L (13-61); SODIUM 136 mmol/L (136-145); TOT PROT 6.1 g/dl (6.4-8.2)
--- NOTE | 2018-02-02 08:50 | PN ---
Progress Note, Physician Chief Complaint: sob History of Present Illness: sob with most activity very tired no palpit, cp ex cigs - Current Medication List Current Medications: Active Medications Apixaban (Eliquis -) 2.5 mg PO BID [facility] Last Admin: 02/01/18 21:21 Dose: 2.5 mg Atorvastatin Calcium (Lipitor -) 10 mg PO HS [facility] Last Admin: 02/01/18 21:21 Dose: 10 mg Calcitriol (Rocaltrol -) 0.25 mcg PO DAILY [facility] Last Admin: 02/01/18 09:03 Dose: 0.25 mcg Calcium Carbonate/Cholecalciferol (Os-Vadim 500+D -) 1 tab PO DAILY [facility] Last Admin: 02/01/18 09:02 Dose: 1 tab Cephalexin HCl (Keflex -) 500 mg PO BID [facility] Last Admin: 02/01/18 21:24 Dose: 500 mg Ferrous Sulfate (Feosol -) 325 mg PO BIDWM [facility] Last Admin: 02/01/18 17:28 Dose: 325 mg Furosemide (Lasix Injection -) 100 mg IVPUSH BID@0600,1400 [facility] Last Admin: 02/02/18 05:37 Dose: 100 mg Magnesium Oxide (Mag-Ox -) 400 mg PO BID [facility] Last Admin: 02/01/18 21:21 Dose: 400 mg Metoprolol Tartrate (Lopressor -) 100 mg PO BID [facility] Last Admin: 02/01/18 21:21 Dose: 100 mg Multivitamins/Minerals (Theragran-M) 1 each PO DAILY [facility] Last Admin: 02/01/18 09:02 Dose: 1 each Mupirocin (Bactroban 2% Cream -) 1 applic TP BID [facility] Last Admin: 02/01/18 21:26 Dose: 1 applic - Objective Vital Signs: Vital Signs Temperature 97.4 F L 02/02/18 06:00 Pulse Rate 88 02/02/18 06:00 Respiratory Rate 18 02/02/18 06:00 Blood Pressure 106/61 02/02/18 06:00 O2 Sat by Pulse Oximetry (%) 92 L 02/01/18 20:51 Labs: CBC, BMP 02/02/18 06:40 02/02/18 06:40 INR, PTT INR 1.83 (0.83-1.09) H 01/24/18 13:45 Assessment/Plan mibi 12/2010: nl mpi echo 07/2017: nl lv/rv, mild lvh, mod lae, mild ar, mod tr/mr, mild phtn, ao root 4 cm echo 01/2018 nl LV function EF 50-55%, RV nl size/function, LA severely dilated , RA moderately dilated, mild to mod AI, mild to mod MR, mod to severe TR, RVSP 40-50 mmHg, mild ao root dilation, small pericardial effusion <1 cm images reviewed: peak TR gradient measured 47 mmHg (varies with R-R interval), however all doppler signals are incomplete. IVC dilated without collapse, c/w RAP 15. hence PASP is likely at least 62 mmHg. evidence of hi LAP based on low e ', high E/e' ratio. ecg: afib, hr 89, irbbb, old cxr: no chf CT chest 02/01: septal thickening c/w congestion, mod effusions, flank subcutaneous edema, dilated PA c/w pulm HTN. mod emphsematous changes a/p: 87 m hx htn, aaa s/p stent repair 2013, aortic root aneurysm, afib, dchf/ le edema, here with HF exacerbation. acute HFpEF, pulm HTN: -here with volume overload, with right-sided failure picture -clinical picture is confusing. remains with NYHA IV sx status, marked JVD, clear lungs. severe ABIGAIL vs prior baseline. diuresing well by self-report yet without much clinical improvement. -RV normal on rpt echo, mod-severe TR = ? the culprit for his HF. + signif pulm HTN on echo, suspect underestimated (i.e. incomplete TR doppler envelope) given dilated PA on CT chest. 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 -awaiting check V/Q to r/o chronic PEs -was on lasix 40 bid at home, d/c wt 04/29 was 162 lbs. receiving 40 iv bid, then tid here. -01/31: remains with marked JVD and NYHA IV sob sx's. s/p metolazone 5mg yest. wt 133 (from 149 two days ago)--? accurate. recorded 24-hr UOPs have not been accurate per d/w nurse (signif > 800 cc yest)--start strict I/Os. renal fxn overall stable. -02/01: cont lasix 40 iv tid, will dose metolazone 2.5 x 1 again today. -02/02: remains with NYHA IV sob sx's, marked JVD. CT chest yest c/w pulm congestion and vol overload (subctunaeous edema). wt has plateau'd 133-134 lbs for few days. creat essentially stable, bun rising now. net neg fluid balance 400-900 cc each of past several days. increase lasix to [address] condom catheter--strict I/Os. -if pt too washed out or hypotensive with 100mg IV lasix dose, will have to try to space out diuretic dosing e.g. 60-80 tid htn: -on low side here, needs bb for rate control afib: -cont bb for rate control -no longer is on digoxin -cont eliquis. had epistaxis here requiring packing, observe for recurrent bleeding abigail: -baseline creat 1.2 (04/29) -creat essentially stable here, ranging 2.7-2.9 -renal consulting, sonogram no obstruction
[2018-02-02] MEDS: FERROUS SO4 325 MG TABLET (FP) PO SCH ×2 (09:01→18:00)
[2018-02-02] MEDS: MULTIVITAMINS THER W-MINERALS COMBO TABLET (FP) PO SCH (09:02)
[2018-02-02] MEDS: MAGNESIUM OXIDE 400 MG TABLET (FP) PO SCH ×2 (09:02→21:14)
[2018-02-02] MEDS: APIXABAN 2.5 MG TABLET PO SCH ×2 (09:02→21:14)
[2018-02-02] MEDS: CALCIUM 500MG/VIT-D 200 UNITS COMBO TABLET (FP) PO SCH (09:03)
[2018-02-02] MEDS: CEPHALEXIN MONOHYDRATE 500 MG CAPSULE (UD) PO SCH ×2 (09:04→21:14)
[2018-02-02] MEDS: CALCITRIOL 0.25 MCG CAPSULE (FP) PO SCH (09:04)
[2018-02-02] MEDS: MUPIROCIN CA 2% TOPICAL CREAM 15 GM TUBE TP SCH ×2 (09:05→21:13)
[2018-02-02] MEDS: METOPROLOL TARTRATE 50 MG TABLET (FP) PO SCH ×2 (11:00→21:14)
--- NOTE | 2018-02-02 14:39 | CON.PULM ---
Consult Consult Specialty:: PULMONARY Referred by:: Dr. Epperson Reason for Consultation:: shortness of breath - History of Present Illness Chief Complaint: shortness of breath History of Present Illness: 87yo male with h/o HTN, hyperlipidemia, atrial fibrillation, LV diastolic dysfunction who was admitte with increasing shortnes of breath. Noted to be in decompensated heart failure, started on diuresis with improvement. He currently states his breathing is better. No chest pain or palpitations. No fevers, chills or sweats. No chronic cough or wheezing. CT chest done today still showing bilateral pleural effusions with evidence of pulmonary vascular congestion with underlying COPD/emphysema. He is a remote smoker, quit 40 years ago, worked in an [employer] shop. - History Source History Provided By: Patient, Medical Record Limitations to Obtaining History: No Limitations - Past Medical History Cardio/Vascular: Yes: AFIB, CHF, HTN, Hyperlipdemia Renal/: Yes: Renal Failure - Past Surgical History Past Surgical History: Yes: AAA Repair - Alcohol/Substance Use Hx Alcohol Use: No History of Substance Use: reports: None - Smoking History Smoking history: Former smoker Have you smoked in the past 12 months: No If you are a former smoker, when did you quit?: 1973 - Social History ADL: Independent History of Recent Travel: No Home Medications - Allergies Allergies/Adverse Reactions: Allergies Allergy/AdvReac Type Severity Reaction Status Date / Time No Known Allergies Allergy Verified 01/24/18 12:06 - Home Medications Home Medications: Ambulatory Orders Folic Acid/Multivit-Min/Lutein [Centrum Silver Chewable Tablet] 1 each PO DAILY 07/16/14 Apixaban [Eliquis -] 2.5 mg PO BID #60 tablet 05/09/17 Atorvastatin Ca [Lipitor] 10 mg PO HS #30 tablet 05/09/17 Digoxin [Lanoxin -] 0.125 mg PO DAILY #30 tablet 05/09/17 Ferrous Sulfate [Feosol] 325 mg PO BIDWM #60 ud 05/09/17 Furosemide [Lasix -] 40 mg PO DAILY #30 tablet 05/09/17 Metoprolol Tartrate [Lopressor -] 100 mg PO BID #60 tablet 05/09/17 Spironolactone [Aldactone -] 25 mg PO DAILY #30 tablet 05/09/17 Valsartan [Diovan] 80 mg PO DAILY #30 tablet 05/09/17 Family Disease History - Family Disease History Family Disease History: Other: Father (alcohol cirrhosis) Review of Systems - Review of Systems Constitutional: reports: Weakness. denies: Chills, Fever Eyes: denies: Recent Change in Vision HENT: denies: Nasal Congestion, Throat Pain Neck: denies: Stiffness, Tenderness Cardiovascular: reports: Edema, Shortness of Breath. denies: Chest Pain Respiratory: denies: Cough, Hemoptysis, Wheezing Gastrointestinal: denies: Abdominal Pain, Nausea, Vomiting Genitourinary: denies: Dysuria, Hematuria Physical Exam Vital Sings: Vital Signs Temperature 97.8 F 02/02/18 14:00 Pulse Rate 87 02/02/18 14:00 Respiratory Rate 18 02/02/18 14:00 Blood Pressure 132/76 02/02/18 14:00 O2 Sat by Pulse Oximetry (%) 95 02/02/18 09:00 Constitutional: Yes: Calm Eyes: Yes: Conjunctiva Clear, EOM Intact HENT: Yes: Atraumatic, Normocephalic Neck: Yes: Supple, Trachea Midline Cardiovascular: Yes: Pulse Irregular Respiratory: Yes: Rales (bibasilar) ...Clubbing: No Gastrointestinal: Yes: Normal Bowel Sounds, Soft. No: Tenderness Edema: Yes Labs: CBC, BMP 02/02/18 06:40 02/02/18 06:40 Imaging - Results Chest X-ray: Report Reviewed, Image Reviewed Cat Scan: Report Reviewed, Image Reviewed (bilateral effusions with compressive atelectasis, pulmonary vascular congestion, apical emphysema) Problem List - Problems (1) Acute on chronic diastolic (congestive) heart failure Code(s): I50.33 - ACUTE ON CHRONIC DIASTOLIC (CONGESTIVE) HEART FAILURE (2) Afib Code(s): I48.91 - UNSPECIFIED ATRIAL FIBRILLATION Qualifiers: Atrial fibrillation type: chronic Qualified Code(s): I48.2 - Chronic atrial fibrillation (3) Pulmonary hypertension Code(s): I27.20 - PULMONARY HYPERTENSION, UNSPECIFIED (4) COPD (chronic obstructive pulmonary disease) Code(s): J44.9 - CHRONIC OBSTRUCTIVE PULMONARY DISEASE, UNSPECIFIED (5) Emphysema of lung Code(s): J43.9 - EMPHYSEMA, UNSPECIFIED (6) HLD (hyperlipidemia) Code(s): E78.5 - HYPERLIPIDEMIA, UNSPECIFIED Qualifiers: Hyperlipidemia type: unspecified Qualified Code(s): E78.5 - Hyperlipidemia , unspecified (7) HTN (hypertension) Code(s): I10 - ESSENTIAL (PRIMARY) HYPERTENSION Qualifiers: Hypertension type: essential hypertension Qualified Code(s): I10 - Essential (primary) hypertension (8) Pleural effusion Code(s): J90 - PLEURAL EFFUSION, NOT ELSEWHERE CLASSIFIED Assessment/Plan Acute on Chronic Diastolic Heart Failure Pleural Effusions from above Atrial Fibrillation Pulmonary HTN COPD/emphysema HTN Hyperlipidemia - continue lasix - monitor urine output, creatinine - keep net negative - O2 to keep SpO2 >90% - inhaled bronchodilators - can defer systemic steroids at this time - appears to have severe emphysematous changes on imaging which may explain is pulmonary hypertension - can defer V/Q scan at this time as his imaging is grossly abnormal with effusions, atelectasis and emphysema and may not yield significant information - rate control - continue anticoagulation Thank you for this consult Jose Bear MD
--- NOTE | 2018-02-02 14:56 | CON.GU ---
Consult Consult Specialty:: Referred by:: Corbin Reason for Consultation:: UTI - History of Present Illness Chief Complaint: weakness History of Present Illness: 87 year old male who comes in with weakness. Both he and his are very vague historians so it is difficult to ascertain the exact reason they came in aside from they were told to come in by Dr Peralta. Per the patient he has been experiencing weakness, exhaustion, and dyspnea on exertion. However he says this has been going on "for a while" and that it has not gotten worse. He also complains of BLE edema but this is also chronic. He denies fevers, chills, lightheadedness, dizziness, passing out, chest pain, shortness of breath at rest , anorexia, abdominal pain, nausea, vomiting, diarrhea, constipation, or difficulty or pain on urination. Call was placed to Dr Peralta to clarify presentation. Patient has been following up closely with Dr Peralta. He has been presenting with shortness of breath and his diuretics were elevated. However his outpatient labs showed ABIGAIL and his diuretics were decreased, but his lung function worsened. Because of this he was sent in for further evaluation and treatment. He was found to have UTI and cons req. - History Source History Provided By: Patient, Medical Record Limitations to Obtaining History: No Limitations - Past Medical History Cardio/Vascular: Yes: AFIB, CHF, HTN, Hyperlipdemia Renal/: Yes: Renal Failure, UTI - Past Surgical History Past Surgical History: Yes: AAA Repair - Alcohol/Substance Use Hx Alcohol Use: No History of Substance Use: reports: None - Smoking History Smoking history: Former smoker Have you smoked in the past 12 months: No If you are a former smoker, when did you quit?: 1973 - Social History ADL: Independent History of Recent Travel: No Home Medications - Allergies Allergies/Adverse Reactions: Allergies Allergy/AdvReac Type Severity Reaction Status Date / Time No Known Allergies Allergy Verified 01/24/18 12:06 - Home Medications Home Medications: Ambulatory Orders Folic Acid/Multivit-Min/Lutein [Centrum Silver Chewable Tablet] 1 each PO DAILY 07/16/14 Apixaban [Eliquis -] 2.5 mg PO BID #60 tablet 05/09/17 Atorvastatin Ca [Lipitor] 10 mg PO HS #30 tablet 05/09/17 Digoxin [Lanoxin -] 0.125 mg PO DAILY #30 tablet 05/09/17 Ferrous Sulfate [Feosol] 325 mg PO BIDWM #60 ud 05/09/17 Furosemide [Lasix -] 40 mg PO DAILY #30 tablet 05/09/17 Metoprolol Tartrate [Lopressor -] 100 mg PO BID #60 tablet 05/09/17 Spironolactone [Aldactone -] 25 mg PO DAILY #30 tablet 05/09/17 Valsartan [Diovan] 80 mg PO DAILY #30 tablet 05/09/17 Family Disease History - Family Disease History Family Disease History: Other: Father (alcohol cirrhosis) Review of Systems - Review of Systems Genitourinary: reports: No Symptoms Physical Exam- Vital Signs: Vital Signs Temperature 97.8 F 02/02/18 14:00 Pulse Rate 87 02/02/18 14:00 Respiratory Rate 18 02/02/18 14:00 Blood Pressure 132/76 02/02/18 14:00 O2 Sat by Pulse Oximetry (%) 95 02/02/18 09:00 Gastrointestinal: Yes: Normal Bowel Sounds, Soft Renal/: Yes: WNL Kidneys: Yes: WNL Pelvis: Yes: WNL, Bladder Non Palpable Testicles: Yes: WNL Scrotum: Yes: WNL Penis: Yes: WNL Prostate Exam: Yes: Swollen (50 g) Labs: CBC, BMP 02/02/18 06:40 02/02/18 06:40 Imaging - Results Ultrasound: Report Reviewed Assessment/Plan Imp: UTI, BPH CKD Rec: cont abxs, rx finasteride, pelvic and prostate u/s, cystoscopy in my office after disch after uti resolved.
--- NOTE | 2018-02-02 16:57 | PN ---
Physical Exam: SUBJECTIVE: Patient seen and examine, He states that breathing a little better today. He has been evaluated by / Cardio/pulmonary consult today adn their recs appreciated. Per nursing as high urine out put OBJECTIVE: Vital Signs He is in bed with Hob in 15 degree with no significant respiratory distress.has 2 NC on 3 L Has had nose bleeding last night and this morning CVS:S1S2 Lung: does not have rales today Abd: Bs+ NT/ND ext: HAS 2+ PITTING EDEMA , Not much change from yesterday Period Temp Pulse Resp BP Sys/Garsia Pulse Ox Last 24 Hr 95.8 F-97.8 F 72-88 18-18 100-132/59-76 92-95 Laboratory Results - last 24 hr 02/02/18 02/02/18 06:40 06:40 WBC 12.4 H RBC 4.37 Hgb 8.9 L Hct 30.0 L MCV 68.6 L MCH 20.3 L MCHC 29.5 L RDW 18.0 H Plt Count 182 MPV 9.0 Absolute Neuts (auto) 7.9 Neutrophils % 64.1 Lymphocytes % 27.5 Monocytes % 8.1 Eosinophils % 0.1 Basophils % 0.2 Nucleated RBC % 1 H Sodium 136 Potassium 4.4 Chloride 98 Carbon Dioxide 25 Anion Gap 12 BUN 85 H Creatinine 2.8 H Creat Clearance w eGFR 21.49 Random Glucose 93 Calcium 8.6 Total Bilirubin 1.5 H AST 30 ALT 30 Alkaline Phosphatase 90 Total Protein 6.1 L Albumin 2.8 L Active Medications Generic Name Dose Route Start Last Admin Trade Name Freq PRN Reason Stop Dose Admin Apixaban 2.5 mg 01/24/18 22:00 02/02/18 09:02 Eliquis - PO 2.5 mg BID RIVAS Administration Atorvastatin Calcium 10 mg 01/24/18 22:00 02/01/18 21:21 Lipitor - PO 10 mg HS RIVAS Administration Calcitriol 0.25 mcg 01/25/18 00:21 02/02/18 09:04 Rocaltrol - PO 0.25 mcg DAILY RIVAS Administration Calcium Carbonate/Cholecalciferol 1 tab 01/25/18 10:00 02/02/18 09:03 Os-Vadim 500+D - PO 1 tab DAILY RIVAS Administration Cephalexin HCl 500 mg 01/27/18 10:30 11/24/18 09:04 Keflex - PO 500 mg BID RIVAS Administration Ferrous Sulfate 325 mg 01/24/18 17:30 02/02/18 09:01 Feosol - PO 325 mg BIDWM RIVAS Administration Finasteride 5 mg 02/03/18 10:00 Proscar - PO DAILY RIVAS Furosemide 100 mg 02/02/18 06:00 02/02/18 13:50 Lasix Injection - IVPUSH 100 mg BID@0600,1400 RIVAS Administration Magnesium Oxide 400 mg 01/27/18 22:00 02/02/18 09:02 Mag-Ox - PO 400 mg BID RIVAS Administration Metoprolol Tartrate 100 mg 01/24/18 22:00 02/02/18 11:00 Lopressor - PO 100 mg BID RIVAS Administration Multivitamins/Minerals 1 each 01/25/18 10:00 02/02/18 09:02 Theragran-M PO 1 each DAILY RIVAS Administration Mupirocin 1 applic 01/25/18 22:00 02/02/18 09:05 Bactroban 2% Cream - TP 1 applic BID RIVAS Administration ASSESSMENT/PLAN: Shortness of breath: he is on Home O2: combination of severe COPD, PHTN and volume overload CT chest last night with extensive lung pathology plan is to get V/Q today for possible PEs which in the setting of severe baseline lung disease it is not useful. pulmonology recs appreciated, Will start on atrovent and Advair at this time C/W o2 nc C/W chest PT Volume overload: His volume status is improving, has lost about 10 kg since admission, K is fine M BP is also fine. He still has room to go up lasix dose to 100mg bid, tolerated well, per cardio recs if BP low can give 80 TID instead , will likely change tomorrow. Keep the K>4, mg >2 daily weight I/O Will place folly in for better I/O monitoring HF/Afib/ valvular disease:He has HF with multiple valvular diseases, He possibly will benefit from valvuplasty now that he is this symptomatic as is functional and A&oX3. Will ask cardio consult for recs in this regards He is not on ACER/ ARB due to ABIGAIL at this time will start on DC home and resolution of ABIGAIL, Afib: rate is well controlled if he gets tachycardic during activity has room for better control of HR, C/W metoprolol 100 mg bid, C/W AC w MAGDA Renal failure:Is improving, likely cardiorenal, improving with diuresis, stable at this time , S/P US: R/O obstruction Anemia: will send retic count, Iron studies, will start on ferrous sulfate, will send lysis studies as well (Haptogl) Malnutrition:low albumin,:HE is on MV, IRON, Calcium supplements, will ask for nutrition consult for further recs. diarrhea:as he is on antibiotics , will send stool for C/DIFF UTI: he has no complaints,he is on keflex for UTI, ( today is day 6 of 7 planned course) was evaluated by .plan to start on Tamsulosin, prostate US, and F/u with as O/P for cysto in the office DISPO: Peding PT evaluation and recs FC diet: DVT ppx: HEPARIN Visit type - Emergency Visit Emergency Visit: Yes ED Registration Date: 01/24/18 Care time: The patient presented to the Emergency Department on the above date and was hospitalized for further evaluation of their emergent condition. - New Patient This patient is new to me today: No - Critical Care Critical Care patient: No - Discharge Referral Referred to [facility] Med P.C.: No
[2018-02-02] MEDS: IPRATROPIUM BR 0.02% 0.5 MG/2.5 ML VIAL.NEB. NEB SCH ×2 (17:25→20:32)
--- NOTE | 2018-02-02 18:00 | PN ---
Progress Note (short form) - Note Progress Note: RENAL Pt is awake and alert complains of dyspnea Last Vital Signs Temp Pulse Resp BP Pulse Ox 97.8 F 77 20 126/67 95 02/02/18 14:00 02/02/18 17:30 02/02/18 17:30 02/02/18 17:30 02/02/18 09:00 lungs decreased breath sounds cvs s1s2 irreg abd soft ext +edema neuro awake and alert CBC, BMP 02/02/18 06:40 02/02/18 06:40 Current Medications Generic Name Dose Route Start Last Admin Trade Name Freq PRN Reason Stop Dose Admin Apixaban 2.5 mg 01/24/18 22:00 02/02/18 09:02 Eliquis - PO 2.5 mg BID RIVAS Administration Atorvastatin Calcium 10 mg 01/24/18 22:00 02/01/18 21:21 Lipitor - PO 10 mg HS RIVAS Administration Calcitriol 0.25 mcg 01/25/18 00:21 02/02/18 09:04 Rocaltrol - PO 0.25 mcg DAILY RIVAS Administration Calcium Carbonate/Cholecalciferol 1 tab 01/25/18 10:00 02/02/18 09:03 Os-Vadim 500+D - PO 1 tab DAILY RIVAS Administration Cephalexin HCl 500 mg 01/27/18 10:30 02/02/18 09:04 Keflex - PO 500 mg BID RIVAS Administration Ferrous Sulfate 325 mg 01/24/18 17:30 02/02/18 09:01 Feosol - PO 325 mg BIDWM RIVAS Administration Finasteride 5 mg 02/03/18 10:00 Proscar - PO DAILY RIVAS Furosemide 100 mg 02/02/18 06:00 02/02/18 13:50 Lasix Injection - IVPUSH 100 mg BID@0600,1400 RIVAS Administration Ipratropium [place] 1 amp 02/02/18 17:15 02/02/18 17:25 Atrovent 0.02% Nebulizer - NEB 1 amp RQ4H RIVAS Administration Magnesium Oxide 400 mg 01/27/18 22:00 02/02/18 09:02 Mag-Ox - PO 400 mg BID RIVAS Administration Metoprolol Tartrate 100 mg 01/24/18 22:00 02/02/18 11:00 Lopressor - PO 100 mg BID RIVAS Administration Multivitamins/Minerals 1 each 01/25/18 10:00 11/24/18 09:02 Theragran-M PO 1 each DAILY RIVAS Administration Mupirocin 1 applic 01/25/18 22:00 02/02/18 09:05 Bactroban 2% Cream - TP 1 applic BID RIVAS Administration Fluticasone/Salmeterol 1 puff 02/02/18 22:00 Advair 100mcg/50mcg - IH BID RIVAS Impression 1. ABIGAIL 2. hypokalemia 3. hypocalcemia 4. a-fib 5. CHF 6. thalassemia 7. HLD Plan - cont diuretics - cont to monitor volume status - cardiology follow up - may have to settle for higher creatinine to keep pt euvolemic - repeat labs in am MV
[2018-02-02] MEDS: ATORVASTATIN CA 10 MG TABLET (FP) PO SCH (21:14)
[2018-02-02] MEDS: FLUTICASONE/SALMETEROL 100 MCG/50 MCG DISKUS IH SCH (21:14)
[2018-02-02 22:31] LABS: BLOOD UREA NITROGEN 88 mg/dL (7-18); CHLORIDE 97 mmol/L (98-107); CREATININE 2.9 mg/dL (0.55-1.3); GLUCOSE,RANDOM 62 mg/dL (74-106); POTASSIUM 4.4 mmol/L (3.5-5.1); SODIUM 138 mmol/L (136-145)
[2018-02-02 22:32] LABS: ALK PHOS 93 U/L (45-117); ANION GAP 13 MMOL/L (8-16); BILIRUBIN,TOTAL 1.4 mg/dL (0.2-1); CALCIUM 8.6 mg/dL (8.5-10.1); CO2 28 mmol/L (21-32); SGOT/AST 28 U/L (15-37); SGPT/ALT 29 U/L (13-61); TOT PROT 6.6 g/dl (6.4-8.2)
[2018-02-03] MEDS: IPRATROPIUM BR 0.02% 0.5 MG/2.5 ML VIAL.NEB. NEB SCH ×5 (00:19→15:38)
[2018-02-03] MEDS: FUROSEMIDE 100 MG/10 ML INJECTABLE VIAL IVPUSH SCH (05:25)
[2018-02-03 07:46] LABS: ALBUMIN 2.9 g/dl (3.4-5.0); ALK PHOS 81 U/L (45-117); ANION GAP 9 MMOL/L (8-16); BILIRUBIN,TOTAL 1.4 mg/dL (0.2-1); BLOOD UREA NITROGEN 91 mg/dL (7-18); CALCIUM 8.6 mg/dL (8.5-10.1); CHLORIDE 98 mmol/L (98-107); CO2 30 mmol/L (21-32); GLUCOSE,RANDOM 73 mg/dL (74-106); POTASSIUM 4.3 mmol/L (3.5-5.1); SGOT/AST 26 U/L (15-37); SGPT/ALT 27 U/L (13-61); SODIUM 136 mmol/L (136-145); TOT PROT 6.1 g/dl (6.4-8.2)
[2018-02-03] MEDS ORDERED: PT OWN MED DRAWER 7, Y5N ONE ×3 (08:45→21:37)
[2018-02-03] MEDS: FERROUS SO4 325 MG TABLET (FP) PO SCH ×2 (09:00→17:51)
[2018-02-03] MEDS: CALCITRIOL 0.25 MCG CAPSULE (FP) PO SCH (09:26)
[2018-02-03] MEDS: CALCIUM 500MG/VIT-D 200 UNITS COMBO TABLET (FP) PO SCH (09:26)
[2018-02-03] MEDS: MULTIVITAMINS THER W-MINERALS COMBO TABLET (FP) PO SCH (09:27)
[2018-02-03] MEDS: APIXABAN 2.5 MG TABLET PO SCH ×2 (09:28→21:40)
[2018-02-03] MEDS: FINASTERIDE 5 MG TABLET (FP) PO SCH (09:28)
[2018-02-03] MEDS: MAGNESIUM OXIDE 400 MG TABLET (FP) PO SCH ×2 (09:28→21:40)
[2018-02-03] MEDS: FLUTICASONE/SALMETEROL 100 MCG/50 MCG DISKUS IH SCH ×2 (09:29→21:40)
[2018-02-03] MEDS: CEPHALEXIN MONOHYDRATE 500 MG CAPSULE (UD) PO SCH (09:29)
[2018-02-03] MEDS: MUPIROCIN CA 2% TOPICAL CREAM 15 GM TUBE TP SCH ×2 (09:30→21:41)
[2018-02-03] MEDS: METOPROLOL TARTRATE 50 MG TABLET (FP) PO SCH ×2 (10:00→21:40)
--- NOTE | 2018-02-03 10:33 | PN ---
Progress Note, Physician Chief Complaint: sob History of Present Illness: sob BETTER FOR FIRST TIME TODAY though still very tired no cp, palpit ex cigs - Current Medication List Current Medications: Active Medications Apixaban (Eliquis -) 2.5 mg PO BID [facility] Last Admin: 02/03/18 09:28 Dose: 2.5 mg Atorvastatin Calcium (Lipitor -) 10 mg PO HS [facility] Last Admin: 02/02/18 21:14 Dose: 10 mg Calcitriol (Rocaltrol -) 0.25 mcg PO DAILY [facility] Last Admin: 02/03/18 09:26 Dose: 0.25 mcg Calcium Carbonate/Cholecalciferol (Os-Vadim 500+D -) 1 tab PO DAILY [facility] Last Admin: 02/03/18 09:26 Dose: 1 tab Ferrous Sulfate (Feosol -) 325 mg PO BIDWM [facility] Last Admin: 02/03/18 09:00 Dose: 325 mg Finasteride (Proscar -) 5 mg PO DAILY [facility] Last Admin: 02/03/18 09:28 Dose: 5 mg Furosemide (Lasix Injection -) 100 mg IVPUSH BID@0600,1400 [facility] Last Admin: 02/03/18 05:25 Dose: 100 mg Ipratropium [place] (Atrovent 0.02% Nebulizer -) 1 amp NEB RQ4H [facility] Last Admin: 02/03/18 07:25 Dose: 1 amp Magnesium Oxide (Mag-Ox -) 400 mg PO BID [facility] Last Admin: 02/03/18 09:28 Dose: 400 mg Metoprolol Tartrate (Lopressor -) 100 mg PO BID [facility] Last Admin: 02/02/18 21:14 Dose: 100 mg Multivitamins/Minerals (Theragran-M) 1 each PO DAILY [facility] Last Admin: 02/03/18 09:27 Dose: 1 each Mupirocin (Bactroban 2% Cream -) 1 applic TP BID [facility] Last Admin: 02/03/18 09:30 Dose: 1 applic Fluticasone/Salmeterol (Advair 100mcg/50mcg -) 1 puff IH BID [facility] Last Admin: 02/03/18 09:29 Dose: 1 puff - Objective Vital Signs: Vital Signs Temperature 97.0 F L 02/03/18 05:00 Pulse Rate 75 02/03/18 05:00 Respiratory Rate 16 02/03/18 05:00 Blood Pressure 100/56 L 02/03/18 05:00 O2 Sat by Pulse Oximetry (%) 91 L 02/02/18 22:00 Constitutional: Yes: No Distress, Calm Eyes: No: Sclera Icterus HENT: No: Nasal Congestion Cardiovascular: Yes: Regular Rate and Rhythm, S1, S2, Other (PMI non diplaced). No: JVD, Gallop, Murmur Respiratory: Yes: CTA Bilaterally, Diminished (bases). No: Accessory Muscle Use , Rales, Wheezes Gastrointestinal: Yes: Normal Bowel Sounds, Soft. No: Tenderness Musculoskeletal: Yes: Other (No kyphosis) Extremities: No: Cold, Cyanosis Edema: Yes (1+ LE) Integumentary: No: Jaundice Neurological: Yes: Alert, Oriented (x3) Psychiatric: No: Agitated Labs: CBC, BMP 02/02/18 06:40 02/03/18 06:25 INR, PTT INR 1.83 (0.83-1.09) H 01/24/18 13:45 Assessment/Plan mibi 12/2010: nl mpi echo 07/2017: nl lv/rv, mild lvh, mod lae, mild ar, mod tr/mr, mild phtn, ao root 4 cm echo 01/2018 nl LV function EF 50-55%, RV nl size/function, LA severely dilated , RA moderately dilated, mild to mod AI, mild to mod MR, mod to severe TR, RVSP 40-50 mmHg, mild ao root dilation, small pericardial effusion <1 cm images reviewed: peak TR gradient measured 47 mmHg (varies with R-R interval), however all doppler signals are incomplete. IVC dilated without collapse, c/w RAP 15. hence PASP is likely at least 62 mmHg. evidence of hi LAP based on low e ', high E/e' ratio. ecg: afib, hr 89, irbbb, old cxr: no chf CT chest 02/01: septal thickening c/w congestion, mod effusions, flank subcutaneous edema, dilated PA c/w pulm HTN. mod emphsematous changes a/p: 87 m hx htn, aaa s/p stent repair 2013, aortic root aneurysm, afib, dchf/ le edema, here with HF exacerbation. acute HFpEF, pulm HTN: -here with volume overload, with right-sided failure picture. started to notice incr SOB sx's around apr-june 2017 he says. -clinical picture is confusing. remains with NYHA IV sx status, marked JVD, clear lungs. severe ABIGAIL vs prior baseline. diuresing well by self-report yet without much clinical improvement. -RV normal on rpt echo, mod-severe TR = ? the culprit for his HF. + signif pulm HTN on echo, suspect underestimated (i.e. incomplete TR doppler envelope) given dilated PA on CT chest. 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 -awaiting check V/Q to r/o chronic PEs -was on lasix 40 bid at home, d/c wt 04/29 was 162 lbs. receiving 40 iv bid, then tid here. -01/31: remains with marked JVD and NYHA IV sob sx's. s/p metolazone 5mg yest. wt 133 (from 149 two days ago)--? accurate. recorded 24-hr UOPs have not been accurate per d/w nurse (signif > 800 cc yest)--start strict I/Os. renal fxn overall stable. -02/01: cont lasix 40 iv tid, will dose metolazone 2.5 x 1 again today. -02/02: remains with NYHA IV sob sx's, marked JVD. CT chest yest c/w pulm congestion and vol overload (subctunaeous edema). wt has plateau'd 133-134 lbs for few days. creat essentially stable, bun rising now. net neg fluid balance 400-900 cc each of past several days. increase lasix to [address] condom catheter--strict I/Os. -02/03: notes sob with activity is starting to feel better finally. wt down today. I > O yest suspect inaccurate documentation based on pt wt/sx trend and reported hi UOP (per RN, maine catheter came off overnight). renal fxn worse. try add nitrates low dose for cardiorenal syndrome (ntg paste 0.5 inch). change lopressor 100 bid to 50 tid to minimize hypotension potential. -cont lasix 100 iv bid today copd: -signif emphys changes on CT per d/w dr nogueira -? stable, fixed component to pt's PH (WHO 3?) and/or sob sx's -no a.e. here htn: -on low side here, needs bb for rate control afib: -cont bb for rate control -no longer is on digoxin -cont eliquis. had epistaxis here requiring packing, observe for recurrent bleeding abigail: -baseline creat 1.2 (04/29) -creat essentially stable here, ranging 2.7-2.9 -renal consulting, sonogram no obstruction
[2018-02-03] MEDS: NITROGLYCERIN 2% OINTMENT - 1GM PACKET TD SCH ×2 (11:39→17:52)
--- NOTE | 2018-02-03 12:09 | PN ---
Physical Exam: SUBJECTIVE: Patient seen and examined. he states that the breathing has improved significantly and he is breathing better. Has no other complaints at this time OBJECTIVE: He is a sitting in his bed with NC 3L , in no distress, looks better than yesterday. He is talking in full sentences MMM CVS:S1S2 Lungs: are clear with no rales today EXT: still has 2 + pitting edema in the lower Extremity Abdomen is soft he has impaired hearing Vital Signs Period Temp Pulse Resp BP Sys/Garsia Pulse Ox Last 24 Hr 97.0 F-97.8 F 75-87 16-20 100-139/56-76 91-92 Intake & Output 01/31/18 02/01/18 02/02/18 02/03/18 23:59 23:59 23:59 23:59 Intake Total 230 265 0369 50 Output Total 925 1520 730 300 Balance -805 -660 400 -250 Weight 133 lb 134 lb 133 lb 129 lb 3.2 oz Laboratory Results - last 24 hr 02/02/18 02/02/18 02/03/18 20:07 21:04 06:25 Sodium Cancelled 138 136 Potassium Cancelled 4.4 4.3 Chloride Cancelled 97 L 98 Carbon Dioxide Cancelled 28 30 Anion Gap Cancelled 13 9 BUN Cancelled 88 H 91 H Creatinine Cancelled 2.9 H 3.0 H Creat Clearance w eGFR Cancelled 20.64 19.85 Random Glucose Cancelled 62 L 73 L Calcium Cancelled 8.6 8.6 Total Bilirubin Cancelled 1.4 H 1.4 H AST Cancelled 28 26 ALT Cancelled 29 27 Alkaline Phosphatase Cancelled 93 81 Total Protein Cancelled 6.6 6.1 L Albumin Cancelled 3.0 L 2.9 L Active Medications Generic Name Dose Route Start Last Admin Trade Name Freq PRN Reason Stop Dose Admin Apixaban 2.5 mg 01/24/18 22:00 02/03/18 09:28 Eliquis - PO 2.5 mg BID RIVAS Administration Atorvastatin Calcium 10 mg 01/24/18 22:00 02/02/18 21:14 Lipitor - PO 10 mg HS RIVAS Administration Calcitriol 0.25 mcg 01/25/18 00:21 02/03/18 09:26 Rocaltrol - PO 0.25 mcg DAILY RIVAS Administration Calcium Carbonate/Cholecalciferol 1 tab 01/25/18 10:00 02/03/18 09:26 Os-Vadim 500+D - PO 1 tab DAILY RIVAS Administration Ferrous Sulfate 325 mg 01/24/18 17:30 02/03/18 09:00 Feosol - PO 325 mg BIDWM RIVAS Administration Finasteride 5 mg 02/03/18 10:00 02/03/18 09:28 Proscar - PO 5 mg DAILY RIVAS Administration Furosemide 100 mg 02/02/18 06:00 02/03/18 05:25 Lasix Injection - IVPUSH 100 mg BID@0600,1400 RIVAS Administration Ipratropium [place] 1 amp 02/02/18 17:15 02/03/18 11:38 Atrovent 0.02% Nebulizer - NEB 1 amp RQ4H RIVAS Administration Magnesium Oxide 400 mg 01/27/18 22:00 02/03/18 09:28 Mag-Ox - PO 400 mg BID RIVAS Administration Metoprolol Tartrate 50 mg 02/03/18 22:00 Lopressor - PO TID RIVAS Multivitamins/Minerals 1 each 01/25/18 10:00 02/03/18 09:27 Theragran-M PO 1 each DAILY RIVAS Administration Mupirocin 1 applic 01/25/18 22:00 02/03/18 09:30 Bactroban 2% Cream - TP 1 applic BID RIVAS Administration Nitroglycerin 0.5 inch 02/03/18 12:00 02/03/18 11:39 Nitro-Bid 2% Paste - TD 0.5 inch Q6HPO RIVAS Administration Fluticasone/Salmeterol 1 puff 02/02/18 22:00 02/03/18 09:29 Advair 100mcg/50mcg - IH 1 puff BID RIVAS Administration ASSESSMENT/PLAN: Shortness of breath: he is on Home O2: combination of severe COPD, PHTN and volume overload, CT chest with extensive lung pathology plan is to get V/Q today for possible PEs which in the setting of severe baseline lung disease it is not useful.He has imoproved with initiation of inhalors. pulmonology recs appreciated, Will C/W atrovent and Advair at this time C/W o2 nc C/W chest PT Volume overload: His volume status is improving, has lost about 10 kg since admission, K is fine M BP is also fine. He still has room to go up lasix dose to 100mg bid, tolerated well, per cardio recs if BP low can give 80 TID instead , will likely change tomorrow. Keep the K>4, mg >2 daily weight I/O Will place folly in for better I/O monitoring HF/Afib/ valvular disease:He has HF with multiple valvular diseases, He possibly will benefit from valvuplasty now that he is this symptomatic as is functional and A&oX3. Will ask cardio consult for recs in this regards He is not on ACER/ ARB due to ABIGAIL at this time will start on resolution of ABIGAIL, Afib: rate is well controlled if he gets tachycardic during activity has room for better control of HR, C/W metoprolol 100 mg bid, C/W AC w MAGDA Renal failure:Worsened today with BUN:90 will hold the lasix for today and will restart lower dose tomorrow as cardiology recommended with spaced doses such as 60 tid dosing on Sunday pending BUN/CR. Anemia: will send retic count, Iron studies, will start on ferrous sulfate, will send lysis studies as well (Haptogl) Malnutrition: was evaluated by nutrition and, low albumin, He is on MV, Iron, Calcium supplements. Diarrhea:Is chronic pending patient, per nursing he makes multiple B, but not diarrhea UTI: he has no complaints,he is on keflex for UTI, ( today is day 6 of 7 planned course) was evaluated by . has enlarged prostate in US a with large post void residual, will start on Tamsulosin from today,has to F/u with as O /P for cysto in the office Deconditioning: evaluated by PT: per their note on 02/01: still with limited endurance, requiring frequent rest periods in standing. left sitting in b/s chair, call hernandez in reach. nsg aware. will ask them to make recs for DC planning DISPO: Pending PT recs FC Diet: cardiac, Low fiver, soft, with supplements DVT ppx: HEPARIN Visit type - Emergency Visit Emergency Visit: Yes ED Registration Date: 01/24/18 Care time: The patient presented to the Emergency Department on the above date and was hospitalized for further evaluation of their emergent condition. - New Patient This patient is new to me today: No - Critical Care Critical Care patient: No - Discharge Referral Referred to [facility] Med P.C.: No
--- NOTE | 2018-02-03 12:41 | PN ---
Progress Note (short form) - Note Progress Note: RENAL Pt is awake and alert says hew feels better today Last Vital Signs Temp Pulse Resp BP Pulse Ox 97.3 F L 78 18 102/64 92 L 02/03/18 09:00 02/03/18 09:00 02/03/18 09:00 02/03/18 09:00 02/03/18 09:00 lungs decreased breath sounds cvs s1s2 irreg abd soft ext +edema neuro awake and alert [place] with clear urine CBC, BMP 02/02/18 06:40 02/03/18 06:25 Current Medications Generic Name Dose Route Start Last Admin Trade Name Freq PRN Reason Stop Dose Admin Apixaban 2.5 mg 01/24/18 22:00 02/03/18 09:28 Eliquis - PO 2.5 mg BID RIVAS Administration Atorvastatin Calcium 10 mg 01/24/18 22:00 02/02/18 21:14 Lipitor - PO 10 mg HS RIVAS Administration Calcitriol 0.25 mcg 01/25/18 00:21 02/03/18 09:26 Rocaltrol - PO 0.25 mcg DAILY RIVAS Administration Calcium Carbonate/Cholecalciferol 1 tab 01/25/18 10:00 02/03/18 09:26 Os-Vadim 500+D - PO 1 tab DAILY RIVAS Administration Ferrous Sulfate 325 mg 01/24/18 17:30 02/03/18 09:00 Feosol - PO 325 mg BIDWM RIVAS Administration Finasteride 5 mg 02/03/18 10:00 02/03/18 09:28 Proscar - PO 5 mg DAILY RIVAS Administration Furosemide 100 mg 02/02/18 06:00 02/03/18 05:25 Lasix Injection - IVPUSH 100 mg BID@0600,1400 RIVAS Administration Ipratropium [place] 1 amp 02/02/18 17:15 02/03/18 11:38 Atrovent 0.02% Nebulizer - NEB 1 amp RQ4H RIVAS Administration Magnesium Oxide 400 mg 01/27/18 22:00 02/03/18 09:28 Mag-Ox - PO 400 mg BID RIVAS Administration Metoprolol Tartrate 50 mg 02/03/18 22:00 Lopressor - PO TID RIVAS Multivitamins/Minerals 1 each 01/25/18 10:00 02/03/18 09:27 Theragran-M PO 1 each DAILY RIVAS Administration Mupirocin 1 applic 01/25/18 22:00 02/03/18 09:30 Bactroban 2% Cream - TP 1 applic BID RIVAS Administration Nitroglycerin 0.5 inch 02/03/18 12:00 02/03/18 11:39 Nitro-Bid 2% Paste - TD 0.5 inch Q6HPO RIVAS Administration Fluticasone/Salmeterol 1 puff 02/02/18 22:00 02/03/18 09:29 Advair 100mcg/50mcg - IH 1 puff BID RIVAS Administration Tamsulosin HCl 0.4 mg 02/04/18 08:30 Flomax - PO DAILY@0830 RIVAS Impression 1. ABIGAIL 2. hypokalemia 3. hypocalcemia resolved 4. a-fib 5. CHF 6. thalassemia 7. HLD Plan -would reduce steroids given persistent rise in creat - cont to monitor volume status - may have to settle for higher creatinine to keep pt euvolemic - repeat labs in am -dc calcitriol MV
--- NOTE | 2018-02-03 13:57 | PN ---
Progress Note (short form) - Note Progress Note: PULMONARY States breathing better today. No chest pain. minimal cough. Vital Signs Period Temp Pulse Resp BP Sys/Garsia Pulse Ox Last 24 Hr 97.0 F-97.8 F 75-87 16-20 100-139/56-76 91-92 Intake & Output 01/31/18 02/01/18 02/02/18 02/03/18 23:59 23:59 23:59 23:59 Intake Total 442 684 1484 650 Output Total 925 1520 730 870 Balance -805 -660 400 -220 Weight 60.328 kg 60.781 kg 60.328 kg 58.604 kg Gen: NAD at rest Heart: RRR Lung: decreased breath sounds at the bases Abd: soft, nontender Ext: no edema CBC, BMP 02/02/18 06:40 02/03/18 06:25 Active Medications Apixaban (Eliquis -) 2.5 mg PO BID [facility] Last Admin: 02/03/18 09:28 Dose: 2.5 mg Atorvastatin Calcium (Lipitor -) 10 mg PO HS [facility] Last Admin: 02/02/18 21:14 Dose: 10 mg Calcium Carbonate/Cholecalciferol (Os-Vadim 500+D -) 1 tab PO DAILY [facility] Last Admin: 02/03/18 09:26 Dose: 1 tab Ferrous Sulfate (Feosol -) 325 mg PO BIDWM [facility] Last Admin: 02/03/18 09:00 Dose: 325 mg Finasteride (Proscar -) 5 mg PO DAILY [facility] Last Admin: 02/03/18 09:28 Dose: 5 mg Furosemide (Lasix Injection -) 100 mg IVPUSH BID@0600,1400 [facility] Last Admin: 02/03/18 05:25 Dose: 100 mg Ipratropium [place] (Atrovent 0.02% Nebulizer -) 1 amp NEB RQ4H [facility] Last Admin: 02/03/18 11:38 Dose: 1 amp Magnesium Oxide (Mag-Ox -) 400 mg PO BID [facility] Last Admin: 02/03/18 09:28 Dose: 400 mg Metoprolol Tartrate (Lopressor -) 50 mg PO TID [facility] Multivitamins/Minerals (Theragran-M) 1 each PO DAILY [facility] Last Admin: 02/03/18 09:27 Dose: 1 each Mupirocin (Bactroban 2% Cream -) 1 applic TP BID [facility] Last Admin: 02/03/18 09:30 Dose: 1 applic Nitroglycerin (Nitro-Bid 2% Paste -) 0.5 inch TD Q6HPO [facility] Last Admin: 02/03/18 11:39 Dose: 0.5 inch Fluticasone/Salmeterol (Advair 100mcg/50mcg -) 1 puff IH BID [facility] Last Admin: 02/03/18 09:29 Dose: 1 puff Tamsulosin HCl (Flomax -) 0.4 mg PO DAILY@0830 [facility] A/P Acute on Chronic Diastolic Heart Failure Pleural Effusions from above Atrial Fibrillation Pulmonary HTN COPD/emphysema HTN Hyperlipidemia - continue lasix - monitor urine output, creatinine - keep net negative - O2 to keep SpO2 >90% - inhaled bronchodilators - can defer systemic steroids at this time - can defer V/Q scan at this time as his imaging is grossly abnormal with effusions, atelectasis and emphysema and may not yield significant information - rate control - continue anticoagulation Problem List - Problems (1) Acute on chronic diastolic (congestive) heart failure Code(s): I50.33 - ACUTE ON CHRONIC DIASTOLIC (CONGESTIVE) HEART FAILURE (2) Afib Code(s): I48.91 - UNSPECIFIED ATRIAL FIBRILLATION Qualifiers: Atrial fibrillation type: chronic Qualified Code(s): I48.2 - Chronic atrial fibrillation (3) Pulmonary hypertension Code(s): I27.20 - PULMONARY HYPERTENSION, UNSPECIFIED (4) COPD (chronic obstructive pulmonary disease) Code(s): J44.9 - CHRONIC OBSTRUCTIVE PULMONARY DISEASE, UNSPECIFIED (5) Emphysema of lung Code(s): J43.9 - EMPHYSEMA, UNSPECIFIED (6) HLD (hyperlipidemia) Code(s): E78.5 - HYPERLIPIDEMIA, UNSPECIFIED Qualifiers: Hyperlipidemia type: unspecified Qualified Code(s): E78.5 - Hyperlipidemia , unspecified (7) HTN (hypertension) Code(s): I10 - ESSENTIAL (PRIMARY) HYPERTENSION Qualifiers: Hypertension type: essential hypertension Qualified Code(s): I10 - Essential (primary) hypertension (8) Pleural effusion Code(s): J90 - PLEURAL EFFUSION, NOT ELSEWHERE CLASSIFIED
[2018-02-03 20:49] LABS: ALBUMIN 2.8 g/dl (3.4-5.0); ALK PHOS 78 U/L (45-117); ANION GAP 11 MMOL/L (8-16); BILIRUBIN,TOTAL 1.1 mg/dL (0.2-1); BLOOD UREA NITROGEN 92 mg/dL (7-18); CALCIUM 8.2 mg/dL (8.5-10.1); CHLORIDE 94 mmol/L (98-107); CO2 31 mmol/L (21-32); CREATININE 3.1 mg/dL (0.55-1.3); GLUCOSE,RANDOM 115 mg/dL (74-106); POTASSIUM 4.7 mmol/L (3.5-5.1); SGOT/AST 23 U/L (15-37); SGPT/ALT 25 U/L (13-61); SODIUM 136 mmol/L (136-145)
[2018-02-03] MEDS: ATORVASTATIN CA 10 MG TABLET (FP) PO SCH (21:40)
[2018-02-04] MEDS: NITROGLYCERIN 2% OINTMENT - 1GM PACKET TD SCH ×5 (00:27→23:48)
[2018-02-04] MEDS: IPRATROPIUM BR 0.02% 0.5 MG/2.5 ML VIAL.NEB. NEB SCH ×6 (00:30→20:30)
[2018-02-04] MEDS: METOPROLOL TARTRATE 50 MG TABLET (FP) PO SCH ×3 (05:14→22:08)
--- NOTE | 2018-02-04 07:26 | PN ---
Progress Note, Physician - Current Medication List Current Medications: Active Medications Apixaban (Eliquis -) 2.5 mg PO BID [facility] Last Admin: 02/03/18 21:40 Dose: 2.5 mg Atorvastatin Calcium (Lipitor -) 10 mg PO HS [facility] Last Admin: 02/03/18 21:40 Dose: 10 mg Calcium Carbonate/Cholecalciferol (Os-Vadim 500+D -) 1 tab PO DAILY [facility] Last Admin: 02/03/18 09:26 Dose: 1 tab Ferrous Sulfate (Feosol -) 325 mg PO BIDWM [facility] Last Admin: 02/03/18 17:51 Dose: 325 mg Finasteride (Proscar -) 5 mg PO DAILY [facility] Last Admin: 02/03/18 09:28 Dose: 5 mg Furosemide (Lasix Injection -) 100 mg IVPUSH BID@0600,1400 [facility] Last Admin: 02/03/18 05:25 Dose: 100 mg Ipratropium [place] (Atrovent 0.02% Nebulizer -) 1 amp NEB RQ4H [facility] Last Admin: 02/04/18 03:46 Dose: Not Given Magnesium Oxide (Mag-Ox -) 400 mg PO BID [facility] Last Admin: 02/03/18 21:40 Dose: 400 mg Metoprolol Tartrate (Lopressor -) 50 mg PO TID [facility] Last Admin: 02/04/18 05:14 Dose: 50 mg Multivitamins/Minerals (Theragran-M) 1 each PO DAILY [facility] Last Admin: 02/03/18 09:27 Dose: 1 each Mupirocin (Bactroban 2% Cream -) 1 applic TP BID [facility] Last Admin: 02/03/18 21:41 Dose: 1 applic Nitroglycerin (Nitro-Bid 2% Paste -) 0.5 inch TD Q6HPO [facility] Last Admin: 02/04/18 05:14 Dose: 0.5 inch Fluticasone/Salmeterol (Advair 100mcg/50mcg -) 1 puff IH BID [facility] Last Admin: 02/03/18 21:40 Dose: 1 puff Tamsulosin HCl (Flomax -) 0.4 mg PO DAILY@0830 [facility] - Objective Vital Signs: Vital Signs Temperature 97.4 F L 02/04/18 06:00 Pulse Rate 93 H 02/04/18 06:00 Respiratory Rate 18 02/04/18 06:00 Blood Pressure 115/60 02/04/18 06:00 O2 Sat by Pulse Oximetry (%) 92 L 02/03/18 22:00 Labs: CBC, BMP 02/02/18 06:40 INR, PTT INR 1.83 (0.83-1.09) H 01/24/18 13:45 Problem List - Problems (1) Acute on chronic diastolic (congestive) heart failure Code(s): I50.33 - ACUTE ON CHRONIC DIASTOLIC (CONGESTIVE) HEART FAILURE (2) Acute renal insufficiency Code(s): N28.9 - DISORDER OF KIDNEY AND URETER, UNSPECIFIED (3) Cardiorenal syndrome with renal failure Code(s): I13.10 - HYP HRT & CHR KDNY DIS W/O HRT FAIL, W STG 1-4/UNSP CHR KDNY; N19 - UNSPECIFIED KIDNEY FAILURE (4) Pulmonary hypertension Code(s): I27.20 - PULMONARY HYPERTENSION, UNSPECIFIED (5) Afib Code(s): I48.91 - UNSPECIFIED ATRIAL FIBRILLATION Qualifiers: Atrial fibrillation type: chronic Qualified Code(s): I48.2 - Chronic atrial fibrillation (6) Pleural effusion Code(s): J90 - PLEURAL EFFUSION, NOT ELSEWHERE CLASSIFIED (7) HTN (hypertension) Code(s): I10 - ESSENTIAL (PRIMARY) HYPERTENSION Qualifiers: Hypertension type: essential hypertension Qualified Code(s): I10 - Essential (primary) hypertension (8) HLD (hyperlipidemia) Code(s): E78.5 - HYPERLIPIDEMIA, UNSPECIFIED Qualifiers: Hyperlipidemia type: unspecified Qualified Code(s): E78.5 - Hyperlipidemia , unspecified
[2018-02-04 07:56] LABS: ALBUMIN 2.8 g/dl (3.4-5.0); ALK PHOS 79 U/L (45-117); ANION GAP 11 MMOL/L (8-16); BILIRUBIN,TOTAL 1.6 mg/dL (0.2-1); BLOOD UREA NITROGEN 97 mg/dL (7-18); CALCIUM 8.2 mg/dL (8.5-10.1); CHLORIDE 94 mmol/L (98-107); CO2 30 mmol/L (21-32); CREATININE 3.1 mg/dL (0.55-1.3); GLUCOSE,RANDOM 77 mg/dL (74-106); POTASSIUM 4.2 mmol/L (3.5-5.1); SGOT/AST 25 U/L (15-37); SGPT/ALT 24 U/L (13-61); SODIUM 135 mmol/L (136-145); TOT PROT 5.8 g/dl (6.4-8.2)
[2018-02-04] MEDS: TAMSULOSIN HCL 0.4 MG CAP PO SCH (08:35)
[2018-02-04] MEDS: FERROUS SO4 325 MG TABLET (FP) PO SCH ×2 (08:35→17:38)
--- NOTE | 2018-02-04 08:40 | PN ---
Progress Note, Physician Chief Complaint: sob History of Present Illness: very tired but sob remains improving. no cp, palpitations. leg swelling same ex cigs - Current Medication List Current Medications: Active Medications Apixaban (Eliquis -) 2.5 mg PO BID [facility] Last Admin: 02/03/18 21:40 Dose: 2.5 mg Atorvastatin Calcium (Lipitor -) 10 mg PO HS [facility] Last Admin: 02/03/18 21:40 Dose: 10 mg Calcium Carbonate/Cholecalciferol (Os-Vadim 500+D -) 1 tab PO DAILY [facility] Last Admin: 02/03/18 09:26 Dose: 1 tab Ferrous Sulfate (Feosol -) 325 mg PO BIDWM [facility] Last Admin: 02/04/18 08:35 Dose: 325 mg Finasteride (Proscar -) 5 mg PO DAILY [facility] Last Admin: 02/03/18 09:28 Dose: 5 mg Furosemide (Lasix Injection -) 100 mg IVPUSH BID@0600,1400 [facility] Last Admin: 02/03/18 05:25 Dose: 100 mg Ipratropium [place] (Atrovent 0.02% Nebulizer -) 1 amp NEB RQ4H [facility] Last Admin: 02/04/18 07:20 Dose: 1 amp Magnesium Oxide (Mag-Ox -) 400 mg PO BID [facility] Last Admin: 02/03/18 21:40 Dose: 400 mg Metoprolol Tartrate (Lopressor -) 50 mg PO TID [facility] Last Admin: 02/04/18 05:14 Dose: 50 mg Multivitamins/Minerals (Theragran-M) 1 each PO DAILY [facility] Last Admin: 02/03/18 09:27 Dose: 1 each Mupirocin (Bactroban 2% Cream -) 1 applic TP BID [facility] Last Admin: 02/03/18 21:41 Dose: 1 applic Nitroglycerin (Nitro-Bid 2% Paste -) 0.5 inch TD Q6HPO [facility] Last Admin: 02/04/18 05:14 Dose: 0.5 inch Fluticasone/Salmeterol (Advair 100mcg/50mcg -) 1 puff IH BID [facility] Last Admin: 02/03/18 21:40 Dose: 1 puff Tamsulosin HCl (Flomax -) 0.4 mg PO DAILY@0830 [facility] Last Admin: 02/04/18 08:35 Dose: 0.4 mg - Objective Vital Signs: Vital Signs Temperature 97.4 F L 02/04/18 06:00 Pulse Rate 93 H 02/04/18 06:00 Respiratory Rate 18 02/04/18 06:00 Blood Pressure 115/60 02/04/18 06:00 O2 Sat by Pulse Oximetry (%) 92 L 02/03/18 22:00 Constitutional: Yes: No Distress, Calm Eyes: No: Sclera Icterus HENT: No: Nasal Congestion Cardiovascular: Yes: Pulse Irregular, JVD, S1, S2, Other (PMI non diplaced). No : Gallop, Murmur Respiratory: Yes: Diminished (bases). No: Accessory Muscle Use Gastrointestinal: Yes: Normal Bowel Sounds, Soft. No: Tenderness Musculoskeletal: Yes: Other (No kyphosis) Extremities: No: Cold Edema: Yes (1+ LE) Integumentary: No: Jaundice Neurological: Yes: Alert, Oriented (x3) Psychiatric: No: Agitated Labs: CBC, BMP 02/02/18 06:40 02/04/18 06:00 INR, PTT INR 1.83 (0.83-1.09) H 01/24/18 13:45 Assessment/Plan mibi 12/2010: nl mpi echo 07/2017: nl lv/rv, mild lvh, mod lae, mild ar, mod tr/mr, mild phtn, ao root 4 cm echo 01/2018 nl LV function EF 50-55%, RV nl size/function, LA severely dilated , RA moderately dilated, mild to mod AI, mild to mod MR, mod to severe TR, RVSP 40-50 mmHg, mild ao root dilation, small pericardial effusion <1 cm images reviewed: peak TR gradient measured 47 mmHg (varies with R-R interval), however all doppler signals are incomplete. IVC dilated without collapse, c/w RAP 15. hence PASP is likely at least 62 mmHg. evidence of hi LAP based on low e ', high E/e' ratio. ecg: afib, hr 89, irbbb, old cxr: no chf CT chest 02/01: septal thickening c/w congestion, mod effusions, flank subcutaneous edema, dilated PA c/w pulm HTN. mod emphsematous changes a/p: 87 m hx htn, aaa s/p stent repair 2013, aortic root aneurysm, afib, dchf/ le edema, here with HF exacerbation. acute HFpEF, pulm HTN: -here with volume overload, with right-sided failure picture. started to notice incr SOB sx's around apr-june 2017 he says. -clinical picture is confusing. remains with NYHA IV sx status, marked JVD, clear lungs. severe ABIGIAL vs prior baseline. diuresing well by self-report yet without much clinical improvement. -RV normal on rpt echo, mod-severe TR = ? the culprit for his HF. + signif pulm HTN on echo, suspect underestimated (i.e. incomplete TR doppler envelope) given dilated PA on CT chest. 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 -awaiting check V/Q to r/o chronic PEs -was on lasix 40 bid at home, d/c wt 04/29 was 162 lbs. receiving 40 iv bid, then tid here. -01/31: remains with marked JVD and NYHA IV sob sx's. s/p metolazone 5mg yest. wt 133 (from 149 two days ago)--? accurate. recorded 24-hr UOPs have not been accurate per d/w nurse (signif > 800 cc yest)--start strict I/Os. renal fxn overall stable. -02/01: cont lasix 40 iv tid, will dose metolazone 2.5 x 1 again today. -02/02: remains with NYHA IV sob sx's, marked JVD. CT chest yest c/w pulm congestion and vol overload (subctunaeous edema). wt has plateau'd 133-134 lbs for few days. creat essentially stable, bun rising now. net neg fluid balance 400-900 cc each of past several days. increase lasix to [address] condom catheter--strict I/Os. -02/03: notes sob with activity is starting to feel better finally. wt down today. I > O yest suspect inaccurate documentation based on pt wt/sx trend and reported hi UOP (per RN, shaye catheter came off overnight). renal fxn worse. try add nitrates low dose for cardiorenal syndrome (ntg paste 0.5 inch). change lopressor 100 bid to 50 tid to minimize hypotension potential. -02/04: wt today likely erroneous. 1300 cc UOP yest. renal fxn slightly worse. sob remains improved. continue lasix 100 iv bid. unfortunately, pt may end up with signif impaired baseline renal fxn in order to maintain adequate volume status, hope to avoid HD. no role for inotropes here with preserved LV and RV fxn on echo. continue nitrates for cardiorenal syndrome (will try to increase dose today--watch for hypotension) copd: -signif emphys changes on CT per d/w dr nogueira -? stable, fixed component to pt's PH (WHO 3?) and/or sob sx's -no a.e. here htn: -on low side here, needs bb for rate control afib: -cont bb for rate control -no longer is on digoxin -cont eliquis. had epistaxis here requiring packing, observe for recurrent bleeding abigail: -baseline creat 1.2 (04/29) -creat worsening gradually with diuresis here. -renal consulting, sonogram no obstruction
[2018-02-04] MEDS ORDERED: PT OWN MED DRAWER 7, Y5N ONE ×2 (09:20→22:01)
[2018-02-04] MEDS: CALCIUM 500MG/VIT-D 200 UNITS COMBO TABLET (FP) PO SCH (09:48)
[2018-02-04] MEDS: MAGNESIUM OXIDE 400 MG TABLET (FP) PO SCH ×2 (09:48→22:08)
[2018-02-04] MEDS: MULTIVITAMINS THER W-MINERALS COMBO TABLET (FP) PO SCH (09:48)
[2018-02-04] MEDS: APIXABAN 2.5 MG TABLET PO SCH ×2 (09:48→22:08)
[2018-02-04] MEDS: FINASTERIDE 5 MG TABLET (FP) PO SCH (09:49)
[2018-02-04] MEDS: MUPIROCIN CA 2% TOPICAL CREAM 15 GM TUBE TP SCH ×2 (09:49→22:12)
[2018-02-04] MEDS: FLUTICASONE/SALMETEROL 100 MCG/50 MCG DISKUS IH SCH ×2 (09:49→22:08)
--- NOTE | 2018-02-04 11:28 | PN ---
Progress Note, Physician History of Present Illness: pulmonary alert,feeling better,less dyspneic - Current Medication List Current Medications: Active Medications Apixaban (Eliquis -) 2.5 mg PO BID [facility] Last Admin: 02/04/18 09:48 Dose: 2.5 mg Atorvastatin Calcium (Lipitor -) 10 mg PO HS [facility] Last Admin: 02/03/18 21:40 Dose: 10 mg Calcium Carbonate/Cholecalciferol (Os-Vadim 500+D -) 1 tab PO DAILY [facility] Last Admin: 02/04/18 09:48 Dose: 1 tab Ferrous Sulfate (Feosol -) 325 mg PO BIDWM [facility] Last Admin: 02/04/18 08:35 Dose: 325 mg Finasteride (Proscar -) 5 mg PO DAILY [facility] Last Admin: 02/04/18 09:49 Dose: 5 mg Furosemide (Lasix Injection -) 100 mg IVPUSH BID@0600,1400 [facility] Last Admin: 02/03/18 05:25 Dose: 100 mg Ipratropium [place] (Atrovent 0.02% Nebulizer -) 1 amp NEB RQ4H [facility] Last Admin: 02/04/18 07:20 Dose: 1 amp Magnesium Oxide (Mag-Ox -) 400 mg PO BID [facility] Last Admin: 02/04/18 09:48 Dose: 400 mg Metoprolol Tartrate (Lopressor -) 50 mg PO TID [facility] Last Admin: 02/04/18 05:14 Dose: 50 mg Multivitamins/Minerals (Theragran-M) 1 each PO DAILY [facility] Last Admin: 02/04/18 09:48 Dose: 1 each Mupirocin (Bactroban 2% Cream -) 1 applic TP BID [facility] Last Admin: 02/04/18 09:49 Dose: 1 applic Nitroglycerin (Nitro-Bid 2% Paste -) 1 inch TD Q6HPO [facility] Fluticasone/Salmeterol (Advair 100mcg/50mcg -) 1 puff IH BID [facility] Last Admin: 02/04/18 09:49 Dose: 1 puff Tamsulosin HCl (Flomax -) 0.4 mg PO DAILY@0830 [facility] Last Admin: 02/04/18 08:35 Dose: 0.4 mg - Objective Vital Signs: Vital Signs Temperature 97.3 F L 02/04/18 10:00 Pulse Rate 81 02/04/18 10:00 Respiratory Rate 18 02/04/18 10:00 Blood Pressure 113/61 02/04/18 10:00 O2 Sat by Pulse Oximetry (%) 92 L 02/03/18 22:00 Constitutional: Yes: Calm, Thin Eyes: Yes: WNL HENT: Yes: WNL Neck: Yes: WNL Cardiovascular: Yes: Pulse Irregular, S1, S2 Respiratory: Yes: Diminished Gastrointestinal: Yes: Normal Bowel Sounds, Soft Extremities: Yes: WNL Edema: No Labs: CBC, BMP 02/04/18 06:00 INR, PTT Assessment/Plan A/P Acute on Chronic Diastolic Heart Failure Pleural Effusions from above Atrial Fibrillation Pulmonary HTN COPD/emphysema HTN Hyperlipidemia - continue lasix - monitor urine output, creatinine - keep net negative - O2 to keep SpO2 >90% - inhaled bronchodilators - can defer V/Q scan at this time as his imaging is grossly abnormal with effusions, atelectasis and emphysema and may not yield significant information - rate control - continue anticoagulation Problem List - Problems (1) Acute on chronic diastolic (congestive) heart failure Code(s): I50.33 - ACUTE ON CHRONIC DIASTOLIC (CONGESTIVE) HEART FAILURE (2) Afib Code(s): I48.91 - UNSPECIFIED ATRIAL FIBRILLATION Qualifiers: Atrial fibrillation type: chronic Qualified Code(s): I48.2 - Chronic atrial fibrillation (3) Pulmonary hypertension Code(s): I27.20 - PULMONARY HYPERTENSION, UNSPECIFIED (4) COPD (chronic obstructive pulmonary disease) Code(s): J44.9 - CHRONIC OBSTRUCTIVE PULMONARY DISEASE, UNSPECIFIED (5) Emphysema of lung Code(s): J43.9 - EMPHYSEMA, UNSPECIFIED (6) HLD (hyperlipidemia) Code(s): E78.5 - HYPERLIPIDEMIA, UNSPECIFIED Qualifiers: Hyperlipidemia type: unspecified Qualified Code(s): E78.5 - Hyperlipidemia , unspecified (7) HTN (hypertension) Code(s): I10 - ESSENTIAL (PRIMARY) HYPERTENSION Qualifiers: Hypertension type: essential hypertension Qualified Code(s): I10 - Essential (primary) hypertension (8) Pleural effusion Code(s): J90 - PLEURAL EFFUSION, NOT ELSEWHERE CLASSIFIED
--- NOTE | 2018-02-04 11:29 | PN ---
Physical Exam: SUBJECTIVE: Patient seen and examined at bedside. No overnight events. No new complaints.Feels a little better today. Denies CP,TAN, palpitations, abdominal pain, nausea or vomiting. OBJECTIVE: Vital Signs Period Temp Pulse Resp BP Sys/Garsia Pulse Ox Last 24 Hr 96.8 F-98.2 F 77-103 16-18 92-146/59-73 92-92 GENERAL: awake and alert, NAD ENT: Dry mucous membranes. NECK: Trachea midline, full range of motion, supple. JVD to jaw LUNGS: CTAB, no wheezes, no crackles, no accessory muscle use. HEART: irregular, S1, S2 without murmur, rub or gallop. ABDOMEN: Soft, nontender, nondistended, normoactive bowel sounds, no guarding, no rebound, no hepatosplenomegaly, no masses. EXTREMITIES: 2+ pulses, warm, well-perfused,1+edema. LE wrapped NEUROLOGICAL: Cranial nerves II through XII grossly intact. Normal speech, gait not observed. PSYCH: Normal mood, normal affect Laboratory Results - last 24 hr 02/03/18 02/04/18 18:50 06:00 Sodium 136 135 L Potassium 4.7 4.2 Chloride 94 L 94 L Carbon Dioxide 31 30 Anion Gap 11 11 BUN 92 H 97 H Creatinine 3.1 H 3.1 H Creat Clearance w eGFR 19.11 19.11 Random Glucose 115 H 77 Calcium 8.2 L 8.2 L Total Bilirubin 1.1 H 1.6 H AST 23 25 ALT 25 24 Alkaline Phosphatase 78 79 Total Protein 6.0 L 5.8 L Albumin 2.8 L 2.8 L Active Medications Generic Name Dose Route Start Last Admin Trade Name Freq PRN Reason Stop Dose Admin Apixaban 2.5 mg 01/24/18 22:00 02/04/18 09:48 Eliquis - PO 2.5 mg BID [facility] Administration Atorvastatin Calcium 10 mg 01/24/18 22:00 02/03/18 21:40 Lipitor - PO 10 mg HS [facility] Administration Calcium Carbonate/Cholecalciferol 1 tab 01/25/18 10:00 02/04/18 09:48 Os-Vadim 500+D - PO 1 tab DAILY [facility] Administration Ferrous Sulfate 325 mg 01/24/18 17:30 02/04/18 08:35 Feosol - PO 325 mg BIDWM [facility] Administration Finasteride 5 mg 02/03/18 10:00 02/04/18 09:49 Proscar - PO 5 mg DAILY [facility] Administration Furosemide 100 mg 02/02/18 06:00 02/03/18 05:25 Lasix Injection - IVPUSH 100 mg BID@0600,1400 [facility] Administration Ipratropium [place] 1 amp 02/02/18 17:15 02/04/18 07:20 Atrovent 0.02% Nebulizer - NEB 1 amp RQ4H [facility] Administration Magnesium Oxide 400 mg 01/27/18 22:00 02/04/18 09:48 Mag-Ox - PO 400 mg BID [facility] Administration Metoprolol Tartrate 50 mg 02/03/18 22:00 02/04/18 05:14 Lopressor - PO 50 mg TID [facility] Administration Multivitamins/Minerals 1 each 01/25/18 10:00 02/04/18 09:48 Theragran-M PO 1 each DAILY [facility] Administration Mupirocin 1 applic 01/25/18 22:00 02/04/18 09:49 Bactroban 2% Cream - TP 1 applic BID [facility] Administration Nitroglycerin 1 inch 02/04/18 09:25 Nitro-Bid 2% Paste - TD Q6HPO [facility] Fluticasone/Salmeterol 1 puff 02/02/18 22:00 02/04/18 09:49 Advair 100mcg/50mcg - IH 1 puff BID [facility] Administration Tamsulosin HCl 0.4 mg 02/04/18 08:30 02/04/18 08:35 Flomax - PO 0.4 mg DAILY@0830 [facility] Administration ASSESSMENT/PLAN: Echo 01/2018 nl LV function EF 50-55%, RV nl size/function, LA severely dilated , RA moderately dilated, mild to mod AI, mild to mod MR, mod to severe TR, RVSP 40-50 mmHg, mild ao root dilation, small pericardial effusion <1 cm * ASSESSMENT/PLAN: 87 m hx htn, aaa s/p stent repair 2013, aortic root aneurysm, afib, dchf/le edema, here with HF exacerbation. Problem List - Problems (1) Cardiorenal syndrome with renal failure Assessment/Plan: * Cardiology input appreciated. * RV normal on rpt echo, mod-severe TR . mild pulm HTN * V/Q scan defered. * continue metalozone * increased lasix to 100mg BID * Will continue to monitor daily weights and strict I/O's * Nephrology on board; Kidney US shows echogenic kidneys consistent with medical renal disease. * baseline Cr. 1.2 ; worsening renal function Cr now 3.1 (2) CHF (congestive heart failure) Assessment/Plan: * IV lasix 100 BID * metalozone daily * will continue to monitor strict I/O's and daily weights. \ * salt restriction. * Cardiology consult appreciated. (3) Afib Assessment/Plan: cont metoprolol 100mg BID * no longer is on digoxin * cont eliquis. had epistaxis here requiring packing, observe for recurrent bleeding (4) HLD (hyperlipidemia) Assessment/Plan: continue statin (5) HTN (hypertension) Assessment/Plan: BP has been low normal this admission * requires BB for rate control. (6) Venous stasis dermatitis of both lower extremities Assessment/Plan: Vascular consulted. * recommend compression stocking for LE edema. * F/U with Dr. Logan as outpatients. Visit type - Emergency Visit Emergency Visit: Yes ED Registration Date: 01/24/18 Care time: The patient presented to the Emergency Department on the above date and was hospitalized for further evaluation of their emergent condition. - New Patient This patient is new to me today: No - Critical Care Critical Care patient: No
--- NOTE | 2018-02-04 13:28 | PN ---
Progress Note, Physician History of Present Illness: Pt seen and examined at bedside. He is awake and alert. He feels that his breathing is improved today. - Current Medication List Current Medications: Active Medications Apixaban (Eliquis -) 2.5 mg PO BID [facility] Last Admin: 02/04/18 09:48 Dose: 2.5 mg Atorvastatin Calcium (Lipitor -) 10 mg PO HS [facility] Last Admin: 02/03/18 21:40 Dose: 10 mg Calcium Carbonate/Cholecalciferol (Os-Vadim 500+D -) 1 tab PO DAILY [facility] Last Admin: 02/04/18 09:48 Dose: 1 tab Ferrous Sulfate (Feosol -) 325 mg PO BIDWM [facility] Last Admin: 02/04/18 08:35 Dose: 325 mg Finasteride (Proscar -) 5 mg PO DAILY [facility] Last Admin: 02/04/18 09:49 Dose: 5 mg Furosemide (Lasix Injection -) 100 mg IVPUSH BID@0600,1400 [facility] Last Admin: 02/03/18 05:25 Dose: 100 mg Ipratropium [place] (Atrovent 0.02% Nebulizer -) 1 amp NEB RQ4H [facility] Last Admin: 02/04/18 11:15 Dose: 1 amp Magnesium Oxide (Mag-Ox -) 400 mg PO BID [facility] Last Admin: 02/04/18 09:48 Dose: 400 mg Metoprolol Tartrate (Lopressor -) 50 mg PO TID [facility] Last Admin: 02/04/18 05:14 Dose: 50 mg Multivitamins/Minerals (Theragran-M) 1 each PO DAILY [facility] Last Admin: 02/04/18 09:48 Dose: 1 each Mupirocin (Bactroban 2% Cream -) 1 applic TP BID [facility] Last Admin: 02/04/18 09:49 Dose: 1 applic Nitroglycerin (Nitro-Bid 2% Paste -) 1 inch TD Q6HPO [facility] Fluticasone/Salmeterol (Advair 100mcg/50mcg -) 1 puff IH BID [facility] Last Admin: 02/04/18 09:49 Dose: 1 puff Tamsulosin HCl (Flomax -) 0.4 mg PO DAILY@0830 [facility] Last Admin: 02/04/18 08:35 Dose: 0.4 mg - Objective Vital Signs: Vital Signs Temperature 97.3 F L 02/04/18 10:00 Pulse Rate 81 02/04/18 10:00 Respiratory Rate 18 02/04/18 10:00 Blood Pressure 113/61 02/04/18 10:00 O2 Sat by Pulse Oximetry (%) 92 L 02/03/18 22:00 Constitutional: Yes: Calm Eyes: Yes: Conjunctiva Clear Cardiovascular: Yes: JVD, S1, S2 Respiratory: Yes: On Nasal O2 Gastrointestinal: Yes: Normal Bowel Sounds, Soft Genitourinary: Yes: WNL Edema: Yes Edema: LLE: 1+, RLE: 1+ Neurological: Yes: Oriented Psychiatric: Yes: Oriented Labs: CBC, BMP 02/02/18 06:40 02/04/18 06:00 INR, PTT INR 1.83 (0.83-1.09) H 01/24/18 13:45 Problem List - Problems (1) Acute renal insufficiency Code(s): N28.9 - DISORDER OF KIDNEY AND URETER, UNSPECIFIED (2) Hypocalcemia Code(s): E83.51 - HYPOCALCEMIA (3) Hypokalemia Code(s): E87.6 - HYPOKALEMIA (4) Afib Code(s): I48.91 - UNSPECIFIED ATRIAL FIBRILLATION Qualifiers: Atrial fibrillation type: chronic Qualified Code(s): I48.2 - Chronic atrial fibrillation (5) HLD (hyperlipidemia) Code(s): E78.5 - HYPERLIPIDEMIA, UNSPECIFIED Qualifiers: Hyperlipidemia type: unspecified Qualified Code(s): E78.5 - Hyperlipidemia , unspecified (6) Pleural effusion Code(s): J90 - PLEURAL EFFUSION, NOT ELSEWHERE CLASSIFIED Assessment/Plan Current Medications Generic Name Dose Route Start Last Admin Trade Name Freq PRN Reason Stop Dose Admin Apixaban 2.5 mg 01/24/18 22:00 02/04/18 09:48 Eliquis - PO 2.5 mg BID [facility] Administration Atorvastatin Calcium 10 mg 01/24/18 22:00 02/03/18 21:40 Lipitor - PO 10 mg HS [facility] Administration Calcium Carbonate/Cholecalciferol 1 tab 01/25/18 10:00 02/04/18 09:48 Os-Vadim 500+D - PO 1 tab DAILY [facility] Administration Ferrous Sulfate 325 mg 01/24/18 17:30 02/04/18 08:35 Feosol - PO 325 mg BIDWM [facility] Administration Finasteride 5 mg 02/03/18 10:00 02/04/18 09:49 Proscar - PO 5 mg DAILY [facility] Administration Furosemide 100 mg 02/02/18 06:00 02/03/18 05:25 Lasix Injection - IVPUSH 100 mg BID@0600,1400 [facility] Administration Ipratropium [place] 1 amp 02/02/18 17:15 02/04/18 11:15 Atrovent 0.02% Nebulizer - NEB 1 amp RQ4H [facility] Administration Magnesium Oxide 400 mg 01/27/18 22:00 02/04/18 09:48 Mag-Ox - PO 400 mg BID [facility] Administration Metoprolol Tartrate 50 mg 02/03/18 22:00 02/04/18 05:14 Lopressor - PO 50 mg TID [facility] Administration Multivitamins/Minerals 1 each 01/25/18 10:00 02/04/18 09:48 Theragran-M PO 1 each DAILY [facility] Administration Mupirocin 1 applic 01/25/18 22:00 02/04/18 09:49 Bactroban 2% Cream - TP 1 applic BID [facility] Administration Nitroglycerin 1 inch 02/04/18 09:25 Nitro-Bid 2% Paste - TD Q6HPO [facility] Fluticasone/Salmeterol 1 puff 02/02/18 22:00 02/04/18 09:49 Advair 100mcg/50mcg - IH 1 puff BID [facility] Administration Tamsulosin HCl 0.4 mg 02/04/18 08:30 02/04/18 08:35 Flomax - PO 0.4 mg DAILY@0830 [facility] Administration Impression 1. ABIGAIL 2. hypokalemia 3. hypocalcemia 4. a-fib 5. CHF 6. thalassemia 7. HLD Plan - monitor renal function - cont diuretics - volume status is improving - cardiology follow up - may have to settle for higher creatinine to keep pt euvolemic - check cmp - will follow Dr Houston
[2018-02-04] MEDS: FUROSEMIDE 100 MG/10 ML INJECTABLE VIAL IVPUSH SCH (14:51)
--- NOTE | 2018-02-04 16:04 | PN ---
Teaching Attending Note Name of Resident: Shaun Najera ATTENDING PHYSICIAN STATEMENT I saw and evaluated the patient. I reviewed the resident's note and discussed the case with the resident. I agree with the resident's findings and plan as documented. SUBJECTIVE: Feels improved still mild SOB OBJECTIVE: Vital Signs Period Temp Pulse Resp BP Sys/Garsia Pulse Ox Last 24 Hr 97.3 F-97.4 F 70-93 18-18 102-122/60-73 92 Elderly man not in distress HEENT: Mm moist mild anemia NECK: No JVd No Bruit CHEST: B/L Crepts CVS: s1S2 R ABD: Non tender Bs + EXT: + edema feet; WASTE REDUCTION COORDINATOR: AOX3 non focal ASSESSMENT AND PLAN: Problem List - Problems (1) Acute on chronic diastolic (congestive) heart failure Code(s): I50.33 - ACUTE ON CHRONIC DIASTOLIC (CONGESTIVE) HEART FAILURE (2) Acute renal insufficiency Code(s): N28.9 - DISORDER OF KIDNEY AND URETER, UNSPECIFIED (3) Cardiorenal syndrome with renal failure Code(s): I13.10 - HYP HRT & CHR KDNY DIS W/O HRT FAIL, W STG 1-4/UNSP CHR KDNY; N19 - UNSPECIFIED KIDNEY FAILURE (4) Pulmonary hypertension Code(s): I27.20 - PULMONARY HYPERTENSION, UNSPECIFIED (5) Afib Code(s): I48.91 - UNSPECIFIED ATRIAL FIBRILLATION Qualifiers: Atrial fibrillation type: chronic Qualified Code(s): I48.2 - Chronic atrial fibrillation (6) Pleural effusion Code(s): J90 - PLEURAL EFFUSION, NOT ELSEWHERE CLASSIFIED (7) HTN (hypertension) Code(s): I10 - ESSENTIAL (PRIMARY) HYPERTENSION Qualifiers: Hypertension type: essential hypertension Qualified Code(s): I10 - Essential (primary) hypertension (8) HLD (hyperlipidemia) Code(s): E78.5 - HYPERLIPIDEMIA, UNSPECIFIED Qualifiers: Hyperlipidemia type: unspecified Qualified Code(s): E78.5 - Hyperlipidemia , unspecified
[2018-02-04] MEDS ORDERED: FUROSEMIDE 100 MG/10 ML INJECTABLE VIAL IVPB ONE (18:36)
[2018-02-04 18:50] LABS: ARTERIAL BLD GAS O2 SATURATION 80.9 % (90-98.9); ARTERIAL BLOOD GAS BASE EXCESS 4.5 meq/l (-2-2); ARTERIAL BLOOD GAS PCO2 57.4 mmHg (35-45); ARTERIAL BLOOD GAS PO2 53.7 mmHg (68-100); ARTERIAL BLOOD GAS pH 7.34 (7.35-7.45)
[2018-02-04 18:52] LABS: ALLENS TEST POSITIVE
--- NOTE | 2018-02-04 19:00 | RAPID ---
<Kaushik Fitch - Last Filed: 02/28/18 13:21> Physical Examination Vital Signs: Vital Signs Temperature 97.3 F L 02/04/18 14:00 Pulse Rate 93 H 02/04/18 18:51 Respiratory Rate 18 02/04/18 14:00 Blood Pressure 102/60 02/04/18 14:00 O2 Sat by Pulse Oximetry (%) 95 02/04/18 18:51 Hospitalist team called for rapid response after pt's O2 saturation dropped to mid 70's. VS before rapid: 114/58 Pulse 102 L, 112/75 95 Pulse R O2 Sat 68-74% After Rapid: 124/74 93 HR 97-98 O2SAT on nonrebreather 81% O2SAT on BiPAP-100% P.E AAOx3 Neck- JVD Lung: Diffuse crackles HEART:Irregularly irregular Ext- 1+, onychomycosis 100 mg ivpush Lasix, ABG, Chest XRAY, EKG, BIPAP, CBC, BMP, MG, Phosphorus, Troponin, Lactic acid Labs: CBC, BMP 02/02/18 06:40 02/04/18 06:00 <Deya Collins - Last Filed: 03/02/18 17:18> Physical Examination Labs: CBC, BMP 02/11/18 05:30 02/11/18 05:30 Rapid Response - Rapid Response Assessment: I was present through the entire rapid response. patient noted hypoxic, short of breath and diffuse crackles bilaterally Discussed with Dr. Houston. Lasix 100 mg IV x 1 Placed on bipap, oxygenation improved to 100%, patient more comfortable. Orr with strict I/Os. Labs/EKG ordered, endorsed to overnight team. ICU consulted, seen by Dr. Lewis (ICU resident) Plan to monitor on floors as oxygenation and clinical status improved with bipap and lasix. Close monitoring total critical care time spent at bedside 35 min. Critical Care Total Critical Care Time (in minutes): 35 Critical Care Statement: The care of this patient involved high complexity decision making to prevent further life threatening deterioration of the patient 's condition and/or to evaluate & treat vital organ system(s) failure or risk of failure.
[2018-02-04 20:02] LABS: ANION GAP 13 MMOL/L (8-16); BLOOD UREA NITROGEN 95 mg/dL (7-18); CALCIUM 8.2 mg/dL (8.5-10.1); CHLORIDE 92 mmol/L (98-107); CO2 28 mmol/L (21-32); GLUCOSE,RANDOM 135 mg/dL (74-106); PHOSPHOROUS 5.2 mg/dL (2.5-4.9); POTASSIUM 3.8 mmol/L (3.5-5.1); SODIUM 133 mmol/L (136-145)
[2018-02-04 20:18] LABS: HEMATOCRIT 28.6 % (35.4-49); LYMPH % 5.9 % (8-40); MCH 21.9 pg (25.7-33.7); MCHC 31.5 g/dl (32.0-35.9); MEAN CELL VOLUME 69.4 fl (80-96); MEAN PLT VOLUME 8.8 fl (7.5-11.1); MONO % 6.5 % (3.8-10.2); NEUT % 87.6 % (42.8-82.8); PLATELET COUNT 167 K/MM3 (134-434); RBC 4.12 M/mm3 (4.00-5.60); RDW 18.2 % (11.9-15.9); WHITE BLOOD COUNT 14.9 K/mm3 (4.0-10.0)
[2018-02-04 21:48] LABS: ANISOCYTOSIS 1+; MACROCYTOSIS 1+; OVALOCYTE 1+; TEAR DROP CELLS 1+
[2018-02-04 21:49] LABS: PLATELET ESTIMATE ADEQUATE
[2018-02-04] MEDS: ATORVASTATIN CA 10 MG TABLET (FP) PO SCH (22:08)
[2018-02-05 00:04] LABS: ARTERIAL BLD GAS O2 SATURATION 96.5 % (90-98.9); ARTERIAL BLOOD GAS BASE EXCESS 4.6 meq/l (-2-2); ARTERIAL BLOOD GAS PCO2 47.2 mmHg (35-45); ARTERIAL BLOOD GAS pH 7.41 (7.35-7.45)
[2018-02-05 00:05] LABS: ALLENS TEST POSITIVE
[2018-02-05] MEDS: IPRATROPIUM BR 0.02% 0.5 MG/2.5 ML VIAL.NEB. NEB SCH ×5 (00:24→16:54)
[2018-02-05] MEDS: FUROSEMIDE 100 MG/10 ML INJECTABLE VIAL IVPUSH SCH (05:34)
[2018-02-05] MEDS: METOPROLOL TARTRATE 50 MG TABLET (FP) PO SCH ×3 (05:34→21:50)
[2018-02-05] MEDS: NITROGLYCERIN 2% OINTMENT - 1GM PACKET TD SCH ×3 (05:35→19:42)
--- NOTE | 2018-02-05 05:50 | RAPID ---
Physical Examination Vital Signs: Vital Signs Temperature 97.0 F L 02/05/18 05:00 Pulse Rate 89 02/05/18 05:00 Respiratory Rate 20 02/05/18 05:00 Blood Pressure 97/62 02/05/18 05:00 O2 Sat by Pulse Oximetry (%) 99 02/05/18 00:37 Labs: CBC, BMP 02/04/18 19:40 02/04/18 18:00 Rapid Response - Rapid Response Assessment: Rapid response called at 11:33. Arrived to find pt with worsening respiratory status. Chart reviewed and prior rapid response noted. Pt initially placed on bilevel ventilation earlier in the evening which had been removed as pt was continually pulling at it. His respiratory status had subsequently declined. Vitals initially b.p. 76/32 HR 80, O2 sat 80s Pt in moderate respiratory distress with increased work of breathing Diffuse crackles Regular rate and rythm A/P: likely continuation of previous CHF exacerbation symptoms as bilevel ventilation was removed Repeat ABG collected Manual blood pressure improved to MAP of 77, will continue to monitor b.p. closely overnight Bilevel ventilation resumed Close monitoring for now to ensure pt continues bilevel ventilation and does not remove the mask
[2018-02-05 07:03] LABS: BASO % 0.1 % (0-2.0); HEMATOCRIT 26.9 % (35.4-49); HEMOGLOBIN 8.1 GM/dL (11.7-16.9); LYMPH % 6.9 % (8-40); MCH 20.9 pg (25.7-33.7); MCHC 30.1 g/dl (32.0-35.9); MEAN CELL VOLUME 69.5 fl (80-96); MEAN PLT VOLUME 8.8 fl (7.5-11.1); MONO % 3.6 % (3.8-10.2); NEUT % 89.4 % (42.8-82.8); PLATELET COUNT 129 K/MM3 (134-434); RBC 3.87 M/mm3 (4.00-5.60); RDW 18.3 % (11.9-15.9); WHITE BLOOD COUNT 17.6 K/mm3 (4.0-10.0)
[2018-02-05 07:32] LABS: ALBUMIN 2.7 g/dl (3.4-5.0); ALK PHOS 71 U/L (45-117); ANION GAP 13 MMOL/L (8-16); BILIRUBIN,TOTAL 1.2 mg/dL (0.2-1); BLOOD UREA NITROGEN 101 mg/dL (7-18); CALCIUM 8.2 mg/dL (8.5-10.1); CHLORIDE 94 mmol/L (98-107); CO2 29 mmol/L (21-32); CREATININE 3.1 mg/dL (0.55-1.3); GLUCOSE,RANDOM 104 mg/dL (74-106); POTASSIUM 4.3 mmol/L (3.5-5.1); SGOT/AST 21 U/L (15-37); SGPT/ALT 20 U/L (13-61); SODIUM 136 mmol/L (136-145); TOT PROT 5.7 g/dl (6.4-8.2)
--- NOTE | 2018-02-05 10:22 | PN ---
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 feels better this morning, shortness of breath he says slightly improved. no chest pain, palps, dizzy, lightheadedness ex cigs Current Medications Apixaban (Eliquis -) 2.5 mg PO BID [facility] Last Admin: 02/04/18 22:08 Dose: 2.5 mg Atorvastatin Calcium (Lipitor -) 10 mg PO HS [facility] Last Admin: 02/04/18 22:08 Dose: 10 mg Calcium Carbonate/Cholecalciferol (Os-Vadim 500+D -) 1 tab PO DAILY [facility] Last Admin: 02/04/18 09:48 Dose: 1 tab Ferrous Sulfate (Feosol -) 325 mg PO BIDWM [facility] Last Admin: 02/04/18 17:38 Dose: 325 mg Finasteride (Proscar -) 5 mg PO DAILY [facility] Last Admin: 02/04/18 09:49 Dose: 5 mg Furosemide (Lasix Injection -) 100 mg IVPUSH BID@0600,1400 [facility] Last Admin: 02/05/18 05:34 Dose: Not Given Ipratropium [place] (Atrovent 0.02% Nebulizer -) 1 amp NEB RQ4H [facility] Last Admin: 02/05/18 08:35 Dose: 1 amp Magnesium Oxide (Mag-Ox -) 400 mg PO BID [facility] Last Admin: 02/04/18 22:08 Dose: 400 mg Metoprolol Tartrate (Lopressor -) 50 mg PO TID [facility] Last Admin: 02/05/18 05:34 Dose: Not Given Multivitamins/Minerals (Theragran-M) 1 each PO DAILY [facility] Last Admin: 02/04/18 09:48 Dose: 1 each Mupirocin (Bactroban 2% Cream -) 1 applic TP BID [facility] Last Admin: 02/04/18 22:12 Dose: 1 applic Nitroglycerin (Nitro-Bid 2% Paste -) 1 inch TD Q6HPO [facility] Last Admin: 02/05/18 05:35 Dose: Not Given Fluticasone/Salmeterol (Advair 100mcg/50mcg -) 1 puff IH BID [facility] Last Admin: 02/04/18 22:08 Dose: 1 puff Tamsulosin HCl (Flomax -) 0.4 mg PO DAILY@0830 [facility] Last Admin: 02/04/18 08:35 Dose: 0.4 mg - Objective Vital Signs: Vital Signs Period Temp Pulse Resp BP Sys/Garsia Pulse Ox Last 24 Hr 97.0 F-97.4 F 69-105 17-30 76-124/32-75 95-99 Constitutional: Yes: No Distress, Calm Eyes: No: Sclera Icterus HENT: No: Nasal Congestion Cardiovascular: Yes: Pulse Irregular, JVD, S1, S2, Other (PMI non diplaced). No : Gallop, Murmur Respiratory: Yes: Diminished (bases). No: Accessory Muscle Use, on venti mask Gastrointestinal: Yes: Normal Bowel Sounds, Soft. No: Tenderness Musculoskeletal: Yes: Other (No kyphosis) Extremities: No: Cold Edema: Yes (1+ LE) Integumentary: No: Jaundice Neurological: Yes: Alert, Oriented (x3) Psychiatric: No: Agitated Assessment/Plan mibi 12/2010: nl mpi echo 07/2017: nl lv/rv, mild lvh, mod lae, mild ar, mod tr/mr, mild phtn, ao root 4 cm echo 01/2018 nl LV function EF 50-55%, RV nl size/function, LA severely dilated , RA moderately dilated, mild to mod AI, mild to mod MR, mod to severe TR, RVSP 40-50 mmHg, mild ao root dilation, small pericardial effusion <1 cm images reviewed: peak TR gradient measured 47 mmHg (varies with R-R interval), however all doppler signals are incomplete. IVC dilated without collapse, c/w RAP 15. hence PASP is likely at least 62 mmHg. evidence of hi LAP based on low e ', high E/e' ratio. ecg: afib, hr 89, irbbb, old cxr: no chf CT chest 02/01: septal thickening c/w congestion, mod effusions, flank subcutaneous edema, dilated PA c/w pulm HTN. mod emphsematous changes a/p: 87 m hx htn, aaa s/p stent repair 2013, aortic root aneurysm, afib, dchf/ le edema, here with HF exacerbation. acute HFpEF, pulm HTN: -here with volume overload, with right-sided failure picture. started to notice incr SOB sx's around apr-june 2017 he says. -clinical picture is confusing. remains with NYHA IV sx status, marked JVD, clear lungs. severe ABIGAIL vs prior baseline. diuresing well by self-report yet without much clinical improvement. -RV normal on rpt echo, mod-severe TR = ? the culprit for his HF. + signif pulm HTN on echo, suspect underestimated (i.e. incomplete TR doppler envelope) given dilated PA on CT chest. 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 -awaiting check V/Q to r/o chronic PEs -was on lasix 40 bid at home, d/c wt 04/29 was 162 lbs. receiving 40 iv bid, then tid here. -01/31: remains with marked JVD and NYHA IV sob sx's. s/p metolazone 5mg yest. wt 133 (from 149 two days ago)--? accurate. recorded 24-hr UOPs have not been accurate per d/w nurse (signif > 800 cc yest)--start strict I/Os. renal fxn overall stable. -02/01: cont lasix 40 iv tid, will dose metolazone 2.5 x 1 again today. -02/02: remains with NYHA IV sob sx's, marked JVD. CT chest yest c/w pulm congestion and vol overload (subctunaeous edema). wt has plateau'd 133-134 lbs for few days. creat essentially stable, bun rising now. net neg fluid balance 400-900 cc each of past several days. increase lasix to [address] condom catheter--strict I/Os. -02/03: notes sob with activity is starting to feel better finally. wt down today. I > O yest suspect inaccurate documentation based on pt wt/sx trend and reported hi UOP (per RN, shaye catheter came off overnight). renal fxn worse. try add nitrates low dose for cardiorenal syndrome (ntg paste 0.5 inch). change lopressor 100 bid to 50 tid to minimize hypotension potential. -02/04: wt likely erroneous. 1300 cc UOP yest. renal fxn slightly worse. sob improved. continue lasix 100 iv bid. unfortunately, pt may end up with signif impaired baseline renal fxn in order to maintain adequate volume status, hope to avoid HD. no role for inotropes here with preserved LV and RV fxn on echo. 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 wt 137 yesterday (?error)->135 lbs today. unclear if accurate, however Cr stable, UOP 1300 (with unmeasured void). lasix dose not given this AM for low BP. will decrease dose of nitrate for room for diuresis, continue lasix 100 mg IV BID copd: -signif emphys changes on CT per d/w dr nogueira -? stable, fixed component to pt's PH (WHO 3?) and/or sob sx's -no a.e. here htn: -on low side here, needs bb for rate control afib: -cont bb for rate control -no longer is on digoxin -cont eliquis. had epistaxis here requiring packing, observe for recurrent bleeding abigail: -baseline creat 1.2 (04/29) -creat worsening gradually with diuresis here. -renal consulting, sonogram no obstruction
--- NOTE | 2018-02-05 10:40 | PN ---
Physical Exam: SUBJECTIVE: Patient seen and examined at bedside. Overnight rapid was called because he was in respiratory distress. Currently saturation >90% on non- rebreather. Required bilevel ventilatory support overnight. Denies CP, TAN, abdominal pain, nausea, vomiting, cough or diarrhea. OBJECTIVE: Vital Signs Period Temp Pulse Resp BP Sys/Garsia Pulse Ox Last 24 Hr 97.0 F-97.4 F 69-105 17-30 76-124/32-75 95-99 GENERAL: awake and alert, NAD HEAD:NCAT ENT: Ears normal, nares patent, oropharynx clear without exudates, Dry mucous membranes. NECK: supple, JVD to jaw. LUNGS: Diffuse rales, no wheezes, no accessory muscle use. HEART: Irregular, S1, S2 without murmur, rub or gallop. ABDOMEN: Soft, NTND, NABS, no guarding, no rebound, no hepatosplenomegaly, no masses. EXTREMITIES: 2+ pulses, warm, well-perfused, no edema. NEUROLOGICAL: Normal speech, gait not observed. no focal def. PSYCH: Normal mood, normal affect. Laboratory Results - last 24 hr 02/04/18 02/04/18 02/04/18 18:00 18:30 19:40 WBC 14.9 H RBC 4.12 Hgb 9.0 L Hct 28.6 L MCV 69.4 L MCH 21.9 L MCHC 31.5 L RDW 18.2 H Plt Count 167 MPV 8.8 Absolute Neuts (auto) 13.0 H Neutrophils % 87.6 H D Lymphocytes % 5.9 L D Monocytes % 6.5 Eosinophils % 0.0 D Basophils % 0.0 Nucleated RBC % 0 Hypochromia 2+ Platelet Estimate Adequate Platelet Comment No clumping noted Polychromasia 1+ Anisocytosis 1+ Microcytosis 1+ Macrocytosis 1+ Tear Drop Cells 1+ Ovalocytes 1+ Schistocytes 1+ Anticoagulation Therapy No Result Required. Puncture Site Right radial ABG pH 7.34 L ABG pCO2 at Pt Temp 57.4 H D ABG pO2 at Pt Temp 53.7 L D ABG HCO3 30.4 H ABG O2 Sat (Measured) 80.9 L ABG O2 Content 9.3 L* ABG Base Excess 4.5 H Anjel Test Positive O2 Delivery Device Nonrebreather Oxygen Flow Rate 100% Vent Mode No Result Required. Vent Rate No Result Required. Mechanical Rate No Result Required. Pressure Support Vent No Result Required. Sodium 133 L Potassium 3.8 Chloride 92 L Carbon Dioxide 28 Anion Gap 13 BUN 95 H Creatinine 3.0 H Creat Clearance w eGFR 19.85 Random Glucose 135 H Lactic Acid Calcium 8.2 L Phosphorus 5.2 H Magnesium 2.0 Total Bilirubin AST ALT Alkaline Phosphatase Troponin I < 0.02 Total Protein Albumin 02/04/18 02/04/18 02/05/18 19:40 23:50 01:00 WBC RBC Hgb Hct MCV MCH MCHC RDW Plt Count MPV Absolute Neuts (auto) Neutrophils % Lymphocytes % Monocytes % Eosinophils % Basophils % Nucleated RBC % Hypochromia Platelet Estimate Platelet Comment Polychromasia Anisocytosis Microcytosis Macrocytosis Tear Drop Cells Ovalocytes Schistocytes Anticoagulation Therapy No Result Required. Puncture Site Md puncture ABG pH 7.41 ABG pCO2 at Pt Temp 47.2 H ABG pO2 at Pt Temp 120.0 H D ABG HCO3 29.3 H ABG O2 Sat (Measured) 96.5 ABG O2 Content 11.2 L ABG Base Excess 4.6 H Anjel Test Positive O2 Delivery Device Bipap Oxygen Flow Rate 100 Vent Mode No Result Required. Vent Rate 14 Mechanical Rate No Result Required. Pressure Support Vent 14/6 Sodium Potassium Chloride Carbon Dioxide Anion Gap BUN Creatinine Creat Clearance w eGFR Random Glucose Lactic Acid 2.1 H Calcium Phosphorus Magnesium Total Bilirubin AST ALT Alkaline Phosphatase Troponin I 0.02 Total Protein Albumin 02/05/18 02/05/18 02/05/18 06:00 06:00 07:20 WBC 17.6 H RBC 3.87 L Hgb 8.1 L Hct 26.9 L MCV 69.5 L MCH 20.9 L MCHC 30.1 L RDW 18.3 H Plt Count 129 L D MPV 8.8 Absolute Neuts (auto) 15.7 H Neutrophils % 89.4 H Lymphocytes % 6.9 L Monocytes % 3.6 L Eosinophils % 0.0 Basophils % 0.1 D Nucleated RBC % 0 Hypochromia Platelet Estimate Platelet Comment Polychromasia Anisocytosis Microcytosis Macrocytosis Tear Drop Cells Ovalocytes Schistocytes Anticoagulation Therapy Puncture Site ABG pH ABG pCO2 at Pt Temp ABG pO2 at Pt Temp ABG HCO3 ABG O2 Sat (Measured) ABG O2 Content ABG Base Excess Anjel Test O2 Delivery Device Oxygen Flow Rate Vent Mode Vent Rate Mechanical Rate Pressure Support Vent Sodium 136 Potassium 4.3 Chloride 94 L Carbon Dioxide 29 Anion Gap 13 BUN 101 H Creatinine 3.1 H Creat Clearance w eGFR 19.11 Random Glucose 104 Lactic Acid 2.4 H* Calcium 8.2 L Phosphorus Magnesium Total Bilirubin 1.2 H AST 21 ALT 20 Alkaline Phosphatase 71 Troponin I Total Protein 5.7 L Albumin 2.7 L Active Medications Generic Name Dose Route Start Last Admin Trade Name Cindi PRN Reason Stop Dose Admin Apixaban 2.5 mg 01/24/18 22:00 02/04/18 22:08 Eliquis - PO 2.5 mg BID [facility] Administration Atorvastatin Calcium 10 mg 01/24/18 22:00 02/04/18 22:08 Lipitor - PO 10 mg HS [facility] Administration Calcium Carbonate/Cholecalciferol 1 tab 01/25/18 10:00 02/04/18 09:48 Os-Vadim 500+D - PO 1 tab DAILY [facility] Administration Ferrous Sulfate 325 mg 01/24/18 17:30 02/04/18 17:38 Feosol - PO 325 mg BIDWM [facility] Administration Finasteride 5 mg 02/03/18 10:00 02/04/18 09:49 Proscar - PO 5 mg DAILY [facility] Administration Furosemide 100 mg 02/02/18 06:00 02/05/18 05:34 Lasix Injection - IVPUSH Not Given BID@0600,1400 [facility] Ipratropium [place] 1 amp 02/02/18 17:15 02/05/18 08:35 Atrovent 0.02% Nebulizer - NEB 1 amp RQ4H [facility] Administration Magnesium Oxide 400 mg 01/27/18 22:00 02/04/18 22:08 Mag-Ox - PO 400 mg BID [facility] Administration Metoprolol Tartrate 50 mg 02/03/18 22:00 02/05/18 05:34 Lopressor - PO Not Given TID [facility] Multivitamins/Minerals 1 each 01/25/18 10:00 02/04/18 09:48 Theragran-M PO 1 each DAILY [facility] Administration Mupirocin 1 applic 01/25/18 22:00 02/04/18 22:12 Bactroban 2% Cream - TP 1 applic BID [facility] Administration Nitroglycerin 1 inch 02/04/18 09:25 02/05/18 05:35 Nitro-Bid 2% Paste - TD Not Given Q6HPO [facility] Fluticasone/Salmeterol 1 puff 02/02/18 22:00 02/04/18 22:08 Advair 100mcg/50mcg - IH 1 puff BID [facility] Administration Tamsulosin HCl 0.4 mg 02/04/18 08:30 02/04/18 08:35 Flomax - PO 0.4 mg DAILY@0830 [facility] Administration ASSESSMENT/PLAN: 87 m hx htn, aaa s/p stent repair 2013, aortic root aneurysm, afib, dchf/le edema, here with HF exacerbation. Problem List - Problems (1) Acute respiratory failure Assessment/Plan: Most likely flash Pulmonary Edema from worsening failure. * Nitro and Lasix had to be stopped 2/2 low BP * patient transitioned from Bilevel ventilation to Non-rebreather - O2 sat >90% * Will monitor closely vitals Q1H for signs of desaturation or increased work of breathing . * repeat CXR show bilateral significant vascular congestion. (2) Cardiorenal syndrome with renal failure Assessment/Plan: * Cardiology input appreciated. * RV normal on rpt echo, mod-severe TR . mild pulm HTN * continue metalozone * increased lasix to 100mg BID * Will continue to monitor daily weights and strict I/O's * Nephrology on board; Kidney US shows echogenic kidneys consistent with medical renal disease. * baseline Cr. 1.2 ; worsening renal function Cr now 3.1 (3) CHF (congestive heart failure) Assessment/Plan: * IV lasix 100 BID * metalozone daily * will continue to monitor strict I/O's and daily weights. \ * salt restriction. * Cardiology consult appreciated. (4) Afib Assessment/Plan: cont metoprolol 100mg BID * no longer is on digoxin * cont eliquis. had epistaxis here requiring packing, observe for recurrent bleeding (5) HLD (hyperlipidemia) Assessment/Plan: continue statin (6) HTN (hypertension) Assessment/Plan: BP has been low normal this admission * requires BB for rate control. (7) Venous stasis dermatitis of both lower extremities Assessment/Plan: Vascular consulted. * recommend compression stocking for LE edema. * F/U with Dr. Logan as outpatients. Visit type - Emergency Visit Emergency Visit: Yes ED Registration Date: 01/24/18 Care time: The patient presented to the Emergency Department on the above date and was hospitalized for further evaluation of their emergent condition. - New Patient This patient is new to me today: No - Critical Care Critical Care patient: No
--- NOTE | 2018-02-05 10:50 | PN ---
Teaching Attending Note Name of Resident: Shaun Najera ATTENDING PHYSICIAN STATEMENT I saw and evaluated the patient. I reviewed the resident's note and discussed the case with the resident. I agree with the resident's findings and plan as documented. 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 CBC, BMP 02/05/18 06:00 02/05/18 06:00 Active Medications Apixaban (Eliquis -) 2.5 mg PO BID [facility] Last Admin: 02/04/18 22:08 Dose: 2.5 mg Atorvastatin Calcium (Lipitor -) 10 mg PO HS [facility] Last Admin: 02/04/18 22:08 Dose: 10 mg Calcium Carbonate/Cholecalciferol (Os-Vadim 500+D -) 1 tab PO DAILY [facility] Last Admin: 02/04/18 09:48 Dose: 1 tab Ferrous Sulfate (Feosol -) 325 mg PO BIDWM [facility] Last Admin: 02/04/18 17:38 Dose: 325 mg Finasteride (Proscar -) 5 mg PO DAILY [facility] Last Admin: 02/04/18 09:49 Dose: 5 mg Furosemide (Lasix Injection -) 100 mg IVPUSH BID@0600,1400 [facility] Last Admin: 02/05/18 05:34 Dose: Not Given Ipratropium [place] (Atrovent 0.02% Nebulizer -) 1 amp NEB RQ4H [facility] Last Admin: 02/05/18 08:35 Dose: 1 amp Magnesium Oxide (Mag-Ox -) 400 mg PO BID [facility] Last Admin: 02/04/18 22:08 Dose: 400 mg Metoprolol Tartrate (Lopressor -) 50 mg PO TID [facility] Last Admin: 02/05/18 05:34 Dose: Not Given Multivitamins/Minerals (Theragran-M) 1 each PO DAILY [facility] Last Admin: 02/04/18 09:48 Dose: 1 each Mupirocin (Bactroban 2% Cream -) 1 applic TP BID [facility] Last Admin: 02/04/18 22:12 Dose: 1 applic Nitroglycerin (Nitro-Bid 2% Paste -) 1 inch TD Q6HPO [facility] Last Admin: 02/05/18 05:35 Dose: Not Given Fluticasone/Salmeterol (Advair 100mcg/50mcg -) 1 puff IH BID [facility] Last Admin: 02/04/18 22:08 Dose: 1 puff Tamsulosin HCl (Flomax -) 0.4 mg PO DAILY@0830 [facility] Last Admin: 02/04/18 08:35 Dose: 0.4 mg ASSESSMENT AND PLAN: 87 yrs old man multiple co-morbidities, CKD stage 4, HTN, CAD, Afib on AC, Diastolic HF, , COPD , BPH admitted with decompensated HF wuith respiratory failure, yesteday had an episode of Hypoxia, elevated TWBC will Rpt CXR, weaning off from BIPAP,rest cont current management as per Renal, Cardiology and Pulmonary consult. Elevated TWBC most likely stress related will observe closely off abx. Problem List - Problems (1) Acute on chronic diastolic (congestive) heart failure Code(s): I50.33 - ACUTE ON CHRONIC DIASTOLIC (CONGESTIVE) HEART FAILURE (2) Acute renal insufficiency Code(s): N28.9 - DISORDER OF KIDNEY AND URETER, UNSPECIFIED (3) Cardiorenal syndrome with renal failure Code(s): I13.10 - HYP HRT & CHR KDNY DIS W/O HRT FAIL, W STG 1-4/UNSP CHR KDNY; N19 - UNSPECIFIED KIDNEY FAILURE (4) Pulmonary hypertension Code(s): I27.20 - PULMONARY HYPERTENSION, UNSPECIFIED (5) Afib Code(s): I48.91 - UNSPECIFIED ATRIAL FIBRILLATION Qualifiers: Atrial fibrillation type: chronic Qualified Code(s): I48.2 - Chronic atrial fibrillation (6) Pleural effusion Code(s): J90 - PLEURAL EFFUSION, NOT ELSEWHERE CLASSIFIED (7) HTN (hypertension) Code(s): I10 - ESSENTIAL (PRIMARY) HYPERTENSION Qualifiers: Hypertension type: essential hypertension Qualified Code(s): I10 - Essential (primary) hypertension (8) HLD (hyperlipidemia) Code(s): E78.5 - HYPERLIPIDEMIA, UNSPECIFIED Qualifiers: Hyperlipidemia type: unspecified Qualified Code(s): E78.5 - Hyperlipidemia , unspecified
[2018-02-05] MEDS ORDERED: PT OWN MED DRAWER 7, Y5N ONE ×2 (11:07→13:49)
[2018-02-05] MEDS: CALCIUM 500MG/VIT-D 200 UNITS COMBO TABLET (FP) PO SCH (11:10)
[2018-02-05] MEDS: FERROUS SO4 325 MG TABLET (FP) PO SCH (11:10)
[2018-02-05] MEDS: TAMSULOSIN HCL 0.4 MG CAP PO SCH (11:10)
[2018-02-05] MEDS: MUPIROCIN CA 2% TOPICAL CREAM 15 GM TUBE TP SCH ×2 (11:11→21:51)
[2018-02-05] MEDS: MAGNESIUM OXIDE 400 MG TABLET (FP) PO SCH (11:11)
[2018-02-05] MEDS: APIXABAN 2.5 MG TABLET PO SCH ×2 (11:11→21:51)
[2018-02-05] MEDS: MULTIVITAMINS THER W-MINERALS COMBO TABLET (FP) PO SCH (11:11)
[2018-02-05] MEDS: FINASTERIDE 5 MG TABLET (FP) PO SCH (11:12)
[2018-02-05] MEDS: FLUTICASONE/SALMETEROL 100 MCG/50 MCG DISKUS IH SCH ×2 (11:22→22:00)
--- NOTE | 2018-02-05 11:56 | PN ---
Progress Note, Physician History of Present Illness: pulmonary events noted rapid resonse earlier secondary to resp distress placed on bipap ,lasix iv with some improvement. pt is awake,feeling slighy better on 100% nrbm. no c/o cp - Current Medication List Current Medications: Active Medications Apixaban (Eliquis -) 2.5 mg PO BID [facility] Last Admin: 02/05/18 11:11 Dose: 2.5 mg Atorvastatin Calcium (Lipitor -) 10 mg PO HS [facility] Last Admin: 02/04/18 22:08 Dose: 10 mg Calcium Carbonate/Cholecalciferol (Os-Vadim 500+D -) 1 tab PO DAILY [facility] Last Admin: 02/05/18 11:10 Dose: 1 tab Ferrous Sulfate (Feosol -) 325 mg PO BIDWM [facility] Last Admin: 02/05/18 11:10 Dose: 325 mg Finasteride (Proscar -) 5 mg PO DAILY [facility] Last Admin: 02/05/18 11:12 Dose: 5 mg Furosemide (Lasix Injection -) 100 mg IVPUSH BID@0600,1400 [facility] Last Admin: 02/05/18 05:34 Dose: Not Given Ipratropium [place] (Atrovent 0.02% Nebulizer -) 1 amp NEB RQ4H [facility] Last Admin: 02/05/18 08:35 Dose: 1 amp Magnesium Oxide (Mag-Ox -) 400 mg PO BID [facility] Last Admin: 02/05/18 11:11 Dose: 400 mg Metoprolol Tartrate (Lopressor -) 50 mg PO TID [facility] Last Admin: 02/05/18 05:34 Dose: Not Given Multivitamins/Minerals (Theragran-M) 1 each PO DAILY [facility] Last Admin: 02/05/18 11:11 Dose: 1 each Mupirocin (Bactroban 2% Cream -) 1 applic TP BID [facility] Last Admin: 02/05/18 11:11 Dose: 1 applic Nitroglycerin (Nitro-Bid 2% Paste -) 0.5 inch TD Q6HPO [facility] Fluticasone/Salmeterol (Advair 100mcg/50mcg -) 1 puff IH BID [facility] Last Admin: 02/05/18 11:22 Dose: 1 puff Tamsulosin HCl (Flomax -) 0.4 mg PO DAILY@0830 [facility] Last Admin: 02/05/18 11:10 Dose: 0.4 mg - Objective Vital Signs: Vital Signs Temperature 97.0 F L 02/05/18 05:00 Pulse Rate 92 H 02/05/18 11:41 Respiratory Rate 18 02/05/18 11:41 Blood Pressure 94/57 L 02/05/18 11:41 O2 Sat by Pulse Oximetry (%) 99 02/05/18 06:30 Constitutional: Yes: Calm, Thin, Other (dysyeic,mldly tachypneic) Eyes: Yes: WNL HENT: Yes: WNL Neck: Yes: WNL Cardiovascular: Yes: Pulse Irregular, S1, S2 Respiratory: Yes: Rales (bibasilar rales) Gastrointestinal: Yes: Normal Bowel Sounds, Soft Extremities: Yes: WNL Edema: No Labs: CBC, BMP 02/05/18 06:00 02/05/18 06:00 INR, PTT INR 1.83 (0.83-1.09) H 01/24/18 13:45 - ....Imaging Chest X-ray: Report Reviewed, Image Reviewed (sandy pulmonary vascular congestion) Assessment/Plan A/P Acute on Chronic Diastolic Heart Failure Acute Hypoxemic respiratory failure Pleural Effusions from above Atrial Fibrillation Pulmonary HTN COPD/emphysema HTN Hyperlipidemia -lasix - bipap as needed - monitor urine output, creatinine - keep net negative - O2 to keep SpO2 >90% - inhaled bronchodilators - rate control - continue anticoagulation Problem List - Problems (1) Acute on chronic diastolic (congestive) heart failure Code(s): I50.33 - ACUTE ON CHRONIC DIASTOLIC (CONGESTIVE) HEART FAILURE (2) Afib Code(s): I48.91 - UNSPECIFIED ATRIAL FIBRILLATION Qualifiers: Atrial fibrillation type: chronic Qualified Code(s): I48.2 - Chronic atrial fibrillation (3) Pulmonary hypertension Code(s): I27.20 - PULMONARY HYPERTENSION, UNSPECIFIED (4) COPD (chronic obstructive pulmonary disease) Code(s): J44.9 - CHRONIC OBSTRUCTIVE PULMONARY DISEASE, UNSPECIFIED (5) Emphysema of lung Code(s): J43.9 - EMPHYSEMA, UNSPECIFIED (6) HLD (hyperlipidemia) Code(s): E78.5 - HYPERLIPIDEMIA, UNSPECIFIED Qualifiers: Hyperlipidemia type: unspecified Qualified Code(s): E78.5 - Hyperlipidemia , unspecified (7) HTN (hypertension) Code(s): I10 - ESSENTIAL (PRIMARY) HYPERTENSION Qualifiers: Hypertension type: essential hypertension Qualified Code(s): I10 - Essential (primary) hypertension (8) Pleural effusion Code(s): J90 - PLEURAL EFFUSION, NOT ELSEWHERE CLASSIFIED
[2018-02-05] MEDS ORDERED: METOLAZONE 5 MG TABLET PO ONE (12:58)
--- NOTE | 2018-02-05 12:58 | PN ---
Progress Note, Physician History of Present Illness: Pt seen and examined at bedside. A rapid response was called yesterday for hypoxia. He had missed a dose of lasix secondary to hypotension. He i son oxygen and is short of breath. - Current Medication List Current Medications: Active Medications Apixaban (Eliquis -) 2.5 mg PO BID [facility] Last Admin: 02/05/18 11:11 Dose: 2.5 mg Atorvastatin Calcium (Lipitor -) 10 mg PO HS [facility] Last Admin: 02/04/18 22:08 Dose: 10 mg Calcium Carbonate/Cholecalciferol (Os-Vadim 500+D -) 1 tab PO DAILY [facility] Last Admin: 02/05/18 11:10 Dose: 1 tab Ferrous Sulfate (Feosol -) 325 mg PO BIDWM [facility] Last Admin: 02/05/18 11:10 Dose: 325 mg Finasteride (Proscar -) 5 mg PO DAILY [facility] Last Admin: 02/05/18 11:12 Dose: 5 mg Furosemide (Lasix Injection -) 100 mg IVPUSH BID@0600,1400 [facility] Last Admin: 02/05/18 05:34 Dose: Not Given Ipratropium [place] (Atrovent 0.02% Nebulizer -) 1 amp NEB RQ4H [facility] Last Admin: 02/05/18 12:22 Dose: 1 amp Magnesium Oxide (Mag-Ox -) 400 mg PO BID [facility] Last Admin: 02/05/18 11:11 Dose: 400 mg Metoprolol Tartrate (Lopressor -) 50 mg PO TID [facility] Last Admin: 02/05/18 05:34 Dose: Not Given Multivitamins/Minerals (Theragran-M) 1 each PO DAILY [facility] Last Admin: 02/05/18 11:11 Dose: 1 each Mupirocin (Bactroban 2% Cream -) 1 applic TP BID [facility] Last Admin: 02/05/18 11:11 Dose: 1 applic Nitroglycerin (Nitro-Bid 2% Paste -) 0.5 inch TD Q6HPO [facility] Fluticasone/Salmeterol (Advair 100mcg/50mcg -) 1 puff IH BID [facility] Last Admin: 02/05/18 11:22 Dose: 1 puff Tamsulosin HCl (Flomax -) 0.4 mg PO DAILY@0830 [facility] Last Admin: 02/05/18 11:10 Dose: 0.4 mg - Objective Vital Signs: Vital Signs Temperature 97.0 F L 02/05/18 05:00 Pulse Rate 92 H 02/05/18 11:41 Respiratory Rate 18 02/05/18 11:41 Blood Pressure 94/57 L 02/05/18 11:41 O2 Sat by Pulse Oximetry (%) 99 02/05/18 06:30 Constitutional: Yes: Moderate Distress Eyes: Yes: Conjunctiva Clear HENT: Yes: Atraumatic Cardiovascular: Yes: JVD, S1, S2 Respiratory: Yes: On Venti-Mask, Tachypnea Gastrointestinal: Yes: Soft Genitourinary: Yes: WNL Musculoskeletal: Yes: Muscle Weakness Edema: Yes Edema: LLE: 2+, RLE: 2+ Integumentary: Yes: Venous Stasis Changes Neurological: Yes: Oriented Psychiatric: Yes: Oriented Labs: CBC, BMP 02/05/18 06:00 02/05/18 06:00 INR, PTT INR 1.83 (0.83-1.09) H 01/24/18 13:45 - ....Imaging Chest X-ray: Report Reviewed Problem List - Problems (1) Acute renal insufficiency Code(s): N28.9 - DISORDER OF KIDNEY AND URETER, UNSPECIFIED (2) Hypocalcemia Code(s): E83.51 - HYPOCALCEMIA (3) Hypokalemia Code(s): E87.6 - HYPOKALEMIA (4) Afib Code(s): I48.91 - UNSPECIFIED ATRIAL FIBRILLATION Qualifiers: Atrial fibrillation type: chronic Qualified Code(s): I48.2 - Chronic atrial fibrillation (5) HLD (hyperlipidemia) Code(s): E78.5 - HYPERLIPIDEMIA, UNSPECIFIED Qualifiers: Hyperlipidemia type: unspecified Qualified Code(s): E78.5 - Hyperlipidemia , unspecified (6) Pleural effusion Code(s): J90 - PLEURAL EFFUSION, NOT ELSEWHERE CLASSIFIED Assessment/Plan Current Medications Generic Name Dose Route Start Last Admin Trade Name Freq PRN Reason Stop Dose Admin Apixaban 2.5 mg 01/24/18 22:00 02/05/18 11:11 Eliquis - PO 2.5 mg BID [facility] Administration Atorvastatin Calcium 10 mg 01/24/18 22:00 02/04/18 22:08 Lipitor - PO 10 mg HS [facility] Administration Calcium Carbonate/Cholecalciferol 1 tab 01/25/18 10:00 02/05/18 11:10 Os-Vadim 500+D - PO 1 tab DAILY [facility] Administration Ferrous Sulfate 325 mg 01/24/18 17:30 02/05/18 11:10 Feosol - PO 325 mg BIDWM [facility] Administration Finasteride 5 mg 02/03/18 10:00 02/05/18 11:12 Proscar - PO 5 mg DAILY [facility] Administration Furosemide 100 mg 02/02/18 06:00 02/05/18 05:34 Lasix Injection - IVPUSH Not Given BID@0600,1400 [facility] Ipratropium [place] 1 amp 02/02/18 17:15 02/05/18 12:22 Atrovent 0.02% Nebulizer - NEB 1 amp RQ4H [facility] Administration Magnesium Oxide 400 mg 01/27/18 22:00 02/05/18 11:11 Mag-Ox - PO 400 mg BID [facility] Administration Metoprolol Tartrate 50 mg 02/03/18 22:00 02/05/18 05:34 Lopressor - PO Not Given TID [facility] Multivitamins/Minerals 1 each 01/25/18 10:00 02/05/18 11:11 Theragran-M PO 1 each DAILY [facility] Administration Mupirocin 1 applic 01/25/18 22:00 02/05/18 11:11 Bactroban 2% Cream - TP 1 applic BID [facility] Administration Nitroglycerin 0.5 inch 02/05/18 10:48 Nitro-Bid 2% Paste - TD Q6HPO [facility] Fluticasone/Salmeterol 1 puff 02/02/18 22:00 02/05/18 11:22 Advair 100mcg/50mcg - IH 1 puff BID [facility] Administration Tamsulosin HCl 0.4 mg 02/04/18 08:30 02/05/18 11:10 Flomax - PO 0.4 mg DAILY@0830 [facility] Administration Impression 1. ABIGAIL 2. hypokalemia 3. hypocalcemia 4. a-fib 5. CHF 6. thalassemia 7. HLD 8. respiratory failure requiring oxygen and bipap Plan - will change lasix to a lasix drip at 10 per hour - will give a dose of metolazone - monitor urine output - monitor pulse ox - critical care eval - will need to discuss GOC with family - cardio input appreciated - may have to settle for higher creatinine to keep pt euvolemic - monitor output - will follow Dr Houston
[2018-02-05] MEDS ORDERED: FUROSEMIDE INJECTION 100 MG in DEXTROSE 5%-WATER - 40 ML IVPB SCH (13:00)
--- NOTE | 2018-02-05 16:34 | PN ---
Progress Note (short form) - Note Progress Note: pt seen and examined pt on nor- rebreather - spo2> 90 but goes down to high seventies once off from it. Pt responds to his name. Appears drowsy. As per previous notes pt was alert and oriented. pt on lasix drip BP 102/68 [place]< 100 spo> 90 on nor rebreather I/o 240/900 GENERAL:drowsy, responds to his name. ENT: Dry mucous membranes. LUNGS: Diffuse crackles b/l, no wheezes, no accessory muscle use. HEART: Irregular, S1, S2 normal, no murmur, ABDOMEN: Soft, NTND, NABS, no guarding, no rebound, no hepatosplenomegaly, no masses. EXTREMITIES: 2+ pulses, warm, well-perfused, no edema. CBCD WBC 17.6 K/mm3 (4.0-10.0) H 02/05/18 06:00 RBC 3.87 M/mm3 (4.00-5.60) L 02/05/18 06:00 Hgb 8.1 GM/dL (11.7-16.9) L 02/05/18 06:00 Hct 26.9 % (35.4-49) L 02/05/18 06:00 MCV 69.5 fl (80-96) L 02/05/18 06:00 MCHC 30.1 g/dl (32.0-35.9) L 02/05/18 06:00 RDW 18.3 % (11.9-15.9) H 02/05/18 06:00 Plt Count 129 K/MM3 (134-434) L D 02/05/18 06:00 MPV 8.8 fl (7.5-11.1) 02/05/18 06:00 CMP Sodium 136 mmol/L (136-145) 02/05/18 06:00 Potassium 4.3 mmol/L (3.5-5.1) 02/05/18 06:00 Chloride 94 mmol/L (98-107) L 02/05/18 06:00 Carbon Dioxide 29 mmol/L (21-32) 02/05/18 06:00 Anion Gap 13 MMOL/L (8-16) 02/05/18 06:00 BUN 101 mg/dL (7-18) H 02/05/18 06:00 Creatinine 3.1 mg/dL (0.55-1.3) H 02/05/18 06:00 Creat Clearance w eGFR 19.11 (>60) 02/05/18 06:00 Random Glucose 104 mg/dL (74-106) 02/05/18 06:00 Calcium 8.2 mg/dL (8.5-10.1) L 02/05/18 06:00 Total Bilirubin 1.2 mg/dL (0.2-1) H 02/05/18 06:00 AST 21 U/L (15-37) 02/05/18 06:00 ALT 20 U/L (13-61) 02/05/18 06:00 Alkaline Phosphatase 71 U/L (45-117) 02/05/18 06:00 Total Protein 5.7 g/dl (6.4-8.2) L 02/05/18 06:00 Albumin 2.7 g/dl (3.4-5.0) L 02/05/18 06:00 CARDIAC ENZYMES Troponin I 0.02 ng/ml (0.00-0.05) 02/05/18 01:00 A/P Acute on Chronic Diastolic Heart Failure Acute Hypoxemic respiratory failure Pleural Effusions from above Atrial Fibrillation Pulmonary HTN COPD/emphysema HTN Hyperlipidemia -lasix - stat abg - bipap-- if pt gets more drowsy then need to intubate - monitor urine output, creatinine - keep net negative - O2 to keep SpO2 >90% - inhaled bronchodilators - rate control - continue anticoagulation - monitor vitals - cardiac monitoring. - repeat cxr in am - daily weight. - need to discuss goal of care with family. - NPO for now until mental status improves. Later on consider low salt diet. - take aspiration precaution - minimize po meds for now--- start once pt mental status improves. ( hold multivitamin, po magnesium oxide, ferrous sulphate for now) - keep head end elevated - transfer pt to icu.
[2018-02-05 16:43] LABS: ARTERIAL BLD GAS O2 SATURATION 97.7 % (90-98.9); ARTERIAL BLOOD GAS BASE EXCESS 6.5 meq/l (-2-2); ARTERIAL BLOOD GAS PCO2 54.9 mmHg (35-45); ARTERIAL BLOOD GAS pH 7.38 (7.35-7.45)
[2018-02-05 17:01] LABS: ALLENS TEST POSITIVE
--- NOTE | 2018-02-05 18:28 | PN ---
Progress Note (short form) - Note Progress Note: discussed with patient son an d they want patinet to be DNR and DNI but his daughter is healty care proxy. Daughter will be coming to hospital tonight and will take a decision. we will hold his lasix drip for now because of fall in BP
[2018-02-05] MEDS ORDERED: ALBUTEROL SO4 2.5/IPRATROPIUM 0.5 INH SOL 3 ML VIAL.NEB. NEB SCH (20:00)
[2018-02-05] MEDS: ALBUTEROL SO4 0.083% IH SOL 2.5 MG/3 ML VIAL.NEB. NEB SCH (21:05)
[2018-02-05] MEDS: ATORVASTATIN CA 10 MG TABLET (FP) PO SCH (21:50)
--- NOTE | 2018-02-05 21:54 | PN ---
Progress Note (short form) - Note Progress Note: DNR/DNI form singed by daughter. Discussed case and condition with the entire family. Many members present. They would like him to be DNR and DNI. Patient has expressed his wished to family in the past and these are his wishes. He also expressed to me that he "does not want to come back is he dies". Daughter is agreeable to central line for pressor use if needed. Consent for central line signed and in the chart should he need one.
[2018-02-05] MEDS: CHLORHEXIDINE GLUCONATE 4% CLEANSER FOR DECOLONIZATION TP SCH (21:55)
[2018-02-05] MEDS: MUPIROCIN 2% TOPICAL OINTMENT FOR DECOLONIZATION NS SCH (21:56)
[2018-02-06] MEDS: NITROGLYCERIN 2% OINTMENT - 1GM PACKET TD SCH ×2 (00:25→07:07)
[2018-02-06 06:30] LABS: BASO % 0.1 % (0-2.0); HEMATOCRIT 23.7 % (35.4-49); HEMOGLOBIN 7.2 GM/dL (11.7-16.9); LYMPH % 16.7 % (8-40); MCH 21.2 pg (25.7-33.7); MCHC 30.2 g/dl (32.0-35.9); MEAN CELL VOLUME 70.2 fl (80-96); MEAN PLT VOLUME 8.9 fl (7.5-11.1); MONO % 6.4 % (3.8-10.2); NEUT % 76.8 % (42.8-82.8); PLATELET COUNT 113 K/MM3 (134-434); RBC 3.37 M/mm3 (4.00-5.60); RDW 18.3 % (11.9-15.9); WHITE BLOOD COUNT 7.2 K/mm3 (4.0-10.0)
[2018-02-06] MEDS: METOPROLOL TARTRATE 50 MG TABLET (FP) PO SCH ×2 (07:07→22:05)
[2018-02-06] MEDS: ALBUTEROL SO4 0.083% IH SOL 2.5 MG/3 ML VIAL.NEB. NEB SCH ×4 (07:08→21:30)
[2018-02-06 08:15] LABS: ALBUMIN 2.6 g/dl (3.4-5.0); ALK PHOS 73 U/L (45-117); ANION GAP 10 MMOL/L (8-16); BILIRUBIN,TOTAL 1.2 mg/dL (0.2-1); CALCIUM 7.6 mg/dL (8.5-10.1); CHLORIDE 93 mmol/L (98-107); CO2 33 mmol/L (21-32); CREATININE 3.1 mg/dL (0.55-1.3); GLUCOSE,RANDOM 118 mg/dL (74-106); MAGNESIUM 2.4 mg/dL (1.8-2.4); PHOSPHOROUS 8.1 mg/dL (2.5-4.9); POTASSIUM 4.1 mmol/L (3.5-5.1); SGOT/AST 20 U/L (15-37); SGPT/ALT 18 U/L (13-61); SODIUM 136 mmol/L (136-145); TOT PROT 5.6 g/dl (6.4-8.2)
--- NOTE | 2018-02-06 08:48 | PN ---
Physical Exam: SUBJECTIVE: Patient seen and examined at bedside. Pt on nonrebreather. Per overnight team, pt satting at 100s on nonrebreather, but satting in 60-70s when taken off. Pt currently on nonrebreather. OBJECTIVE: Vital Signs Period Temp Pulse Resp BP Sys/Garsia Pulse Ox Last 24 Hr 97.1 F-97.3 F 84-113 15-24 82-122/41-73 95-100 GENERAL: Pt is lethargic, although arousable with physical stimulation. Cachectic. Temporal wasting. HEENT: AT/NC. Dry mucus membranes. NECK: Bony prominences noted. + significnat JVD on L side. LUNGS: Diffuse crackles b/l, no wheezes, no accessory muscle use. HEART: Irregular, S1, S2 normal, no murmur, ABDOMEN: Soft, NTND, NABS, no guarding, no rebound, no hepatosplenomegaly, no masses. EXTREMITIES: 2+ pulses, warm, well-perfused, no edema. SKIN: dry, poor turgor, no rashes or lesions noted. Laboratory Results - last 24 hr 02/05/18 02/05/18 02/05/18 07:20 16:20 18:50 WBC RBC Hgb Hct MCV MCH MCHC RDW Plt Count MPV Absolute Neuts (auto) Neutrophils % Lymphocytes % Monocytes % Eosinophils % Basophils % Nucleated RBC % Anticoagulation Therapy No Result Required. Puncture Site Right radial ABG pH 7.38 ABG pCO2 at Pt Temp 54.9 H ABG pO2 at Pt Temp 218.0 H* D ABG HCO3 31.9 H ABG O2 Sat (Measured) 97.7 ABG O2 Content 10.9 L ABG Base Excess 6.5 H Anjel Test Positive O2 Delivery Device No Result Required. Oxygen Flow Rate 100% fio2 Vent Mode No Result Required. Vent Rate No Result Required. Mechanical Rate No Result Required. Pressure Support Vent No Result Required. Sodium Potassium Chloride Carbon Dioxide Anion Gap BUN Creatinine Creat Clearance w eGFR Random Glucose Lactic Acid 2.4 H* 1.7 Calcium Phosphorus Magnesium Total Bilirubin AST ALT Alkaline Phosphatase Total Protein Albumin 02/06/18 02/06/18 05:30 05:30 WBC 7.2 RBC 3.37 L Hgb 7.2 L Hct 23.7 L MCV 70.2 L MCH 21.2 L MCHC 30.2 L RDW 18.3 H Plt Count 113 L MPV 8.9 Absolute Neuts (auto) 5.6 Neutrophils % 76.8 Lymphocytes % 16.7 D Monocytes % 6.4 Eosinophils % 0.0 Basophils % 0.1 Nucleated RBC % 0 Anticoagulation Therapy Puncture Site ABG pH ABG pCO2 at Pt Temp ABG pO2 at Pt Temp ABG HCO3 ABG O2 Sat (Measured) ABG O2 Content ABG Base Excess Anjel Test O2 Delivery Device Oxygen Flow Rate Vent Mode Vent Rate Mechanical Rate Pressure Support Vent Sodium 136 Potassium 4.1 Chloride 93 L Carbon Dioxide 33 H Anion Gap 10 BUN 105 H* Creatinine 3.1 H Creat Clearance w eGFR 19.11 Random Glucose 118 H Lactic Acid Calcium 7.6 L Phosphorus 8.1 H Magnesium 2.4 Total Bilirubin 1.2 H AST 20 ALT 18 Alkaline Phosphatase 73 Total Protein 5.6 L Albumin 2.6 L Active Medications Generic Name Dose Route Start Last Admin Trade Name Freq PRN Reason Stop Dose Admin Albuterol Sulfate 1 amp 02/05/18 20:00 02/06/18 07:08 Ventolin 0.083% Nebulizer Soln - NEB 1 amp RQID [facility] Administration Apixaban 2.5 mg 01/24/18 22:00 02/05/18 21:51 Eliquis - PO 2.5 mg BID [facility] Administration Atorvastatin Calcium 10 mg 01/24/18 22:00 02/05/18 21:50 Lipitor - PO 10 mg HS [facility] Administration Calcium Carbonate/Cholecalciferol 1 tab 01/25/18 10:00 02/05/18 11:10 Os-Vadim 500+D - PO 1 tab DAILY [facility] Administration Chlorhexidine Gluconate 1 applic 02/05/18 22:00 02/05/18 21:55 Hibiclens For Decolonization - TP Not Given HS [facility] Finasteride 5 mg 02/03/18 10:00 02/05/18 11:12 Proscar - PO 5 mg DAILY [facility] Administration Furosemide 100 mg/ Dextrose 50 mls @ 5 mls/hr 02/05/18 13:00 02/05/18 15:01 IVPB 10 mg/hr TITR [facility] 5 mls/hr Administration Protocol 10 MG/HR Metoprolol Tartrate 50 mg 02/03/18 22:00 02/06/18 07:07 Lopressor - PO Not Given TID [facility] Mupirocin 1 applic 01/25/18 22:00 02/05/18 21:51 Bactroban 2% Cream - TP 1 applic BID [facility] Administration Mupirocin 1 applic 02/05/18 22:00 02/05/18 21:56 Bactroban Ointment (For Decolonization) - NS 02/10/18 21:59 1 applic BID [facility] Administration Nitroglycerin 0.5 inch 02/05/18 10:48 02/06/18 07:07 Nitro-Bid 2% Paste - TD Not Given Q6HPO [facility] Fluticasone/Salmeterol 1 puff 02/05/18 22:00 02/05/18 22:00 Advair 100mcg/50mcg - IH 1 puff BID [facility] Administration Tamsulosin HCl 0.4 mg 02/04/18 08:30 02/05/18 11:10 Flomax - PO 0.4 mg DAILY@0830 [facility] Administration ASSESSMENT/PLAN: 87M w/ pmhx of AFIB, CHF, HTN, Hyperlipdemia, renal failure currently being treated for acute decompensated heart failure admitted to the ICU for respiratory failure. Neurology -Lethargic. Currently on Bipap. Unable to converse. Opens eyes to verbal stimuli. Pulmonary #Acute respiratory failure 2/2 acute on chronic CHF -Currently on nonrebreather satting at 95%. -aspiration precautions -keep head elevated #Pulmonary HTN #COPD/Emphysema -significant emphysema changes on CT -[facility] #Acute HF with preserved EF -Per cardio: lasix gtt started yesterday and was dc'ed for hypotension, dc'ed nitro paste. currently holding all anti-hypertensives given hypotension would avoid IV fluids, monitor BP, holding lasix today #A. fib -hold PO meds once MS improves #HTN -hold PO meds once MS improves #HLD -hold PO meds once MS improves GI -NPO for now until MS improves Renal #ABIGAIL -baseline Cr 1.2, BUN 105 -Lasix previously given, however now held due to low BP -Per nephro: Avoid giving fluids for now, may likely need to keep Cr elevated to keep pt euvolemic. FEN -hold IVf -recheck lytes in AM -NPO for now dispo -DNR/DNI -continue to monitor in ICU Visit type - Emergency Visit Emergency Visit: Yes ED Registration Date: 01/24/18 Care time: The patient presented to the Emergency Department on the above date and was hospitalized for further evaluation of their emergent condition. - New Patient This patient is new to me today: Yes Date on this admission: 02/06/18 - Critical Care Critical Care patient: Yes Total Critical Care Time (in minutes): 36 Critical Care Statement: The care of this patient involved high complexity decision making to prevent further life threatening deterioration of the patient 's condition and/or to evaluate & treat vital organ system(s) failure or risk of failure.
--- NOTE | 2018-02-06 09:34 | PN ---
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 ex cigs Current Medications Albuterol Sulfate (Ventolin 0.083% Nebulizer Soln -) 1 amp NEB RQID [facility] Last Admin: 02/06/18 07:08 Dose: 1 amp Apixaban (Eliquis -) 2.5 mg PO BID [facility] Last Admin: 02/05/18 21:51 Dose: 2.5 mg Atorvastatin Calcium (Lipitor -) 10 mg PO HS [facility] Last Admin: 02/05/18 21:50 Dose: 10 mg Calcium Carbonate/Cholecalciferol (Os-Vadim 500+D -) 1 tab PO DAILY [facility] Last Admin: 02/05/18 11:10 Dose: 1 tab Chlorhexidine Gluconate (Hibiclens For Decolonization -) 1 applic TP HS [facility] Last Admin: 02/05/18 21:55 Dose: Not Given Finasteride (Proscar -) 5 mg PO DAILY [facility] Last Admin: 02/05/18 11:12 Dose: 5 mg Metoprolol Tartrate (Lopressor -) 50 mg PO TID [facility] Last Admin: 02/06/18 07:07 Dose: Not Given Mupirocin (Bactroban 2% Cream -) 1 applic TP BID [facility] Last Admin: 02/05/18 21:51 Dose: 1 applic Mupirocin (Bactroban Ointment (For Decolonization) -) 1 applic NS BID [facility] Stop: 02/10/18 21:59 Last Admin: 02/05/18 21:56 Dose: 1 applic Fluticasone/Salmeterol (Advair 100mcg/50mcg -) 1 puff IH BID [facility] Last Admin: 02/05/18 22:00 Dose: 1 puff Tamsulosin HCl (Flomax -) 0.4 mg PO DAILY@0830 [facility] Last Admin: 02/05/18 11:10 Dose: 0.4 mg - Objective Vital Signs: Vital Signs Period Temp Pulse Resp BP Sys/Garsia Pulse Ox Last 24 Hr 97.1 F-97.3 F 86-113 15-24 82-122/42-73 95-100 Constitutional: Yes: No Distress, Calm Eyes: No: Sclera Icterus HENT: No: Nasal Congestion Cardiovascular: Yes: Pulse Irregular, JVD, S1, S2, Other (PMI non diplaced). No : Gallop, Murmur Respiratory: Yes: Diminished (bases). No: Accessory Muscle Use, on venti mask Gastrointestinal: Yes: Normal Bowel Sounds, Soft. No: Tenderness Musculoskeletal: Yes: Other (No kyphosis) Extremities: No: Cold Edema: Yes (1+ LE) Integumentary: No: Jaundice Neurological: Yes: Alert, Oriented (x3) Psychiatric: No: Agitated Assessment/Plan mibi 12/2010: nl mpi echo 07/2017: nl lv/rv, mild lvh, mod lae, mild ar, mod tr/mr, mild phtn, ao root 4 cm echo 01/2018 nl LV function EF 50-55%, RV nl size/function, LA severely dilated , RA moderately dilated, mild to mod AI, mild to mod MR, mod to severe TR, RVSP 40-50 mmHg, mild ao root dilation, small pericardial effusion <1 cm images reviewed: peak TR gradient measured 47 mmHg (varies with R-R interval), however all doppler signals are incomplete. IVC dilated without collapse, c/w RAP 15. hence PASP is likely at least 62 mmHg. evidence of hi LAP based on low e ', high E/e' ratio. ecg: afib, hr 89, irbbb, old cxr: no chf CT chest 02/01: septal thickening c/w congestion, mod effusions, flank subcutaneous edema, dilated PA c/w pulm HTN. mod emphsematous changes a/p: 87 m hx htn, aaa s/p stent repair 2013, aortic root aneurysm, afib, dchf/ le edema, here with HF exacerbation. acute HFpEF, pulm HTN: -here with volume overload, with right-sided failure picture. started to notice incr SOB sx's around apr-june 2017 he says. -clinical picture is confusing. remains with NYHA IV sx status, marked JVD, clear lungs. severe ABIGAIL vs prior baseline. diuresing well by self-report yet without much clinical improvement. -RV normal on rpt echo, mod-severe TR = ? the culprit for his HF. + signif pulm HTN on echo, suspect underestimated (i.e. incomplete TR doppler envelope) given dilated PA on CT chest. 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 -awaiting check V/Q to r/o chronic PEs -was on lasix 40 bid at home, d/c wt 04/29 was 162 lbs. receiving 40 iv bid, then tid here. -01/31: remains with marked JVD and NYHA IV sob sx's. s/p metolazone 5mg yest. wt 133 (from 149 two days ago)--? accurate. recorded 24-hr UOPs have not been accurate per d/w nurse (signif > 800 cc yest)--start strict I/Os. renal fxn overall stable. -02/01: cont lasix 40 iv tid, will dose metolazone 2.5 x 1 again today. -02/02: remains with NYHA IV sob sx's, marked JVD. CT chest yest c/w pulm congestion and vol overload (subctunaeous edema). wt has plateau'd 133-134 lbs for few days. creat essentially stable, bun rising now. net neg fluid balance 400-900 cc each of past several days. increase lasix to [address] condom catheter--strict I/Os. -02/03: notes sob with activity is starting to feel better finally. wt down today. I > O yest suspect inaccurate documentation based on pt wt/sx trend and reported hi UOP (per RN, [place] catheter came off overnight). renal fxn worse. try add nitrates low dose for cardiorenal syndrome (ntg paste 0.5 inch). change lopressor 100 bid to 50 tid to minimize hypotension potential. -02/04: wt likely erroneous. 1300 cc UOP yest. renal fxn slightly worse. sob improved. continue lasix 100 iv bid. unfortunately, pt may end up with signif impaired baseline renal fxn in order to maintain adequate volume status, hope to avoid HD. no role for inotropes here with preserved LV and RV fxn on echo. 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 wt 137 yesterday (?error)->135 lbs today. unclear if accurate , however Cr stable, UOP 1300 (with unmeasured void). lasix dose not given this AM for low BP. 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 currently holding all anti-hypertensives given hypotension would avoid IV fluids, monitor BP, holding lasix today copd: -signif emphys changes on CT per d/w dr nogueira -? stable, fixed component to pt's PH (WHO 3?) and/or sob sx's -no a.e. here htn: -on low side here, needs bb for rate control, restart as BP improves afib: -cont bb for rate control -no longer is on digoxin -cont eliquis. had epistaxis here requiring packing, observe for recurrent bleeding abigail: -baseline creat 1.2 (04/29) -creat worsening gradually with diuresis here. -renal consulting, sonogram no obstruction
[2018-02-06] MEDS: MUPIROCIN 2% TOPICAL OINTMENT FOR DECOLONIZATION NS SCH ×2 (12:14→22:05)
--- NOTE | 2018-02-06 12:20 | PN ---
Teaching Attending Note Name of Resident: Stella Carroll ATTENDING PHYSICIAN STATEMENT I saw and evaluated the patient. I reviewed the resident's note and discussed the case with the resident. I agree with the resident's findings and plan as documented. SUBJECTIVE: Pt seen and examined in the ICU. Transferred down for hypotension, hypoxia and increasing lethargy. Now DNR/DNI. Hypoxic on ventimask, now on NRB. OBJECTIVE: Vital Signs Period Temp Pulse Resp BP Sys/Garsia Pulse Ox Last 24 Hr 97.1 F-97.3 F 86-113 15-24 82-122/42-73 95-100 Intake & Output 02/03/18 02/04/18 02/05/18 02/06/18 23:59 23:59 23:59 23:59 Intake Total 1050 29514 240 150 Output Total 1390 1380 1500 500 Balance -340 30194 -1260 -350 Weight 58.604 kg 62.505 kg 61.326 kg 62.652 kg Gen: lethargic but arousable, cachectic Heart: irregular Lung: decreased breath sounds at the bases Abd: soft, nontender Ext: + edema CBC, BMP 02/06/18 05:30 02/06/18 05:30 Active Medications Albuterol Sulfate (Ventolin 0.083% Nebulizer Soln -) 1 amp NEB RQID [facility] Last Admin: 02/06/18 07:08 Dose: 1 amp Apixaban (Eliquis -) 2.5 mg PO BID [facility] Last Admin: 02/05/18 21:51 Dose: 2.5 mg Atorvastatin Calcium (Lipitor -) 10 mg PO [facility] Last Admin: 02/05/18 21:50 Dose: 10 mg Calcium Carbonate/Cholecalciferol (Os-Vadim 500+D -) 1 tab PO DAILY [facility] Last Admin: 02/05/18 11:10 Dose: 1 tab Chlorhexidine Gluconate (Hibiclens For Decolonization -) 1 applic TP [facility] Last Admin: 02/05/18 21:55 Dose: Not Given Finasteride (Proscar -) 5 mg PO DAILY [facility] Last Admin: 02/05/18 11:12 Dose: 5 mg Metoprolol Tartrate (Lopressor -) 50 mg PO TID [facility] Last Admin: 02/06/18 07:07 Dose: Not Given Mupirocin (Bactroban 2% Cream -) 1 applic TP BID [facility] Last Admin: 02/05/18 21:51 Dose: 1 applic Mupirocin (Bactroban Ointment (For Decolonization) -) 1 applic NS BID [facility] Stop: 02/10/18 21:59 Last Admin: 02/05/18 21:56 Dose: 1 applic Fluticasone/Salmeterol (Advair 100mcg/50mcg -) 1 puff IH BID [facility] Last Admin: 02/05/18 22:00 Dose: 1 puff Tamsulosin HCl (Flomax -) 0.4 mg PO DAILY@0830 [facility] Last Admin: 02/05/18 11:10 Dose: 0.4 mg ASSESSMENT AND PLAN: Acute on Chronic Diastolic Heart Failure Acute Hypoxic Respiratory failure Pleural Effusions from above Atrial Fibrillation Pulmonary HTN COPD/emphysema HTN Hyperlipidemia Anemia - woudl hold lasix, IVF today - monitor urine output, creatinine - O2 to keep SpO2 >90% - BiPAP as needed to assist in work of breathin - inhaled bronchodilators - rate control - continue anticoagulation - monitor H/H - can perform therapeutic thoracentesis but would need to hold anticoagulation critical care time spent in reviewing chart, evaluating patient and formulating plan 35 min Problem List - Problems (1) Acute on chronic diastolic (congestive) heart failure Code(s): I50.33 - ACUTE ON CHRONIC DIASTOLIC (CONGESTIVE) HEART FAILURE (2) Afib Code(s): I48.91 - UNSPECIFIED ATRIAL FIBRILLATION Qualifiers: Qualified Code(s): I48.2 - Chronic atrial fibrillation (3) Pulmonary hypertension Code(s): I27.20 - PULMONARY HYPERTENSION, UNSPECIFIED (4) COPD (chronic obstructive pulmonary disease) Code(s): J44.9 - CHRONIC OBSTRUCTIVE PULMONARY DISEASE, UNSPECIFIED (5) Emphysema of lung Code(s): J43.9 - EMPHYSEMA, UNSPECIFIED (6) HLD (hyperlipidemia) Code(s): E78.5 - HYPERLIPIDEMIA, UNSPECIFIED Qualifiers: Qualified Code(s): E78.5 - Hyperlipidemia, unspecified (7) HTN (hypertension) Code(s): I10 - ESSENTIAL (PRIMARY) HYPERTENSION Qualifiers: Qualified Code(s): I10 - Essential (primary) hypertension (8) Pleural effusion Code(s): J90 - PLEURAL EFFUSION, NOT ELSEWHERE CLASSIFIED
--- NOTE | 2018-02-06 12:22 | PN ---
Progress Note, Physician History of Present Illness: Pt seen and examined at bedside. He is in the ICU. He appears lethargic and fatigued. He is on non rebreather. Pt is arrousable and does follow commands. - Current Medication List Current Medications: Active Medications Albuterol Sulfate (Ventolin 0.083% Nebulizer Soln -) 1 amp NEB RQID [facility] Last Admin: 02/06/18 07:08 Dose: 1 amp Apixaban (Eliquis -) 2.5 mg PO BID [facility] Last Admin: 02/05/18 21:51 Dose: 2.5 mg Atorvastatin Calcium (Lipitor -) 10 mg PO HS [facility] Last Admin: 02/05/18 21:50 Dose: 10 mg Calcium Carbonate/Cholecalciferol (Os-Vadim 500+D -) 1 tab PO DAILY [facility] Last Admin: 02/05/18 11:10 Dose: 1 tab Chlorhexidine Gluconate (Hibiclens For Decolonization -) 1 applic TP HS [facility] Last Admin: 02/05/18 21:55 Dose: Not Given Finasteride (Proscar -) 5 mg PO DAILY [facility] Last Admin: 02/05/18 11:12 Dose: 5 mg Metoprolol Tartrate (Lopressor -) 50 mg PO TID [facility] Last Admin: 02/06/18 07:07 Dose: Not Given Mupirocin (Bactroban 2% Cream -) 1 applic TP BID [facility] Last Admin: 02/05/18 21:51 Dose: 1 applic Mupirocin (Bactroban Ointment (For Decolonization) -) 1 applic NS BID [facility] Stop: 02/10/18 21:59 Last Admin: 02/05/18 21:56 Dose: 1 applic Fluticasone/Salmeterol (Advair 100mcg/50mcg -) 1 puff IH BID [facility] Last Admin: 02/05/18 22:00 Dose: 1 puff Tamsulosin HCl (Flomax -) 0.4 mg PO DAILY@0830 [facility] Last Admin: 02/05/18 11:10 Dose: 0.4 mg - Objective Vital Signs: Vital Signs Temperature 97.2 F L 02/06/18 06:00 Pulse Rate 104 H 02/06/18 08:00 Respiratory Rate 24 H 02/06/18 08:00 Blood Pressure 82/46 L 02/06/18 08:00 O2 Sat by Pulse Oximetry (%) 100 02/06/18 07:08 Constitutional: Yes: Moderate Distress Eyes: Yes: Conjunctiva Clear Cardiovascular: Yes: JVD, S1, S2 Respiratory: Yes: On Venti-Mask, Rhonchi Gastrointestinal: Yes: Soft Genitourinary: Yes: Orr Present Musculoskeletal: Yes: Muscle Weakness Edema: Yes (improved) Edema: LLE: 1+, RLE: 1+ Neurological: Yes: Oriented Labs: CBC, BMP 02/06/18 05:30 02/06/18 05:30 INR, PTT INR 1.83 (0.83-1.09) H 01/24/18 13:45 - ....Imaging Chest X-ray: Report Reviewed Problem List - Problems (1) Acute renal insufficiency Code(s): N28.9 - DISORDER OF KIDNEY AND URETER, UNSPECIFIED (2) Hypocalcemia Code(s): E83.51 - HYPOCALCEMIA (3) Hypokalemia Code(s): E87.6 - HYPOKALEMIA (4) Afib Code(s): I48.91 - UNSPECIFIED ATRIAL FIBRILLATION Qualifiers: Atrial fibrillation type: chronic Qualified Code(s): I48.2 - Chronic atrial fibrillation (5) HLD (hyperlipidemia) Code(s): E78.5 - HYPERLIPIDEMIA, UNSPECIFIED Qualifiers: Hyperlipidemia type: unspecified Qualified Code(s): E78.5 - Hyperlipidemia , unspecified (6) Pleural effusion Code(s): J90 - PLEURAL EFFUSION, NOT ELSEWHERE CLASSIFIED Assessment/Plan Current Medications Generic Name Dose Route Start Last Admin Trade Name Cindi PRN Reason Stop Dose Admin Albuterol Sulfate 1 amp 02/05/18 20:00 02/06/18 07:08 Ventolin 0.083% Nebulizer Soln - NEB 1 amp RQID [facility] Administration Apixaban 2.5 mg 01/24/18 22:00 02/05/18 21:51 Eliquis - PO 2.5 mg BID [facility] Administration Atorvastatin Calcium 10 mg 01/24/18 22:00 02/05/18 21:50 Lipitor - PO 10 mg HS [facility] Administration Calcium Carbonate/Cholecalciferol 1 tab 01/25/18 10:00 02/05/18 11:10 Os-Vadim 500+D - PO 1 tab DAILY [facility] Administration Chlorhexidine Gluconate 1 applic 02/05/18 22:00 02/05/18 21:55 Hibiclens For Decolonization - TP Not Given HS [facility] Finasteride 5 mg 02/03/18 10:00 02/05/18 11:12 Proscar - PO 5 mg DAILY [facility] Administration Metoprolol Tartrate 50 mg 02/03/18 22:00 02/06/18 07:07 Lopressor - PO Not Given TID [facility] Mupirocin 1 applic 01/25/18 22:00 02/05/18 21:51 Bactroban 2% Cream - TP 1 applic BID [facility] Administration Mupirocin 1 applic 02/05/18 22:00 02/05/18 21:56 Bactroban Ointment (For Decolonization) - NS 02/10/18 21:59 1 applic BID [facility] Administration Fluticasone/Salmeterol 1 puff 02/05/18 22:00 02/05/18 22:00 Advair 100mcg/50mcg - IH 1 puff BID [facility] Administration Tamsulosin HCl 0.4 mg 02/04/18 08:30 02/05/18 11:10 Flomax - PO 0.4 mg DAILY@0830 [facility] Administration Impression 1. ABIGAIL 2. hypokalemia 3. hypocalcemia 4. a-fib 5. CHF 6. thalassemia 7. HLD 8. respiratory failure requiring oxygen and bipap Plan - pt did respond to the lasix drip - cxr is improved - cont to monitor renal function - diuretics held for now secondary to low blood pressure - would avoid giving fluids - monitor pulse ox and bp - cont ICU care - discussed with ICU team and cardio - will need to discuss overall GOC - may have to settle for higher creatinine to keep pt euvolemic - monitor output - will follow Dr Houston
[2018-02-06 13:28] LABS: BLOOD UREA NITROGEN 105 mg/dL (7-18)
[2018-02-06] MEDS: MUPIROCIN CA 2% TOPICAL CREAM 15 GM TUBE TP SCH ×2 (14:06→22:05)
[2018-02-06] MEDS: TAMSULOSIN HCL 0.4 MG CAP PO SCH (17:13)
[2018-02-06] MEDS: APIXABAN 2.5 MG TABLET PO SCH ×2 (17:13→22:05)
[2018-02-06] MEDS: FLUTICASONE/SALMETEROL 100 MCG/50 MCG DISKUS IH SCH ×2 (17:17→22:07)
--- NOTE | 2018-02-06 17:25 | PN ---
Teaching Attending Note Name of Resident: Shaun Najera ATTENDING PHYSICIAN STATEMENT I saw and evaluated the patient. I reviewed the resident's note and discussed the case with the resident. I agree with the resident's findings and plan as documented. SUBJECTIVE: patient says he feels fine but is altered OBJECTIVE: Gen: lethargic CV: irreg irreg, tachy Pulm: ronchi in all lung carpenter, on NRB Abd: +bs, s/nt/nd Ext: 2+ BLE edema ASSESSMENT AND PLAN: 1. End stage R sided heart failure 2. Hypoxic respiratory failure 3. Metabolic encephalopathy 4. ABIGAIL on CKD 5. Atrial fibrillation 6. Hypotension -case d/w pulmonary, cardiology, and nephrology -cannot diurese secondary to hypotension -cannot give fluids secondary to hypoxic respiratory failure -continue ICU monitoring -agree with DNR/DNI -case d/w family at bedside, very poor prognosis -consider hospice/comfort measures 32 minutes spent in critical care time with patient and family Problem List - Problems (1) Cardiorenal syndrome with renal failure Code(s): I13.10 - HYP HRT & CHR KDNY DIS W/O HRT FAIL, W STG 1-4/UNSP CHR KDNY; N19 - UNSPECIFIED KIDNEY FAILURE (2) Acute renal insufficiency Code(s): N28.9 - DISORDER OF KIDNEY AND URETER, UNSPECIFIED (3) CHF exacerbation Code(s): I50.9 - HEART FAILURE, UNSPECIFIED Qualifiers: Heart failure type: unspecified Qualified Code(s): I50.9 - Heart failure, unspecified (4) Hypocalcemia Code(s): E83.51 - HYPOCALCEMIA (5) Hypokalemia Code(s): E87.6 - HYPOKALEMIA (6) Afib Code(s): I48.91 - UNSPECIFIED ATRIAL FIBRILLATION Qualifiers: Atrial fibrillation type: chronic Qualified Code(s): I48.2 - Chronic atrial fibrillation (7) HLD (hyperlipidemia) Code(s): E78.5 - HYPERLIPIDEMIA, UNSPECIFIED Qualifiers: Hyperlipidemia type: unspecified Qualified Code(s): E78.5 - Hyperlipidemia , unspecified (8) HTN (hypertension) Code(s): I10 - ESSENTIAL (PRIMARY) HYPERTENSION Qualifiers: Hypertension type: essential hypertension Qualified Code(s): I10 - Essential (primary) hypertension (9) Hypomagnesemia Code(s): E83.42 - HYPOMAGNESEMIA
--- NOTE | 2018-02-06 18:11 | PN ---
Physical Exam: SUBJECTIVE: Patient seen and examined at bedside. Transfer to ICU overnight. No new complaints. Continues on Non -rebreather. Denies CP,TAN, palpitations, abdominal pain , nausea or vomiting. OBJECTIVE: Vital Signs Period Temp Pulse Resp BP Sys/Garsia Pulse Ox Last 24 Hr 97 F-98 F 88-108 15-24 81-94/42-64 95-100 GENERAL: awake and alert, NAD HEAD:NCAT ENT: Ears normal, nares patent, oropharynx clear without exudates, Dry mucous membranes. NECK: supple, JVD to jaw. LUNGS: Diffuse rales, no wheezes, no accessory muscle use. HEART: Irregular, S1, S2 without murmur, rub or gallop. ABDOMEN: Soft, NTND, NABS, no guarding, no rebound, no hepatosplenomegaly, no masses. EXTREMITIES: 2+ pulses, warm, well-perfused, no edema. NEUROLOGICAL: Normal speech, gait not observed. no focal def. PSYCH: Normal mood, normal affect. Laboratory Results - last 24 hr 02/05/18 02/06/18 02/06/18 18:50 05:30 05:30 WBC 7.2 RBC 3.37 L Hgb 7.2 L Hct 23.7 L MCV 70.2 L MCH 21.2 L MCHC 30.2 L RDW 18.3 H Plt Count 113 L MPV 8.9 Absolute Neuts (auto) 5.6 Neutrophils % 76.8 Lymphocytes % 16.7 D Monocytes % 6.4 Eosinophils % 0.0 Basophils % 0.1 Nucleated RBC % 0 Sodium 136 Potassium 4.1 Chloride 93 L Carbon Dioxide 33 H Anion Gap 10 BUN 105 H* Creatinine 3.1 H Creat Clearance w eGFR 19.11 Random Glucose 118 H Lactic Acid 1.7 Calcium 7.6 L Phosphorus 8.1 H Magnesium 2.4 Total Bilirubin 1.2 H AST 20 ALT 18 Alkaline Phosphatase 73 Total Protein 5.6 L Albumin 2.6 L Active Medications Generic Name Dose Route Start Last Admin Trade Name Freq PRN Reason Stop Dose Admin Albuterol Sulfate 1 amp 02/05/18 20:00 02/06/18 15:50 Ventolin 0.083% Nebulizer Soln - NEB 1 amp RQID [facility] Administration Apixaban 2.5 mg 01/24/18 22:00 02/06/18 17:13 Eliquis - PO Not Given BID [facility] Atorvastatin Calcium 10 mg 01/24/18 22:00 02/05/18 21:50 Lipitor - PO 10 mg HS [facility] Administration Calcium Carbonate/Cholecalciferol 1 tab 01/25/18 10:00 02/05/18 11:10 Os-Vadim 500+D - PO 1 tab DAILY [facility] Administration Chlorhexidine Gluconate 1 applic 02/05/18 22:00 02/05/18 21:55 Hibiclens For Decolonization - TP Not Given HS [facility] Finasteride 5 mg 02/03/18 10:00 02/05/18 11:12 Proscar - PO 5 mg DAILY [facility] Administration Metoprolol Tartrate 50 mg 02/03/18 22:00 02/06/18 07:07 Lopressor - PO Not Given TID [facility] Mupirocin 1 applic 01/25/18 22:00 02/06/18 14:06 Bactroban 2% Cream - TP 1 applic BID [facility] Administration Mupirocin 1 applic 02/05/18 22:00 02/06/18 12:14 Bactroban Ointment (For Decolonization) - NS 02/10/18 21:59 1 applic BID [facility] Administration Fluticasone/Salmeterol 1 puff 02/05/18 22:00 02/06/18 17:17 Advair 100mcg/50mcg - IH Not Given BID [facility] Tamsulosin HCl 0.4 mg 02/04/18 08:30 02/06/18 17:13 Flomax - PO Not Given DAILY@0830 [facility] ASSESSMENT/PLAN: 87 m hx htn, aaa s/p stent repair 2013, aortic root aneurysm, afib, dchf/le edema, here with HF exacerbation. Problem List - Problems (1) Acute respiratory failure Assessment/Plan: Most likely flash Pulmonary Edema from worsening failure. * Fluids and diuretics held for overload in setting of renal failure * patient transitioned from Bilevel ventilation to Non-rebreather - O2 sat >90% * Will monitor closely vitals Q1H for signs of desaturation or increased work of breathing in ICU. * repeat CXR show bilateral significant vascular congestion only slightly improved from yesterday. (2) Cardiorenal syndrome with renal failure Assessment/Plan: * Cardiology input appreciated. * RV normal on rpt echo, mod-severe TR . mild pulm HTN * Diuretics held * Will continue to monitor daily weights and strict I/O's * Nephrology on board; Kidney US shows echogenic kidneys consistent with medical renal disease. * baseline Cr. 1.2 ; worsening renal function Cr now 3.1 (3) CHF (congestive heart failure) Assessment/Plan: * all diuretics held * will continue to monitor strict I/O's and daily weights. \ * salt restriction. * Cardiology consult appreciated. (4) Afib Assessment/Plan: cont metoprolol 100mg BID * no longer is on digoxin * cont eliquis. had epistaxis here requiring packing, observe for recurrent bleeding (5) HLD (hyperlipidemia) Assessment/Plan: continue statin (6) HTN (hypertension) Assessment/Plan: BP has been low normal this admission * requires BB for rate control. (7) Venous stasis dermatitis of both lower extremities Assessment/Plan: Vascular consulted. * recommend compression stocking for LE edema. * F/U with Dr. Logan as outpatients. Visit type - Emergency Visit Emergency Visit: Yes ED Registration Date: 01/24/18 Care time: The patient presented to the Emergency Department on the above date and was hospitalized for further evaluation of their emergent condition. - New Patient This patient is new to me today: No - Critical Care Critical Care patient: Yes Total Critical Care Time (in minutes): 41 Critical Care Statement: The care of this patient involved high complexity decision making to prevent further life threatening deterioration of the patient 's condition and/or to evaluate & treat vital organ system(s) failure or risk of failure.
[2018-02-06] MEDS: ATORVASTATIN CA 10 MG TABLET (FP) PO SCH (22:05)
[2018-02-06] MEDS: CHLORHEXIDINE GLUCONATE 4% CLEANSER FOR DECOLONIZATION TP SCH (22:06)
[2018-02-07] MEDS: METOPROLOL TARTRATE 50 MG TABLET (FP) PO SCH (06:37)
[2018-02-07 06:59] LABS: HEMATOCRIT 25.3 % (35.4-49); LYMPH % 8.1 % (8-40); MCH 22.3 pg (25.7-33.7); MCHC 31.5 g/dl (32.0-35.9); MEAN CELL VOLUME 70.8 fl (80-96); MONO % 8.3 % (3.8-10.2); NEUT % 83.6 % (42.8-82.8); PLATELET COUNT 128 K/MM3 (134-434); RBC 3.57 M/mm3 (4.00-5.60); RDW 21.3 % (11.9-15.9)
[2018-02-07 07:11] LABS: ALBUMIN 2.6 g/dl (3.4-5.0); ALK PHOS 75 U/L (45-117); ANION GAP 11 MMOL/L (8-16); BILIRUBIN,TOTAL 1.3 mg/dL (0.2-1); CALCIUM 7.6 mg/dL (8.5-10.1); CHLORIDE 94 mmol/L (98-107); CO2 31 mmol/L (21-32); CREATININE 3.1 mg/dL (0.55-1.3); GLUCOSE,RANDOM 93 mg/dL (74-106); MAGNESIUM 2.6 mg/dL (1.8-2.4); PHOSPHOROUS 8.8 mg/dL (2.5-4.9); POTASSIUM 4.5 mmol/L (3.5-5.1); SGOT/AST 38 U/L (15-37); SGPT/ALT 19 U/L (13-61); SODIUM 137 mmol/L (136-145); TOT PROT 5.9 g/dl (6.4-8.2)
[2018-02-07 07:23] LABS: BLOOD UREA NITROGEN 110 mg/dL (7-18)
--- NOTE | 2018-02-07 07:47 | PN ---
Physical Exam: SUBJECTIVE: Patient seen and examined at bedside. Per night team, BP decreased to 70s this AM, 250cc bolus of NS given. OBJECTIVE: Vital Signs Period Temp Pulse Resp BP Sys/Garsia Pulse Ox Last 24 Hr 97 F-98 F 52-122 16-24 81-113/42-69 98-98 GENERAL: Pt is lethargic, although arousable with physical stimulation. Cachectic. Temporal wasting. Responds to commands. HEENT: AT/NC. Dry mucus membranes. NECK: Bony prominences noted. + significant JVD on L side. LUNGS: Diffuse crackles b/l, no wheezes, no accessory muscle use. HEART: Irregular, S1, S2 normal, no murmur, ABDOMEN: Soft, NTND, NABS, no guarding, no rebound, no hepatosplenomegaly, no masses. EXTREMITIES: 2+ pulses, warm, well-perfused, no edema. SKIN: dry, poor turgor, no rashes or lesions noted. Laboratory Results - last 24 hr 02/06/18 02/06/18 02/07/18 05:30 05:30 05:30 WBC 7.2 10.0 RBC 3.37 L 3.57 L Hgb 7.2 L 8.0 L Hct 23.7 L 25.3 L MCV 70.2 L 70.8 L MCH 21.2 L 22.3 L MCHC 30.2 L 31.5 L RDW 18.3 H 21.3 H Plt Count 113 L 128 L MPV 8.9 9.0 Absolute Neuts (auto) 5.6 8.3 H Neutrophils % 76.8 83.6 H Lymphocytes % 16.7 D 8.1 D Monocytes % 6.4 8.3 Eosinophils % 0.0 0.0 Basophils % 0.1 0.0 Nucleated RBC % 0 0 Sodium 136 Potassium 4.1 Chloride 93 L Carbon Dioxide 33 H Anion Gap 10 BUN 105 H* Creatinine 3.1 H Creat Clearance w eGFR 19.11 Random Glucose 118 H Calcium 7.6 L Phosphorus 8.1 H Magnesium 2.4 Total Bilirubin 1.2 H AST 20 ALT 18 Alkaline Phosphatase 73 Total Protein 5.6 L Albumin 2.6 L 02/07/18 05:30 WBC RBC Hgb Hct MCV MCH MCHC RDW Plt Count MPV Absolute Neuts (auto) Neutrophils % Lymphocytes % Monocytes % Eosinophils % Basophils % Nucleated RBC % Sodium 137 Potassium 4.5 Chloride 94 L Carbon Dioxide 31 Anion Gap 11 BUN 110 H* Creatinine 3.1 H Creat Clearance w eGFR 19.11 Random Glucose 93 Calcium 7.6 L Phosphorus 8.8 H Magnesium 2.6 H Total Bilirubin 1.3 H AST 38 H ALT 19 Alkaline Phosphatase 75 Total Protein 5.9 L Albumin 2.6 L Active Medications Generic Name Dose Route Start Last Admin Trade Name Cindi PRN Reason Stop Dose Admin Albuterol Sulfate 1 amp 02/05/18 20:00 02/06/18 21:30 Ventolin 0.083% Nebulizer Soln - NEB 1 amp RQID RIVAS Administration Apixaban 2.5 mg 01/24/18 22:00 02/06/18 22:05 Eliquis - PO 2.5 mg BID RIVAS Administration Atorvastatin Calcium 10 mg 01/24/18 22:00 02/06/18 22:05 Lipitor - PO 10 mg HS RIVAS Administration Calcium Carbonate/Cholecalciferol 1 tab 01/25/18 10:00 02/05/18 11:10 Os-Vadim 500+D - PO 1 tab DAILY RIVAS Administration Chlorhexidine Gluconate 1 applic 02/05/18 22:00 02/06/18 22:06 Hibiclens For Decolonization - TP Not Given HS [facility] Finasteride 5 mg 02/03/18 10:00 02/05/18 11:12 Proscar - PO 5 mg DAILY RIVAS Administration Metoprolol Tartrate 50 mg 02/03/18 22:00 02/07/18 06:37 Lopressor - PO Not Given TID [facility] Mupirocin 1 applic 01/25/18 22:00 02/06/18 22:05 Bactroban 2% Cream - TP 1 applic BID RIVAS Administration Mupirocin 1 applic 02/05/18 22:00 02/06/18 22:05 Bactroban Ointment (For Decolonization) - NS 02/10/18 21:59 1 applic BID RIVAS Administration Fluticasone/Salmeterol 1 puff 02/05/18 22:00 02/06/18 22:07 Advair 100mcg/50mcg - IH 1 puff BID RIVAS Administration Tamsulosin HCl 0.4 mg 02/04/18 08:30 02/06/18 17:13 Flomax - PO Not Given DAILY@0830 [facility] ASSESSMENT/PLAN: 87M w/ pmhx of AFIB, CHF, HTN, Hyperlipidemia, renal failure currently being treated for acute decompensated heart failure admitted to the ICU for respiratory failure. Neurology -Lethargic. Currently on Bipap. Unable to converse. Opens eyes to verbal stimuli. Pulmonary #Acute respiratory failure 2/2 acute on chronic CHF/pleural effusion -Currently on nonrebreather satting at 95%. -CXR (02/07) showed progressive congestive and infiltrative changes w/ b/l effusions. Since prior study, findings have increased. -aspiration precautions -keep head elevated -hold AC for thoracentesis tomorrow due to pleural effusions #Pulmonary HTN #COPD/Emphysema -significant emphysema changes on CT -[facility] #Acute HF with preserved EF -Started IV Vasopressin today to maintain BP. MAP stable. -Lasix 40 given, monitor BP closely -Monitor I/Os #A. fib -If BP and MAP is stable, will start Metoprolol for rate control. -Hold Eliquis for possible thoracentesis tomorrow. #HTN -Currently hypotensive. Hold all anti-hypertensives -Cont to monitor BP. #HLD -hold Atorvastatin GI -NPO for now until MS improves Renal #ABIGAIL -baseline Cr 1.2, but has been stable for the past three days at 3.1; BUN 110 -Lasix given, recheck BMP. -Per nephro: Avoid giving fluids for now, may likely need to keep Cr elevated to keep pt euvolemic. FEN -hold IVf -recheck lytes in AM (BUN/Cr) -NPO dispo -DNR/DNI; Palliative consult ordered -continue to monitor in ICU Visit type - Emergency Visit Emergency Visit: Yes ED Registration Date: 01/24/18 Care time: The patient presented to the Emergency Department on the above date and was hospitalized for further evaluation of their emergent condition. - New Patient This patient is new to me today: No - Critical Care Critical Care patient: Yes Total Critical Care Time (in minutes): 36 Critical Care Statement: The care of this patient involved high complexity decision making to prevent further life threatening deterioration of the patient 's condition and/or to evaluate & treat vital organ system(s) failure or risk of failure.
[2018-02-07] MEDS: ALBUTEROL SO4 0.083% IH SOL 2.5 MG/3 ML VIAL.NEB. NEB SCH ×4 (08:10→20:52)
[2018-02-07] MEDS: APIXABAN 2.5 MG TABLET PO SCH (10:31)
[2018-02-07] MEDS: MUPIROCIN CA 2% TOPICAL CREAM 15 GM TUBE TP SCH ×2 (10:36→21:21)
[2018-02-07] MEDS: FLUTICASONE/SALMETEROL 100 MCG/50 MCG DISKUS IH SCH ×2 (10:36→21:21)
[2018-02-07] MEDS: MUPIROCIN 2% TOPICAL OINTMENT FOR DECOLONIZATION NS SCH ×2 (10:37→21:22)
[2018-02-07] MEDS: FINASTERIDE 5 MG TABLET (FP) PO SCH (10:38)
[2018-02-07] MEDS: CALCIUM 500MG/VIT-D 200 UNITS COMBO TABLET (FP) PO SCH (10:38)
[2018-02-07] MEDS: VASOPRESSIN 50 UNITS in SODIUM CHLORIDE 97.5 ML IVPB SCH (11:27)
--- NOTE | 2018-02-07 11:48 | PN ---
Progress Note (short form) - Note Progress Note: Chief Complaint: sob History of Present Illness: +sob, on bipap. no cp palps dizzy ex cigs Current Medications Generic Name Dose Route Start Last Admin Trade Name Cindi PRN Reason Stop Dose Admin Albuterol Sulfate 1 amp 02/05/18 20:00 02/07/18 08:10 Ventolin 0.083% Nebulizer Soln - NEB 1 amp RQID RIVAS Administration Atorvastatin Calcium 10 mg 01/24/18 22:00 02/06/18 22:05 Lipitor - PO 10 mg HS RIVAS Administration Calcium Carbonate/Cholecalciferol 1 tab 01/25/18 10:00 02/07/18 10:38 Os-Vadim 500+D - PO Not Given DAILY RIVAS Chlorhexidine Gluconate 1 applic 02/05/18 22:00 02/06/18 22:06 Hibiclens For Decolonization - TP Not Given HS RIVAS Finasteride 5 mg 02/03/18 10:00 02/07/18 10:38 Proscar - PO Not Given DAILY RIVAS Vasopressin 50 units/ Sodium 100 mls @ 4 mls/hr 02/07/18 10:30 02/07/18 11:27 Chloride IVPB 2 units/hr ASDIR RIVAS 4 mls/hr Administration Protocol 2 UNITS/HR Mupirocin 1 applic 01/25/18 22:00 02/07/18 10:36 Bactroban 2% Cream - TP 1 applic BID RIVAS Administration Mupirocin 1 applic 02/05/18 22:00 02/07/18 10:37 Bactroban Ointment (For Decolonization) - NS 02/10/18 21:59 1 applic BID RIVAS Administration Fluticasone/Salmeterol 1 puff 02/05/18 22:00 02/07/18 10:36 Advair 100mcg/50mcg - IH 1 puff BID RIVAS Administration - Objective Vital Signs: Vital Signs Temp 97.2 F L 02/07/18 06:00 Pulse 93 H 02/07/18 11:27 Resp 19 02/07/18 08:00 BP 94/55 L 02/07/18 11:27 Pulse Ox 98 02/07/18 08:10 Intake & Output 02/06/18 02/06/18 02/07/18 11:59 23:59 11:59 Intake Total 150 300 Output Total 500 800 300 Balance -350 -800 0 Weight 138 lb 2 oz 138 lb 2 oz Intake: IVPB 250 Oral 150 50 Output: Urine 500 800 300 Orr 500 400 Void 400 300 Other: Voiding Method Indwelling Catheter Bowel Movement Yes: Pastey Yes: Pastey Weight Measurement Method Built in [facility] Built in [facility] Constitutional: Yes: No Distress, Calm Eyes: No: Sclera Icterus HENT: No: Nasal Congestion Cardiovascular: Yes: Pulse Irregular, JVD, S1, S2, Other (PMI non diplaced). No : Gallop, Murmur Respiratory: Yes: Diminished (bases). No: Accessory Muscle Use, on bipap Gastrointestinal: Yes: Normal Bowel Sounds, Soft. No: Tenderness Extremities: No: Cold Edema: Yes (1+ LE) Integumentary: No: Jaundice diaphoresis Neurological: Yes: Alert, Oriented (x3) Psychiatric: No: Agitated mibi 12/2010: nl mpi echo 07/2017: nl lv/rv, mild lvh, mod lae, mild ar, mod tr/mr, mild phtn, ao root 4 cm echo 01/2018 nl LV function EF 50-55%, RV nl size/function, LA severely dilated , RA moderately dilated, mild to mod AI, mild to mod MR, mod to severe TR, RVSP 40-50 mmHg, mild ao root dilation, small pericardial effusion <1 cm images reviewed: peak TR gradient measured 47 mmHg (varies with R-R interval), however all doppler signals are incomplete. IVC dilated without collapse, c/w RAP 15. hence PASP is likely at least 62 mmHg. evidence of hi LAP based on low e ', high E/e' ratio. ecg: afib, hr 89, irbbb, old cxr: +bl effs CT chest 02/01: septal thickening c/w congestion, mod effusions, flank subcutaneous edema, dilated PA c/w pulm HTN. mod emphsematous changes tele: afib, rate low 100s a/p: 87 m hx htn, aaa s/p stent repair 2013, aortic root aneurysm, afib, dchf/ le edema, here with HF exacerbation. acute HFpEF, pulm HTN: -here with volume overload, with right-sided failure picture. started to notice incr SOB sx's around apr-june 2017 he says. -clinical picture is confusing. remains with NYHA IV sx status, marked JVD, clear lungs. severe ABIGAIL vs prior baseline. diuresing well by self-report yet without much clinical improvement. -RV normal on rpt echo, mod-severe TR = ? the culprit for his HF. + signif pulm HTN on echo, suspect underestimated (i.e. incomplete TR doppler envelope) given dilated PA on CT chest. 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 -awaiting check V/Q to r/o chronic PEs -was on lasix 40 bid at home, d/c wt 04/29 was 162 lbs. receiving 40 iv bid, then tid here. -01/31: remains with marked JVD and NYHA IV sob sx's. s/p metolazone 5mg yest. wt 133 (from 149 two days ago)--? accurate. recorded 24-hr UOPs have not been accurate per d/w nurse (signif > 800 cc yest)--start strict I/Os. renal fxn overall stable. -02/01: cont lasix 40 iv tid, will dose metolazone 2.5 x 1 again today. -02/02: remains with NYHA IV sob sx's, marked JVD. CT chest yest c/w pulm congestion and vol overload (subctunaeous edema). wt has plateau'd 133-134 lbs for few days. creat essentially stable, bun rising now. net neg fluid balance 400-900 cc each of past several days. increase lasix to [address] condom catheter--strict I/Os. -02/03: notes sob with activity is starting to feel better finally. wt down today. I > O yest suspect inaccurate documentation based on pt wt/sx trend and reported hi UOP (per RN, [place] catheter came off overnight). renal fxn worse. try add nitrates low dose for cardiorenal syndrome (ntg paste 0.5 inch). change lopressor 100 bid to 50 tid to minimize hypotension potential. -02/04: wt likely erroneous. 1300 cc UOP yest. renal fxn slightly worse. sob improved. continue lasix 100 iv bid. unfortunately, pt may end up with signif impaired baseline renal fxn in order to maintain adequate volume status, hope to avoid HD. no role for inotropes here with preserved LV and RV fxn on echo. continue nitrates for cardiorenal syndrome (will try to increase dose today-- watch for hypotension) - 02/05 [employer] after removing BiPAP, improved after additional lasix dose and replacing BiPap. wt 137 yesterday (?error)->135 lbs today. unclear if accurate , however Cr stable, UOP 1300 (with unmeasured void). lasix dose not given this AM for low BP. will decrease dose of nitrate for room for diuresis, continue lasix 100 mg IV BID - 02/06 [employer] for respiratory distress, patient transferred to ICU, lasix gtt started yesterday and was dc'ed for hypotension, dc'ed nitro paste. -02/07: despite high doses of iv lasix and lasix gtt he remains volume up with worsening pleural effs. Now holding lasix due to hypotension. Also holding all anti-hypertensives given hypotension. No role for inotropes here with preserved LV and RV fxn on echo. D/w crit care, thoracentesis may help with resp status. copd: -signif emphys changes on CT per d/w dr nogueira -? stable, fixed component to pt's PH (WHO 3?) and/or sob sx's -no a.e. here htn: -on low side here, needs bb for rate control, restart as BP improves afib: -bp low so holding bb. hr acceptable for now, monitor on tele. -on eliquis. had epistaxis here requiring packing, observe for recurrent bleeding. can hold eliquis temporarily for thoracentesis abigail: -baseline creat 1.2 (04/29) -creat worsening gradually with diuresis here. -renal consulting, sonogram no obstruction
--- NOTE | 2018-02-07 12:50 | PN ---
Teaching Attending Note Name of Resident: Stella Carroll ATTENDING PHYSICIAN STATEMENT I saw and evaluated the patient. I reviewed the resident's note and discussed the case with the resident. I agree with the resident's findings and plan as documented. SUBJECTIVE: Pt seen and examined in the ICU. Now on BiPAP with 100% fiO2 for worsening hypoxia. OBJECTIVE: Vital Signs Period Temp Pulse Resp BP Sys/Garsia Pulse Ox Last 24 Hr 97 F-97.3 F 52-122 16-22 85-113/42-69 96-98 Intake & Output 02/04/18 02/05/18 02/06/18 02/07/18 23:59 23:59 23:59 23:59 Intake Total 94117 240 150 300 Output Total 1380 1500 1300 300 Balance 91874 -1260 -1150 0 Weight 62.505 kg 61.326 kg 62.652 kg 62.652 kg Gen: lethargic on BiPAP Heart: RRR Lung: scattered rhonchi Abd: soft, nontender Ext: no edema CBC, BMP 02/07/18 05:30 02/07/18 05:30 Active Medications Albuterol Sulfate (Ventolin 0.083% Nebulizer Soln -) 1 amp NEB RQID [facility] Last Admin: 02/07/18 11:40 Dose: 1 amp Atorvastatin Calcium (Lipitor -) 10 mg PO HS [facility] Last Admin: 02/06/18 22:05 Dose: 10 mg Calcium Carbonate/Cholecalciferol (Os-Vadim 500+D -) 1 tab PO DAILY [facility] Last Admin: 02/07/18 10:38 Dose: Not Given Chlorhexidine Gluconate (Hibiclens For Decolonization -) 1 applic TP HS [facility] Last Admin: 02/06/18 22:06 Dose: Not Given Finasteride (Proscar -) 5 mg PO DAILY [facility] Last Admin: 02/07/18 10:38 Dose: Not Given Vasopressin 50 units/ Sodium (Chloride) 100 mls @ 4 mls/hr IVPB ASDIR [facility]; Protocol Last Admin: 02/07/18 11:27 Dose: 2 units/hr, 4 mls/hr Mupirocin (Bactroban 2% Cream -) 1 applic TP BID [facility] Last Admin: 02/07/18 10:36 Dose: 1 applic Mupirocin (Bactroban Ointment (For Decolonization) -) 1 applic NS BID RIVAS Stop: 02/10/18 21:59 Last Admin: 02/07/18 10:37 Dose: 1 applic Saliva Substitute (Mouthkote Solution -) 1 applic MM DAILY RIVAS Fluticasone/Salmeterol (Advair 100mcg/50mcg -) 1 puff IH BID RIVAS Last Admin: 02/07/18 10:36 Dose: 1 puff ASSESSMENT AND PLAN: Acute on Chronic Diastolic Heart Failure Acute Hypoxic Respiratory failure Pleural Effusions from above Atrial Fibrillation Pulmonary HTN COPD/emphysema HTN Hyperlipidemia Anemia - start vasopressin gtt - lasix if BP tolerates - monitor urine output, creatinine - O2 to keep SpO2 >90% - BiPAP as needed to assist in work of breathing - inhaled bronchodilators - rate control - continue anticoagulation - monitor H/H - can perform therapeutic thoracentesis but will need to hold anticoagulation critical care time spent in reviewing chart, evaluating patient and formulating plan 35 min Problem List - Problems (1) Acute on chronic diastolic (congestive) heart failure Code(s): I50.33 - ACUTE ON CHRONIC DIASTOLIC (CONGESTIVE) HEART FAILURE (2) Afib Code(s): I48.91 - UNSPECIFIED ATRIAL FIBRILLATION Qualifiers: Atrial fibrillation type: chronic Qualified Code(s): I48.2 - Chronic atrial fibrillation (3) Pulmonary hypertension Code(s): I27.20 - PULMONARY HYPERTENSION, UNSPECIFIED (4) COPD (chronic obstructive pulmonary disease) Code(s): J44.9 - CHRONIC OBSTRUCTIVE PULMONARY DISEASE, UNSPECIFIED (5) Emphysema of lung Code(s): J43.9 - EMPHYSEMA, UNSPECIFIED (6) HLD (hyperlipidemia) Code(s): E78.5 - HYPERLIPIDEMIA, UNSPECIFIED Qualifiers: Hyperlipidemia type: unspecified Qualified Code(s): E78.5 - Hyperlipidemia , unspecified (7) HTN (hypertension) Code(s): I10 - ESSENTIAL (PRIMARY) HYPERTENSION Qualifiers: Hypertension type: essential hypertension Qualified Code(s): I10 - Essential (primary) hypertension (8) Pleural effusion Code(s): J90 - PLEURAL EFFUSION, NOT ELSEWHERE CLASSIFIED
[2018-02-07] MEDS: LYTES/YERBA SANTA 240 ML BOTTLE MM SCH (14:04)
[2018-02-07] MEDS ORDERED: FUROSEMIDE 40 MG/4 ML INJECTABLE VIAL IVPUSH ONE (14:14)
[2018-02-07] MEDS ORDERED: FUROSEMIDE 40 MG/4 ML INJECTABLE VIAL ONE (14:57)
--- NOTE | 2018-02-07 15:27 | EKG ---
Test Reason : Blood Pressure : / mmHG Vent. Rate : 111 BPM Atrial Rate : 067 BPM P-R Int : 000 ms QRS Dur : 098 ms QT Int : 328 ms P-R-T Axes : 000 074 228 degrees QTc Int : 446 ms ATRIAL FIBRILLATION WITH RAPID VENTRICULAR RESPONSE NONSPECIFIC ST AND T WAVE ABNORMALITY ABNORMAL ECG WHEN COMPARED WITH ECG OF 24-JAN-2018 13:08, T WAVE INVERSION NOW EVIDENT IN LATERAL LEADS Confirmed by USAMA BRADEN, DUDLEY ([id number]) on 02/07/2018 3:27:26 PM Referred By: Confirmed By:DUDLEY FORRESTER MD
[2018-02-07] MEDS ORDERED: METOPROLOL TARTRATE 5 MG/5 ML VIAL IVPUSH ONE (16:14)
[2018-02-07] MEDS ORDERED: METOPROLOL TARTRATE 25 MG TABLET (FP) PO ONE (16:16)
--- NOTE | 2018-02-07 17:33 | PN ---
Physical Exam: SUBJECTIVE: Patient seen and examined at bedside. Rapid afib overnight. rate controlled now. Continue to require BiPap. Complaining of dry mouth and hunger. Denies CP,TAN, Abdominal pain, nausea or vomiting. OBJECTIVE: Vital Signs Period Temp Pulse Resp BP Sys/Garsia Pulse Ox Last 24 Hr 97.1 F-97.8 F 52-122 16-25 85-122/36-71 96-98 GENERAL: awake and alert, NAD HEAD:NCAT ENT: Ears normal, nares patent, oropharynx clear without exudates, Dry mucous membranes. NECK: supple, JVD to jaw. LUNGS: Diffuse rales, no wheezes, no accessory muscle use. HEART: Irregular, S1, S2 without murmur, rub or gallop. ABDOMEN: Soft, NTND, NABS, no guarding, no rebound, no hepatosplenomegaly, no masses. EXTREMITIES: 2+ pulses, warm, well-perfused, no edema. NEUROLOGICAL: Normal speech, gait not observed. no focal def. PSYCH: Normal mood, normal affect. Laboratory Results - last 24 hr 01/25/18 02/07/18 02/07/18 09:51 05:30 05:30 WBC 10.0 RBC 3.57 L Hgb 8.0 L Hct 25.3 L MCV 70.8 L MCH 22.3 L MCHC 31.5 L RDW 21.3 H Plt Count 128 L MPV 9.0 Absolute Neuts (auto) 8.3 H Neutrophils % 83.6 H Lymphocytes % 8.1 D Monocytes % 8.3 Eosinophils % 0.0 Basophils % 0.0 Nucleated RBC % 0 Sodium 137 Potassium 4.5 Chloride 94 L Carbon Dioxide 31 Anion Gap 11 BUN 110 H* Creatinine 3.1 H Creat Clearance w eGFR 19.11 Random Glucose 93 Calcium 6.3 L* 7.6 L Phosphorus 8.8 H Magnesium 2.6 H Total Bilirubin 1.3 H AST 38 H ALT 19 Alkaline Phosphatase 75 Total Protein 5.9 L Albumin 2.6 L PTH Intact 87 H PTH Intact Intraop 0 m Active Medications Generic Name Dose Route Start Last Admin Trade Name Freq PRN Reason Stop Dose Admin Albuterol Sulfate 1 amp 02/05/18 20:00 02/07/18 16:00 Ventolin 0.083% Nebulizer Soln - NEB 1 amp RQID RIVAS Administration Atorvastatin Calcium 10 mg 01/24/18 22:00 02/06/18 22:05 Lipitor - PO 10 mg HS RIVAS Administration Calcium Carbonate/Cholecalciferol 1 tab 01/25/18 10:00 02/07/18 10:38 Os-Vadim 500+D - PO Not Given DAILY RIVAS Chlorhexidine Gluconate 1 applic 02/05/18 22:00 02/06/18 22:06 Hibiclens For Decolonization - TP Not Given HS RIVAS Finasteride 5 mg 02/03/18 10:00 02/07/18 10:38 Proscar - PO Not Given DAILY RIVAS Vasopressin 50 units/ Sodium 100 mls @ 4 mls/hr 02/07/18 10:30 02/07/18 16:35 Chloride IVPB 2 units/hr ASDIR RIVAS 4 mls/hr Titration Protocol 2 UNITS/HR Mupirocin 1 applic 01/25/18 22:00 02/07/18 10:36 Bactroban 2% Cream - TP 1 applic BID RIVAS Administration Mupirocin 1 applic 02/05/18 22:00 02/07/18 10:37 Bactroban Ointment (For Decolonization) - NS 02/10/18 21:59 1 applic BID RIVAS Administration Saliva Substitute 1 applic 02/07/18 13:00 02/07/18 14:04 Mouthkote Solution - MM 1 applic DAILY RIVAS Administration Fluticasone/Salmeterol 1 puff 02/05/18 22:00 02/07/18 10:36 Advair 100mcg/50mcg - IH 1 puff BID RIVAS Administration ASSESSMENT/PLAN: 87 m hx htn, aaa s/p stent repair 2013, aortic root aneurysm, afib, dchf/le edema, here with HF exacerbation. Problem List - Problems (1) Acute respiratory failure Assessment/Plan: CXR appears worse today. * Vasopressin started. * lasix 40 mg IV today. * continues to require BiPap. * Critical Care team possible Thoracentesis. (2) Cardiorenal syndrome with renal failure Assessment/Plan: * Cardiology input appreciated. * RV normal on rpt echo, mod-severe TR . mild pulm HTN * Will continue to monitor daily weights and strict I/O's * Nephrology on board; Kidney US shows echogenic kidneys consistent with medical renal disease. * baseline Cr. 1.2 ; worsening renal function Cr now 3.1 (3) CHF (congestive heart failure) Assessment/Plan: * Lasix 40 mg given today. * will continue to monitor strict I/O's and daily weights. \ * salt restriction. * Cardiology consult appreciated. (4) Afib Assessment/Plan: cont metoprolol 100mg BID * no longer is on digoxin * cont eliquis. had epistaxis here requiring packing, observe for recurrent bleeding (5) HLD (hyperlipidemia) Assessment/Plan: continue statin (6) HTN (hypertension) Assessment/Plan: BP has been low normal this admission * requires BB for rate control. (7) Venous stasis dermatitis of both lower extremities Assessment/Plan: Vascular consulted. * recommend compression stocking for LE edema. * F/U with Dr. Logan as outpatients. Visit type - Emergency Visit Emergency Visit: Yes ED Registration Date: 01/24/18 Care time: The patient presented to the Emergency Department on the above date and was hospitalized for further evaluation of their emergent condition. - New Patient This patient is new to me today: No - Critical Care Critical Care patient: Yes Total Critical Care Time (in minutes): 46 Critical Care Statement: The care of this patient involved high complexity decision making to prevent further life threatening deterioration of the patient 's condition and/or to evaluate & treat vital organ system(s) failure or risk of failure.
--- NOTE | 2018-02-07 17:37 | PN ---
Teaching Attending Note Name of Resident: Shaun Najera ATTENDING PHYSICIAN STATEMENT I saw and evaluated the patient. I reviewed the resident's note and discussed the case with the resident. I agree with the resident's findings and plan as documented. SUBJECTIVE: unable to obtain OBJECTIVE: Gen: lethargic but easily arousable CV: irreg irreg but rate controlled Pulm: tachypneic, shallow, diffuse ronchi, on bipap Abd: +bs, s/nt/nd Ext: 1+ edema ASSESSMENT AND PLAN: 1. End stage R sided heart failure 2. Hypoxic respiratory failure 3. Metabolic encephalopathy 4. ABIGAIL on CKD 5. Atrial fibrillation 6. Hypotension -case d/w pulmonary, cardiology, and nephrology -place on pressors for blood pressure support to improve renal perfusion -monitor if renal function and diuresis improves with perfusion but consider diuretics -also with pleural effusions, pulmonary considering thoracentesis -continue oxygen support -continue current management 32 minutes spent in critical care time with this patient Problem List - Problems (1) Cardiorenal syndrome with renal failure Code(s): I13.10 - HYP HRT & CHR KDNY DIS W/O HRT FAIL, W STG 1-4/UNSP CHR KDNY; N19 - UNSPECIFIED KIDNEY FAILURE (2) Acute renal insufficiency Code(s): N28.9 - DISORDER OF KIDNEY AND URETER, UNSPECIFIED (3) CHF exacerbation Code(s): I50.9 - HEART FAILURE, UNSPECIFIED Qualifiers: Heart failure type: unspecified Qualified Code(s): I50.9 - Heart failure, unspecified (4) Hypocalcemia Code(s): E83.51 - HYPOCALCEMIA (5) Hypokalemia Code(s): E87.6 - HYPOKALEMIA (6) Afib Code(s): I48.91 - UNSPECIFIED ATRIAL FIBRILLATION Qualifiers: Atrial fibrillation type: chronic Qualified Code(s): I48.2 - Chronic atrial fibrillation (7) HLD (hyperlipidemia) Code(s): E78.5 - HYPERLIPIDEMIA, UNSPECIFIED Qualifiers: Hyperlipidemia type: unspecified Qualified Code(s): E78.5 - Hyperlipidemia , unspecified (8) HTN (hypertension) Code(s): I10 - ESSENTIAL (PRIMARY) HYPERTENSION Qualifiers: Hypertension type: essential hypertension Qualified Code(s): I10 - Essential (primary) hypertension (9) Hypomagnesemia Code(s): E83.42 - HYPOMAGNESEMIA
--- NOTE | 2018-02-07 18:16 | PN ---
Progress Note, Physician History of Present Illness: Pt seen and examined at bedside. He appears fatigued. He remain in the ICU. - Current Medication List Current Medications: Active Medications Albuterol Sulfate (Ventolin 0.083% Nebulizer Soln -) 1 amp NEB RQID [facility] Last Admin: 02/07/18 16:00 Dose: 1 amp Atorvastatin Calcium (Lipitor -) 10 mg PO HS [facility] Last Admin: 02/06/18 22:05 Dose: 10 mg Calcium Carbonate/Cholecalciferol (Os-Vadim 500+D -) 1 tab PO DAILY [facility] Last Admin: 02/07/18 10:38 Dose: Not Given Chlorhexidine Gluconate (Hibiclens For Decolonization -) 1 applic TP HS [facility] Last Admin: 02/06/18 22:06 Dose: Not Given Finasteride (Proscar -) 5 mg PO DAILY [facility] Last Admin: 02/07/18 10:38 Dose: Not Given Vasopressin 50 units/ Sodium (Chloride) 100 mls @ 4 mls/hr IVPB ASDIR [facility]; Protocol Last Titration: 02/07/18 16:35 Dose: 2 units/hr, 4 mls/hr Mupirocin (Bactroban 2% Cream -) 1 applic TP BID [facility] Last Admin: 02/07/18 10:36 Dose: 1 applic Mupirocin (Bactroban Ointment (For Decolonization) -) 1 applic NS BID [facility] Stop: 02/10/18 21:59 Last Admin: 02/07/18 10:37 Dose: 1 applic Saliva Substitute (Mouthkote Solution -) 1 applic MM DAILY [facility] Last Admin: 02/07/18 14:04 Dose: 1 applic Fluticasone/Salmeterol (Advair 100mcg/50mcg -) 1 puff IH BID [facility] Last Admin: 02/07/18 10:36 Dose: 1 puff - Objective Vital Signs: Vital Signs Temperature 97.7 F 02/07/18 18:00 Pulse Rate 105 H 02/07/18 18:00 Respiratory Rate 20 02/07/18 18:00 Blood Pressure 109/60 02/07/18 18:00 O2 Sat by Pulse Oximetry (%) 97 02/07/18 16:49 Constitutional: Yes: Calm Eyes: Yes: Conjunctiva Clear HENT: Yes: Atraumatic Cardiovascular: Yes: JVD, S1, S2 Respiratory: Yes: On Venti-Mask Genitourinary: Yes: Orr Present Musculoskeletal: Yes: Muscle Weakness Edema: Yes Edema: LLE: 1+, RLE: 1+ Neurological: Yes: Oriented Labs: CBC, BMP 02/07/18 05:30 02/07/18 05:30 INR, PTT INR 1.83 (0.83-1.09) H 01/24/18 13:45 - ....Imaging Chest X-ray: Report Reviewed Problem List - Problems (1) Acute renal insufficiency Code(s): N28.9 - DISORDER OF KIDNEY AND URETER, UNSPECIFIED (2) Hypocalcemia Code(s): E83.51 - HYPOCALCEMIA (3) Hypokalemia Code(s): E87.6 - HYPOKALEMIA (4) Afib Code(s): I48.91 - UNSPECIFIED ATRIAL FIBRILLATION Qualifiers: Atrial fibrillation type: chronic Qualified Code(s): I48.2 - Chronic atrial fibrillation (5) HLD (hyperlipidemia) Code(s): E78.5 - HYPERLIPIDEMIA, UNSPECIFIED Qualifiers: Hyperlipidemia type: unspecified Qualified Code(s): E78.5 - Hyperlipidemia , unspecified (6) Pleural effusion Code(s): J90 - PLEURAL EFFUSION, NOT ELSEWHERE CLASSIFIED Assessment/Plan Current Medications Generic Name Dose Route Start Last Admin Trade Name Filibertoq PRN Reason Stop Dose Admin Albuterol Sulfate 1 amp 02/05/18 20:00 02/07/18 16:00 Ventolin 0.083% Nebulizer Soln - NEB 1 amp RQID [facility] Administration Atorvastatin Calcium 10 mg 01/24/18 22:00 02/06/18 22:05 Lipitor - PO 10 mg HS [facility] Administration Calcium Carbonate/Cholecalciferol 1 tab 01/25/18 10:00 02/07/18 10:38 Os-Vadim 500+D - PO Not Given DAILY [facility] Chlorhexidine Gluconate 1 applic 02/05/18 22:00 02/06/18 22:06 Hibiclens For Decolonization - TP Not Given HS [facility] Finasteride 5 mg 02/03/18 10:00 02/07/18 10:38 Proscar - PO Not Given DAILY [facility] Vasopressin 50 units/ Sodium 100 mls @ 4 mls/hr 02/07/18 10:30 02/07/18 16:35 Chloride IVPB 2 units/hr ASDIR [facility] 4 mls/hr Titration Protocol 2 UNITS/HR Mupirocin 1 applic 01/25/18 22:00 02/07/18 10:36 Bactroban 2% Cream - TP 1 applic BID [facility] Administration Mupirocin 1 applic 02/05/18 22:00 02/07/18 10:37 Bactroban Ointment (For Decolonization) - NS 02/10/18 21:59 1 applic BID [facility] Administration Saliva Substitute 1 applic 02/07/18 13:00 02/07/18 14:04 Mouthkote Solution - MM 1 applic DAILY [facility] Administration Fluticasone/Salmeterol 1 puff 02/05/18 22:00 02/07/18 10:36 Advair 100mcg/50mcg - IH 1 puff BID [facility] Administration Impression 1. ABIGAIL 2. hypokalemia 3. hypocalcemia 4. a-fib 5. CHF 6. thalassemia 7. HLD 8. respiratory failure requiring oxygen and bipap Plan - cxr worsening - monitor renal function - will need to discuss goc - bp has been low - avoid fluids - cont oxygen - prognosis guarded - monitor output - will follow Dr Houston
[2018-02-07] MEDS: CHLORHEXIDINE GLUCONATE 4% CLEANSER FOR DECOLONIZATION TP SCH (21:22)
[2018-02-07] MEDS: ATORVASTATIN CA 10 MG TABLET (FP) PO SCH (21:23)
[2018-02-08 06:34] LABS: HEMATOCRIT 25.3 % (35.4-49); HEMOGLOBIN 7.4 GM/dL (11.7-16.9); LYMPH % 14.4 % (8-40); MCH 21.3 pg (25.7-33.7); MCHC 29.3 g/dl (32.0-35.9); MEAN CELL VOLUME 72.9 fl (80-96); MEAN PLT VOLUME 9.2 fl (7.5-11.1); MONO % 6.3 % (3.8-10.2); NEUT % 79.3 % (42.8-82.8); PLATELET COUNT 105 K/MM3 (134-434); RBC 3.47 M/mm3 (4.00-5.60); RDW 22.4 % (11.9-15.9); WHITE BLOOD COUNT 5.9 K/mm3 (4.0-10.0)
[2018-02-08 07:31] LABS: ALBUMIN 2.8 g/dl (3.4-5.0); ALK PHOS 84 U/L (45-117); ANION GAP 13 MMOL/L (8-16); BILIRUBIN,TOTAL 1.2 mg/dL (0.2-1); CALCIUM 7.8 mg/dL (8.5-10.1); CHLORIDE 94 mmol/L (98-107); CO2 32 mmol/L (21-32); CREATININE 3.3 mg/dL (0.55-1.3); GLUCOSE,RANDOM 133 mg/dL (74-106); MAGNESIUM 2.6 mg/dL (1.8-2.4); PHOSPHOROUS 8.8 mg/dL (2.5-4.9); POTASSIUM 4.2 mmol/L (3.5-5.1); SGOT/AST 19 U/L (15-37); SGPT/ALT 17 U/L (13-61); SODIUM 140 mmol/L (136-145); TOT PROT 6.1 g/dl (6.4-8.2)
[2018-02-08 07:41] LABS: BLOOD UREA NITROGEN 122 mg/dL (7-18)
[2018-02-08] MEDS: ALBUTEROL SO4 0.083% IH SOL 2.5 MG/3 ML VIAL.NEB. NEB SCH ×4 (07:47→20:55)
[2018-02-08] MEDS ORDERED: MORPHINE SULFATE 2 MG/ML VIAL IVPUSH ONE (08:14)
[2018-02-08] MEDS: VASOPRESSIN 50 UNITS in SODIUM CHLORIDE 97.5 ML IVPB SCH ×2 (08:15→12:16)
--- NOTE | 2018-02-08 08:23 | PN ---
Physical Exam: SUBJECTIVE: Patient seen and examined OBJECTIVE: Vital Signs Period Temp Pulse Resp BP Sys/Garsia Pulse Ox Last 24 Hr 97.5 F-98.2 F 84-114 17-25 94-122/36-71 85-100 GENERAL: Pt more alert today, conversing. Cachectic. Temporal wasting. Responds to commands. HEENT: AT/NC. Dry mucus membranes. NECK: Bony prominences noted. + significant JVD on L side. LUNGS: Diffuse crackles b/l, no wheezes, accessory muscle use noted. HEART: Irregular, S1, S2 normal, no murmur, ABDOMEN: Soft, NTND, NABS, no guarding, no rebound, no hepatosplenomegaly, no masses. EXTREMITIES: 2+ pulses, warm, well-perfused, no edema. SKIN: dry, poor turgor, no rashes or lesions noted. Laboratory Results - last 24 hr 01/25/18 02/08/18 02/08/18 09:51 05:30 05:30 WBC 5.9 RBC 3.47 L Hgb 7.4 L Hct 25.3 L MCV 72.9 L MCH 21.3 L MCHC 29.3 L RDW 22.4 H Plt Count 105 L MPV 9.2 Absolute Neuts (auto) 4.7 Neutrophils % 79.3 Lymphocytes % 14.4 D Monocytes % 6.3 Eosinophils % 0.0 Basophils % 0.0 Nucleated RBC % 1 H Sodium 140 Potassium 4.2 Chloride 94 L Carbon Dioxide 32 Anion Gap 13 BUN 122 H* Creatinine 3.3 H Creat Clearance w eGFR 17.78 Random Glucose 133 H Calcium 6.3 L* 7.8 L Phosphorus 8.8 H Magnesium 2.6 H Total Bilirubin 1.2 H AST 19 ALT 17 Alkaline Phosphatase 84 Total Protein 6.1 L Albumin 2.8 L PTH Intact 87 H PTH Intact Intraop 0 m Active Medications Generic Name Dose Route Start Last Admin Trade Name Freq PRN Reason Stop Dose Admin Albuterol Sulfate 1 amp 02/05/18 20:00 02/08/18 07:47 Ventolin 0.083% Nebulizer Soln - NEB 1 amp RQID [facility] Administration Atorvastatin Calcium 10 mg 01/24/18 22:00 02/07/18 21:23 Lipitor - PO 10 mg HS [facility] Administration Calcium Carbonate/Cholecalciferol 1 tab 01/25/18 10:00 02/07/18 10:38 Os-Vadim 500+D - PO Not Given DAILY [facility] Chlorhexidine Gluconate 1 applic 02/05/18 22:00 02/07/18 21:22 Hibiclens For Decolonization - TP Not Given HS [facility] Finasteride 5 mg 02/03/18 10:00 02/07/18 10:38 Proscar - PO Not Given DAILY [facility] Vasopressin 50 units/ Sodium 100 mls @ 4 mls/hr 02/07/18 10:30 02/07/18 16:35 Chloride IVPB 2 units/hr ASDIR [facility] 4 mls/hr Titration Protocol 2 UNITS/HR Morphine Sulfate 2 mg 02/08/18 08:14 Morphine Injection - IM 02/08/18 08:15 ONCE ONE Mupirocin 1 applic 01/25/18 22:00 02/07/18 21:21 Bactroban 2% Cream - TP 1 applic BID [facility] Administration Mupirocin 1 applic 02/05/18 22:00 02/07/18 21:22 Bactroban Ointment (For Decolonization) - NS 02/10/18 21:59 1 applic BID [facility] Administration Saliva Substitute 1 applic 02/07/18 13:00 02/07/18 14:04 Mouthkote Solution - MM 1 applic DAILY [facility] Administration Fluticasone/Salmeterol 1 puff 02/05/18 22:00 02/07/18 21:21 Advair 100mcg/50mcg - IH 1 puff BID [facility] Administration ASSESSMENT/PLAN: 87M w/ pmhx of AFIB, CHF, HTN, Hyperlipidemia, renal failure currently being treated for acute decompensated heart failure admitted to the ICU for respiratory failure. Neurology -Lethargic. Currently on Bipap. Unable to converse. Opens eyes to verbal stimuli. Pulmonary #Acute respiratory failure 2/2 acute on chronic CHF/pleural effusion -Currently on nonrebreather satting at 95%. -CXR (02/07) showed progressive congestive and infiltrative changes w/ b/l effusions. Since prior study, findings have increased. -aspiration precautions -keep head elevated -discuss with family thoracentesis #Pulmonary HTN #COPD/Emphysema -significant emphysema changes on CT -[facility] #Acute HF with preserved EF -Started IV Vasopressin today to maintain BP. MAP stable. -Lasix 40 given, monitor BP closely -Monitor I/Os #A. fib -If BP and MAP is stable, will start Metoprolol for rate control. -Hold Eliquis for now; possible thoracentesis if family agrees #HTN -Currently hypotensive. Hold all anti-hypertensives -Cont to monitor BP. #HLD -hold Atorvastatin GI -start puree diet Renal #ABIGAIL -baseline Cr 1.2, but has been stable for the past three days at 3.1; BUN 110 -Lasix given, recheck BMP. -Per nephro: Avoid giving fluids for now, may likely need to keep Cr elevated to keep pt euvolemic. FEN -hold IVf -recheck lytes in AM (BUN/Cr) -NPO dispo -DNR/DNI; Palliative consult ordered, family meeting pending -continue to monitor in ICU Visit type - Emergency Visit Emergency Visit: Yes ED Registration Date: 01/24/18 Care time: The patient presented to the Emergency Department on the above date and was hospitalized for further evaluation of their emergent condition. - New Patient This patient is new to me today: No - Critical Care Critical Care patient: Yes Total Critical Care Time (in minutes): 40 Critical Care Statement: The care of this patient involved high complexity decision making to prevent further life threatening deterioration of the patient 's condition and/or to evaluate & treat vital organ system(s) failure or risk of failure.
[2018-02-08] MEDS ORDERED: MORPHINE SULFATE 2 MG/ML VIAL IM ONE (08:30)
[2018-02-08] MEDS ORDERED: VASOPRESSIN 20 UNITS/ML VIAL IV ONE (09:03)
[2018-02-08] MEDS: FLUTICASONE/SALMETEROL 100 MCG/50 MCG DISKUS IH SCH ×2 (09:11→21:46)
[2018-02-08] MEDS: MUPIROCIN CA 2% TOPICAL CREAM 15 GM TUBE TP SCH ×2 (09:12→21:51)
[2018-02-08] MEDS: MUPIROCIN 2% TOPICAL OINTMENT FOR DECOLONIZATION NS SCH ×2 (09:13→21:49)
[2018-02-08] MEDS: CALCIUM 500MG/VIT-D 200 UNITS COMBO TABLET (FP) PO SCH (09:19)
[2018-02-08] MEDS: LYTES/YERBA SANTA 240 ML BOTTLE MM SCH (09:19)
[2018-02-08] MEDS: FINASTERIDE 5 MG TABLET (FP) PO SCH (09:20)
--- NOTE | 2018-02-08 09:43 | PN ---
Physical Exam: SUBJECTIVE: Patient seen and examined at bedside. No overnight events. Now on 8L NC . Complaining of dry mouth. Denies CP,TAN, Abdominal pain, nausea or vomiting. OBJECTIVE: Vital Signs Period Temp Pulse Resp BP Sys/Garsia Pulse Ox Last 24 Hr 97.5 F-98.2 F 84-114 17-25 94-122/36-71 85-100 GENERAL: awake but lethargic, appears thin and frail, NAD HEAD:NCAT ENT: Ears normal, nares patent, oropharynx clear without exudates, Dry mucous membranes. NECK: supple, JVD to jaw. LUNGS: Diffuse rales, no wheezes, no accessory muscle use. HEART: Irregular, S1, S2 without murmur, rub or gallop. ABDOMEN: Soft, NTND, NABS, no guarding, no rebound, no hepatosplenomegaly, no masses. EXTREMITIES: 2+ pulses, warm, well-perfused, no edema. NEUROLOGICAL: Normal speech, gait not observed. no focal def. PSYCH: Normal mood, normal affect. Laboratory Results - last 24 hr 01/25/18 02/08/18 02/08/18 09:51 05:30 05:30 WBC 5.9 RBC 3.47 L Hgb 7.4 L Hct 25.3 L MCV 72.9 L MCH 21.3 L MCHC 29.3 L RDW 22.4 H Plt Count 105 L MPV 9.2 Absolute Neuts (auto) 4.7 Neutrophils % 79.3 Lymphocytes % 14.4 D Monocytes % 6.3 Eosinophils % 0.0 Basophils % 0.0 Nucleated RBC % 1 H Sodium 140 Potassium 4.2 Chloride 94 L Carbon Dioxide 32 Anion Gap 13 BUN 122 H* Creatinine 3.3 H Creat Clearance w eGFR 17.78 Random Glucose 133 H Calcium 6.3 L* 7.8 L Phosphorus 8.8 H Magnesium 2.6 H Total Bilirubin 1.2 H AST 19 ALT 17 Alkaline Phosphatase 84 Total Protein 6.1 L Albumin 2.8 L PTH Intact 87 H PTH Intact Intraop 0 m Active Medications Generic Name Dose Route Start Last Admin Trade Name Freq PRN Reason Stop Dose Admin Albuterol Sulfate 1 amp 02/05/18 20:00 02/08/18 07:47 Ventolin 0.083% Nebulizer Soln - NEB 1 amp RQID [facility] Administration Atorvastatin Calcium 10 mg 01/24/18 22:00 02/07/18 21:23 Lipitor - PO 10 mg HS [facility] Administration Calcium Carbonate/Cholecalciferol 1 tab 01/25/18 10:00 02/08/18 09:19 Os-Vadim 500+D - PO 1 tab DAILY [facility] Administration Chlorhexidine Gluconate 1 applic 02/05/18 22:00 02/07/18 21:22 Hibiclens For Decolonization - TP Not Given HS [facility] Finasteride 5 mg 02/03/18 10:00 02/08/18 09:20 Proscar - PO 5 mg DAILY [facility] Administration Vasopressin 50 units/ Sodium 100 mls @ 4 mls/hr 02/07/18 10:30 02/08/18 09:09 Chloride IVPB 2 units/hr ASDIR [facility] 4 mls/hr Titration Protocol 2 UNITS/HR Mupirocin 1 applic 01/25/18 22:00 02/08/18 09:12 Bactroban 2% Cream - TP 1 applic BID [facility] Administration Mupirocin 1 applic 02/05/18 22:00 02/08/18 09:13 Bactroban Ointment (For Decolonization) - NS 02/10/18 21:59 1 applic BID [facility] Administration Saliva Substitute 1 applic 02/07/18 13:00 02/08/18 09:19 Mouthkote Solution - MM 1 applic DAILY [facility] Administration Fluticasone/Salmeterol 1 puff 02/05/18 22:00 02/08/18 09:11 Advair 100mcg/50mcg - IH 1 puff BID [facility] Administration ASSESSMENT/PLAN: Problem List - Problems (1) Acute respiratory failure Assessment/Plan: CXR appears unchanged today. * Vasopressin continued * lasix 40 mg IV daily * NIV prn * Critical Care team possible Thoracentesis today. (2) Cardiorenal syndrome with renal failure Assessment/Plan: * Cardiology input appreciated. * RV normal on rpt echo, mod-severe TR . mild pulm HTN * Will continue to monitor daily weights and strict I/O's * Nephrology on board; Kidney US shows echogenic kidneys consistent with medical renal disease. * baseline Cr. 1.2 ; worsening renal function Cr now 3.3 (3) CHF (congestive heart failure) Assessment/Plan: * Lasix 40 mg given today. * will continue to monitor strict I/O's and daily weights. \ * salt restriction. * Cardiology consult appreciated. (4) Afib Assessment/Plan: cont metoprolol 100mg BID * no longer is on digoxin * cont eliquis. had epistaxis here requiring packing, observe for recurrent bleeding (5) HLD (hyperlipidemia) Assessment/Plan: continue statin (6) HTN (hypertension) Assessment/Plan: BP has been low normal this admission * requires BB for rate control. (7) Venous stasis dermatitis of both lower extremities Assessment/Plan: Vascular consulted. * recommend compression stocking for LE edema. * F/U with Dr. Logan as outpatients. Visit type - Emergency Visit Emergency Visit: Yes ED Registration Date: 01/24/18 Care time: The patient presented to the Emergency Department on the above date and was hospitalized for further evaluation of their emergent condition. - New Patient This patient is new to me today: No - Critical Care Critical Care patient: Yes Total Critical Care Time (in minutes): 42 Critical Care Statement: The care of this patient involved high complexity decision making to prevent further life threatening deterioration of the patient 's condition and/or to evaluate & treat vital organ system(s) failure or risk of failure.
--- NOTE | 2018-02-08 11:30 | PN ---
Progress Note (short form) - Note Progress Note: Chief Complaint: sob History of Present Illness: +sob, on bipap. lethargic. no cp palps dizzy. on vasopressin now ex cigs Current Medications Generic Name Dose Route Start Last Admin Trade Name Cindi PRN Reason Stop Dose Admin Albuterol Sulfate 1 amp 02/05/18 20:00 02/08/18 07:47 Ventolin 0.083% Nebulizer Soln - NEB 1 amp RQID [facility] Administration Atorvastatin Calcium 10 mg 01/24/18 22:00 02/07/18 21:23 Lipitor - PO 10 mg HS [facility] Administration Calcium Carbonate/Cholecalciferol 1 tab 01/25/18 10:00 02/08/18 09:19 Os-Vadim 500+D - PO 1 tab DAILY [facility] Administration Chlorhexidine Gluconate 1 applic 02/05/18 22:00 02/07/18 21:22 Hibiclens For Decolonization - TP Not Given HS [facility] Finasteride 5 mg 02/03/18 10:00 02/08/18 09:20 Proscar - PO 5 mg DAILY [facility] Administration Vasopressin 50 units/ Sodium 100 mls @ 4 mls/hr 02/07/18 10:30 02/08/18 09:09 Chloride IVPB 2 units/hr ASDIR [facility] 4 mls/hr Titration Protocol 2 UNITS/HR Mupirocin 1 applic 01/25/18 22:00 02/08/18 09:12 Bactroban 2% Cream - TP 1 applic BID [facility] Administration Mupirocin 1 applic 02/05/18 22:00 02/08/18 09:13 Bactroban Ointment (For Decolonization) - NS 02/10/18 21:59 1 applic BID [facility] Administration Saliva Substitute 1 applic 02/07/18 13:00 02/08/18 09:19 Mouthkote Solution - MM 1 applic DAILY [facility] Administration Fluticasone/Salmeterol 1 puff 02/05/18 22:00 02/08/18 09:11 Advair 100mcg/50mcg - IH 1 puff BID [facility] Administration - Objective Vital Signs: Vital Signs Temp 97.6 F 02/08/18 10:00 Pulse 115 H 02/08/18 10:00 Resp 24 H 02/08/18 10:00 BP 112/52 L 11/30/18 10:00 Pulse Ox 96 02/08/18 09:30 Intake & Output 02/07/18 02/07/18 02/08/18 11:59 23:59 11:59 Intake Total 300 75 98 Output Total 300 550 500 Balance 0 -475 -402 Weight 138 lb 2 oz 124 lb 1 oz Intake: IV 25 48 Pitressin - 50 Units In 25 48 Normal Saline - 97.5 ml @ 2 UNITS/HR 4 mls/hr IVPB ASDIR [facility]AS Rx#: [id number] IVPB 250 Oral 50 50 50 Output: Urine 300 550 500 Orr 300 Void 300 250 500 Other: Voiding Method Indwelling Catheter Indwelling Catheter Bowel Movement Yes: Pastey No Yes # Bowel Movements 1 1 Body Mass Index (BMI) 19.2 Weight Measurement Method [facility] Constitutional: Yes: No Distress, Calm Eyes: No: Sclera Icterus HENT: No: Nasal Congestion Cardiovascular: Yes: Pulse Irregular, JVD, S1, S2, Other (PMI non diplaced). No : Gallop, Murmur Respiratory: Yes: Diminished (bases). No: Accessory Muscle Use, on bipap Gastrointestinal: Yes: Normal Bowel Sounds, Soft. No: Tenderness Extremities: No: Cold Edema: Yes trace le edema bl Integumentary: No: Jaundice diaphoresis Neurological: Yes: lethargic Psychiatric: No: Agitated mibi 12/2010: nl mpi echo 07/2017: nl lv/rv, mild lvh, mod lae, mild ar, mod tr/mr, mild phtn, ao root 4 cm echo 01/2018 nl LV function EF 50-55%, RV nl size/function, LA severely dilated , RA moderately dilated, mild to mod AI, mild to mod MR, mod to severe TR, RVSP 40-50 mmHg, mild ao root dilation, small pericardial effusion <1 cm images reviewed: peak TR gradient measured 47 mmHg (varies with R-R interval), however all doppler signals are incomplete. IVC dilated without collapse, c/w RAP 15. hence PASP is likely at least 62 mmHg. evidence of hi LAP based on low e ', high E/e' ratio. repeat echo 02/07/18: nl lv/rv, richi, mod tr, mild mr, mod phtn ecg: afib, hr 89, irbbb, old cxr: +bl effs CT chest 02/01: septal thickening c/w congestion, mod effusions, flank subcutaneous edema, dilated PA c/w pulm HTN. mod emphsematous changes tele: afib, rate ok a/p: 87 m hx htn, aaa s/p stent repair 2013, aortic root aneurysm, afib, dchf/ le edema, here with HF exacerbation. acute HFpEF, pulm HTN: -here with volume overload, with right-sided failure picture. started to notice incr SOB sx's around apr-june 2017 he says. -clinical picture is confusing. remains with NYHA IV sx status, marked JVD, clear lungs. severe ABIGAIL vs prior baseline. diuresing well by self-report yet without much clinical improvement. -RV normal on rpt echo, mod-severe TR = ? the culprit for his HF. + signif pulm HTN on echo, suspect underestimated (i.e. incomplete TR doppler envelope) given dilated PA on CT chest. 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 -awaiting check V/Q to r/o chronic PEs -was on lasix 40 bid at home, d/c wt 04/29 was 162 lbs. receiving 40 iv bid, then tid here. -01/31: remains with marked JVD and NYHA IV sob sx's. s/p metolazone 5mg yest. wt 133 (from 149 two days ago)--? accurate. recorded 24-hr UOPs have not been accurate per d/w nurse (signif > 800 cc yest)--start strict I/Os. renal fxn overall stable. -02/01: cont lasix 40 iv tid, will dose metolazone 2.5 x 1 again today. -02/02: remains with NYHA IV sob sx's, marked JVD. CT chest yest c/w pulm congestion and vol overload (subctunaeous edema). wt has plateau'd 133-134 lbs for few days. creat essentially stable, bun rising now. net neg fluid balance 400-900 cc each of past several days. increase lasix to [address] condom catheter--strict I/Os. -02/03: notes sob with activity is starting to feel better finally. wt down today. I > O yest suspect inaccurate documentation based on pt wt/sx trend and reported hi UOP (per RN, shaye catheter came off overnight). renal fxn worse. try add nitrates low dose for cardiorenal syndrome (ntg paste 0.5 inch). change lopressor 100 bid to 50 tid to minimize hypotension potential. -02/04: wt likely erroneous. 1300 cc UOP yest. renal fxn slightly worse. sob improved. continue lasix 100 iv bid. unfortunately, pt may end up with signif impaired baseline renal fxn in order to maintain adequate volume status, hope to avoid HD. no role for inotropes here with preserved LV and RV fxn on echo. continue nitrates for cardiorenal syndrome (will try to increase dose today-- watch for hypotension) - 02/05 MANAGER ORDER after removing BiPAP, improved after additional lasix dose and replacing BiPap. wt 137 yesterday (?error)->135 lbs today. unclear if accurate , however Cr stable, UOP 1300 (with unmeasured void). lasix dose not given this AM for low BP. will decrease dose of nitrate for room for diuresis, continue lasix 100 mg IV BID - 02/06 MANAGER ORDER for respiratory distress, patient transferred to ICU, lasix gtt started yesterday and was dc'ed for hypotension, dc'ed nitro paste. -02/07-30: despite high doses of iv lasix and lasix gtt he remains volume up with worsening pleural effs. Now holding lasix due to hypotension. Also holding all anti-hypertensives given hypotension. No role for inotropes here with preserved LV and RV fxn on echo. Would likely need HD, thoracentesis if family agrees. Family meeting pending. copd: -signif emphys changes on CT per d/w dr nogueira -? stable, fixed component to pt's PH (WHO 3?) and/or sob sx's -no a.e. here htn: -on low side here, needs bb for rate control, restart as BP improves afib: -bp low so holding bb. hr acceptable for now, monitor on tele. -on eliquis. had epistaxis here requiring packing, observe for recurrent bleeding. can hold eliquis temporarily for thoracentesis abigail: -baseline creat 1.2 (04/29) -creat worsening gradually with diuresis here. -renal consulting, sonogram no obstruction
[2018-02-08 11:42] LABS: ANISOCYTOSIS 3+; MACROCYTOSIS 0; PLATELET ESTIMATE DECREASED; TARGET CELLS 1+; TEAR DROP CELLS 1+
--- NOTE | 2018-02-08 14:25 | PN ---
Teaching Attending Note Name of Resident: Clementina Morelos ATTENDING PHYSICIAN STATEMENT I saw and evaluated the patient. I reviewed the resident's note and discussed the case with the resident. I agree with the resident's findings and plan as documented. SUBJECTIVE: Patient seen and examined in the ICU. On low dose Vasopressin for hemodynamic support. On VM O2 but required NIPPV overnight. OBJECTIVE: Intake & Output 02/05/18 02/06/18 02/07/18 02/08/18 23:59 23:59 23:59 23:59 Intake Total 240 150 375 98 Output Total 1500 1300 850 500 Balance -1260 -1150 -475 -402 Weight 135 lb 3.2 oz 138 lb 2 oz 138 lb 2 oz 124 lb 1 oz Last Vital Signs Temp Pulse Resp BP Pulse Ox 97.6 F 114 H 27 H 114/61 96 02/08/18 10:00 02/08/18 12:15 02/08/18 12:00 02/08/18 12:15 02/08/18 09:30 Active Medications Albuterol Sulfate (Ventolin 0.083% Nebulizer Soln -) 1 amp NEB RQID [facility] Last Admin: 02/08/18 11:54 Dose: 1 amp Atorvastatin Calcium (Lipitor -) 10 mg PO HS [facility] Last Admin: 02/07/18 21:23 Dose: 10 mg Calcium Carbonate/Cholecalciferol (Os-Vadim 500+D -) 1 tab PO DAILY [facility] Last Admin: 02/08/18 09:19 Dose: 1 tab Chlorhexidine Gluconate (Hibiclens For Decolonization -) 1 applic TP HS [facility] Last Admin: 02/07/18 21:22 Dose: Not Given Finasteride (Proscar -) 5 mg PO DAILY [facility] Last Admin: 02/08/18 09:20 Dose: 5 mg Vasopressin 50 units/ Sodium (Chloride) 100 mls @ 4 mls/hr IVPB ASDIR [facility]; Protocol Last Admin: 02/08/18 12:16 Dose: 1 units/hr, 2 mls/hr Mupirocin (Bactroban 2% Cream -) 1 applic TP BID [facility] Last Admin: 02/08/18 09:12 Dose: 1 applic Mupirocin (Bactroban Ointment (For Decolonization) -) 1 applic NS BID [facility] Stop: 02/10/18 21:59 Last Admin: 02/08/18 09:13 Dose: 1 applic Saliva Substitute (Mouthkote Solution -) 1 applic MM DAILY [facility] Last Admin: 02/08/18 09:19 Dose: 1 applic Fluticasone/Salmeterol (Advair 100mcg/50mcg -) 1 puff IH BID [facility] Last Admin: 02/08/18 09:11 Dose: 1 puff Gen: lethargic on BiPAP Heart: RRR Lung: scattered rhonchi Abd: soft, nontender Ext: no edema Laboratory Results - last 24 hr 02/08/18 02/08/18 05:30 05:30 WBC 5.9 RBC 3.47 L Hgb 7.4 L Hct 25.3 L MCV 72.9 L MCH 21.3 L MCHC 29.3 L RDW 22.4 H Plt Count 105 L MPV 9.2 Absolute Neuts (auto) 4.7 Neutrophils % 79.3 Lymphocytes % 14.4 D Monocytes % 6.3 Eosinophils % 0.0 Basophils % 0.0 Nucleated RBC % 1 H Hypochromia 1+ Platelet Estimate Decreased Polychromasia 0 Poikilocytosis 2+ Anisocytosis 3+ Microcytosis 3+ Macrocytosis 0 Target Cells 1+ Tear Drop Cells 1+ Stomatocytes 1+ Sodium 140 Potassium 4.2 Chloride 94 L Carbon Dioxide 32 Anion Gap 13 BUN 122 H* Creatinine 3.3 H Creat Clearance w eGFR 17.78 Random Glucose 133 H Calcium 7.8 L Phosphorus 8.8 H Magnesium 2.6 H Total Bilirubin 1.2 H AST 19 ALT 17 Alkaline Phosphatase 84 Total Protein 6.1 L Albumin 2.8 L ASSESSMENT AND PLAN: Acute on Chronic Diastolic Heart Failure Acute Hypoxic Respiratory failure Pleural Effusions from above Atrial Fibrillation Pulmonary HTN COPD/emphysema HTN Hyperlipidemia Anemia - start vasopressin gtt - lasix if BP tolerates - monitor urine output, creatinine - O2 to keep SpO2 >90% - BiPAP as needed to assist in work of breathing - inhaled bronchodilators - rate control - continue anticoagulation - monitor H/H - can perform therapeutic thoracentesis but will need to hold anticoagulation critical care time spent in reviewing chart, evaluating patient and formulating plan 35 min Problem List - Problems (1) Acute on chronic diastolic (congestive) heart failure Code(s): I50.33 - ACUTE ON CHRONIC DIASTOLIC (CONGESTIVE) HEART FAILURE (2) Afib Code(s): I48.91 - UNSPECIFIED ATRIAL FIBRILLATION Qualifiers: Atrial fibrillation type: chronic Qualified Code(s): I48.2 - Chronic atrial fibrillation (3) Pulmonary hypertension Code(s): I27.20 - PULMONARY HYPERTENSION, UNSPECIFIED (4) COPD (chronic obstructive pulmonary disease) Code(s): J44.9 - CHRONIC OBSTRUCTIVE PULMONARY DISEASE, UNSPECIFIED (5) Emphysema of lung Code(s): J43.9 - EMPHYSEMA, UNSPECIFIED (6) HLD (hyperlipidemia) Code(s): E78.5 - HYPERLIPIDEMIA, UNSPECIFIED Qualifiers: Hyperlipidemia type: unspecified Qualified Code(s): E78.5 - Hyperlipidemia , unspecified (7) HTN (hypertension) Code(s): I10 - ESSENTIAL (PRIMARY) HYPERTENSION Qualifiers: Hypertension type: essential hypertension Qualified Code(s): I10 - Essential (primary) hypertension (8) Pleural effusion Code(s): J90 - PLEURAL EFFUSION, NOT ELSEWHERE CLASSIFIED ASSESSMENT AND PLAN: Acute on Chronic Diastolic Heart Failure Acute Hypoxic Respiratory failure Pleural Effusions from above Atrial Fibrillation Pulmonary HTN COPD/emphysema HTN Hyperlipidemia Anemia - Wean vasopressin drip - Noted that the patient will receive Lasix - monitor urine output, creatinine - O2 to keep SpO2 >90% - NIPPV as needed to assist in work of breathing - inhaled bronchodilators - rate control - continue anticoagulation - monitor H/H Dr Haas Critical care time spent in reviewing chart, evaluating patient and formulating plan 35 min
--- NOTE | 2018-02-08 16:28 | PN ---
Progress Note, Physician History of Present Illness: Pt seen and examined at bedside. He is awake but appears very weak. He did eat today. - Current Medication List Current Medications: Active Medications Albuterol Sulfate (Ventolin 0.083% Nebulizer Soln -) 1 amp NEB RQID [facility] Last Admin: 02/08/18 15:59 Dose: 1 amp Atorvastatin Calcium (Lipitor -) 10 mg PO HS [facility] Last Admin: 02/07/18 21:23 Dose: 10 mg Calcium Carbonate/Cholecalciferol (Os-Vadim 500+D -) 1 tab PO DAILY [facility] Last Admin: 02/08/18 09:19 Dose: 1 tab Chlorhexidine Gluconate (Hibiclens For Decolonization -) 1 applic TP HS [facility] Last Admin: 02/07/18 21:22 Dose: Not Given Finasteride (Proscar -) 5 mg PO DAILY [facility] Last Admin: 02/08/18 09:20 Dose: 5 mg Vasopressin 50 units/ Sodium (Chloride) 100 mls @ 4 mls/hr IVPB ASDIR [facility]; Protocol Last Titration: 02/08/18 15:00 Dose: 2 units/hr, 4 mls/hr Mupirocin (Bactroban 2% Cream -) 1 applic TP BID [facility] Last Admin: 02/08/18 09:12 Dose: 1 applic Mupirocin (Bactroban Ointment (For Decolonization) -) 1 applic NS BID [facility] Stop: 18 21:59 Last Admin: 02/08/18 09:13 Dose: 1 applic Saliva Substitute (Mouthkote Solution -) 1 applic MM DAILY [facility] Last Admin: 02/08/18 09:19 Dose: 1 applic Fluticasone/Salmeterol (Advair 100mcg/50mcg -) 1 puff IH BID [facility] Last Admin: 02/08/18 09:11 Dose: 1 puff - Objective Vital Signs: Vital Signs Temperature 97.8 F 02/08/18 14:00 Pulse Rate 115 H 02/08/18 16:00 Respiratory Rate 18 02/08/18 16:00 Blood Pressure 104/53 L 02/08/18 16:00 O2 Sat by Pulse Oximetry (%) 96 02/08/18 09:30 Constitutional: Yes: Calm Eyes: Yes: Conjunctiva Clear Cardiovascular: Yes: S1, S2 Respiratory: Yes: On Venti-Mask Gastrointestinal: Yes: Soft Genitourinary: Yes: Orr Present Musculoskeletal: Yes: Muscle Weakness Edema: Yes Edema: LLE: 1+, RLE: 1+ Neurological: Yes: Oriented Psychiatric: Yes: Oriented Labs: CBC, BMP 02/08/18 05:30 02/08/18 05:30 INR, PTT INR 1.83 (0.83-1.09) H 01/24/18 13:45 Problem List - Problems (1) Acute renal insufficiency Code(s): N28.9 - DISORDER OF KIDNEY AND URETER, UNSPECIFIED (2) Hypocalcemia Code(s): E83.51 - HYPOCALCEMIA (3) Hypokalemia Code(s): E87.6 - HYPOKALEMIA (4) Afib Code(s): I48.91 - UNSPECIFIED ATRIAL FIBRILLATION Qualifiers: Atrial fibrillation type: chronic Qualified Code(s): I48.2 - Chronic atrial fibrillation (5) HLD (hyperlipidemia) Code(s): E78.5 - HYPERLIPIDEMIA, UNSPECIFIED Qualifiers: Hyperlipidemia type: unspecified Qualified Code(s): E78.5 - Hyperlipidemia , unspecified (6) Pleural effusion Code(s): J90 - PLEURAL EFFUSION, NOT ELSEWHERE CLASSIFIED Assessment/Plan Current Medications Generic Name Dose Route Start Last Admin Trade Name Freq PRN Reason Stop Dose Admin Albuterol Sulfate 1 amp 02/05/18 20:00 02/08/18 15:59 Ventolin 0.083% Nebulizer Soln - NEB 1 amp RQID [facility] Administration Atorvastatin Calcium 10 mg 01/24/18 22:00 02/07/18 21:23 Lipitor - PO 10 mg HS [facility] Administration Calcium Carbonate/Cholecalciferol 1 tab 01/25/18 10:00 02/08/18 09:19 Os-Vadim 500+D - PO 1 tab DAILY [facility] Administration Chlorhexidine Gluconate 1 applic 02/05/18 22:00 02/07/18 21:22 Hibiclens For Decolonization - TP Not Given HS [facility] Finasteride 5 mg 02/03/18 10:00 02/08/18 09:20 Proscar - PO 5 mg DAILY [facility] Administration Vasopressin 50 units/ Sodium 100 mls @ 4 mls/hr 02/07/18 10:30 02/08/18 15:00 Chloride IVPB 2 units/hr ASDIR [facility] 4 mls/hr Titration Protocol 2 UNITS/HR Mupirocin 1 applic 01/25/18 22:00 02/08/18 09:12 Bactroban 2% Cream - TP 1 applic BID [facility] Administration Mupirocin 1 applic 02/05/18 22:00 02/08/18 09:13 Bactroban Ointment (For Decolonization) - NS 02/10/18 21:59 1 applic BID [facility] Administration Saliva Substitute 1 applic 02/07/18 13:00 02/08/18 09:19 Mouthkote Solution - MM 1 applic DAILY [facility] Administration Fluticasone/Salmeterol 1 puff 02/05/18 22:00 02/08/18 09:11 Advair 100mcg/50mcg - IH 1 puff BID [facility] Administration Impression 1. ABIGAIL 2. hypokalemia 3. hypocalcemia 4. a-fib 5. CHF 6. thalassemia 7. HLD 8. respiratory failure requiring oxygen and bipap Plan - renal function is worsening - cxr is worsening - will restart lasix - discussed care and HD therapy at length with pts and daughter, they are going to speak amongst themselves about HD and goals of care - discussed with medical team - taper pressors as tolerated - cont oxygen - prognosis guarded - monitor output - will follow Dr Houston
[2018-02-08] MEDS ORDERED: FUROSEMIDE 40 MG/4 ML INJECTABLE VIAL ONE (17:35)
[2018-02-08] MEDS ORDERED: FUROSEMIDE 40 MG/4 ML INJECTABLE VIAL IVPUSH ONE (17:45)
--- NOTE | 2018-02-08 17:53 | ECHO ---
Name: ENRIQUE NGHIA Exam:Adult Echocardiogram Study Date: 02/07/2018 01:53 PM Age: 87 yrs Reason For Study: ASSESS LV FUNCTION Height: 71 in Weight: 138 lb BSA: 1.8 m2 MMode/2D Measurements & Calculations IVSd: 1.1 cm Ao root diam: 3.6 cm LVIDd: 4.9 cm LA dimension: 3.9 cm LVIDs: 2.8 cm LVPWd: 0.95 cm LVPWs: 1.9 cm EDV(Teich): 114.7 ml ESV(Teich): 30.6 ml LAV (MOD-bp): 76.0 ml TAPSE: 1.3 cm Doppler Measurements & Calculations Ao V2 max: 114.3 cm/sec AI max sharath: 347.7 cm/sec Ao max P.2 mmHg AI max P.5 mmHg AI P1/2t: 381.1 msec AI dec slope: 267.2 cm/sec2 LV V1 max P.0 mmHg MR max sharath: 305.7 cm/sec LV V1 max: 71.1 cm/sec MR max P.3 mmHg TV V2 max: 348.4 cm/sec TR max sharath: 424.8 cm/sec TV max P.0 mmHg TR max P.2 mmHg PA V2 max: 86.9 cm/sec Med Peak E' Sharath: 5.8 cm/sec PA max P.0 mmHg Lat Peak E' Sharath: 9.5 cm/sec Procedure A complete two-dimensional transthoracic echocardiogram was performed (2D, M-mode, Doppler and color flow Doppler). Left Ventricle The left ventricular size, thickness and function are normal. The left ventricular ejection fraction is normal. Ejection Fraction = 65-70%. The left ventricular wall motion is normal. Right Ventricle The right ventricle is normal in size and function. Atria The left atrium is moderately dilated. The right atrium is moderately dilated. Mitral Valve There is mild mitral regurgitation. Tricuspid Valve There is moderate tricuspid regurgitation. There is moderate pulmonary hypertension. Aortic Valve The aortic valve is trileaflet. There is mild aortic valve thickening. No hemodynamically significant valvular aortic stenosis. Trace aortic regurgitation. Pulmonic Valve Trace pulmonic valvular regurgitation. Great Vessels The aortic root is normal size. Pericardium/Pleura There is no pericardial effusion. There is a pleural effusion present. Interpretation Summary The left ventricular size, thickness and function are normal The right ventricle is normal in size and function. The left atrium is moderately dilated. The right atrium is moderately dilated. There is mild mitral regurgitation. There is moderate tricuspid regurgitation. There is moderate pulmonary hypertension. Trace aortic regurgitation. Trace pulmonic valvular regurgitation. There is a pleural effusion present. MD Ra Hernández 02/07/2018 04:15 PM
--- NOTE | 2018-02-08 18:51 | PN ---
Teaching Attending Note Name of Resident: Shaun Najera ATTENDING PHYSICIAN STATEMENT I saw and evaluated the patient. I reviewed the resident's note and discussed the case with the resident. I agree with the resident's findings and plan as documented. SUBJECTIVE: Mr Ramirez asking to eat and drink today OBJECTIVE: Gen: moderate distress CV: irreg irreg, tachycardic Pulm: tachypneic, shallow, diffuse ronchi, on NRB Abd: +bs, s/nt/nd Ext: 1+ edema ASSESSMENT AND PLAN: 1. End stage R sided heart failure 2. Hypoxic respiratory failure 3. Metabolic encephalopathy 4. ABIGAIL on CKD 5. Atrial fibrillation 6. Hypotension -case d/w pulmonary, cardiology, and nephrology -continue pressors for bp support -attempting diuresis with lasix, currently unsuccessful -Dr Houston discussing HD with family -also with pleural effusions, pulmonary considering thoracentesis -continue oxygen support -continue current management 33 minutes spent in critical care time with this patient Problem List - Problems (1) Cardiorenal syndrome with renal failure Code(s): I13.10 - HYP HRT & CHR KDNY DIS W/O HRT FAIL, W STG 1-4/UNSP CHR KDNY; N19 - UNSPECIFIED KIDNEY FAILURE (2) Acute renal insufficiency Code(s): N28.9 - DISORDER OF KIDNEY AND URETER, UNSPECIFIED (3) CHF exacerbation Code(s): I50.9 - HEART FAILURE, UNSPECIFIED Qualifiers: Heart failure type: unspecified Qualified Code(s): I50.9 - Heart failure, unspecified (4) Hypocalcemia Code(s): E83.51 - HYPOCALCEMIA (5) Hypokalemia Code(s): E87.6 - HYPOKALEMIA (6) Afib Code(s): I48.91 - UNSPECIFIED ATRIAL FIBRILLATION Qualifiers: Atrial fibrillation type: chronic Qualified Code(s): I48.2 - Chronic atrial fibrillation (7) HLD (hyperlipidemia) Code(s): E78.5 - HYPERLIPIDEMIA, UNSPECIFIED Qualifiers: Hyperlipidemia type: unspecified Qualified Code(s): E78.5 - Hyperlipidemia , unspecified (8) HTN (hypertension) Code(s): I10 - ESSENTIAL (PRIMARY) HYPERTENSION Qualifiers: Hypertension type: essential hypertension Qualified Code(s): I10 - Essential (primary) hypertension (9) Hypomagnesemia Code(s): E83.42 - HYPOMAGNESEMIA
[2018-02-08] MEDS ORDERED: PT OWN MED DRAWER 7, Y5N ONE (21:45)
[2018-02-08] MEDS: ATORVASTATIN CA 10 MG TABLET (FP) PO SCH (21:49)
[2018-02-08] MEDS: CHLORHEXIDINE GLUCONATE 4% CLEANSER FOR DECOLONIZATION TP SCH (21:49)
[2018-02-09 06:00] LABS: EOS % 0.1 % (0-4.5); HEMATOCRIT 24.9 % (35.4-49); HEMOGLOBIN 7.4 GM/dL (11.7-16.9); LYMPH % 18.2 % (8-40); MCH 21.3 pg (25.7-33.7); MCHC 29.7 g/dl (32.0-35.9); MEAN CELL VOLUME 71.6 fl (80-96); MEAN PLT VOLUME 8.7 fl (7.5-11.1); NEUT % 68.7 % (42.8-82.8); PLATELET COUNT 98 K/MM3 (134-434); RBC 3.48 M/mm3 (4.00-5.60); RDW 22.1 % (11.9-15.9)
[2018-02-09 06:39] LABS: ALBUMIN 2.9 g/dl (3.4-5.0); ALK PHOS 80 U/L (45-117); ANION GAP 12 MMOL/L (8-16); BILIRUBIN,TOTAL 1.3 mg/dL (0.2-1); CHLORIDE 94 mmol/L (98-107); CO2 34 mmol/L (21-32); CREATININE 3.2 mg/dL (0.55-1.3); GLUCOSE,RANDOM 126 mg/dL (74-106); MAGNESIUM 2.5 mg/dL (1.8-2.4); PHOSPHOROUS 6.8 mg/dL (2.5-4.9); POTASSIUM 3.8 mmol/L (3.5-5.1); SGOT/AST 16 U/L (15-37); SGPT/ALT 16 U/L (13-61); SODIUM 140 mmol/L (136-145); TOT PROT 6.2 g/dl (6.4-8.2)
[2018-02-09 07:01] LABS: BLOOD UREA NITROGEN 125 mg/dL (7-18)
[2018-02-09] MEDS: ALBUTEROL SO4 0.083% IH SOL 2.5 MG/3 ML VIAL.NEB. NEB SCH ×4 (08:47→20:50)
[2018-02-09] MEDS: MUPIROCIN 2% TOPICAL OINTMENT FOR DECOLONIZATION NS SCH ×2 (09:06→21:24)
[2018-02-09] MEDS: MUPIROCIN CA 2% TOPICAL CREAM 15 GM TUBE TP SCH ×2 (09:07→21:23)
[2018-02-09] MEDS: FINASTERIDE 5 MG TABLET (FP) PO SCH (09:07)
[2018-02-09] MEDS: CALCIUM 500MG/VIT-D 200 UNITS COMBO TABLET (FP) PO SCH (09:07)
[2018-02-09] MEDS: LYTES/YERBA SANTA 240 ML BOTTLE MM SCH (09:08)
[2018-02-09] MEDS: FLUTICASONE/SALMETEROL 100 MCG/50 MCG DISKUS IH SCH ×2 (09:10→21:22)
--- NOTE | 2018-02-09 10:36 | PN ---
Progress Note, Physician Chief Complaint: Mr Ramirez says he is ok today. Feels his breathing is better. Denies cp or n/v. Says he is still thirsty. - Current Medication List Current Medications: Active Medications Albuterol Sulfate (Ventolin 0.083% Nebulizer Soln -) 1 amp NEB RQID [facility] Last Admin: 02/09/18 08:47 Dose: 1 amp Atorvastatin Calcium (Lipitor -) 10 mg PO HS [facility] Calcium Carbonate/Cholecalciferol (Os-Vadim 500+D -) 1 tab PO DAILY [facility] Last Admin: 02/09/18 09:07 Dose: 1 tab Chlorhexidine Gluconate (Hibiclens For Decolonization -) 1 applic TP HS [facility] Last Admin: 02/08/18 21:49 Dose: 1 applic Finasteride (Proscar -) 5 mg PO DAILY [facility] Last Admin: 02/09/18 09:07 Dose: 5 mg Vasopressin 50 units/ Sodium (Chloride) 100 mls @ 4 mls/hr IVPB ASDIR [facility]; Protocol Last Titration: 02/09/18 09:30 Dose: 0 units/hr, 0 mls/hr Mupirocin (Bactroban Ointment (For Decolonization) -) 1 applic NS BID [facility] Stop: 02/10/18 21:59 Last Admin: 02/09/18 09:06 Dose: 1 applic Mupirocin (Bactroban 2% Cream -) 1 applic TP BID [facility] Last Admin: 02/09/18 09:07 Dose: 1 applic Saliva Substitute (Mouthkote Solution -) 1 applic MM DAILY [facility] Last Admin: 02/09/18 09:08 Dose: 1 applic Fluticasone/Salmeterol (Advair 100mcg/50mcg -) 1 puff IH BID [facility] Last Admin: 02/09/18 09:10 Dose: 1 puff - Objective Vital Signs: Vital Signs Temperature 36.4 C L 02/09/18 10:00 Pulse Rate 110 H 02/09/18 10:00 Respiratory Rate 19 02/09/18 10:00 Blood Pressure 99/52 L 02/09/18 10:00 O2 Sat by Pulse Oximetry (%) 98 02/09/18 08:47 Constitutional: Yes: Mild Distress, Thin Cardiovascular: Yes: Tachycardia, Pulse Irregular. No: Gallop, Murmur, Rub Respiratory: Yes: On Venti-Mask, Rhonchi (coarse), Tachypnea. No: Regular, CTA Bilaterally, Rales, Wheezes Gastrointestinal: Yes: Normal Bowel Sounds, Soft. No: Distention, Tenderness Extremities: Yes: WNL Edema: Yes Edema: LLE: 1+, RLE: 1+ Labs: CBC, BMP 02/09/18 05:30 02/09/18 05:30 INR, PTT INR 1.83 (0.83-1.09) H 01/24/18 13:45 Problem List - Problems (1) Cardiorenal syndrome with renal failure Code(s): I13.10 - HYP HRT & CHR KDNY DIS W/O HRT FAIL, W STG 1-4/UNSP CHR KDNY; N19 - UNSPECIFIED KIDNEY FAILURE (2) Acute renal insufficiency Code(s): N28.9 - DISORDER OF KIDNEY AND URETER, UNSPECIFIED (3) CHF exacerbation Code(s): I50.9 - HEART FAILURE, UNSPECIFIED Qualifiers: Heart failure type: unspecified Qualified Code(s): I50.9 - Heart failure, unspecified (4) Hypocalcemia Code(s): E83.51 - HYPOCALCEMIA (5) Hypokalemia Code(s): E87.6 - HYPOKALEMIA (6) Afib Code(s): I48.91 - UNSPECIFIED ATRIAL FIBRILLATION Qualifiers: Atrial fibrillation type: chronic Qualified Code(s): I48.2 - Chronic atrial fibrillation (7) HLD (hyperlipidemia) Code(s): E78.5 - HYPERLIPIDEMIA, UNSPECIFIED Qualifiers: Hyperlipidemia type: unspecified Qualified Code(s): E78.5 - Hyperlipidemia , unspecified (8) HTN (hypertension) Code(s): I10 - ESSENTIAL (PRIMARY) HYPERTENSION Qualifiers: Hypertension type: essential hypertension Qualified Code(s): I10 - Essential (primary) hypertension (9) Hypomagnesemia Code(s): E83.42 - HYPOMAGNESEMIA Assessment/Plan -case d/w pulmonary and cardiology -continue pressors for bp support -was given lasix yesterday with minimal improvement -however BUN worsening -will monitor today off of diuretics -may benefit from HD and thoracentesis, family discussing -when family is present will discuss goals of care -palliative care consulted -continue oxygen support -continue current management 31 minutes spent in critical care time with this patient
--- NOTE | 2018-02-09 10:38 | PN ---
Progress Note (short form) - Note Progress Note: *LIVE* Chief Complaint: sob History of Present Illness: feels sob but better. no chest pain, palps, dizzy, lightheadedness. feels thirsty. ex cigs Current Medications Albuterol Sulfate (Ventolin 0.083% Nebulizer Soln -) 1 amp NEB RQID [facility] Last Admin: 02/09/18 08:47 Dose: 1 amp Atorvastatin Calcium (Lipitor -) 10 mg PO HS [facility] Calcium Carbonate/Cholecalciferol (Os-Vadim 500+D -) 1 tab PO DAILY [facility] Last Admin: 02/09/18 09:07 Dose: 1 tab Chlorhexidine Gluconate (Hibiclens For Decolonization -) 1 applic TP HS [facility] Last Admin: 02/08/18 21:49 Dose: 1 applic Finasteride (Proscar -) 5 mg PO DAILY [facility] Last Admin: 02/09/18 09:07 Dose: 5 mg Vasopressin 50 units/ Sodium (Chloride) 100 mls @ 4 mls/hr IVPB ASDIR [facility]; Protocol Last Titration: 02/09/18 09:30 Dose: 0 units/hr, 0 mls/hr Mupirocin (Bactroban Ointment (For Decolonization) -) 1 applic NS BID [facility] Stop: 02/10/18 21:59 Last Admin: 02/09/18 09:06 Dose: 1 applic Mupirocin (Bactroban 2% Cream -) 1 applic TP BID [facility] Last Admin: 02/09/18 09:07 Dose: 1 applic Saliva Substitute (Mouthkote Solution -) 1 applic MM DAILY [facility] Last Admin: 02/09/18 09:08 Dose: 1 applic Fluticasone/Salmeterol (Advair 100mcg/50mcg -) 1 puff IH BID [facility] Last Admin: 02/09/18 09:10 Dose: 1 puff - Objective Vital Signs: Vital Signs Period Temp Pulse Resp BP Sys/Garsia Pulse Ox Last 24 Hr 97 F-97.8 F 99-124 18-27 99-127/42-79 96-100 Intake & Output 02/06/18 02/07/18 02/08/18 02/09/18 23:59 23:59 23:59 23:59 Intake Total 150 375 738 391 Output Total 5319 589 3580 400 Balance -1150 -475 -662 -9 Weight 138 lb 2 oz 138 lb 2 oz 124 lb 1 oz 124 lb 8 oz Constitutional: Yes: No Distress, Calm Eyes: No: Sclera Icterus HENT: No: Nasal Congestion Cardiovascular: Yes: Pulse Irregular, JVD, S1, S2, Other (PMI non diplaced). No : Gallop, Murmur Respiratory: Yes: Diminished (bases). No: Accessory Muscle Use, on bipap Gastrointestinal: Yes: Normal Bowel Sounds, Soft. No: Tenderness Extremities: No: Cold Edema: Yes trace le edema bl Integumentary: No: Jaundice diaphoresis Neurological: Yes: lethargic Psychiatric: No: Agitated mibi 12/2010: nl mpi echo 07/2017: nl lv/rv, mild lvh, mod lae, mild ar, mod tr/mr, mild phtn, ao root 4 cm echo 01/2018 nl LV function EF 50-55%, RV nl size/function, LA severely dilated , RA moderately dilated, mild to mod AI, mild to mod MR, mod to severe TR, RVSP 40-50 mmHg, mild ao root dilation, small pericardial effusion <1 cm images reviewed: peak TR gradient measured 47 mmHg (varies with R-R interval), however all doppler signals are incomplete. IVC dilated without collapse, c/w RAP 15. hence PASP is likely at least 62 mmHg. evidence of hi LAP based on low e ', high E/e' ratio. repeat echo 02/07/18: nl lv/rv, richi, mod tr, mild mr, mod phtn ecg: afib, hr 89, irbbb, old cxr: +bl effs CT chest 02/01: septal thickening c/w congestion, mod effusions, flank subcutaneous edema, dilated PA c/w pulm HTN. mod emphsematous changes tele: afib, rate ok a/p: 87 m hx htn, aaa s/p stent repair 2013, aortic root aneurysm, afib, dchf/ le edema, here with HF exacerbation. acute HFpEF, pulm HTN: -here with volume overload, with right-sided failure picture. started to notice incr SOB sx's around apr-june 2017 he says. -clinical picture is confusing. remains with NYHA IV sx status, marked JVD, clear lungs. severe ABIGAIL vs prior baseline. diuresing well by self-report yet without much clinical improvement. -RV normal on rpt echo, mod-severe TR = ? the culprit for his HF. + signif pulm HTN on echo, suspect underestimated (i.e. incomplete TR doppler envelope) given dilated PA on CT chest. 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 -awaiting check V/Q to r/o chronic PEs -was on lasix 40 bid at home, d/c wt 04/29 was 162 lbs. receiving 40 iv bid, then tid here. -01/31: remains with marked JVD and NYHA IV sob sx's. s/p metolazone 5mg yest. wt 133 (from 149 two days ago)--? accurate. recorded 24-hr UOPs have not been accurate per d/w nurse (signif > 800 cc yest)--start strict I/Os. renal fxn overall stable. -02/01: cont lasix 40 iv tid, will dose metolazone 2.5 x 1 again today. -02/02: remains with NYHA IV sob sx's, marked JVD. CT chest yest c/w pulm congestion and vol overload (subctunaeous edema). wt has plateau'd 133-134 lbs for few days. creat essentially stable, bun rising now. net neg fluid balance 400-900 cc each of past several days. increase lasix to [address] condom catheter--strict I/Os. -02/03: notes sob with activity is starting to feel better finally. wt down today. I > O yest suspect inaccurate documentation based on pt wt/sx trend and reported hi UOP (per RN, [place] catheter came off overnight). renal fxn worse. try add nitrates low dose for cardiorenal syndrome (ntg paste 0.5 inch). change lopressor 100 bid to 50 tid to minimize hypotension potential. -02/04: wt likely erroneous. 1300 cc UOP yest. renal fxn slightly worse. sob improved. continue lasix 100 iv bid. unfortunately, pt may end up with signif impaired baseline renal fxn in order to maintain adequate volume status, hope to avoid HD. no role for inotropes here with preserved LV and RV fxn on echo. continue nitrates for cardiorenal syndrome (will try to increase dose today-- watch for hypotension) - 02/05 MANAGER ENVIRONMENTAL AFFAIRS after removing BiPAP, improved after additional lasix dose and replacing BiPap. wt 137 yesterday (?error)->135 lbs today. unclear if accurate , however Cr stable, UOP 1300 (with unmeasured void). lasix dose not given this AM for low BP. will decrease dose of nitrate for room for diuresis, continue lasix 100 mg IV BID - 02/06 MANAGER ENVIRONMENTAL AFFAIRS for respiratory distress, patient transferred to ICU, lasix gtt started yesterday and was dc'ed for hypotension, dc'ed nitro paste. -02/07-02/09: despite high doses of iv lasix and lasix gtt he remains volume up with worsening pleural effs, rising BUN/Cr. Stable with receiving IV lasix while on vasopressin for BP support. No role for inotropes here with preserved LV and RV fxn on echo - Would likely need HD, thoracentesis if family agrees. Family meeting pending. copd: -signif emphys changes on CT per d/w dr nogueira -? stable, fixed component to pt's PH (WHO 3?) and/or sob sx's -no a.e. here htn: -on low side here, needs bb for rate control, restart as BP improves afib: -bp low so holding bb. hr acceptable for now, monitor on tele. -on eliquis. had epistaxis here requiring packing, observe for recurrent bleeding. can hold eliquis temporarily for thoracentesis abigail: -baseline creat 1.2 (04/29) -creat worsening gradually with diuresis here. -renal consulting
--- NOTE | 2018-02-09 12:04 | PN ---
Progress Note (short form) - Note Progress Note: SUBJECTIVE: Patient seen and examined in the ICU. -weaned off vasopressin this am -eating, thirsty -BUN cont to rise but Cr stable OBJECTIVE: Vital Signs Temp 97.5 F L 02/09/18 10:00 Pulse 120 H 02/09/18 12:00 Resp 21 H 02/09/18 12:00 BP 110/49 L 02/09/18 12:00 Pulse Ox 98 02/09/18 08:47 Intake & Output 02/08/18 02/09/18 02/09/18 23:59 11:59 23:59 Intake Total 640 391 Output Total 900 400 Balance -260 -9 Weight 56.472 kg Intake: IV 90 31 Pitressin - 50 Units In 90 31 Normal Saline - 97.5 ml @ 2 UNITS/HR 4 mls/hr IVPB ASDIR [facility] Rx#: [id number] Oral 550 360 Output: Urine 900 400 Orr 200 400 Void 700 Other: Voiding Method Indwelling Catheter Indwelling Catheter Bowel Movement No Yes: small, pasty # Bowel Movements 1 Weight Measurement Method Built in [facility] Active Medications Albuterol Sulfate (Ventolin 0.083% Nebulizer Soln -) 1 amp NEB RQID [facility] Last Admin: 02/09/18 08:47 Dose: 1 amp Atorvastatin Calcium (Lipitor -) 10 mg PO [facility] Calcium Carbonate/Cholecalciferol (Os-Vadim 500+D -) 1 tab PO DAILY [facility] Last Admin: 02/09/18 09:07 Dose: 1 tab Chlorhexidine Gluconate (Hibiclens For Decolonization -) 1 applic TP HS [facility] Last Admin: 02/08/18 21:49 Dose: 1 applic Finasteride (Proscar -) 5 mg PO DAILY [facility] Last Admin: 02/09/18 09:07 Dose: 5 mg Vasopressin 50 units/ Sodium (Chloride) 100 mls @ 4 mls/hr IVPB ASD[facility]; Protocol Last Titration: 02/09/18 09:30 Dose: 0 units/hr, 0 mls/hr Mupirocin (Bactroban Ointment (For Decolonization) -) 1 applic NS BID [facility] Stop: 02/10/18 21:59 Last Admin: 02/09/18 09:06 Dose: 1 applic Mupirocin (Bactroban 2% Cream -) 1 applic TP BID [facility] Last Admin: 12/01/18 09:07 Dose: 1 applic Saliva Substitute (Mouthkote Solution -) 1 applic MM DAILY [facility] Last Admin: 02/09/18 09:08 Dose: 1 applic Fluticasone/Salmeterol (Advair 100mcg/50mcg -) 1 puff IH BID [facility] Last Admin: 02/09/18 09:10 Dose: 1 puff Gen: awake, interactive, thirsty Heart: RRR Lung: scattered rhonchi, weak cough Abd: soft, nontender Ext: no edema Neuro: follows commands, non focal Laboratory Results - last 24 hr 02/08/18 02/09/18 02/09/18 05:30 05:30 05:30 WBC 6.0 RBC 3.48 L Hgb 7.4 L Hct 24.9 L MCV 71.6 L MCH 21.3 L MCHC 29.7 L RDW 22.1 H Plt Count 98 L MPV 8.7 Absolute Neuts (auto) 4.1 Neutrophils % 68.7 Lymphocytes % 18.2 D Monocytes % 13.0 H D Eosinophils % 0.1 D Basophils % 0.0 Nucleated RBC % 1 H Hypochromia 1+ Platelet Estimate Decreased Polychromasia 0 Poikilocytosis 2+ Anisocytosis 3+ Microcytosis 3+ Macrocytosis 0 Target Cells 1+ Tear Drop Cells 1+ Stomatocytes 1+ Sodium 140 Potassium 3.8 Chloride 94 L Carbon Dioxide 34 H Anion Gap 12 BUN 125 H* Creatinine 3.2 H Creat Clearance w eGFR 18.42 Random Glucose 126 H Calcium 8.0 L Phosphorus 6.8 H Magnesium 2.5 H Total Bilirubin 1.3 H AST 16 ALT 16 Alkaline Phosphatase 80 Total Protein 6.2 L Albumin 2.9 L Problem List - Problems (1) Acute on chronic diastolic (congestive) heart failure Code(s): I50.33 - ACUTE ON CHRONIC DIASTOLIC (CONGESTIVE) HEART FAILURE (2) Afib Code(s): I48.91 - UNSPECIFIED ATRIAL FIBRILLATION Qualifiers: Atrial fibrillation type: chronic Qualified Code(s): I48.2 - Chronic atrial fibrillation (3) Pulmonary hypertension Code(s): I27.20 - PULMONARY HYPERTENSION, UNSPECIFIED (4) COPD (chronic obstructive pulmonary disease) Code(s): J44.9 - CHRONIC OBSTRUCTIVE PULMONARY DISEASE, UNSPECIFIED (5) Emphysema of lung Code(s): J43.9 - EMPHYSEMA, UNSPECIFIED (6) HLD (hyperlipidemia) Code(s): E78.5 - HYPERLIPIDEMIA, UNSPECIFIED Qualifiers: Hyperlipidemia type: unspecified Qualified Code(s): E78.5 - Hyperlipidemia , unspecified (7) HTN (hypertension) Code(s): I10 - ESSENTIAL (PRIMARY) HYPERTENSION Qualifiers: Hypertension type: essential hypertension Qualified Code(s): I10 - Essential (primary) hypertension (8) Pleural effusion Code(s): J90 - PLEURAL EFFUSION, NOT ELSEWHERE CLASSIFIED ASSESSMENT AND PLAN: Acute on Chronic Diastolic Heart Failure Acute Hypoxic Respiratory failure Pleural Effusions from above Atrial Fibrillation Pulmonary HTN COPD/emphysema HTN Hyperlipidemia Anemia - diuretics as per renal, BUN cont to rise - monitor urine output, creatinine - O2 to keep SpO2 >90% - NIPPV as needed to assist in work of breathing - inhaled bronchodilators - rate control - continue anticoagulation - monitor H/H -DNR/DNI
--- NOTE | 2018-02-09 13:03 | PN ---
Progress Note (short form) - Note Progress Note: covering dr ugarte Problem 1. ABIGAIL 2. hypokalemia 3. hypocalcemia 4. a-fib 5. CHF 6. thalassemia 7. HLD 8. respiratory failure requiring oxygen/bipap Last Vital Signs Temp Pulse Resp BP Pulse Ox 97.5 F L 120 H 21 H 110/49 L 98 02/09/18 10:00 02/09/18 12:00 02/09/18 12:00 02/09/18 12:00 02/09/18 08:47 alert in nad productive cough Lungs rhonchi Heart reg Abd soft no edema CBC, BMP 02/09/18 05:30 02/09/18 05:30 IMP ABIGAIL/ Severe prerenal azotemia hypokalemia improving slow to improve soem element of cardiorenal syndrome considering hemodialysis on standby for family decision no new intervention today
[2018-02-09] MEDS: VASOPRESSIN 50 UNITS in SODIUM CHLORIDE 97.5 ML IVPB SCH (17:11)
[2018-02-09] MEDS: ATORVASTATIN CA 10 MG TABLET (FP) PO SCH (21:24)
[2018-02-09] MEDS: CHLORHEXIDINE GLUCONATE 4% CLEANSER FOR DECOLONIZATION TP SCH (21:24)
[2018-02-10 06:06] LABS: BASO % 0.1 % (0-2.0); LYMPH % 17.7 % (8-40); MCH 20.9 pg (25.7-33.7); MCHC 29.5 g/dl (32.0-35.9); MEAN CELL VOLUME 70.9 fl (80-96); MEAN PLT VOLUME 8.7 fl (7.5-11.1); MONO % 12.2 % (3.8-10.2); PLATELET COUNT 94 K/MM3 (134-434); RBC 3.24 M/mm3 (4.00-5.60); RDW 21.2 % (11.9-15.9); WHITE BLOOD COUNT 4.5 K/mm3 (4.0-10.0)
[2018-02-10 06:50] LABS: ANION GAP 11 MMOL/L (8-16); CALCIUM 8.1 mg/dL (8.5-10.1); CHLORIDE 96 mmol/L (98-107); CO2 35 mmol/L (21-32); CREATININE 2.9 mg/dL (0.55-1.3); GLUCOSE,RANDOM 93 mg/dL (74-106); MAGNESIUM 2.5 mg/dL (1.8-2.4); PHOSPHOROUS 5.3 mg/dL (2.5-4.9); POTASSIUM 3.5 mmol/L (3.5-5.1); SODIUM 142 mmol/L (136-145)
[2018-02-10 06:52] LABS: BLOOD UREA NITROGEN 119 mg/dL (7-18)
[2018-02-10 07:17] LABS: HEMOGLOBIN 6.8 GM/dL (11.7-16.9)
[2018-02-10] MEDS: ALBUTEROL SO4 0.083% IH SOL 2.5 MG/3 ML VIAL.NEB. NEB SCH ×4 (08:37→20:27)
--- NOTE | 2018-02-10 09:10 | PN ---
Progress Note, Physician Chief Complaint: Mr Ramirez says he feels bad because he "wants to get out of here". Today he says he feels fine. Says he has a cough secondary to being thirsty. Denies cp , sob, n/v. - Current Medication List Current Medications: Active Medications Albuterol Sulfate (Ventolin 0.083% Nebulizer Soln -) 1 amp NEB RQID [facility] Last Admin: 02/10/18 08:37 Dose: 1 amp Atorvastatin Calcium (Lipitor -) 10 mg PO HS [facility] Last Admin: 02/09/18 21:24 Dose: 10 mg Calcium Carbonate/Cholecalciferol (Os-Vadim 500+D -) 1 tab PO DAILY [facility] Last Admin: 02/09/18 09:07 Dose: 1 tab Chlorhexidine Gluconate (Hibiclens For Decolonization -) 1 applic TP HS [facility] Last Admin: 02/09/18 21:24 Dose: 1 applic Finasteride (Proscar -) 5 mg PO DAILY [facility] Last Admin: 02/09/18 09:07 Dose: 5 mg Vasopressin 50 units/ Sodium (Chloride) 100 mls @ 4 mls/hr IVPB [facility]; Protocol Last Titration: 02/09/18 18:00 Dose: 0 units/hr, 0 mls/hr Mupirocin (Bactroban Ointment (For Decolonization) -) 1 applic NS BID [facility] Stop: 02/10/18 21:59 Last Admin: 02/09/18 21:24 Dose: 1 applic Mupirocin (Bactroban 2% Cream -) 1 applic TP BID [facility] Last Admin: 02/09/18 21:23 Dose: 1 applic Saliva Substitute (Mouthkote Solution -) 1 applic MM DAILY [facility] Last Admin: 02/09/18 09:08 Dose: 1 applic Fluticasone/Salmeterol (Advair 100mcg/50mcg -) 1 puff IH BID [facility] Last Admin: 02/09/18 21:22 Dose: 1 puff - Objective Vital Signs: Vital Signs Temperature 36.4 C 02/10/18 06:00 Pulse Rate 107 H 02/10/18 06:00 Respiratory Rate 22 H 02/10/18 06:00 Blood Pressure 95/62 02/10/18 06:00 O2 Sat by Pulse Oximetry (%) 97 02/09/18 20:51 Constitutional: Yes: No Distress, Calm, Thin Cardiovascular: Yes: Tachycardia, Pulse Irregular. No: Gallop, Murmur, Rub Respiratory: Yes: Regular, On Venti-Mask, Rhonchi. No: CTA Bilaterally, Rales, Wheezes Gastrointestinal: Yes: Normal Bowel Sounds, Soft. No: Distention, Tenderness Extremities: Yes: WNL Edema: No Labs: CBC, BMP 02/10/18 05:30 02/10/18 05:30 INR, PTT INR 1.83 (0.83-1.09) H 01/24/18 13:45 Problem List - Problems (1) Cardiorenal syndrome with renal failure Code(s): I13.10 - HYP HRT & CHR KDNY DIS W/O HRT FAIL, W STG 1-4/UNSP CHR KDNY; N19 - UNSPECIFIED KIDNEY FAILURE (2) Acute renal insufficiency Code(s): N28.9 - DISORDER OF KIDNEY AND URETER, UNSPECIFIED (3) CHF exacerbation Code(s): I50.9 - HEART FAILURE, UNSPECIFIED Qualifiers: Heart failure type: unspecified Qualified Code(s): I50.9 - Heart failure, unspecified (4) Hypocalcemia Code(s): E83.51 - HYPOCALCEMIA (5) Hypokalemia Code(s): E87.6 - HYPOKALEMIA (6) Afib Code(s): I48.91 - UNSPECIFIED ATRIAL FIBRILLATION Qualifiers: Atrial fibrillation type: chronic Qualified Code(s): I48.2 - Chronic atrial fibrillation (7) HLD (hyperlipidemia) Code(s): E78.5 - HYPERLIPIDEMIA, UNSPECIFIED Qualifiers: Hyperlipidemia type: unspecified Qualified Code(s): E78.5 - Hyperlipidemia , unspecified (8) HTN (hypertension) Code(s): I10 - ESSENTIAL (PRIMARY) HYPERTENSION Qualifiers: Hypertension type: essential hypertension Qualified Code(s): I10 - Essential (primary) hypertension (9) Hypomagnesemia Code(s): E83.42 - HYPOMAGNESEMIA Assessment/Plan -case d/w pulmonary and cardiology -now off vasopressin -renal function improving -consider diuretics, but since slightly improving will hold off -case d/w Dr Hernández, monitor HR after blood -may need IV metoprolol -may benefit from HD and thoracentesis, family discussing -when family is present will discuss goals of care -palliative care consulted -continue oxygen support -continue current management 31 minutes spent in critical care time with this patient
--- NOTE | 2018-02-10 10:21 | PN ---
Progress Note (short form) - Note Progress Note: Chief Complaint: sob History of Present Illness: +sob, no cp palps dizzy. off vasopressin now, rvr this AM. ex cigs Current Medications Generic Name Dose Route Start Last Admin Trade Name Cindi PRN Reason Stop Dose Admin Albuterol Sulfate 1 amp 02/05/18 20:00 02/10/18 08:37 Ventolin 0.083% Nebulizer Soln - NEB 1 amp RQID [facility] Administration Atorvastatin Calcium 10 mg 02/09/18 22:00 02/09/18 21:24 Lipitor - PO 10 mg HS [facility] Administration Calcium Carbonate/Cholecalciferol 1 tab 02/09/18 10:00 02/09/18 09:07 Os-Vadim 500+D - PO 1 tab DAILY [facility] Administration Chlorhexidine Gluconate 1 applic 02/05/18 22:00 02/09/18 21:24 Hibiclens For Decolonization - TP 1 applic HS [facility] Administration Finasteride 5 mg 02/09/18 10:00 02/09/18 09:07 Proscar - PO 5 mg DAILY [facility] Administration Vasopressin 50 units/ Sodium 100 mls @ 4 mls/hr 02/07/18 10:30 02/09/18 18:00 Chloride IVPB 0 units/hr [facility] 0 mls/hr Titration Protocol 2 UNITS/HR Metoprolol Tartrate 5 mg 02/10/18 10:16 Lopressor Injection - IVPUSH Q4H PRN TACHYCARDIA Mupirocin 1 applic 02/05/18 22:00 02/09/18 21:24 Bactroban Ointment (For Decolonization) - NS 02/10/18 21:59 1 applic BID [facility] Administration Mupirocin 1 applic 02/09/18 10:00 02/09/18 21:23 Bactroban 2% Cream - TP 1 applic BID [facility] Administration Saliva Substitute 1 applic 02/07/18 13:00 02/09/18 09:08 Mouthkote Solution - MM 1 applic DAILY [facility] Administration Fluticasone/Salmeterol 1 puff 02/05/18 22:00 02/09/18 21:22 Advair 100mcg/50mcg - IH 1 puff BID [facility] Administration - Objective Vital Signs: Vital Signs Temp 97.6 F 02/10/18 08:00 Pulse 116 H 02/10/18 08:00 Resp 22 H 02/10/18 08:00 BP 107/64 02/10/18 08:00 Pulse Ox 97 02/09/18 20:51 Intake & Output 02/09/18 02/09/18 02/10/18 11:59 23:59 11:59 Intake Total 391 472 150 Output Total 400 600 900 Balance -9 -128 -750 Weight 124 lb 8 oz 124 lb 5 oz Intake: IV 31 12 Pitressin - 50 Units In 31 12 Normal Saline - 97.5 ml @ 2 UNITS/HR 4 mls/hr IVPB [facility] Rx#: [id number] Oral 360 460 150 Output: Urine 400 600 900 Orr 400 600 900 Other: Voiding Method Indwelling Catheter Indwelling Catheter Bowel Movement Yes: small, pasty Yes: pastey brown No # Bowel Movements 1 3 Weight Measurement Method Built in [facility] Built in [facility] Constitutional: Yes: No Distress, Calm Eyes: No: Sclera Icterus HENT: No: Nasal Congestion Cardiovascular: Yes: Pulse Irregular, JVD, S1, S2, Other (PMI non diplaced). No : Gallop, Murmur Respiratory: Yes: Diminished (bases). No: Accessory Muscle Use, on bipap Gastrointestinal: Yes: Normal Bowel Sounds, Soft. No: Tenderness Extremities: No: Cold Edema: Yes trace le edema bl Integumentary: No: Jaundice diaphoresis Neurological: Yes:[id number] Psychiatric: No: Agitated mibi 12/2010: nl mpi echo 07/2017: nl lv/rv, mild lvh, mod lae, mild ar, mod tr/mr, mild phtn, ao root 4 cm echo 01/2018 nl LV function EF 50-55%, RV nl size/function, LA severely dilated , RA moderately dilated, mild to mod AI, mild to mod MR, mod to severe TR, RVSP 40-50 mmHg, mild ao root dilation, small pericardial effusion <1 cm images reviewed: peak TR gradient measured 47 mmHg (varies with R-R interval), however all doppler signals are incomplete. IVC dilated without collapse, c/w RAP 15. hence PASP is likely at least 62 mmHg. evidence of hi LAP based on low e ', high E/e' ratio. repeat echo 02/07/18: nl lv/rv, richi, mod tr, mild mr, mod phtn ecg: afib, hr 89, irbbb, old cxr: +bl effs CT chest 02/01: septal thickening c/w congestion, mod effusions, flank subcutaneous edema, dilated PA c/w pulm HTN. mod emphsematous changes tele: afib, rvr this AM est cct 35 mins a/p: 87 m hx htn, aaa s/p stent repair 2013, aortic root aneurysm, afib, dchf/ le edema, here with HF exacerbation. acute HFpEF, pulm HTN: -here with volume overload, with right-sided failure picture. started to notice incr SOB sx's around apr-june 2017 he says. -clinical picture is confusing. remains with NYHA IV sx status, marked JVD, clear lungs. severe ABIGAIL vs prior baseline. diuresing well by self-report yet without much clinical improvement. -RV normal on rpt echo, mod-severe TR = ? the culprit for his HF. + signif pulm HTN on echo, suspect underestimated (i.e. incomplete TR doppler envelope) given dilated PA on CT chest. 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 -awaiting check V/Q to r/o chronic PEs -was on lasix 40 bid at home, d/c wt 04/29 was 162 lbs. receiving 40 iv bid, then tid here. -01/31: remains with marked JVD and NYHA IV sob sx's. s/p metolazone 5mg yest. wt 133 (from 149 two days ago)--? accurate. recorded 24-hr UOPs have not been accurate per d/w nurse (signif > 800 cc yest)--start strict I/Os. renal fxn overall stable. -02/01: cont lasix 40 iv tid, will dose metolazone 2.5 x 1 again today. -02/02: remains with NYHA IV sob sx's, marked JVD. CT chest yest c/w pulm congestion and vol overload (subctunaeous edema). wt has plateau'd 133-134 lbs for few days. creat essentially stable, bun rising now. net neg fluid balance 400-900 cc each of past several days. increase lasix to [address] condom catheter--strict I/Os. -02/03: notes sob with activity is starting to feel better finally. wt down today. I > O yest suspect inaccurate documentation based on pt wt/sx trend and reported hi UOP (per RN, shaye catheter came off overnight). renal fxn worse. try add nitrates low dose for cardiorenal syndrome (ntg paste 0.5 inch). change lopressor 100 bid to 50 tid to minimize hypotension potential. -02/04: wt likely erroneous. 1300 cc UOP yest. renal fxn slightly worse. sob improved. continue lasix 100 iv bid. unfortunately, pt may end up with signif impaired baseline renal fxn in order to maintain adequate volume status, hope to avoid HD. no role for inotropes here with preserved LV and RV fxn on echo. 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 wt 137 yesterday (?error)->135 lbs today. unclear if accurate , however Cr stable, UOP 1300 (with unmeasured void). lasix dose not given this AM for low BP. 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 -02/07-02/10: despite high doses of iv lasix and lasix gtt he remains volume up with worsening pleural effs. Now holding lasix due to hypotension. Also holding all anti-hypertensives given hypotension. No role for inotropes here with preserved LV and RV fxn on echo. Would likely need HD, thoracentesis if family agrees. Family meeting pending. copd: -signif emphys changes on CT per d/w dr nogueira -? stable, fixed component to pt's PH (WHO 3?) and/or sob sx's -no a.e. here htn: -on low side here, had been on vasopressin, now titrated off afib: -bp low so holding standing bb. HR fast today, possibly from anemia, may improve after prbcs. prn lopressor iv if bp allows. -had been on eliquis but held now as pt anemic with hgb 6s. abigail: -baseline creat 1.2 (04/29) -creat worsening gradually with diuresis here. -renal consulting, sonogram no obstruction
[2018-02-10] MEDS: METOPROLOL TARTRATE 5 MG/5 ML VIAL IVPUSH PRN ×2 (10:30→21:18)
[2018-02-10] MEDS: VASOPRESSIN 50 UNITS in SODIUM CHLORIDE 97.5 ML IVPB SCH (10:50)
[2018-02-10] MEDS: CALCIUM 500MG/VIT-D 200 UNITS COMBO TABLET (FP) PO SCH (10:50)
[2018-02-10] MEDS: FINASTERIDE 5 MG TABLET (FP) PO SCH (10:50)
[2018-02-10] MEDS: FLUTICASONE/SALMETEROL 100 MCG/50 MCG DISKUS IH SCH ×2 (10:52→21:18)
[2018-02-10] MEDS: LYTES/YERBA SANTA 240 ML BOTTLE MM SCH (10:52)
[2018-02-10] MEDS: MUPIROCIN 2% TOPICAL OINTMENT FOR DECOLONIZATION NS SCH (10:53)
[2018-02-10] MEDS: MUPIROCIN CA 2% TOPICAL CREAM 15 GM TUBE TP SCH ×2 (10:54→21:19)
--- NOTE | 2018-02-10 13:37 | PN ---
Progress Note (short form) - Note Progress Note: SUBJECTIVE: Patient seen and examined in the ICU. -hgb below 7, getting prbc -intermittently tachy/RVR, got lopressor IV with response -remains off pressors, can try cardizem if remains RVR OBJECTIVE: Vital Signs Temp 97.5 F L 02/10/18 10:00 Pulse 120 H 02/10/18 12:00 Resp 22 H 02/10/18 12:00 BP 93/52 L 02/10/18 12:00 Pulse Ox 97 02/10/18 09:00 Intake & Output 02/09/18 02/10/18 02/10/18 23:59 11:59 23:59 Intake Total 472 150 Output Total 600 900 650 Balance -128 -750 -650 Weight 56.387 kg Intake: IV 12 Pitressin - 50 Units In 12 Normal Saline - 97.5 ml @ 2 UNITS/HR 4 mls/hr IVPB ASDIR RIVAS Rx#: [id number] Oral 460 150 Output: Urine 600 900 650 Orr 600 900 650 Other: Voiding Method Indwelling Catheter Indwelling Catheter Bowel Movement Yes: pastey brown No # Bowel Movements 3 Weight Measurement Method Built in [facility] Laboratory Results - last 24 hr 02/09/18 02/10/18 02/10/18 16:00 05:30 05:30 WBC 4.5 RBC 3.24 L Hgb 6.8 L* Hct 23.0 L MCV 70.9 L MCH 20.9 L MCHC 29.5 L RDW 21.2 H Plt Count 94 L MPV 8.7 Absolute Neuts (auto) 3.2 Neutrophils % 70.0 Lymphocytes % 17.7 Monocytes % 12.2 H Eosinophils % 0.0 D Basophils % 0.1 D Nucleated RBC % 0 Sodium 142 Potassium 3.5 Chloride 96 L Carbon Dioxide 35 H Anion Gap 11 BUN 119 H* Creatinine 2.9 H Creat Clearance w eGFR 20.64 Random Glucose 93 Calcium 8.1 L Phosphorus 5.3 H Magnesium 2.5 H Stool Occult Blood Negative Blood Type Antibody Screen Crossmatch 02/10/18 08:59 WBC RBC Hgb Hct MCV MCH MCHC RDW Plt Count MPV Absolute Neuts (auto) Neutrophils % Lymphocytes % Monocytes % Eosinophils % Basophils % Nucleated RBC % Sodium Potassium Chloride Carbon Dioxide Anion Gap BUN Creatinine Creat Clearance w eGFR Random Glucose Calcium Phosphorus Magnesium Stool Occult Blood Blood Type O POSITIVE Antibody Screen Negative Crossmatch See Detail Active Medications Albuterol Sulfate (Ventolin 0.083% Nebulizer Soln -) 1 amp NEB RQID [facility] Last Admin: 02/10/18 11:39 Dose: 1 amp Atorvastatin Calcium (Lipitor -) 10 mg PO HS [facility] Last Admin: 02/09/18 21:24 Dose: 10 mg Calcium Carbonate/Cholecalciferol (Os-Vadim 500+D -) 1 tab PO DAILY [facility] Last Admin: 02/10/18 10:50 Dose: 1 tab Chlorhexidine Gluconate (Hibiclens For Decolonization -) 1 applic TP HS [facility] Last Admin: 02/09/18 21:24 Dose: 1 applic Finasteride (Proscar -) 5 mg PO DAILY [facility] Last Admin: 02/10/18 10:50 Dose: 5 mg Vasopressin 50 units/ Sodium (Chloride) 100 mls @ 4 mls/hr IVPB ASDIR [facility]; Protocol Last Admin: 02/10/18 10:50 Dose: Not Given Metoprolol Tartrate (Lopressor Injection -) 5 mg IVPUSH Q4H PRN PRN Reason: TACHYCARDIA Last Admin: 02/10/18 10:30 Dose: 5 mg Mupirocin (Bactroban Ointment (For Decolonization) -) 1 applic NS BID [facility] Stop: 02/10/18 21:59 Last Admin: 02/10/18 10:53 Dose: 1 applic Mupirocin (Bactroban 2% Cream -) 1 applic TP BID [facility] Last Admin: 02/10/18 10:54 Dose: 1 applic Saliva Substitute (Mouthkote Solution -) 1 applic MM DAILY [facility] Last Admin: 02/10/18 10:52 Dose: 1 applic Fluticasone/Salmeterol (Advair 100mcg/50mcg -) 1 puff IH BID [facility] Last Admin: 02/10/18 10:52 Dose: 1 puff Gen: awake, interactive, thirsty Heart: tachy, irreg, no chest pn Lung: scattered rhonchi, weak cough, on NRB with SPo2 100 Abd: soft, nontender Ext: no edema Neuro: follows commands, non focal Problem List - Problems (1) Acute on chronic diastolic (congestive) heart failure Code(s): I50.33 - ACUTE ON CHRONIC DIASTOLIC (CONGESTIVE) HEART FAILURE (2) Afib Code(s): I48.91 - UNSPECIFIED ATRIAL FIBRILLATION Qualifiers: Atrial fibrillation type: chronic Qualified Code(s): I48.2 - Chronic atrial fibrillation (3) Pulmonary hypertension Code(s): I27.20 - PULMONARY HYPERTENSION, UNSPECIFIED (4) COPD (chronic obstructive pulmonary disease) Code(s): J44.9 - CHRONIC OBSTRUCTIVE PULMONARY DISEASE, UNSPECIFIED (5) Emphysema of lung Code(s): J43.9 - EMPHYSEMA, UNSPECIFIED (6) HLD (hyperlipidemia) Code(s): E78.5 - HYPERLIPIDEMIA, UNSPECIFIED Qualifiers: Hyperlipidemia type: unspecified Qualified Code(s): E78.5 - Hyperlipidemia , unspecified (7) HTN (hypertension) Code(s): I10 - ESSENTIAL (PRIMARY) HYPERTENSION Qualifiers: Hypertension type: essential hypertension Qualified Code(s): I10 - Essential (primary) hypertension (8) Pleural effusion Code(s): J90 - PLEURAL EFFUSION, NOT ELSEWHERE CLASSIFIED ASSESSMENT AND PLAN: Acute on Chronic Diastolic Heart Failure Acute Hypoxic Respiratory failure Pleural Effusions from above Atrial Fibrillation Pulmonary HTN COPD/emphysema HTN Hyperlipidemia Anemia - diuretics as per renal, BUN stable, holding off now - monitor urine output, creatinine - O2 to keep SpO2 >90% - NIPPV as needed to assist in work of breathing - inhaled bronchodilators - rate control, lopressor, may need CCB - hold A/C insetting of dropping Crit - monitor H/H, repeat as needed -DNR/DNI, discussed utility vs burden of HD, suspect will not pursue. [place] ACNP [id number] CCT
--- NOTE | 2018-02-10 17:46 | PN ---
Progress Note (short form) - Note Progress Note: covering dr ugarte Problem 1. ABIGAIL 2. hypokalemia 3. hypocalcemia 4. a-fib 5. CHF 6. thalassemia 7. HLD 8. respiratory failure requiring oxygen/bipap Current Medications Albuterol Sulfate (Ventolin 0.083% Nebulizer Soln -) 1 amp NEB RQID [facility] Last Admin: 02/10/18 16:17 Dose: 1 amp Atorvastatin Calcium (Lipitor -) 10 mg PO HS [facility] Last Admin: 02/09/18 21:24 Dose: 10 mg Calcium Carbonate/Cholecalciferol (Os-Vadim 500+D -) 1 tab PO DAILY [facility] Last Admin: 02/10/18 10:50 Dose: 1 tab Chlorhexidine Gluconate (Hibiclens For Decolonization -) 1 applic TP HS [facility] Last Admin: 02/09/18 21:24 Dose: 1 applic Finasteride (Proscar -) 5 mg PO DAILY [facility] Last Admin: 02/10/18 10:50 Dose: 5 mg Vasopressin 50 units/ Sodium (Chloride) 100 mls @ 4 mls/hr IVPB ASDIR RIVAS; Protocol Last Admin: 02/10/18 10:50 Dose: Not Given Metoprolol Tartrate (Lopressor Injection -) 5 mg IVPUSH Q4H PRN PRN Reason: TACHYCARDIA Last Admin: 02/10/18 10:30 Dose: 5 mg Mupirocin (Bactroban Ointment (For Decolonization) -) 1 applic NS BID [facility] Stop: 02/10/18 21:59 Last Admin: 02/10/18 10:53 Dose: 1 applic Mupirocin (Bactroban 2% Cream -) 1 applic TP BID [facility] Last Admin: 02/10/18 10:54 Dose: 1 applic Saliva Substitute (Mouthkote Solution -) 1 applic MM DAILY [facility] Last Admin: 02/10/18 10:52 Dose: 1 applic Fluticasone/Salmeterol (Advair 100mcg/50mcg -) 1 puff IH BID [facility] Last Admin: 02/10/18 10:52 Dose: 1 puff Last Vital Signs Temp Pulse Resp BP Pulse Ox 97.8 F 118 H 22 H 101/63 97 02/10/18 14:00 02/10/18 16:00 02/10/18 16:00 02/10/18 16:00 02/10/18 09:00 alert in nad productive cough Lungs rhonchi Heart reg Abd soft no edema CBC, BMP 02/10/18 05:30 02/10/18 05:30 IMP ABIGAIL/ Severe prerenal azotemia hypokalemia improving slow to improve soem element of cardiorenal syndrome considering hemodialysis on standby for family decision no new intervention today
[2018-02-10] MEDS: ATORVASTATIN CA 10 MG TABLET (FP) PO SCH (21:18)
[2018-02-10] MEDS: CHLORHEXIDINE GLUCONATE 4% CLEANSER FOR DECOLONIZATION TP SCH (21:18)
[2018-02-11 06:22] LABS: BASO % 0.1 % (0-2.0); EOS % 0.1 % (0-4.5); HEMATOCRIT 25.2 % (35.4-49); HEMOGLOBIN 7.5 GM/dL (11.7-16.9); LYMPH % 26.2 % (8-40); MCH 21.8 pg (25.7-33.7); MCHC 29.8 g/dl (32.0-35.9); MEAN CELL VOLUME 73.2 fl (80-96); MEAN PLT VOLUME 8.7 fl (7.5-11.1); MONO % 12.8 % (3.8-10.2); NEUT % 60.8 % (42.8-82.8); PLATELET COUNT 96 K/MM3 (134-434); RBC 3.44 M/mm3 (4.00-5.60); RDW 21.5 % (11.9-15.9); WHITE BLOOD COUNT 5.8 K/mm3 (4.0-10.0)
[2018-02-11 06:53] LABS: ANION GAP 10 MMOL/L (8-16); CALCIUM 8.2 mg/dL (8.5-10.1); CHLORIDE 98 mmol/L (98-107); CO2 34 mmol/L (21-32); CREATININE 2.7 mg/dL (0.55-1.3); GLUCOSE,RANDOM 84 mg/dL (74-106); MAGNESIUM 2.5 mg/dL (1.8-2.4); PHOSPHOROUS 4.8 mg/dL (2.5-4.9); POTASSIUM 3.1 mmol/L (3.5-5.1); SODIUM 142 mmol/L (136-145)
[2018-02-11 06:55] LABS: BLOOD UREA NITROGEN 121 mg/dL (7-18)
[2018-02-11] MEDS: ALBUTEROL SO4 0.083% IH SOL 2.5 MG/3 ML VIAL.NEB. NEB SCH ×4 (07:20→20:52)
--- NOTE | 2018-02-11 07:38 | PN ---
Physical Exam: SUBJECTIVE: Patient seen and examined. No acute events overnight. Pt stating he "wants to go home already." Awake and alert. OBJECTIVE: Vital Signs Period Temp Pulse Resp BP Sys/Garsia Pulse Ox Last 24 Hr 97.5 F-98.2 F 100-138 15-23 80-119/45-65 97-99 GENERAL: Pt more alert today, conversing. Cachectic. Temporal wasting. Responds to commands. HEENT: AT/NC. Dry mucus membranes. NECK: Bony prominences noted. + significant JVD on L side. LUNGS: diffuse rhonchi b/l, no wheezes. HEART: Irregular, S1, S2 normal, no murmur. ABDOMEN: Soft, NTND, NABS, no guarding, no rebound, no hepatosplenomegaly, no masses. EXTREMITIES: 2+ pulses, warm, well-perfused, no edema. SKIN: dry, poor turgor, no rashes or lesions noted. Laboratory Results - last 24 hr 02/10/18 02/11/18 02/11/18 08:59 05:30 05:30 WBC 5.8 RBC 3.44 L Hgb 7.5 L Hct 25.2 L MCV 73.2 L MCH 21.8 L MCHC 29.8 L RDW 21.5 H Plt Count 96 L MPV 8.7 Absolute Neuts (auto) 3.5 Neutrophils % 60.8 Lymphocytes % 26.2 D Monocytes % 12.8 H Eosinophils % 0.1 D Basophils % 0.1 Nucleated RBC % 0 Sodium 142 Potassium 3.1 L Chloride 98 Carbon Dioxide 34 H Anion Gap 10 BUN 121 H* Creatinine 2.7 H Creat Clearance w eGFR 22.41 Random Glucose 84 Calcium 8.2 L Phosphorus 4.8 Magnesium 2.5 H Blood Type O POSITIVE Antibody Screen Negative Crossmatch See Detail Active Medications Generic Name Dose Route Start Last Admin Trade Name Freq PRN Reason Stop Dose Admin Albuterol Sulfate 1 amp 02/05/18 20:00 02/10/18 20:27 Ventolin 0.083% Nebulizer Soln - NEB 1 amp RQID RIVAS Administration Atorvastatin Calcium 10 mg 02/09/18 22:00 02/10/18 21:18 Lipitor - PO 10 mg HS RIVAS Administration Calcium Carbonate/Cholecalciferol 1 tab 02/09/18 10:00 02/10/18 10:50 Os-Vadim 500+D - PO 1 tab DAILY RIVAS Administration Chlorhexidine Gluconate 1 applic 02/05/18 22:00 02/10/18 21:18 Hibiclens For Decolonization - TP 1 applic HS RIVAS Administration Finasteride 5 mg 02/09/18 10:00 02/10/18 10:50 Proscar - PO 5 mg DAILY RIVAS Administration Vasopressin 50 units/ Sodium 100 mls @ 4 mls/hr 02/07/18 10:30 02/10/18 10:50 Chloride IVPB Not Given ASDIR RIVAS Protocol 2 UNITS/HR Metoprolol Tartrate 5 mg 02/10/18 10:16 02/10/18 21:18 Lopressor Injection - IVPUSH 5 mg Q4H PRN Administration TACHYCARDIA Mupirocin 1 applic 02/09/18 10:00 02/10/18 21:19 Bactroban 2% Cream - TP 1 applic BID RIVAS Administration Saliva Substitute 1 applic 02/07/18 13:00 02/10/18 10:52 Mouthkote Solution - MM 1 applic DAILY RIVAS Administration Fluticasone/Salmeterol 1 puff 02/05/18 22:00 02/10/18 21:18 Advair 100mcg/50mcg - IH 1 puff BID [facility]AS Administration ASSESSMENT/PLAN: 87M w/ pmhx of AFIB, CHF, HTN, Hyperlipidemia, renal failure currently being treated for acute decompensated heart failure admitted to the ICU for respiratory failure. Neurology -Awake and alert. Currently on nonrebreather. Conversing. Pulmonary #Acute respiratory failure 2/2 acute on chronic CHF/pleural effusion -Resolved and stable. -Currently on nonrebreather satting at 97%. -CXR (02/07) showed progressive congestive and infiltrative changes w/ b/l effusions. Since prior study, findings have increased. Repeat CXR. -aspiration precautions -keep head elevated -possible thoracentesis if family agrees #Pulmonary HTN #COPD/Emphysema -significant emphysema changes on CT -[facility] #Acute HF with preserved EF -off Vasopressin, resume if MAP <60 -Per cardio: inotropes not indicated as EF is preserved -Monitor I/Os #A. fib -BP and MAP stable. Cont Metoprolol 5 mg Q4H for now for rate control -Per cardio: consider cautious digoxin or amio if hypotensive and tachycardic frequently -Hold Eliquis for now as pt is anemic (s/p 1U pRBC, Hgb now 7.5) #HTN -Currently hypotensive. Hold all anti-hypertensives -Cont to monitor BP. #HLD -cont home med Atorvastatin 10 HS Renal #ABIGAIL -baseline Cr 1.2, 2.7 now, but improved from previously; BUN 121 -Lasix given, recheck BMP. -Per nephro: Avoid giving fluids for now, may likely need to keep Cr elevated to keep pt euvolemic. -D/w family HD. #Hypokalemia -K+ 3.1 today. -Repleted with 10 meq x 3 bags. -Replete PRN. FEN -hold IVf -recheck lytes in AM (BUN/Cr) -sodium-controlled pureed diet dispo -DNR/DNI; Per primary team, family agreed to [facility] -stable for transfer Visit type - Emergency Visit Emergency Visit: Yes ED Registration Date: 01/24/18 Care time: The patient presented to the Emergency Department on the above date and was hospitalized for further evaluation of their emergent condition. - New Patient This patient is new to me today: No - Critical Care Critical Care patient: Yes Total Critical Care Time (in minutes): 36 Critical Care Statement: The care of this patient involved high complexity decision making to prevent further life threatening deterioration of the patient 's condition and/or to evaluate & treat vital organ system(s) failure or risk of failure.
[2018-02-11] MEDS: KCL 10 MEQ IVPB 10 MEQ/100 ML INFUS.BAG IVPB SCH ×3 (08:48→11:21)
[2018-02-11] MEDS: CALCIUM 500MG/VIT-D 200 UNITS COMBO TABLET (FP) PO SCH (09:37)
[2018-02-11] MEDS: FINASTERIDE 5 MG TABLET (FP) PO SCH (09:37)
[2018-02-11] MEDS: LYTES/YERBA SANTA 240 ML BOTTLE MM SCH (09:38)
[2018-02-11] MEDS: FLUTICASONE/SALMETEROL 100 MCG/50 MCG DISKUS IH SCH ×2 (09:39→21:55)
[2018-02-11] MEDS: MUPIROCIN CA 2% TOPICAL CREAM 15 GM TUBE TP SCH ×2 (09:39→21:55)
--- NOTE | 2018-02-11 10:20 | PN ---
Progress Note, Physician Chief Complaint: chf History of Present Illness: very weak, lehargic and speaks few words at a time. bipap on - Current Medication List Current Medications: Active Medications Albuterol Sulfate (Ventolin 0.083% Nebulizer Soln -) 1 amp NEB RQID [facility] Last Admin: 02/11/18 07:20 Dose: 1 amp Atorvastatin Calcium (Lipitor -) 10 mg PO HS [facility] Last Admin: 02/10/18 21:18 Dose: 10 mg Calcium Carbonate/Cholecalciferol (Os-Vadim 500+D -) 1 tab PO DAILY [facility] Last Admin: 02/11/18 09:37 Dose: 1 tab Chlorhexidine Gluconate (Hibiclens For Decolonization -) 1 applic TP HS [facility] Last Admin: 02/10/18 21:18 Dose: 1 applic Finasteride (Proscar -) 5 mg PO DAILY [facility] Last Admin: 02/11/18 09:37 Dose: 5 mg Potassium Chloride (Potassium Chloride 10 Meq Premix Ivpb -) 10 meq in 100 mls @ 100 mls/hr IVPB Q60M [facility] Stop: 02/11/18 10:44 Last Admin: 02/11/18 08:48 Dose: 100 mls/hr Metoprolol Tartrate (Lopressor Injection -) 5 mg IVPUSH Q4H PRN PRN Reason: TACHYCARDIA Last Admin: 02/10/18 21:18 Dose: 5 mg Mupirocin (Bactroban 2% Cream -) 1 applic TP BID [facility] Last Admin: 02/11/18 09:39 Dose: 1 applic Saliva Substitute (Mouthkote Solution -) 1 applic MM DAILY [facility] Last Admin: 02/11/18 09:38 Dose: 1 applic Fluticasone/Salmeterol (Advair 100mcg/50mcg -) 1 puff IH BID [facility] Last Admin: 02/11/18 09:39 Dose: 1 puff - Objective Vital Signs: Vital Signs Temperature 98 F 02/11/18 06:00 Pulse Rate 115 H 02/11/18 08:00 Respiratory Rate 29 H 02/11/18 08:00 Blood Pressure 111/65 02/11/18 08:00 O2 Sat by Pulse Oximetry (%) 99 02/10/18 21:00 Constitutional: Yes: No Distress, Calm Eyes: No: Sclera Icterus HENT: No: Nasal Congestion Cardiovascular: Yes: Pulse Irregular, JVD, S1, S2, Other (PMI non diplaced). No : Gallop, Murmur Respiratory: Yes: CTA Bilaterally, Diminished (bases), Rales (bases). No: Accessory Muscle Use, Wheezes Gastrointestinal: Yes: Normal Bowel Sounds, Soft. No: Tenderness Musculoskeletal: Yes: Other (No kyphosis) Extremities: No: Cold Edema: No Integumentary: No: Jaundice Neurological: Yes: Lethargy. No: Seizure Psychiatric: No: Agitated Labs: CBC, BMP 02/11/18 05:30 02/11/18 05:30 INR, PTT INR 1.83 (0.83-1.09) H 01/24/18 13:45 Assessment/Plan mibi 12/2010: nl mpi echo 07/2017: nl lv/rv, mild lvh, mod lae, mild ar, mod tr/mr, mild phtn, ao root 4 cm echo 01/2018 nl LV function EF 50-55%, RV nl size/function, LA severely dilated , RA moderately dilated, mild to mod AI, mild to mod MR, mod to severe TR, RVSP 40-50 mmHg, mild ao root dilation, small pericardial effusion <1 cm images reviewed: peak TR gradient measured 47 mmHg (varies with R-R interval), however all doppler signals are incomplete. IVC dilated without collapse, c/w RAP 15. hence PASP is likely at least 62 mmHg. evidence of hi LAP based on low e ', high E/e' ratio. repeat echo 02/07/18: nl lv/rv, richi, mod tr, mild mr, mod phtn ecg: afib, hr 89, irbbb, old cxr: +bl effs CT chest 02/01: septal thickening c/w congestion, mod effusions, flank subcutaneous edema, dilated PA c/w pulm HTN. mod emphsematous changes tele: afib, HRs reasonably controlled a/p: 87 m hx htn, aaa s/p stent repair 2013, aortic root aneurysm, afib, dchf/ le edema, here with HF exacerbation. acute on chronic HFpEF, pulm HTN, cardiogenic shock: -here with volume overload, with right-sided failure picture. started to notice incr SOB sx's around apr-june 2017 he says. -clinical picture is confusing. remains with NYHA IV sx status, marked JVD, clear lungs. severe ABIGAIL vs prior baseline. diuresing well by self-report yet without much clinical improvement. -RV normal on rpt echo, mod-severe TR = ? the culprit for his HF. + signif pulm HTN on echo, suspect underestimated (i.e. incomplete TR doppler envelope) given dilated PA on CT chest. 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 despite high doses of iv lasix and lasix gtt he remains volume up with worsening pleural effs. lasix held sec to to hypotension. -No role for inotropes here with preserved LV and RV fxn on echo. -will require HD +/- thoracentesis for effective volume mgmt here. goals of care discussion ongoing btw icu team and family -hold pressors--resume vasopressin if MAP < 60 (to optimize renal perfusion) copd: -signif emphys changes on CT per d/w dr nogueira -? stable, fixed component to pt's PH (WHO 3?) and/or sob sx's -no a.e. here htn: -on low side here, had been on vasopressin, now titrated off afib: -bp low so holding standing bb. -HR control at times problematic in icu, currently reasonable. cont prn metoprolol for now. consider cautious digoxin or amio if hypotensive and tachycardic frequently -had been on eliquis but held now as pt anemic with hgb 6s. abigail: -baseline creat 1.2 (04/29) -creat worsening gradually with diuresis here. -renal consulting, sonogram no obstruction -ABIGAIL in setting of aggressive diuresis with ongoing fluid overload, hypotension -renal fxn currently improving anemia, thrombocytopenia: -stable, trend labs -holding eliquis est time spent in data review, pt exam, and formulating mgmt plan of potentially life-threatening med problems = 36 min
--- NOTE | 2018-02-11 12:51 | PN ---
Teaching Attending Note Name of Resident: Stella Carroll ATTENDING PHYSICIAN STATEMENT I saw and evaluated the patient. I reviewed the resident's note and discussed the case with the resident. I agree with the resident's findings and plan as documented. SUBJECTIVE: Patient seen and examined in the ICU. Lethargic but arousable. On 100% NRBM. Intake & Output 02/08/18 02/09/18 02/10/18 02/11/18 23:59 23:59 23:59 23:59 Intake Total 738 863 830 150 Output Total 1400 1000 1550 400 Balance -662 -137 -720 -250 Weight 124 lb 1 oz 124 lb 8 oz 124 lb 5 oz 119 lb 6 oz Last Vital Signs Temp Pulse Resp BP Pulse Ox 98.4 F 102 H 21 H 111/64 99 02/11/18 10:00 02/11/18 12:00 02/11/18 12:00 02/11/18 12:00 02/10/18 21:00 Active Medications Albuterol Sulfate (Ventolin 0.083% Nebulizer Soln -) 1 amp NEB RQID [facility] Last Admin: 02/11/18 11:19 Dose: 1 amp Atorvastatin Calcium (Lipitor -) 10 mg PO HS [facility] Last Admin: 02/10/18 21:18 Dose: 10 mg Calcium Carbonate/Cholecalciferol (Os-Vadim 500+D -) 1 tab PO DAILY [facility] Last Admin: 02/11/18 09:37 Dose: 1 tab Chlorhexidine Gluconate (Hibiclens For Decolonization -) 1 applic TP HS [facility] Last Admin: 02/10/18 21:18 Dose: 1 applic Finasteride (Proscar -) 5 mg PO DAILY [facility] Last Admin: 02/11/18 09:37 Dose: 5 mg Metoprolol Tartrate (Lopressor Injection -) 5 mg IVPUSH Q4H PRN PRN Reason: TACHYCARDIA Last Admin: 02/10/18 21:18 Dose: 5 mg Mupirocin (Bactroban 2% Cream -) 1 applic TP BID [facility] Last Admin: 02/11/18 09:39 Dose: 1 applic Saliva Substitute (Mouthkote Solution -) 1 applic MM DAILY [facility] Last Admin: 02/11/18 09:38 Dose: 1 applic Fluticasone/Salmeterol (Advair 100mcg/50mcg -) 1 puff IH BID [facility] Last Admin: 02/11/18 09:39 Dose: 1 puff Gen: lethargic on 100% NRBM Heart: RRR Lung: scattered rhonchi Abd: soft, nontender Ext: no edema Laboratory Results - last 24 hr 02/11/18 02/11/18 05:30 05:30 WBC 5.8 RBC 3.44 L Hgb 7.5 L Hct 25.2 L MCV 73.2 L MCH 21.8 L MCHC 29.8 L RDW 21.5 H Plt Count 96 L MPV 8.7 Absolute Neuts (auto) 3.5 Neutrophils % 60.8 Lymphocytes % 26.2 D Monocytes % 12.8 H Eosinophils % 0.1 D Basophils % 0.1 Nucleated RBC % 0 Sodium 142 Potassium 3.1 L Chloride 98 Carbon Dioxide 34 H Anion Gap 10 BUN 121 H* Creatinine 2.7 H Creat Clearance w eGFR 22.41 Random Glucose 84 Calcium 8.2 L Phosphorus 4.8 Magnesium 2.5 H Problem List - Problems (1) Acute on chronic diastolic (congestive) heart failure Code(s): I50.33 - ACUTE ON CHRONIC DIASTOLIC (CONGESTIVE) HEART FAILURE (2) Afib Code(s): I48.91 - UNSPECIFIED ATRIAL FIBRILLATION Qualifiers: Atrial fibrillation type: chronic Qualified Code(s): I48.2 - Chronic atrial fibrillation (3) Pulmonary hypertension Code(s): I27.20 - PULMONARY HYPERTENSION, UNSPECIFIED (4) COPD (chronic obstructive pulmonary disease) Code(s): J44.9 - CHRONIC OBSTRUCTIVE PULMONARY DISEASE, UNSPECIFIED (5) Emphysema of lung Code(s): J43.9 - EMPHYSEMA, UNSPECIFIED (6) HLD (hyperlipidemia) Code(s): E78.5 - HYPERLIPIDEMIA, UNSPECIFIED Qualifiers: Hyperlipidemia type: unspecified Qualified Code(s): E78.5 - Hyperlipidemia , unspecified (7) HTN (hypertension) Code(s): I10 - ESSENTIAL (PRIMARY) HYPERTENSION Qualifiers: Hypertension type: essential hypertension Qualified Code(s): I10 - Essential (primary) hypertension (8) Pleural effusion Code(s): J90 - PLEURAL EFFUSION, NOT ELSEWHERE CLASSIFIED ASSESSMENT AND PLAN: Acute on Chronic Diastolic Heart Failure Acute Hypoxic Respiratory failure Pleural Effusions from above Atrial Fibrillation Pulmonary HTN COPD/emphysema HTN Hyperlipidemia Anemia - O2 to keep SpO2 >90% - NIPPV as needed to assist in work of breathing - inhaled bronchodilators - rate control - For hospice care Dr Haas
--- NOTE | 2018-02-11 15:22 | PN ---
Progress Note, Physician History of Present Illness: Pt seen and examined at bedside. He is awake and appears comfortable. - Current Medication List Current Medications: Active Medications Albuterol Sulfate (Ventolin 0.083% Nebulizer Soln -) 1 amp NEB RQID [facility] Last Admin: 02/11/18 11:19 Dose: 1 amp Atorvastatin Calcium (Lipitor -) 10 mg PO HS [facility] Last Admin: 02/10/18 21:18 Dose: 10 mg Calcium Carbonate/Cholecalciferol (Os-Vadim 500+D -) 1 tab PO DAILY [facility] Last Admin: 02/11/18 09:37 Dose: 1 tab Chlorhexidine Gluconate (Hibiclens For Decolonization -) 1 applic TP HS [facility] Last Admin: 02/10/18 21:18 Dose: 1 applic Finasteride (Proscar -) 5 mg PO DAILY [facility] Last Admin: 02/11/18 09:37 Dose: 5 mg Metoprolol Tartrate (Lopressor Injection -) 5 mg IVPUSH Q4H PRN PRN Reason: TACHYCARDIA Last Admin: 02/10/18 21:18 Dose: 5 mg Mupirocin (Bactroban 2% Cream -) 1 applic TP BID [facility] Last Admin: 02/11/18 09:39 Dose: 1 applic Saliva Substitute (Mouthkote Solution -) 1 applic MM DAILY [facility] Last Admin: 02/11/18 09:38 Dose: 1 applic Fluticasone/Salmeterol (Advair 100mcg/50mcg -) 1 puff IH BID [facility] Last Admin: 02/11/18 09:39 Dose: 1 puff - Objective Vital Signs: Vital Signs Temperature 97.6 F 02/11/18 14:00 Pulse Rate 114 H 02/11/18 14:00 Respiratory Rate 26 H 02/11/18 14:00 Blood Pressure 108/64 02/11/18 14:00 O2 Sat by Pulse Oximetry (%) 99 02/10/18 21:00 Constitutional: Yes: Calm Eyes: Yes: Conjunctiva Clear Cardiovascular: Yes: S1, S2 Respiratory: Yes: On Venti-Mask Gastrointestinal: Yes: Soft Genitourinary: Yes: Incontinence Musculoskeletal: Yes: Muscle Weakness Edema: Yes Edema: LLE: 1+, RLE: 1+ Neurological: Yes: Confusion Labs: CBC, BMP 02/11/18 05:30 02/11/18 05:30 INR, PTT INR 1.83 (0.83-1.09) H 01/24/18 13:45 Problem List - Problems (1) Acute renal insufficiency Code(s): N28.9 - DISORDER OF KIDNEY AND URETER, UNSPECIFIED (2) Hypocalcemia Code(s): E83.51 - HYPOCALCEMIA (3) Hypokalemia Code(s): E87.6 - HYPOKALEMIA (4) Afib Code(s): I48.91 - UNSPECIFIED ATRIAL FIBRILLATION Qualifiers: Atrial fibrillation type: chronic Qualified Code(s): I48.2 - Chronic atrial fibrillation (5) HLD (hyperlipidemia) Code(s): E78.5 - HYPERLIPIDEMIA, UNSPECIFIED Qualifiers: Hyperlipidemia type: unspecified Qualified Code(s): E78.5 - Hyperlipidemia , unspecified (6) Pleural effusion Code(s): J90 - PLEURAL EFFUSION, NOT ELSEWHERE CLASSIFIED Assessment/Plan Current Medications Generic Name Dose Route Start Last Admin Trade Name Freq PRN Reason Stop Dose Admin Albuterol Sulfate 1 amp 02/05/18 20:00 02/11/18 11:19 Ventolin 0.083% Nebulizer Soln - NEB 1 amp RQID [facility]AS Administration Atorvastatin Calcium 10 mg 02/09/18 22:00 02/10/18 21:18 Lipitor - PO 10 mg HS RIVAS Administration Calcium Carbonate/Cholecalciferol 1 tab 02/09/18 10:00 02/11/18 09:37 Os-Vadim 500+D - PO 1 tab DAILY [facility]AS Administration Chlorhexidine Gluconate 1 applic 02/05/18 22:00 02/10/18 21:18 Hibiclens For Decolonization - TP 1 applic HS RIVAS Administration Finasteride 5 mg 02/09/18 10:00 02/11/18 09:37 Proscar - PO 5 mg DAILY RIVAS Administration Metoprolol Tartrate 5 mg 02/10/18 10:16 02/10/18 21:18 Lopressor Injection - IVPUSH 5 mg Q4H PRN Administration TACHYCARDIA Mupirocin 1 applic 02/09/18 10:00 02/11/18 09:39 Bactroban 2% Cream - TP 1 applic BID RIVAS Administration Saliva Substitute 1 applic 02/07/18 13:00 02/11/18 09:38 Mouthkote Solution - MM 1 applic DAILY RIVAS Administration Fluticasone/Salmeterol 1 puff 02/05/18 22:00 02/11/18 09:39 Advair 100mcg/50mcg - IH 1 puff BID RIVAS Administration Impression 1. ABIGAIL 2. hypokalemia 3. hypocalcemia 4. a-fib 5. CHF 6. thalassemia 7. HLD 8. respiratory failure requiring oxygen and bipap Plan - cont to monitor renal function - pt likely being discharged on hospice - cont with lasix prn - PO intake is poor - discussed with medical team - taper pressors as tolerated - cont oxygen - prognosis guarded - will follow Dr Houston
--- NOTE | 2018-02-11 16:39 | PN ---
Physical Exam: SUBJECTIVE: Patient seen and examined at bedside. No overnight events. Continues to require Venti mask. Anxious to go home. Denies CP,TAN, abdominal pain, nausea or vomiting. OBJECTIVE: Vital Signs Period Temp Pulse Resp BP Sys/Garsia Pulse Ox Last 24 Hr 97.6 F-98.4 F 82-138 15-29 96-119/50-65 95-99 Gen: thin, nad CV: tachy, irreg irreg Pulm: tachypneic, diffuse coarse ronchi bilaterally Abd: +bs, s/nt/nd Ext: 1+ BLE edema Laboratory Results - last 24 hr 02/11/18 02/11/18 05:30 05:30 WBC 5.8 RBC 3.44 L Hgb 7.5 L Hct 25.2 L MCV 73.2 L MCH 21.8 L MCHC 29.8 L RDW 21.5 H Plt Count 96 L MPV 8.7 Absolute Neuts (auto) 3.5 Neutrophils % 60.8 Lymphocytes % 26.2 D Monocytes % 12.8 H Eosinophils % 0.1 D Basophils % 0.1 Nucleated RBC % 0 Sodium 142 Potassium 3.1 L Chloride 98 Carbon Dioxide 34 H Anion Gap 10 BUN 121 H* Creatinine 2.7 H Creat Clearance w eGFR 22.41 Random Glucose 84 Calcium 8.2 L Phosphorus 4.8 Magnesium 2.5 H Active Medications Generic Name Dose Route Start Last Admin Trade Name Freq PRN Reason Stop Dose Admin Albuterol Sulfate 1 amp 02/05/18 20:00 02/11/18 16:05 Ventolin 0.083% Nebulizer Soln - NEB 1 amp RQID RIVAS Administration Atorvastatin Calcium 10 mg 02/09/18 22:00 02/10/18 21:18 Lipitor - PO 10 mg HS RIVAS Administration Calcium Carbonate/Cholecalciferol 1 tab 02/09/18 10:00 02/11/18 09:37 Os-Vadim 500+D - PO 1 tab DAILY [facility]AS Administration Chlorhexidine Gluconate 1 applic 02/05/18 22:00 02/10/18 21:18 Hibiclens For Decolonization - TP 1 applic HS RIVAS Administration Finasteride 5 mg 02/09/18 10:00 02/11/18 09:37 Proscar - PO 5 mg DAILY RIVAS Administration Metoprolol Tartrate 5 mg 02/10/18 10:16 02/10/18 21:18 Lopressor Injection - IVPUSH 5 mg Q4H PRN Administration TACHYCARDIA Mupirocin 1 applic 02/09/18 10:00 02/11/18 09:39 Bactroban 2% Cream - TP 1 applic BID RIVAS Administration Saliva Substitute 1 applic 02/07/18 13:00 02/11/18 09:38 Mouthkote Solution - MM 1 applic DAILY RIVAS Administration Fluticasone/Salmeterol 1 puff 02/05/18 22:00 02/11/18 09:39 Advair 100mcg/50mcg - IH 1 puff BID RIVAS Administration ASSESSMENT/PLAN: 87 m hx htn, aaa s/p stent repair 2013, aortic root aneurysm, afib, dchf/le edema, here with HF exacerbation. Problem List - Problems (1) Acute respiratory failure Assessment/Plan: CXR appears unchanged today. * supplemental O2 PRN maintain SpO2>90% * GOC discussion * Patient and family agreeable to [facility]. (2) Cardiorenal syndrome with renal failure Assessment/Plan: * Cardiology input appreciated. * RV normal on rpt echo, mod-severe TR . mild pulm HTN * Will continue to monitor daily weights and strict I/O's * Nephrology on board; Kidney US shows echogenic kidneys consistent with medical renal disease. * baseline Cr. 1.2 ; worsening renal function (3) CHF (congestive heart failure) Assessment/Plan: * will continue to monitor strict I/O's and daily weights. \ * salt restriction. * Cardiology consult appreciated. (4) Afib Assessment/Plan: cont metoprolol 100mg BID * no longer is on digoxin * cont eliquis. had epistaxis here requiring packing, observe for recurrent bleeding (5) HLD (hyperlipidemia) Assessment/Plan: continue statin (6) HTN (hypertension) Assessment/Plan: BP has been low normal this admission * requires BB for rate control. (7) Venous stasis dermatitis of both lower extremities Assessment/Plan: Vascular consulted. * recommend compression stocking for LE edema. * F/U with Dr. Logan as outpatients. Visit type - Emergency Visit Emergency Visit: Yes ED Registration Date: 01/24/18 Care time: The patient presented to the Emergency Department on the above date and was hospitalized for further evaluation of their emergent condition. - New Patient This patient is new to me today: No - Critical Care Critical Care patient: Yes Total Critical Care Time (in minutes): 33 Critical Care Statement: The care of this patient involved high complexity decision making to prevent further life threatening deterioration of the patient 's condition and/or to evaluate & treat vital organ system(s) failure or risk of failure.
[2018-02-11 16:41] VITALS: BMI 16.6
--- NOTE | 2018-02-11 17:01 | PN ---
Teaching Attending Note Name of Resident: Shaun Najera ATTENDING PHYSICIAN STATEMENT I saw and evaluated the patient. I reviewed the resident's note and discussed the case with the resident. I agree with the resident's findings and plan as documented. SUBJECTIVE: Mr Ramirez says he feels fine. Says his breathing is fine. Denies cp and n/v. OBJECTIVE: Gen: thin, nad CV: tachy, irreg irreg Pulm: tachypneic, diffuse coarse ronchi bilaterally Abd: +bs, s/nt/nd Ext: 1+ BLE edema ASSESSMENT AND PLAN: -case d/w pulmonary -discussion goals of care with family -planning for comfort measures and transfer to [place] -continue current management until fully clarified Problem List - Problems (1) Cardiorenal syndrome with renal failure Code(s): I13.10 - HYP HRT & CHR KDNY DIS W/O HRT FAIL, W STG 1-4/UNSP CHR KDNY; N19 - UNSPECIFIED KIDNEY FAILURE (2) Acute renal insufficiency Code(s): N28.9 - DISORDER OF KIDNEY AND URETER, UNSPECIFIED (3) CHF exacerbation Code(s): I50.9 - HEART FAILURE, UNSPECIFIED Qualifiers: Heart failure type: unspecified Qualified Code(s): I50.9 - Heart failure, unspecified (4) Hypocalcemia Code(s): E83.51 - HYPOCALCEMIA (5) Hypokalemia Code(s): E87.6 - HYPOKALEMIA (6) Afib Code(s): I48.91 - UNSPECIFIED ATRIAL FIBRILLATION Qualifiers: Atrial fibrillation type: chronic Qualified Code(s): I48.2 - Chronic atrial fibrillation (7) HLD (hyperlipidemia) Code(s): E78.5 - HYPERLIPIDEMIA, UNSPECIFIED Qualifiers: Hyperlipidemia type: unspecified Qualified Code(s): E78.5 - Hyperlipidemia , unspecified (8) HTN (hypertension) Code(s): I10 - ESSENTIAL (PRIMARY) HYPERTENSION Qualifiers: Hypertension type: essential hypertension Qualified Code(s): I10 - Essential (primary) hypertension (9) Hypomagnesemia Code(s): E83.42 - HYPOMAGNESEMIA
[2018-02-11] MEDS: CHLORHEXIDINE GLUCONATE 4% CLEANSER FOR DECOLONIZATION TP SCH (21:10)
[2018-02-11] MEDS: ATORVASTATIN CA 10 MG TABLET (FP) PO SCH (21:10)
[2018-02-11] MEDS: METOPROLOL TARTRATE 5 MG/5 ML VIAL IVPUSH PRN (22:00)
[2018-02-11] MEDS ORDERED: METOPROLOL TARTRATE 5 MG/5 ML VIAL IVPB PRN (23:09)
[2018-02-11 23:40] VITALS: BP 112/60; PULSE 115; TEMP 97.3
--- NOTE | 2018-02-12 05:55 | HOSP ---
Physical Examination Vital Signs: Vital Signs Temperature 97.3 F L 02/11/18 23:39 Pulse Rate 115 H 02/11/18 23:39 Respiratory Rate 22 H 02/11/18 23:39 Blood Pressure 112/60 02/11/18 23:39 O2 Sat by Pulse Oximetry (%) 95 02/11/18 19:57 Labs: CBC, BMP 02/11/18 05:30 02/11/18 05:30 Hospitalist Encounter Assessment: Called to evaluate pt around 5:30 am. Informed that pt found without respirations on morning vitals. Pt with known DNR/DNI status. Non responsive to questioning or sternal rub Corneal reflexes negative b/l Pupils fixed No breath sounds or heart sounds noted after 2 minutes of auscultation Time of called at 5:35 am. Nursing staff notified family at that time. Visit type - Emergency Visit Emergency Visit: Yes ED Registration Date: 01/24/18 Care time: The patient presented to the Emergency Department on the above date and was hospitalized for further evaluation of their emergent condition. - New Patient This patient is new to me today: Yes Date on this admission: 02/12/18 - Critical Care Critical Care patient: No
[2018-02-12] MEDS ORDERED: ALBUTEROL SO4 0.083% IH SOL 2.5 MG/3 ML VIAL.NEB. NEB SCH (08:00)
[2018-02-12] MEDS ORDERED: FLUTICASONE/SALMETEROL 100 MCG/50 MCG DISKUS IH SCH (10:00)
[2018-02-12] MEDS ORDERED: CALCIUM 500MG/VIT-D 200 UNITS COMBO TABLET (FP) PO SCH (10:00)
[2018-02-12] MEDS ORDERED: FINASTERIDE 5 MG TABLET (FP) PO SCH (10:00)
[2018-02-12] MEDS ORDERED: MUPIROCIN CA 2% TOPICAL CREAM 15 GM TUBE TP SCH (10:00)
[2018-02-12] MEDS ORDERED: LYTES/YERBA SANTA 240 ML BOTTLE MM SCH (10:00)
--- NOTE | 2018-02-12 11:46 | DS ---
Physical Exam: SUBJECTIVE: Patient early this morning prior to my arrival. Seen my overnight covering physician. note in chart. Patient found unresponsive, no pulse, breath sounds or response to stimuli. Absent reflexes. OBJECTIVE: Vital Signs Period Temp Pulse Resp BP Sys/Garsia Pulse Ox Last 24 Hr 97.3 F-98.6 F 82-130 16-26 99-116/45-76 95 PHYSICAL EXAM GENERAL: LUNGS:no breath sounds, no chest expansion or effort. HEART: No heart sounds. ABDOMEN: soft, No BS EXTREMITIES: 2+ pulses, warm, well-perfused, no edema. NEUROLOGICAL: no pupillary reflex, no response to painful stimuli. LABS HOSPITAL COURSE: Mr Ramirez was a very pleasant 87 year old male who came in with weakness and shortness of breath from his PCP Dr. Peralta for further evaluation.Patient was found with significant third spacing and ABIGAIL. Nephrology and Cardiology consulted. Oral hydration was encouraged given his volume status. Echo was done and showed nl LV function EF 50-55%, RV nl size/function, LA severely dilated, RA moderately dilated, mild to mod AI, mild to mod MR, mod to severe TR , RVSP 40-50 mmHg, mild ao root dilation, small pericardial effusion <1 cm. Hypocalcemia and hypokalemia were repleted. PTH was ordered and WNL. Afib was initially managed with amiodarone drip and later managed with metoprolol. Eliquis AC was continued. Overload was then managed with careful diuresis. Strict I/O and daily weights assessed. BP was consistently low but stable. He had UTI managed with Rocephin. Diarrhea was present for few days most likely adverse rxn to meds. stool studies negative for infectious cause. He was diuresing but kidney function failed to improve. Appox. 2 weeks into hospitalization patient went into acute hypoxic respiratory failure and required increase supplemental oxygen requirements and transferred to ICU. He required pressor support for hypotension and Non invasive ventilatory support. Echo was repeated and showed nl lv/rv, richi, mod tr, mild mr, mod phtn. While in ICU GOC was discussed with patient and family and decision was made to make him DNR/DNI. Clinical condition failed to improve and patient and family made decision to go to [place] for hospice. In process of getting patient accepted to [place] he went into acute hypoxic respiratory failure and he . Date of Admission:01/24/18 Date of Discharge: 02/12/18 Minutes to complete discharge: 63 Discharge Summary Reason For Visit: CARDIORENAL SYNDROME,HYPOKALEMIA Condition: Worsened - Instructions Referrals: Dat Peralta MD [Primary Care Provider] - Disposition: - Home Medications Comprehensive Discharge Medication List: Ambulatory Orders Folic Acid/Multivit-Min/Lutein [Centrum Silver Chewable Tablet] 1 each PO DAILY 07/16/14 Apixaban [Eliquis -] 2.5 mg PO BID #60 tablet 05/09/17 Atorvastatin Ca [Lipitor] 10 mg PO HS #30 tablet 05/09/17 Digoxin [Lanoxin -] 0.125 mg PO DAILY #30 tablet 05/09/17 Ferrous Sulfate [Feosol] 325 mg PO BIDWM #60 ud 05/09/17 Furosemide [Lasix -] 40 mg PO DAILY #30 tablet 05/09/17 Metoprolol Tartrate [Lopressor -] 100 mg PO BID #60 tablet 05/09/17 Spironolactone [Aldactone -] 25 mg PO DAILY #30 tablet 05/09/17 Valsartan [Diovan] 80 mg PO DAILY #30 tablet 05/09/17 Problem List - Problems (1) Acute respiratory failure (2) Cardiorenal syndrome with renal failure (3) CHF (congestive heart failure) (4) Afib (5) HLD (hyperlipidemia) (6) HTN (hypertension) (7) Venous stasis dermatitis of both lower extremities This patient is new to me today: No Emergency Visit: Yes ED Registration Date: 01/24/18 Care time: The patient presented to the Emergency Department on the above date and was hospitalized for further evaluation of their emergent condition. Critical Care patient: No - Discharge Referral Referred to [facility] No
[2018-02-12] MEDS ORDERED: CHLORHEXIDINE GLUCONATE 4% CLEANSER FOR DECOLONIZATION TP SCH (22:00)
[2018-02-12] MEDS ORDERED: ATORVASTATIN CA 10 MG TABLET (FP) PO SCH (22:00)
--- NOTE | 2018-02-22 10:54 | PN ---
Teaching Attending Note Name of Resident: Shaun Najera ATTENDING PHYSICIAN STATEMENT I saw and evaluated the patient. I reviewed the resident's note and discussed the case with the resident. I agree with the resident's findings and plan as documented. Mr Ramirez was an 87 year old man who presented with R sided heart failure and cardiorenal syndrome. After treatment he did not improve and it was decided to place him on comfort measures. He on 02/12/18 Problem List - Problems (1) Cardiorenal syndrome with renal failure Code(s): I13.10 - HYP HRT & CHR KDNY DIS W/O HRT FAIL, W STG 1-4/UNSP CHR KDNY; N19 - UNSPECIFIED KIDNEY FAILURE (2) Acute renal insufficiency Code(s): N28.9 - DISORDER OF KIDNEY AND URETER, UNSPECIFIED (3) CHF exacerbation Code(s): I50.9 - HEART FAILURE, UNSPECIFIED Qualifiers: Heart failure type: unspecified Qualified Code(s): I50.9 - Heart failure, unspecified (4) Hypocalcemia Code(s): E83.51 - HYPOCALCEMIA (5) Hypokalemia Code(s): E87.6 - HYPOKALEMIA (6) Afib Code(s): I48.91 - UNSPECIFIED ATRIAL FIBRILLATION Qualifiers: Atrial fibrillation type: chronic Qualified Code(s): I48.2 - Chronic atrial fibrillation (7) HLD (hyperlipidemia) Code(s): E78.5 - HYPERLIPIDEMIA, UNSPECIFIED Qualifiers: Hyperlipidemia type: unspecified Qualified Code(s): E78.5 - Hyperlipidemia , unspecified (8) HTN (hypertension) Code(s): I10 - ESSENTIAL (PRIMARY) HYPERTENSION Qualifiers: Hypertension type: essential hypertension Qualified Code(s): I10 - Essential (primary) hypertension (9) Hypomagnesemia Code(s): E83.42 - HYPOMAGNESEMIA
== END 2018-02-12 09:55 | disposition expired | DRG 291 ==
LOC: JER 11:49 → JERBED 15:16 → J4S 22:38 → JICU 02-05 17:29 → J8W 02-11 22:57
PROVIDERS: ADMIT Internal Medicine; ATTEND Internal Medicine
PROC: 5A09357 Assistance with Respiratory Ventilation, Less than 24 Consecutive Hours, Continuous Positive Airway Pressure (ICD-10-PCS; principal; 2018-02-04)
DX: I13.0 Hypertensive heart and chronic kidney disease with heart failure and stage 1 through stage 4 chronic kidney disease, or unspecified chronic kidney disease (principal); J96.01 Acute respiratory failure with hypoxia; G93.41 Metabolic encephalopathy; I50.33 Acute on chronic diastolic (congestive) heart failure; R64 Cachexia; N39.0 Urinary tract infection, site not specified; E46 Unspecified protein-calorie malnutrition; Z68.1 Body mass index [BMI] 19.9 or less, adult; N17.9 Acute kidney failure, unspecified; I48.91 Unspecified atrial fibrillation; E87.6 Hypokalemia; E83.51 Hypocalcemia; E78.5 Hyperlipidemia, unspecified; D56.9 Thalassemia, unspecified; E83.42 Hypomagnesemia; I87.2 Venous insufficiency (chronic) (peripheral); B35.1 Tinea unguium; R19.7 Diarrhea, unspecified; N18.9 Chronic kidney disease, unspecified; Z79.01 Long term (current) use of anticoagulants; I27.20 Pulmonary hypertension, unspecified; J43.9 Emphysema, unspecified; N40.0 Benign prostatic hyperplasia without lower urinary tract symptoms; Z66 Do not resuscitate; D64.9 Anemia, unspecified; D69.6 Thrombocytopenia, unspecified; I34.0 Nonrheumatic mitral (valve) insufficiency; I95.9 Hypotension, unspecified
CPT/HCPCS: 36415; 36430; 36600; 71045-TC-FY; 71250-TC; 76775-TC; 76856-TC; 76873-TC; 80048; 80053; 80162; 81003; 81015; 82272; 82310; 82803; 83605; 83735; 83970; 84100; 84484; 85025; 85027; 85610; 85730; 86850; 86900; 86901; 86922; 87040; 87045; 87046; 87086; 87177; 87186; 87205; 87209; 87324; 87449; 93005; 93010; 93306-TC; 93970-TC; 94640; 94660; 97116-GP; 97161-GP; 99282-25; J7030; P9038; P9058